=== PATIENT | female | born 1950 | race Caucasian/White ===

== ENCOUNTER → 2020-03-15 10:29 | Outpatient (CLI) | payer MEDICARE, SELFPAY ==
--- NOTE | ~2020-03-15 | XR_ITS ---
EXAMINATION: XR abdomen/kub 1V DATE: 03/15/2020 10:50 INDICATION: Kidney stone. TECHNIQUE: A supine view of the abdomen on 2 radiographs was obtained. COMPARISON: CT abdomen and pelvis 04/29/2019, abdomen radiographs 07/20/2019 FINDINGS: There is a large volume of stool in the colon, which obscures the kidneys. There is a 7 mm stone in right kidney. There is a 15 mm stone in left kidney. There is a 3 mm stone in left kidney. IMPRESSION: 1. Bilateral kidney stones. Reviewed, dictated and finalized at location B. IMPRESSION: 1. Bilateral kidney stones.
== END ==
PROVIDERS: PCP Physician Assistant; Visit Provider Urology
DX: N20.0 Calculus of kidney (principal)
CPT/HCPCS: 74018

== ENCOUNTER 2020-03-25 08:53 | Outpatient (CLI) | payer MEDICARE, SELFPAY ==
--- NOTE | 2020-03-25 08:56 | ECG_ITS ---
Measurements Intervals [place] Rate: 61 P: UT: 0 QRS: -16 QRSD: 72 T: 48 QT: 400 QTc: 405 Interpretive Statements SINUS RHYTHM LOW QRS VOLTAGE IN PRECORDIAL LEADS RSR' IN V1 OR V2, PROBABLY NORMAL VARIANT BASELINE ARTIFACT- I, II, III, AVR, AVL, AVF, V3-V5 BORDERLINE ECG Electronically Signed On 03-25-2020 9:14:17 CDT by Ramesh Monreal D.O.
[2020-03-25 09:33] LABS: Prothrombin Time 12.7 Seconds (11.1-14.7)
[2020-03-25 10:01] LABS: Valproic Acid 92.6 ug/mL (50-120)
== END 2020-03-25 08:54 | disposition home or self-care (01) ==
LOC: ANHSURGERY 08:56
PROVIDERS: Anesthesiology; PCP Physician Assistant; Visit Provider Urology
DX: F17.200 Nicotine dependence, unspecified, uncomplicated (principal); N20.0 Calculus of kidney; Z01.818 Encounter for other preprocedural examination; F32.9 Major depressive disorder, single episode, unspecified
CPT/HCPCS: 36415; 80164; 85610; 85730; 87086; 87088; 93005

== ENCOUNTER 2020-03-30 01:59 | Outpatient (CLI) | payer MEDICARE, SELFPAY ==
[2020-03-30 19:20] LABS: SARS-CoV-2 RNA PCR Negative
== END 2020-03-30 02:00 | disposition home or self-care (01) ==
LOC: ANHCOVIDDT 01:59
PROVIDERS: PCP Physician Assistant; Visit Provider Urology
DX: Z01.812 Encounter for preprocedural laboratory examination (principal); Z20.828 Contact with and (suspected) exposure to other viral communicable diseases
CPT/HCPCS: 87635; C9803; U0003

== ENCOUNTER 2020-04-01 02:14 | Day surgery (SDC) | payer MEDICARE, SELFPAY ==
[2020-03-23 11:50] VITALS: BMI 23.0
[2020-04-01] VITALS (8 sets, daily range): BP systolic 95–158; BP diastolic 63–87; PULSE 51–70; RESP 10–18; TEMP 36.2; O2SAT 97–99
--- NOTE | ~2020-04-01 | XR_ITS ---
EXAMINATION: XR abdomen/kub 1V DATE: 04/01/2020 06:19 INDICATION: Left renal stone TECHNIQUE: A supine view of the abdomen on 2 radiographs was obtained. COMPARISON: 03/15/2020 FINDINGS: No interval change in the 8 mm stone at the mid right kidney and 15 mm and 3 mm stones at the mid lef t kidney. Large amount of gas and stool scattered throughout the colon. Atherosclerotic calcification s along the thoracic and abdominal aorta. Lung bases are clear. Mild lumbar levoscoliosis with severe spondylosis. IMPRESSION: 1. Unchanged bilateral renal stones. Reviewed, dictated and finalized at location A.
--- NOTE | 2020-04-01 06:34 | WPDANESEPPF ---
Anes - Initial Pre Proc Eval Procedure: Operation Date: 04/01/20 07:30 Proposed Procedures p Left Renal Extracorporeal Shock Wave Lithotripsy - Fredo Hankins MD s Cystoscopy, Left Stent Placement - Fredo Hankins MD Date/Time: 04/01/20 06:34 Surgeon: Fredo Hankins MD Pre Op Diagnosis: Left Renal Stone Patient Data Age: 70 Gender: F Height: 5 ft 10 in Weight: 72.7 kg Allergies Allergy/AdvReac Type Severity Reaction Status Date / Time Penicillins Allergy Severe RASH Verified 03/31/20 08:19 clindamycin Allergy Intermediate Rash Verified 03/31/20 08:19 Sulfa (Sulfonamide Allergy Mild Rash Verified 03/31/20 08:19 Antibiotics) sulfacetamide Allergy Mild Rash Verified 03/31/20 08:19 tetracycline Allergy Unknown RASH Verified 03/31/20 08:19 Tetracyclines Allergy Unknown Unknown Verified 03/31/20 08:19 shellfish derived AdvReac Itching Verified 03/31/20 08:19 Home Medications Medication Instructions Recorded Confirmed Type [place] Women's 1 tablet PO DAILY 06/16/19 03/23/20 History buspirone 15 mg PO TID 06/16/19 03/23/20 History divalproex [Depakote] 500 mg PO Q12H 06/16/19 03/23/20 History cyanocobalamin (vitamin B-12) 1,000 mcg PO DAILY 03/23/20 03/23/20 History [Vitamin B-12] divalproex 250 mg PO BID 03/23/20 03/23/20 History Patient hx anesthesia problems: none Family hx anesthesia problems: none PMFSH Past Medical History Medical History Anxiety Depression Depression Smoker Surgical History Surgical History H/O colonoscopy H/O hysterectomy for benign disease H/O: hysterectomy Family History Family History Mother Kidney disease Dementia Hypertension Father Brain cancer Sibling Kidney stones Liver disease Sibling Obesity Schizophrenia Mother Family history of Alzheimer's disease Social History Social History Smoking packs per day: 1 Smoking cigarettes per day: 20.0 Years smoked: 50 Smoking pack-years: 50.00 Smoking status: Current every day smoker Tobacco type: cigarettes Additional smoking assessment comments: Cutting back on smoking and currently at a 1/2 pack a day. Alcohol intake: former Substance use: never Living arrangements: alone Gender identity (if verbalized by the patient): Female Spiritual care concerns: No Agree to blood products: Yes Anes - Eval Final PreProcedure Day of Procedure 04/01/20 06:34 Patient weight: normal Heart: regular rate and rhythm Lungs: clear to auscultation Airway: Mallampati scale class II Neurological: alert and oriented Last oral intake: >/= 8 hours ASA classification: III Emergent: no Anesthetic plan: proceed Anesthesia type and monitoring: general LMA and standard monitoring Informed Consent: The patient's anesthetic plan and its attendant risks and benefits were discussed with the patient/family/POA. Questions were solicited and answers provided to the satisfaction of the patient/family/POA.
--- NOTE | 2020-04-01 07:05 | WPDHPUPDATE1 ---
History and Physical Update Update Date/Time: 04/01/20 07:05 History and Physical has been reviewed, including an updated exam of the patient. There are NO changes in the patient's condition. Risks, benefits, and alternatives have been discussed and questions answered. Patient agrees to proceed with procedure.
[2020-04-01] MEDS: LACTATED RINGERS 1,000 ML 30 ML IV CONT (07:15)
[2020-04-01] MEDS: levoFLOXacin 500 MG/D5W 100 ML 500 MG/100 ML BAG 100 MG IVPB (07:18)
--- NOTE | 2020-04-01 08:10 | PM.PROC ---
Procedure Note - Detailed Date of procedure: 04/01/20 Pre-op diagnosis: Left Renal Stone Post-op diagnosis: same Procedure performed: 1. Cysto., left stent placement 2. Left ESWL Description of procedure: The patient was brought to the operative suite where she was prepped and draped in a routine sterile fashion while in the dorsal lithotomy position. A 19 F rigid cystoscope was placed in her bladder and the bladder was circumferentially inspected. The bladder neck and urethra were endoscopically normal. The bladder mucosa was without hyperemia. There was no intravesical foreign body or neoplasm. There was a single orthotopic ureteral orifice bilaterally. I advanced .035 glidewire into the left renal pelvis under fluoroscopy. A 4.8F variable length ureteral stent was positioned with the proximal coil in the renal pelvis and the distal coil in the bladder. Scopes and wires were removed after emptying the patient's bladder. While in a supine position lithotripsy was then undertaken with the [employer] Lithotripter. Total of 2500 shocks were delivered at a power setting of 4 to her 15 mm left lower pole stone. The stone looked to fragment very nicely. Anesthesia: GLMA Surgeon: Fredo Hankins MD Estimated blood loss (mL): 0 Drains: Yes (4.8F left ureteral stent) Packing: No Pathology: none sent Complications: No immediate complications Condition: stable Disposition: PACU
== END 2020-04-01 10:00 | disposition home or self-care (01) ==
PROVIDERS: PCP Physician Assistant; Visit Provider Urology
PROC: (CPT 50590; principal; 2020-04-01 07:30)
PROC: (CPT 52352; 2020-04-01 07:30)
DX: N20.0 Calculus of kidney (principal); F32.9 Major depressive disorder, single episode, unspecified; F17.200 Nicotine dependence, unspecified, uncomplicated; F41.9 Anxiety disorder, unspecified; Z79.899 Other long term (current) drug therapy
CPT/HCPCS: 52332; 50590; 74018; A9270; C1769; C2617; J1100; J1956; J2250; J2405; J2704; J3010; J7030; J7120

== ENCOUNTER → 2020-04-11 09:17 | Outpatient (CLI) | payer MEDICARE, SELFPAY ==
--- NOTE | ~2020-04-11 | XR_ITS ---
EXAMINATION: XR abdomen/kub 1V EXAM DATE: 04/11/2020 09:43 INDICATION: Renal stone. TECHNIQUE: Frontal projection of the upper abdomen, frontal projection lower abdomen/pelvis for inter pretation. Comparison is made to prior examination from 04/01/2020. FINDINGS: There is large amount of colonic stool and gas obscuring the renal contours. There is a le ft-sided double-J ureteral stent in expected position. Couple of densities which could be left nephro lithiasis identified, much lower in density than the single previously seen calcification, could be c alyceal stone fragments following lithotripsy. The smaller dense right nephrolithiasis identified. IMPRESSION: 1. Right nephrolithiasis. 2. Probable left calyceal stone fragments following lithotripsy. 3. Stent in position. 4. Constipation. Reviewed, dictated and finalized at location B.
== END ==
PROVIDERS: PCP Physician Assistant; Visit Provider Urology
DX: N20.0 Calculus of kidney (principal); Z98.890 Other specified postprocedural states; Z96.0 Presence of urogenital implants; K59.00 Constipation, unspecified
CPT/HCPCS: 74018

== ENCOUNTER → 2020-04-22 10:12 | Outpatient (CLI) | payer MEDICARE, SELFPAY ==
--- NOTE | ~2020-04-22 | XR_ITS ---
EXAMINATION: XR abdomen/kub 1V DATE: 04/22/2020 10:39 INDICATION: Renal stone. TECHNIQUE: A supine view of the abdomen on 2 radiographs was obtained. COMPARISON: CT abdomen and pelvis 04/29/2019, radiograph 04/11/2020 FINDINGS: There are no dilated loops of bowel. There is a large volume of stool in the colon. The kid neys are obscured by bowel. There are stones in the kidneys measuring up to 6 mm on the right and 12 mm on the left. IMPRESSION: 1. Bilateral kidney stones. Reviewed, dictated and finalized at location A. IMPRESSION: 1. Bilateral kidney stones.
== END ==
PROVIDERS: PCP Physician Assistant; Visit Provider Urology
DX: N20.0 Calculus of kidney (principal)
CPT/HCPCS: 74018

== ENCOUNTER → 2020-07-11 11:43 | Outpatient (CLI) | payer MEDICARE, SELFPAY ==
--- NOTE | ~2020-07-11 | XR_ITS ---
EXAMINATION: XR abdomen/kub 1V INDICATION: Renal stone TECHNIQUE: Supine views of the abdomen were obtained on 2 radiographs. COMPARISON: 04/22/2020, 04/11/2020, 04/01/2020 FINDINGS: Stable stones of the kidneys are seen which measure up to 5 mm on the right hand 15 mm on t he left. No stones are identified along the expected courses of the ureters or within the urinary louise dder. There are no dilated loops of bowel. A moderate volume of colonic stool is present. The visual ized lung bases are clear. There is severe lumbar spondylosis. Moderate hip osteoarthritis is noted. IMPRESSION: 1. Stable bilateral nephrolithiasis. Reviewed, dictated and finalized at location A. 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
== END ==
PROVIDERS: Visit Provider Urology
DX: N20.0 Calculus of kidney (principal)
CPT/HCPCS: 74018

== ENCOUNTER 2020-07-23 08:19 | Emergency (ER) | payer MEDICARE, SELFPAY ==
[2020-07-23] VITALS (26 sets, daily range): BP systolic 104–149; BP diastolic 58–87; PULSE 59–72; RESP 12–28; TEMP 36.8; O2SAT 92–96
--- NOTE | ~2020-07-23 | CT_ITS ---
EXAMINATION: CT abd pelvis lumbar wo con DATE: 07/23/2020 09:16 INDICATION: Fall with left hip pain. TECHNIQUE: Computed tomography (CT) of the abdomen or pelvis and lumbar spine was performed without i ntravenous contrast. Automated exposure control and iterative reconstruction technique were employed. The dose-length product was 566.18 mGy-cm. COMPARISON: 04/29/2019 FINDINGS: Abdomen and pelvis: Minimal bibasilar atelectasis. Visualized portion of the inferior heart is normal. No pericardial or pleural effusion. Small sliding-type hiatal hernia. Again seen are a few scattered small hepatic cyst s. Gallbladder, spleen, pancreas and bilateral adrenal glands are normal. Bilateral nephrolithiasis w ith 7 mm stone in the right kidney and several stones in the left kidney including a larger staghorn calculus in the lower pole calyces measuring up to 1.5 cm. No ureteral stones or hydronephrosis. Ther e are several stones in the dependent aspect of the nearly decompressed bladder. Redundant gas-filled colon with small amount of fluid at the rectum consistent with diarrhea. The appendix is not visuali zed. No pericecal inflammatory change to suggest acute appendicitis. Small bowel is unremarkable. The uterus is not identified and has likely been surgically resected. No free intraperitoneal gas or flu id. Small fat-containing left inguinal hernia. No pathologically enlarged abdominal or pelvic lymphad enopathy. There is calcified atherosclerosis of the ectatic abdominal aorta and many of the other art eries. Mild bilateral hip osteoarthritis. No pelvic fractures. Lumbar spine: Mild lumbar levoscoliosis with severe spondylosis including severe disc height loss with Modic type I II sclerotic endplate change at L4-L5. 2-3 mm retrolisthesis L3 on L4 and L4 on L5. Acute L1 compress ion fracture with 20% central vertebral body height loss and subtle linear lucent fracture line seen across the superior endplate. The vertebral body height loss is new since radiographs dated 0. Remaining vertebral body heights are normal. There is moderate to severe central canal stenosis re sulting from disc bulges and facet osteoarthritis with ligamentum flavum hypertrophy at L2-L3 through L4-L5. IMPRESSION: 1. Acute L1 compression fracture with 20% vertebral body height loss, new since 07/11/2020. 2. No acute intra-abdominal/pelvic process. 3. Bilateral nonobstructing nephrolithiasis with additional bladder stones. 4. Fluid at the rectum consistent with diarrhea. 5. Small sliding-type hiatal hernia. 6. Small fat-containing left inguinal hernia. Reviewed, dictated and finalized at location A. 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
--- NOTE | ~2020-07-23 | CT_ITS ---
EXAMINATION: CT brain wo con DATE: 07/23/2020 09:16 INDICATION: Vertigo. Fall. TECHNIQUE: Computed tomography (CT) of the head was performed without intravenous contrast. Sagittal and coronal reconstructions were performed. The mA was adjusted according to patient size. Iterative reconstruction technique was employed. The dose-length product was 681.00 mGy-cm. COMPARISON: head CT dated 05/17/2019 FINDINGS: No fracture. There is mild scattered white matter hypoattenuation consistent with chronic small vesse l ischemic disease. No acute intracranial hemorrhage, acute infarction or abnormal extra axial fluid collection. Symmetric prominence of the sulci consistent with mild age-appropriate diffuse cerebral volume loss. Ventricles are normal and symmetric. No mass/mass effect. The orbits, paranasal sinuses and mastoid air cells are normal. Intracranial calcified cerebral atherosclerosis is noted. IMPRESSION: 1. No fracture or acute intracranial process. 2. Age-related changes including mild diffuse volume loss and mild scattered white matter hypoattenua tion consistent with chronic small vessel ischemic disease. Reviewed, dictated and finalized at location A. FRAME SYSTEMS ADMINISTRATOR IMPRESSION: 1. No fracture or acute intracranial process. 2. Age-related changes including mild diffuse volume loss and mild scattered wh ite matter hypoattenuation consistent with chronic small vessel ischemic diseas e.
--- NOTE | 2020-07-23 08:17 | ED.DIZZY ---
HPI - Dizziness General Chief Complaint: Dizziness Stated Complaint: vertigo History of Present Illness HPI Narrative: 70 yo female with h/o vertigo, depression, kidney stone presents t ot ED after a fall. She was walking in her home yesterday when she suddenly became very dizzy and fell. She beleieves that she may have lost consciousness, although she does not think that she struck her head. The dizziness felt similar to pat vertigo. She als c/o severe pain in the buttocks bilaterally. No leg weakness. Related Data Home Medications Medication Instructions Recorded Confirmed [place] Women's 1 tablet PO DAILY 06/16/19 04/01/20 buspirone 15 mg PO TID 06/16/19 04/01/20 divalproex [Depakote] 500 mg PO Q12H 06/16/19 04/01/20 cyanocobalamin (vitamin B-12) 1,000 mcg PO DAILY 03/23/20 04/01/20 [Vitamin B-12] divalproex 250 mg PO BID 03/23/20 04/01/20 Allergies Allergy/AdvReac Type Severity Reaction Status Date / Time Penicillins Allergy Severe RASH Verified 07/23/20 08:25 clindamycin Allergy Intermediate Rash Verified 07/23/20 08:25 Sulfa (Sulfonamide Allergy Mild Rash Verified 07/23/20 08:25 Antibiotics) sulfacetamide Allergy Mild Rash Verified 07/23/20 08:25 tetracycline Allergy Unknown RASH Verified 07/23/20 08:25 Tetracyclines Allergy Unknown Unknown Verified 07/23/20 08:25 shellfish derived AdvReac Itching Verified 07/23/20 08:25 Review of Systems Review of Systems: All systems reviewed & are unremarkable except as noted in HPI and below Constitutional: Constitutional: Denies chills, Denies fever(s) and Denies weakness Cardiovascular: Cardiovascular: Denies chest pain Respiratory: Respiratory: Denies dyspnea Gastrointestinal: Gastrointestinal: Denies abdominal pain and Reports nausea Genitourinary: Genitourinary: Denies hematuria, Reports nocturia and Denies dysuria Musculoskeletal: Musculoskeletal: Reports back pain Neurologic: Reports vertigo, Denies headache(s), Denies numbness and Denies weakness PMF Past Medical History Medical History Anxiety Depression Depression Smoker Surgical History Surgical History H/O colonoscopy H/O hysterectomy for benign disease H/O: hysterectomy Family History Family History Mother Kidney disease Dementia Hypertension Father Brain cancer Sibling Kidney stones Liver disease Sibling Obesity Schizophrenia Mother Family history of Alzheimer's disease Social History Social History Smoking packs per day: 1 Smoking cigarettes per day: 20.0 Years smoked: 50 Smoking pack-years: 50.00 Smoking status: Current every day smoker Tobacco type: cigarettes Additional smoking assessment comments: Cutting back on smoking and currently at a 1/2 pack a day. Alcohol intake: former Substance use: never Gender identity (if verbalized by the patient): Female Sexual Orientation (if Verbalized by the Patient): Straight or Heterosexual Spiritual care concerns: No Agree to blood products: Yes Exam Const: General: no acute distress, alert and uncomfortable Orientation/consciousness: patient oriented x3 HENMT: Head: no contusions and no lacerations Mouth: Yes dry mucous membranes Eyes: Pupils: Equal, round and reactive pupils present EOM: EOMs intact bilaterally Resp: Effort & Inspection: normal respiratory effort Auscultation: clear to auscultation bilaterally Cardio: Rate: regular rate Rhythm: regular rhythm Back/Spine/Pelvis: Other: Low back tenderness Skin: General skin exam: normal color Neuro: General: patient oriented x3, moves all extremities and CN's II-XI intact bilaterally Speech: normal speech Extrem: General: normal to inspection Course Vital Signs Vital signs: Vital Signs Temperature 36.8 C 07/23/20 08:14 Pulse Rate
--- NOTE | 2020-07-23 08:27 | ECG_ITS ---
Measurements Intervals [place] Rate: 67 P: 70 NV: 141 QRS: 22 QRSD: 78 T: 75 QT: 400 QTc: 423 Interpretive Statements SINUS RHYTHM RSR' IN V1 OR V2, CONSIDER RIGHT VENTRICULAR HYPERTROPHY OR RIGHT VCD DELAYED PRECORDIAL R/S TRANSITION BASELINE ARTIFACT- I, II, III, AVR, AVL, AVF, V1-V6 BORDERLINE ECG Electronically Signed On 07-23-2020 9:11:54 PUBLIC ADDRESS TECHNICIAN by Ramesh Monreal D.O.
[2020-07-23 08:55] LABS: Basophils Percent Auto 0.2 % (0.2-1.2); Eosinophils Absolute Auto 0.1 K/mm3 (0-0.3); Eosinophils Percent Auto 0.7 % (0-4.4); Hemoglobin 15.6 g/dL (12.0-15.0); Immature Granulocyte Absolute 0.04 K/mm3 (0.00-0.031); Immature Granulocyte Percent A 0.5 % (0-0.5); Lymphocytes Absolute Auto 1.88 K/mm3 (0.9-3.2); Lymphocytes Percent Auto 23.4 % (18.3-44.2); Mean Corpuscular HGB Conc 34.7 g/dl (32-36); Mean Corpuscular Hemoglobin 32.2 pg (26-34); Mean Platelet Volume 10.1 fl (7.4-10.4); Monocytes Absolute Auto 0.7 K/mm3 (0.1-0.6); Monocytes Percent Auto 8.7 % (2.6-8.5); Neutrophils Absolute Auto 5.3 K/mm3 (1.3-6.7); Neutrophils Percent Auto 66.5 % (45.5-73.1); Platelet Count Result 198 k/mm3 (150-375); Red Blood Count 4.84 M/mm3 (4.2-5.4); Red Cell Distribution Width 12.6 % (11.5-14.5)
--- NOTE | 2020-07-23 09:01 | PC.NURSE ---
Pt taken to CT at this time
[2020-07-23 09:03] LABS: Add Urine Microscopic? YES; Appearance Urine Clear (Clear); Bilirubin Urine Negative (Negative); Blood Urine Negative (Negative); Calcium Oxalate Crystals Urine Present /hpf; Color Urine Yellow (Yellow); Glucose Urine UA Negative (Negative); Ketones Urine Trace mg/dL (Negative); Leukocyte Esterase Ur Negative LEU/UL (Negative); Mucus Urine Heavy /lpf; Nitrate Urine Negative (Negative); Protein Urine 1+ mg/dL (Negative); Specific Grav Ur 1.015 (1.001-1.035); Squamous Epithelial Cell Urine Rare /hpf (Few); Urobilinogen Urine Negative mg/dL (<2.0)
[2020-07-23 09:07] LABS: Prothrombin Time 13.4 Seconds (11.1-14.7)
[2020-07-23 09:08] LABS: Partial Thromboplastin Time 31.4 SECONDS (22.3-36.8)
[2020-07-23 09:12] LABS: Alanine Aminotransferase 14 U/L (4-35); Alkaline Phosphatase 106 U/L (38-126); Anion Gap 8 mmol/L (8-16); Aspartate Amino Transferase 25 U/L (14-36); Bilirubin,Total 0.9 mg/dL (0.2-1.3); Blood Urea Nitrogen 15 mg/dL (7-17); Calcium 9.2 mg/dL (8.4-10.2); Carbon Dioxide 24 mmol/L (22-30); Chloride 108 mmol/L (98-107); Estimated CRCL calculation 70 ml/min; Estimated Glomerular Filt Rate > 60; Glucose 104 mg/dL (65-105); Potassium 3.5 mmol/L (3.4-5.0); Sodium 140 mmol/L (137-145)
[2020-07-23] MEDS: SODIUM CHLORIDE 0.9% IV 1,000 ML 999 ML IV CONT (09:22)
[2020-07-23] MEDS: MORPHINE SULFATE (*CRX) 2 MG/ML INJ IV PUSH (09:22)
[2020-07-23] MEDS: MECLIZINE HCL 25 MG TABLET PO (09:22)
[2020-07-23] MEDS: MORPHINE SULFATE (*CRX) 4 MG/ML INJ IV PUSH ×2 (12:20→15:22)
--- NOTE | 2020-07-23 15:02 | PC.NURSE ---
[facility] accepted transfer to [facility] ER ETA: [id number]
[2020-07-23] MEDS: FAMOTIDINE 20 MG/2 ML VIAL IV PUSH (16:12)
== END 2020-07-23 16:18 | disposition short-term general hospital (02) ==
PROVIDERS: Emergency Provider Emergency Medicine; PCP Physician Assistant
DX: S32.010A Wedge compression fracture of first lumbar vertebra, initial encounter for closed fracture (principal); F32.9 Major depressive disorder, single episode, unspecified; F41.9 Anxiety disorder, unspecified; F17.210 Nicotine dependence, cigarettes, uncomplicated; Z87.442 Personal history of urinary calculi; N20.0 Calculus of kidney; K44.9 Diaphragmatic hernia without obstruction or gangrene; K40.90 Unilateral inguinal hernia, without obstruction or gangrene, not specified as recurrent; W18.39XA Other fall on same level, initial encounter
CPT/HCPCS: 36415; 51701; 70450; 72131; 74176; 80053; 81001; 84443; 85025; 85610; 85730; 93005; 96361; 96374; 96375; 96376; 99285; A9270; J2270; J7030

== ENCOUNTER 2021-12-23 17:57 | Inpatient (IN) | payer MEDICARE, MEDICAID, SELFPAY ==
[2021-12-23] VITALS (13 sets, daily range): BP systolic 135–154; BP diastolic 73–104; PULSE 54–74; RESP 17–23; TEMP 36.2–36.3; O2SAT 96–99; BMI 26.9
--- NOTE | ~2021-12-23 | CT_ITS ---
EXAMINATION: CT brain wo con DATE: 12/23/2021 18:11 INDICATION: STROKE LIKE SYMPTOMS. SUSPECTED CVA. . TECHNIQUE: Computed tomography (CT) of the head was performed without intravenous contrast. The mA wa s adjusted according to patient size. Iterative reconstruction technique was employed. The dose-lengt h product was 681.00 mGy-cm. COMPARISON: 07/23/2020. FINDINGS: No acute intracranial hemorrhage or extra-axial fluid collection. No hydrocephalus, mass, or herniation. No acute ischemic infarct. Unremarkable dural venous sinus attenuation. No acute osseous abnormality. The aerated spaces are clear. Mild atrophy and chronic white matter change. Atherosclerotic intracranial calcifications. IMPRESSION: No acute intracranial process. Reviewed, dictated and finalized at location K.
--- NOTE | ~2021-12-23 | XR_ITS ---
EXAMINATION: XR chest 1V portable Exam Date/Time: 12/23/2021 18:20 CDT HISTORY: cva Comparison: 03/04/2019. RESULT: Lines, tubes, and devices: None. Lungs and pleura: Senescent and likely emphysematous changes. Cardiomediastinal silhouette: Stable cardiomediastinal silhouette. Other: No acute osseous or upper abdominal finding. IMPRESSION: No acute cardiopulmonary process. Reviewed, dictated and finalized at location K.
--- NOTE | 2021-12-23 18:00 | ECG_ITS ---
Measurements Intervals [place] Rate: 65 P: 67 OR: 155 QRS: 2 QRSD: 77 T: 51 QT: 401 QTc: 417 Interpretive Statements REGULAR SUPRAVENTRICULAR RHYTHM, PROBABLY SINUS RHYTHM BASELINE ARTIFACT NO SIGNIFICANT CHANGE COMPARED TO PRIOR TRACING Electronically Signed On 12-24-2021 8:54:08 CDT by Kalpana Valles M.D.
--- NOTE | 2021-12-23 18:02 | PC.NURSE ---
Daughter states LKW was [id number]
[2021-12-23 18:09] LABS: Glucose Point of Care 120 mg/dl (65-105)
[2021-12-23 18:29] LABS: Basophils Percent Auto 0.4 % (0.2-1.2); Eosinophils Absolute Auto 0.2 K/mm3 (0-0.3); Eosinophils Percent Auto 1.5 % (0-4.4); Hematocrit 43.8 % (37.0-47.0); Hemoglobin 14.3 g/dL (12.0-15.0); Immature Granulocyte Absolute 0.04 K/mm3 (0.00-0.031); Immature Granulocyte Percent A 0.4 % (0-0.5); Lymphocytes Absolute Auto 3.55 K/mm3 (0.9-3.2); Lymphocytes Percent Auto 36.2 % (18.3-44.2); Mean Corpuscular HGB Conc 32.6 g/dl (32-36); Mean Corpuscular Hemoglobin 30.8 pg (26-34); Mean Corpuscular Volume 94.4 fl (80-100); Mean Platelet Volume 9.8 fl (7.4-10.4); Monocytes Absolute Auto 0.9 K/mm3 (0.1-0.6); Monocytes Percent Auto 9.6 % (2.6-8.5); Neutrophils Absolute Auto 5.1 K/mm3 (1.3-6.7); Neutrophils Percent Auto 51.9 % (45.5-73.1); Platelet Count Result 174 k/mm3 (150-375); Red Blood Count 4.64 M/mm3 (4.2-5.4); Red Cell Distribution Width 14.8 % (11.5-14.5); White Blood Count 9.8 K/mm3 (4.5-10.0)
[2021-12-23 18:30] LABS: Appearance Urine Cloudy (Clear); Bilirubin Urine Negative (Negative); Blood Urine Trace-lysed (Negative); Color Urine Yellow (Yellow); Glucose Urine UA Negative (Negative); Ketones Urine Negative (Negative); Leukocyte Esterase Ur 1+ LEU/UL (Negative); Nitrate Urine Negative (Negative); Protein Urine Trace mg/dL (Negative); Specific Grav Ur 1.025 (1.001-1.035); Urobilinogen Urine 0.2 mg/dL (<2.0); pH Urine 6.5 (5.0-9.0)
[2021-12-23 18:35] LABS: Bacteria Urine Trace /hpf; Mucus Urine Rare /lpf; RBC Urine >75 /hpf (0-2); Squamous Epithelial Cell Urine Rare /hpf (Few); WBC Urine 51-75 /hpf
[2021-12-23 18:39] LABS: Alanine Aminotransferase 13 U/L (6-35); Alkaline Phosphatase 92 U/L (38-126); Anion Gap 7 mmol/L (8-16); Aspartate Amino Transferase 26 U/L (14-36); Bilirubin,Total 0.6 mg/dL (0.2-1.3); Blood Urea Nitrogen 44 mg/dL (7-17); Carbon Dioxide 21 mmol/L (22-30); Chloride 113 mmol/L (98-107); Estimated CRCL calculation 62 ml/min; Estimated Glomerular Filt Rate > 60; Glucose 113 mg/dL (65-110); Potassium 4.9 mmol/L (3.4-5.0); Sodium 141 mmol/L (137-145)
[2021-12-23 18:40] LABS: Add Urine Microscopic? YES; Budding Yeast Urine Present /hpf
[2021-12-23 18:41] LABS: Prothrombin Time 13.1 Seconds (11.1-14.7)
[2021-12-23 18:42] LABS: Partial Thromboplastin Time 27.6 SECONDS (22.3-36.8)
[2021-12-23 18:50] LABS: Troponin I < 0.012 ng/mL (0.000-0.034)
--- NOTE | 2021-12-23 19:04 | ED.NEUROSD ---
HPI - Neuro Symptoms/Deficit General Chief Complaint: Suspected CVA Stated Complaint: altered mental status Time Seen by Provider: 12/23/21 18:17 History of Present Illness HPI Narrative: Patient is a 71-year-old female who presents ER after having a episode in the car with her family. She been [facility] for the day when they are driving back patient became very disoriented and confused. They are concerned she was having a stroke. Patient did have some slurred speech. At this time patient is confused but follows commands. She is not oriented. She has no focal weakness or numbness. Related Data Home Medications Medication Instructions Recorded Confirmed divalproex 500 mg tablet,delayed 500 mg PO Q12H 06/16/19 04/01/20 release (Depakote) cyanocobalamin (vitamin B-12) 1,000 mcg PO DAILY 03/23/20 04/01/20 1,000 mcg tablet (Vitamin B-12) Lactobacillus acidoph-L.bulgaricus 1 tablet PO DAILY 10/11/21 1 million cell tablet (Floranex) Allergies Allergy/AdvReac Type Severity Reaction Status Date / Time Penicillins Allergy Severe RASH Verified 12/23/21 18:02 clindamycin Allergy Intermediate Rash Verified 12/23/21 18:02 Sulfa (Sulfonamide Allergy Mild Rash Verified 12/23/21 18:02 Antibiotics) sulfacetamide Allergy Mild Rash Verified 12/23/21 18:02 tetracycline Allergy Unknown RASH Verified 12/23/21 18:02 Tetracyclines Allergy Unknown Unknown Verified 12/23/21 18:02 shellfish derived AdvReac Itching Verified 12/23/21 18:02 Review of Systems Review of Systems: ROS unobtainable: Yes unobtainable due to mental status PMFSH Past Medical History Medical History Anxiety Depression Depression History of kidney stones Smoker Surgical History Surgical History H/O colonoscopy H/O hysterectomy for benign disease H/O: hysterectomy Family History Family History Mother Kidney disease Dementia Hypertension Father Brain cancer Sibling Kidney stones Liver disease Sibling Obesity Schizophrenia Mother Family history of Alzheimer's disease Social History Social History Smoking packs per day: 1 Smoking cigarettes per day: 20.0 Years smoked: 50 Smoking pack-years: 50.00 Smoking status: Current every day smoker Tobacco type: cigarettes Additional smoking assessment comments: Cutting back on smoking and currently at a 1/2 pack a day. Alcohol intake: former Substance use: never Gender identity (if verbalized by the patient): Female Spiritual care concerns: No Agree to blood products: Yes Exam Narrative: GENERAL: Chronically ill-appearing, well-nourished, and in no acute distress. HEAD: Normocephalic, atraumatic. EYES: PERRL and EOMI. ENT: Dry mucous membranes CHEST: Clear to auscultation. No respiratory distress. HEART: Regular rate and rhythm. Normal peripheral pulses. ABDOMEN: Soft, nontender, nondistended. EXTREMITIES: Normal range of motion. No edema. SKIN: Warm, dry, no rash. NEURO: No upper or lower extremity drift. Normal finger-nose testing. Patient mumbles words occasionally. Cranial nerves II through XII intact. Alert and oriented x1. Course Course Emergency Course: Patient resting comfortably. Informed her and her family results. Treatment plan will be to admit to hospital service. Patient less confused earlier. Reevaluation(s) Reevaluation #1: Patient awake alert and oriented x3 although she still seems fatigued. Informed results. Family at bedside. We will plan admission for observation for hydration and IV antibiotics. Date: 12/23/21 Time: 19:15 Vital Signs Vital signs: Vital Signs Temperature 97.3 F L 12/23/21 18:08 Pulse Rate 65 12/23/21 18:08 Respiratory Rate 19 12/23/21 18:08 Blood Pressure 147/104 H 12/23/21 18:08 Pulse Oximetry 97
[2021-12-23 19:07] LABS: SARS-CoV-2 RNA PCR Negative
[2021-12-23] MEDS: SODIUM CHLORIDE 0.9% IV 1,000 ML 999 ML IV CONT (19:27)
--- NOTE | 2021-12-23 21:00 | ADMGEN ---
This patient, Jolly Saldana, was admitted to 2 Medical Room 257-01. Patient/family oriented to hospital policies and general routines including ID bracelet, bed and alarms, visiting hours, pain management, procedures, bathroom and other care routines, personal items, smoking policy, room service/diet, and visiting hours. Information on how to activate the Rapid Response Team has been discussed. Patient/Family are encouraged to report perceived risks to care and to ask questions if they do not understand what they are told or what they should do.
[2021-12-23] MEDS: SODIUM CHLORIDE 0.9% IV 1,000 ML 100 ML IV CONT (21:32)
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
[2021-12-24 05:25] VITALS: BP 120/65; PULSE 57; RESP 18; TEMP 36.4; O2SAT 94
[2021-12-24 07:52] LABS: Glucose Point of Care 107 mg/dl (65-105)
[2021-12-24] MEDS: SODIUM CHLORIDE 0.9% IV 1,000 ML 100 ML IV CONT ×2 (08:29→19:28)
[2021-12-24] MEDS: DIVALPROEX SODIUM DR 250 MG TABEC 500 MG PO ×2 (08:30→17:32)
[2021-12-24] MEDS: MIDODRINE HCL 10 MG TABLET PO ×3 (08:30→17:32)
[2021-12-24] MEDS: ENOXAPARIN 40 MG/0.4 ML SYRINGE SUB-Q (08:30)
[2021-12-24] MEDS: busPIRone HCL 5 MG TABLET 15 MG PO ×3 (08:31→17:31)
[2021-12-24] MEDS: ACIDOPHILUS/BULGARICUS CHEWABLE TABLET 1 TABLET PO (08:31)
[2021-12-24] MEDS: CYANOCOBALAMIN 1,000 MCG TABLET 1000 MCG PO (08:31)
[2021-12-24 08:32] VITALS: RESP 18; O2SAT 94
[2021-12-24] MEDS: PANTOPRAZOLE 40 MG TABLET PO (08:32)
[2021-12-24] MEDS: FLUTICASONE PROPIONATE 0.05% NA SPR 16 GM BTL (*BKC) 1 SPRAY NASAL ×2 (08:32→17:32)
--- NOTE | 2021-12-24 12:33 | PM.EVENT ---
Event Note Event Note Event Note: Follow-up rounding note patient admitted this morning by my colleague for UTI. At the time my visit she is doing well no new complaints and she is stable. We reviewed plan of care together in she is in agreement.
[2021-12-24 14:00] VITALS: BP 127/63; PULSE 61; RESP 14; TEMP 36.6; O2SAT 99
[2021-12-24] MEDS: HYDROcodone/acetaminophen (*CRX) 5-325 MG TABLET 1 TAB PO (14:46)
--- NOTE | 2021-12-24 14:49 | PCCCNOTE ---
On 12/24/21, the student, [Ranjit Motta], provided care and completed [facility] documentation on this patient. I have reviewed the student's documentation and agree with the findings.
[2021-12-24 21:42] VITALS: BP 149/83; PULSE 49; RESP 16; TEMP 36.6; O2SAT 97
[2021-12-25] VITALS (7 sets, daily range): BP systolic 120–151; BP diastolic 60–86; PULSE 55–61; RESP 18–20; TEMP 36.5–37; O2SAT 94–98
[2021-12-25] MEDS: SODIUM CHLORIDE 0.9% IV 1,000 ML 100 ML IV CONT ×2 (06:03→14:21)
[2021-12-25] MEDS: CYANOCOBALAMIN 1,000 MCG TABLET 1000 MCG PO (07:45)
[2021-12-25] MEDS: ACIDOPHILUS/BULGARICUS CHEWABLE TABLET 1 TABLET PO (07:45)
[2021-12-25] MEDS: busPIRone HCL 5 MG TABLET 15 MG PO ×3 (07:45→17:04)
[2021-12-25] MEDS: DIVALPROEX SODIUM DR 250 MG TABEC 500 MG PO ×2 (07:45→17:04)
[2021-12-25] MEDS: ENOXAPARIN 40 MG/0.4 ML SYRINGE SUB-Q (07:45)
[2021-12-25] MEDS: FLUTICASONE PROPIONATE 0.05% NA SPR 16 GM BTL (*BKC) 1 SPRAY NASAL ×2 (07:46→17:04)
[2021-12-25] MEDS: PANTOPRAZOLE 40 MG TABLET PO (07:46)
[2021-12-25] MEDS: MIDODRINE HCL 10 MG TABLET PO ×3 (07:46→17:04)
[2021-12-25] MEDS: FLUCONAZOLE 150 MG TABLET PO (11:43)
--- NOTE | 2021-12-25 13:06 | PM.IMPN ---
Progress Note: A&P Assessment and Plan (1) Altered mental status: Code(s): R41.82 - Altered mental status, unspecified Status: Acute (2) Acute UTI: Code(s): N39.0 - Urinary tract infection, site not specified Status: Acute (3) Dehydration: Code(s): E86.0 - Dehydration Status: Acute (4) Colostomy in place: Code(s): Z93.3 - Colostomy status Status: Acute Plan 12/24/21 Admit to regular medical floor. Patient is started on Rocephin Cultures in progress Deescalate antibiotic as needed Supportive care IV fluids Encourage oral intake Colostomy care AMS, Resolved CT head reviewed 12/25/21 pt doing ok remains AAOx3 denies UTI symptoms no fever, no leukocytosis up working w PT at time of my visit anticipate dc to [facility] soon Subjective Date/time seen: 12/25/21 13:06 pt doing ok no complaints at time of my visit working w PT AAOx3 lives in [facility] Exam Narrative: Const:?? General: comfortab le, no acute distr ess, well develope d, alert and awake ? Nutritional Appe arance: average bambi dy habitus? [place] ation/consciousnes s: patient oriente d x3 HENMT:? Head: normal to in spection, normocep halic and atraumat ic? Eyes:?? General: appearanc e normal, both eye s and all related structures? EOM: EOMs intact bilate rally Neck:?? Neck: full ROM, no lymphadenopathy a nd no JVD? Resp:?? Effort & Inspectio n: normal respirat ory effort and abl e to speak in comp lete sentences? Au scultation: clear to auscultation bi laterally Cardio:?? Jugular venous dis tension: no JVD? R ate: regular rate? Rhythm: regular r hythm? Heart sound s: S1 normal heart sound present and S2 normal heart s ound present GI:?? Inspection: other (Colostomy bag in place)? Skin:?? Rashes: no rashes? Wounds: no wounds Neuro:?? General: patient o riented x3 and CN' s II-XI intact delfin aterally? Cranial nerves: Yes CN's I I-XII intact bilat erally? Cognition (Neuro): normal co gnition? Speech: n ormal speech? Gait exam (Neuro): Kim ble to assess gait ? Motor exam (neur o): 5/5 motor stre ngth present throu ghout Extrem:?? General: normal to inspection, full ROM, no joint enla rgement and no ped al edema Objective Data Vital Signs Vital Signs: Vital Signs - 24 hr 12/24/21 13:08 12/24/21 13:28 12/24/21 14:00 Temperature 97.8 F Pulse Rate 61 Respiratory Rate 14 Blood Pressure 127/63 Pulse Oximetry 99 Oxygen Delivery Room Air Room Air 12/24/21 21:42 12/25/21 04:38 12/25/21 08:00 Temperature 97.8 F 98.6 F 98.3 F Pulse Rate 49 L 55 L 60 Respiratory Rate 16 20 18 Blood Pressure 149/83 H 137/70 120/62 Pulse Oximetry 97 95 96 Oxygen Delivery
[2021-12-26] MEDS: SODIUM CHLORIDE 0.9% IV 1,000 ML 100 ML IV CONT (01:35)
[2021-12-26 05:31] LABS: Basophils Percent Auto 0.5 % (0.2-1.2); Eosinophils Absolute Auto 0.3 K/mm3 (0-0.3); Eosinophils Percent Auto 4.3 % (0-4.4); Hematocrit 41.1 % (37.0-47.0); Hemoglobin 13.5 g/dL (12.0-15.0); Immature Granulocyte Absolute 0.04 K/mm3 (0.00-0.031); Immature Granulocyte Percent A 0.6 % (0-0.5); Lymphocytes Absolute Auto 3.07 K/mm3 (0.9-3.2); Lymphocytes Percent Auto 46.7 % (18.3-44.2); Mean Corpuscular HGB Conc 32.8 g/dl (32-36); Mean Corpuscular Hemoglobin 30.8 pg (26-34); Mean Corpuscular Volume 93.6 fl (80-100); Mean Platelet Volume 9.1 fl (7.4-10.4); Monocytes Absolute Auto 0.7 K/mm3 (0.1-0.6); Monocytes Percent Auto 10.5 % (2.6-8.5); Neutrophils Absolute Auto 2.5 K/mm3 (1.3-6.7); Neutrophils Percent Auto 37.4 % (45.5-73.1); Platelet Count Result 157 k/mm3 (150-375); Red Blood Count 4.39 M/mm3 (4.2-5.4); Red Cell Distribution Width 14.6 % (11.5-14.5); White Blood Count 6.6 K/mm3 (4.5-10.0)
[2021-12-26 05:45] LABS: Anion Gap 3 mmol/L (8-16); Blood Urea Nitrogen 18 mg/dL (7-17); Calcium 8.5 mg/dL (8.4-10.2); Carbon Dioxide 26 mmol/L (22-30); Chloride 110 mmol/L (98-107); Estimated CRCL calculation 69 ml/min; Estimated Glomerular Filt Rate > 60; Glucose 90 mg/dL (65-110); Potassium 3.5 mmol/L (3.4-5.0); Sodium 139 mmol/L (137-145)
[2021-12-26 06:24] VITALS: BP 130/72; PULSE 56; RESP 14; TEMP 36.4; O2SAT 92
[2021-12-26] MEDS: DIVALPROEX SODIUM DR 250 MG TABEC 500 MG PO (08:42)
[2021-12-26] MEDS: ACIDOPHILUS/BULGARICUS CHEWABLE TABLET 1 TABLET PO (08:43)
[2021-12-26] MEDS: busPIRone HCL 5 MG TABLET 15 MG PO (08:43)
[2021-12-26] MEDS: CYANOCOBALAMIN 1,000 MCG TABLET 1000 MCG PO (08:44)
[2021-12-26] MEDS: ENOXAPARIN 40 MG/0.4 ML SYRINGE SUB-Q (08:44)
[2021-12-26] MEDS: PANTOPRAZOLE 40 MG TABLET PO (08:45)
[2021-12-26] MEDS: FLUTICASONE PROPIONATE 0.05% NA SPR 16 GM BTL (*BKC) 1 SPRAY NASAL (08:45)
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
[2021-12-26 12:07] LABS: EDCOVIDSCREEN Negative (Negative)
== END 2021-12-26 13:01 | DRG 690 ==
LOC: ANHED 18:17 → ANH2MED 20:05
PROVIDERS: Emergency Medicine; Hospitalist; Internal Medicine; Admitting Provider Internal Medicine; Emergency Provider Emergency Medicine; PCP Physician Assistant; Visit Provider Family Medicine
DX: N39.0 Urinary tract infection, site not specified (principal); E86.0 Dehydration; Z93.3 Colostomy status; R41.82 Altered mental status, unspecified; Z20.822 Contact with and (suspected) exposure to COVID-19; Z87.891 Personal history of nicotine dependence; F41.9 Anxiety disorder, unspecified; F32.9 Major depressive disorder, single episode, unspecified; Z79.899 Other long term (current) drug therapy; Z84.1 Family history of disorders of kidney and ureter
CPT/HCPCS: 36415; 70450; 71045; 80048; 80053; 81001; 82948; 83735; 84484; 85025; 85610; 85730; 87077; 87086; 87088; 87106; 87426; 93005; 96361; 96365; 96366; 96372; 97110; 97161; 97165; 97530; 97535; 99285; A9270; C9803; G0378; J0696; J1650; J7030; U0003; U0005

== ENCOUNTER 2022-01-11 20:03 | Inpatient (IN) | payer MEDICARE, MEDICAID, SELFPAY ==
--- NOTE | ~2022-01-11 | XR_ITS ---
EXAMINATION: XR chest 2V DATE: 01/11/2022 20:46 INDICATION: Weakness and chills TECHNIQUE: AP and lateral views of the chest are obtained. COMPARISON: 12/23/2021 FINDINGS: The lungs are free of acute opacities. There is no pleural effusion or pneumothorax. The ca rdiomediastinal silhouette is normal. There is moderate thoracic spondylosis. IMPRESSION: 1. No acute cardiopulmonary abnormality. Reviewed, dictated and finalized at location F.
[2022-01-11 20:05] VITALS: BP 91/60; PULSE 82; RESP 16; TEMP 36.3; O2SAT 96
[2022-01-11 20:20] VITALS: BP 116/81; PULSE 65; RESP 25; O2SAT 95
--- NOTE | 2022-01-11 20:29 | ED.WEAKNESS ---
HPI - Weakness General Chief complaint: Weakness Stated complaint: UTI not feeling well Time Seen by Provider: 01/11/22 20:14 History of Present Illness HPI Narrative: Pt presents with generalized weakness, dysuria, frequncy and chills for the last couple of days. Pt had similar symptoms a few weeks ago and was admitted for a UTI (pt confused then as well not now). Pt denies cough or known fever or covid exposure. Pt completed full course of antibiotics from last UTI. Related Data Home Medications Medication Instructions Recorded Confirmed cyanocobalamin (vitamin B-12) 1,000 mcg PO DAILY 03/23/20 12/23/21 1,000 mcg tablet (Vitamin B-12) Lactobacillus acidoph-L.bulgaricus 1 tablet PO DAILY 10/11/21 12/23/21 1 million cell tablet (Floranex) Flonase 1 spray intranasal BID 12/23/21 12/23/21 Protonix 40 mg PO DAILY 12/23/21 12/23/21 midodrine 10 mg PO TID 12/23/21 12/23/21 Allergies Allergy/AdvReac Type Severity Reaction Status Date / Time Penicillins Allergy Severe RASH Verified 01/11/22 20:10 clindamycin Allergy Intermediate Rash Verified 01/11/22 20:10 Sulfa (Sulfonamide Allergy Mild Rash Verified 01/11/22 20:10 Antibiotics) sulfacetamide Allergy Mild Rash Verified 01/11/22 20:10 tetracycline Allergy Unknown RASH Verified 01/11/22 20:10 shellfish derived AdvReac Itching Verified 01/11/22 20:10 Review of Systems Review of Systems: All systems reviewed & are unremarkable except as noted in HPI and below PMFSH Past Medical History Medical History Anxiety Depression Depression History of kidney stones Smoker Surgical History Surgical History H/O colonoscopy H/O hysterectomy for benign disease H/O: hysterectomy Family History Family History (Updated 12/23/21 @ 21:21 by Stan Ramesh RN) Mother Dementia Kidney disease Hypertension Family history of Alzheimer's disease Father Brain cancer Sibling Liver disease Kidney stones Sibling Schizophrenia Obesity Mother No problems noted. Social History Social History Smoking packs per day: 1.5 Smoking cigarettes per day: 30.0 Years smoked: 40 Smoking pack-years: 60.00 Smoking status: Former smoker Tobacco type: cigarettes Additional smoking assessment comments: Cutting back on smoking and currently at a 1/2 pack a day. Alcohol intake: never Substance use: never Gender identity (if verbalized by the patient): Female Spiritual care concerns: No Agree to blood products: Yes Exam Const: General: healthy appearing and no acute distress Nutritional Appearance: well nourished Orientation/consciousness: patient oriented x3 Limitations: no limitations HENMT: Head: normal to inspection Mouth: Yes Normal oral and palatal mucosa present Eyes: Pupils: Equal, round and reactive pupils present EOM: EOMs intact bilaterally Neck: Neck: normal visual inspection, no lymphadenopathy and no meningeal signs Resp: Effort & Inspection: normal respiratory effort Auscultation: clear to auscultation bilaterally Cardio: Rate: regular rate Rhythm: regular rhythm GI: GI Palp: Yes Soft to palpation Auscultation: normal bowel sounds : General: Yes no CVA tenderness Back/Spine/Pelvis: Back: no CVA tenderness Skin: General skin exam: normal color Rashes: no rashes Wounds: no wounds Neuro: General: patient oriented x3, moves all extremities, no meningeal signs, no focal motor deficits and CN's II-XI intact bilaterally Cranial nerves: Yes Nystagmus not present Speech: normal speech Extrem: General: normal to inspection and no clubbing, cyanosis or edema Psych: Mental Status: mental status grossly normal Affect: normal affect Attitude: cooperative Course Vital Signs Vital signs: Vital Signs Temperature 97.3 F L 01/11/22 20:05 Pulse Rate 82 01/11/22 20:05 Respiratory Rate 16
[2022-01-11] MEDS: SODIUM CHLORIDE 0.9% IV 1,000 ML 999 ML IV CONT (20:55)
[2022-01-11] MEDS: KETOROLAC 30 MG/ML VIAL (*BKC) IV PUSH (20:55)
[2022-01-11 21:19] LABS: Basophils Percent Auto 0.4 % (0.2-1.2); Eosinophils Absolute Auto 0.1 K/mm3 (0-0.3); Eosinophils Percent Auto 1.5 % (0-4.4); Hematocrit 41.6 % (37.0-47.0); Hemoglobin 13.9 g/dL (12.0-15.0); Immature Granulocyte Absolute 0.05 K/mm3 (0.00-0.031); Immature Granulocyte Percent A 0.6 % (0-0.5); Lymphocytes Absolute Auto 2.02 K/mm3 (0.9-3.2); Lymphocytes Percent Auto 25.2 % (18.3-44.2); Mean Corpuscular HGB Conc 33.4 g/dl (32-36); Mean Corpuscular Hemoglobin 31.4 pg (26-34); Mean Corpuscular Volume 94.1 fl (80-100); Mean Platelet Volume 10.2 fl (7.4-10.4); Monocytes Absolute Auto 0.7 K/mm3 (0.1-0.6); Monocytes Percent Auto 8.3 % (2.6-8.5); Neutrophils Absolute Auto 5.1 K/mm3 (1.3-6.7); Platelet Count Result 149 k/mm3 (150-375); Red Blood Count 4.42 M/mm3 (4.2-5.4); Red Cell Distribution Width 14.6 % (11.5-14.5)
[2022-01-11 21:30] LABS: INR 1.1; Prothrombin Time 13.4 Seconds (11.1-14.7)
[2022-01-11 21:31] LABS: Partial Thromboplastin Time 30.8 SECONDS (22.3-36.8)
[2022-01-11 21:32] LABS: Alanine Aminotransferase 16 U/L (6-35); Albumin Level 3.7 g/dL (3.5-5.1); Alkaline Phosphatase 82 U/L (38-126); Anion Gap 8 mmol/L (8-16); Aspartate Amino Transferase 27 U/L (14-36); Bilirubin,Total 0.4 mg/dL (0.2-1.3); Blood Urea Nitrogen 50 mg/dL (7-17); CRP < 0.5 mg/dL (<1.0); Calcium 8.5 mg/dL (8.4-10.2); Carbon Dioxide 21 mmol/L (22-30); Chloride 111 mmol/L (98-107); Estimated CRCL calculation 49 ml/min; Estimated Glomerular Filt Rate 54; Glucose 115 mg/dL (65-110); Potassium 4.6 mmol/L (3.4-5.0); Sodium 140 mmol/L (137-145)
[2022-01-11 21:43] LABS: Add Urine Microscopic? YES; Appearance Urine Slightly Cloudy (Clear); Bilirubin Urine 1+ (Negative); Blood Urine 3+ (Negative); Color Urine Yellow (Yellow); Glucose Urine UA Negative (Negative); Ketones Urine Trace mg/dL (Negative); Leukocyte Esterase Ur 2+ LEU/UL (Negative); Nitrate Urine Negative (Negative); Protein Urine 1+ mg/dL (Negative); Specific Grav Ur 1.025 (1.001-1.035); pH Urine 5.5 (5.0-9.0)
[2022-01-11 21:49] LABS: Bacteria Urine Trace /hpf; Mucus Urine Rare /lpf; RBC Urine >75 /hpf (0-2); Squamous Epithelial Cell Urine Moderate /hpf (Few); WBC Urine >75 /hpf
[2022-01-12] MEDS: SODIUM CHLORIDE 0.9% IV 1,000 ML 999 ML IV CONT (00:46)
[2022-01-12 01:45] VITALS: BP 117/68; PULSE 58; RESP 16; TEMP 35.8; O2SAT 96; BMI 25.9
--- NOTE | 2022-01-12 01:50 | ADMGEN ---
This patient, Jolly Saldana, was admitted to [facility] Surg Room 307-01. Patient/family oriented to hospital policies and general routines including ID bracelet, bed and alarms, visiting hours, pain management, procedures, bathroom and other care routines, personal items, smoking policy, room service/diet, and visiting hours. Information on how to activate the Rapid Response Team has been discussed. Patient/Family are encouraged to report perceived risks to care and to ask questions if they do not understand what they are told or what they should do.
--- NOTE | 2022-01-12 03:54 | PM.IMHP ---
H&P: HPI History of Present Illness Date/Time: 01/12/22 03:54 Chief Complaint: Generalized weakness Narrative: Greater than 30 minutes spent reviewing chart, evaluating, counseling, treating patient. Anticipate less than 48 hours of admission, will admit as observation. 71-year-old female past medical history of depression/anxiety, prior history of tracheostomy now reversed, history of right renal stones requiring stent and stone extraction, history of a gangrenous sigmoid volvulus status post colostomy. Recent admission 12/23 for UTI, urine culture at that time positive for aerococcus urinae and Karis albicans. Was treated with Rocephin. Presents from snf with generalized weakness to the point that she was not comfortable walking. She reports she felt better for a day after leaving the hospital, however after that she began to have increased urinary frequency with pressure and progressive generalized weakness. She denies fevers, however she states she has been having chills that caused her to shake. Denies chest pain. Admits to dyspnea on exertion, longstanding. Admits to nausea, however no vomiting. Denies diarrhea/constipation. Denies hematuria, dysuria. Denies flank pain. In ED, patient is afebrile. Other vital signs normal. White count normal. UA showing 3+ blood and 2+ leukocyte esterase, moderate squamous cells. BUN 50/creatinine 1. Patient given 1 L of IV fluid, a dose of Rocephin. Blood cultures drawn, urine culture pending. Review of Systems Review of Systems: 10 point ROS performed, negative unless otherwise stated in HPI PMFSH Past Medical History Medical History Anxiety Depression Depression History of kidney stones Smoker Surgical History Surgical History H/O colonoscopy H/O hysterectomy for benign disease H/O: hysterectomy Family History Family History (Updated 12/23/21 @ 21:21 by Stan Ramesh RN) Mother Dementia Kidney disease Hypertension Family history of Alzheimer's disease Father Brain cancer Sibling Liver disease Kidney stones Sibling Schizophrenia Obesity Mother No problems noted. Social History Social History Smoking packs per day: 1.5 Smoking cigarettes per day: 30.0 Years smoked: 40 Smoking pack-years: 60.00 Smoking status: Former smoker Tobacco type: cigarettes Additional smoking assessment comments: Cutting back on smoking and currently at a 1/2 pack a day. Alcohol intake: never Substance use: never Gender identity (if verbalized by the patient): Female Spiritual care concerns: No Agree to blood products: Yes Meds Home Medications and Allergies Home Medications Medication Instructions Recorded Confirmed Type cyanocobalamin (vitamin B-12) 1,000 mcg PO DAILY 03/23/20 01/12/22 History 1,000 mcg tablet (Vitamin B-12) buspirone 15 mg tablet 15 mg PO TID #90 tabs 03/06/21 01/12/22 Rx Lactobacillus acidoph-L.bulgaricus 1 tablet PO DAILY 10/11/21 01/12/22 History 1 million cell tablet (Floranex) Flonase 1 spray intranasal BID 12/23/21 01/12/22 History Protonix 40 mg PO DAILY 12/23/21 01/12/22 History midodrine 10 mg PO TID 12/23/21 01/12/22 History divalproex 250 mg tablet,delayed 500 mg PO TID 30 days #90 tabs 12/26/21 01/12/22 Rx release (Depakote) albuterol sulfate 90 mcg/actuation 2 puff inhalation QID PRN 01/12/22 01/12/22 History aerosol inhaler (Ventolin HFA) Shortness Of Breath Or Wheezing aspirin 81 mg chewable tablet 81 mg PO DAILY 01/12/22 01/12/22 History meloxicam 7.5 mg tablet 1 tablet PO DAILY 01/12/22 01/12/22 History potassium chloride 20 mEq 40 tablet PO DAILY 01/12/22 01/12/22 History tablet,extended release(part/cryst) Allergies Allergy/AdvReac Type Severity Reaction Status Date / Time Penicillins Allergy Severe RASH Verified 01/11/22 20:10 clindamycin Parviz
[2022-01-12 05:17] VITALS: BP 128/73; PULSE 109; RESP 20; TEMP 36.1; O2SAT 98
[2022-01-12 06:10] LABS: Basophils Percent Auto 0.3 % (0.2-1.2); Eosinophils Absolute Auto 0.1 K/mm3 (0-0.3); Hematocrit 36.7 % (37.0-47.0); Hemoglobin 12.2 g/dL (12.0-15.0); Immature Granulocyte Absolute 0.03 K/mm3 (0.00-0.031); Immature Granulocyte Percent A 0.5 % (0-0.5); Immature Platelet Fraction Pct 3.3 % (0.9-11.2); Lymphocytes Absolute Auto 2.73 K/mm3 (0.9-3.2); Lymphocytes Percent Auto 44.5 % (18.3-44.2); Mean Corpuscular HGB Conc 33.2 g/dl (32-36); Mean Corpuscular Hemoglobin 31.3 pg (26-34); Mean Corpuscular Volume 94.1 fl (80-100); Mean Platelet Volume 10.1 fl (7.4-10.4); Monocytes Absolute Auto 0.7 K/mm3 (0.1-0.6); Monocytes Percent Auto 10.9 % (2.6-8.5); Neutrophils Absolute Auto 2.6 K/mm3 (1.3-6.7); Neutrophils Percent Auto 41.8 % (45.5-73.1); Platelet Count Result 128 k/mm3 (150-375); Red Cell Distribution Width 14.5 % (11.5-14.5); White Blood Count 6.1 K/mm3 (4.5-10.0)
[2022-01-12 06:24] LABS: Anion Gap 1 mmol/L (8-16); Blood Urea Nitrogen 45 mg/dL (7-17); Calcium 7.6 mg/dL (8.4-10.2); Carbon Dioxide 25 mmol/L (22-30); Chloride 113 mmol/L (98-107); Estimated CRCL calculation 61 ml/min; Estimated Glomerular Filt Rate > 60; Glucose 96 mg/dL (65-110); Sodium 139 mmol/L (137-145)
[2022-01-12 08:00] VITALS: BP 118/68; PULSE 106; RESP 20; TEMP 36.1; O2SAT 98
[2022-01-12] MEDS: ASPIRIN 81 MG CHEWABLE TABLET PO (10:12)
[2022-01-12] MEDS: MIDODRINE HCL 10 MG TABLET PO ×3 (10:12→17:24)
[2022-01-12] MEDS: FLUCONAZOLE 150 MG TABLET PO (10:13)
[2022-01-12] MEDS: MELOXICAM 7.5 MG TABLET PO (10:13)
[2022-01-12] MEDS: PANTOPRAZOLE 40 MG TABLET PO (10:13)
[2022-01-12] MEDS: CYANOCOBALAMIN 1,000 MCG TABLET 1000 MCG PO (10:13)
[2022-01-12] MEDS: DIVALPROEX SODIUM DR 250 MG TABEC 500 MG PO ×3 (10:13→17:24)
[2022-01-12] MEDS: ENOXAPARIN 40 MG/0.4 ML SYRINGE SUB-Q (10:13)
[2022-01-12] MEDS: busPIRone HCL 5 MG TABLET 15 MG PO ×3 (10:13→17:24)
--- NOTE | 2022-01-12 14:51 | PCCCNOTE ---
On 01/12/22, the student, [Radha Motta], provided care and completed [facility] documentation on this patient. I have reviewed the student's documentation and agree with the findings.
[2022-01-12 15:35] VITALS: BP 136/70; PULSE 60; RESP 20; TEMP 36.2; O2SAT 95
[2022-01-13] VITALS: BP 140/83; PULSE 55; RESP 16; TEMP 37.1; O2SAT 96
[2022-01-13 06:34] LABS: Basophils Percent Auto 0.5 % (0.2-1.2); Eosinophils Absolute Auto 0.3 K/mm3 (0-0.3); Eosinophils Percent Auto 3.1 % (0-4.4); Hematocrit 39.3 % (37.0-47.0); Hemoglobin 13.1 g/dL (12.0-15.0); Immature Granulocyte Absolute 0.05 K/mm3 (0.00-0.031); Immature Granulocyte Percent A 0.6 % (0-0.5); Immature Platelet Fraction Pct 3.5 % (0.9-11.2); Lymphocytes Absolute Auto 2.57 K/mm3 (0.9-3.2); Lymphocytes Percent Auto 31.4 % (18.3-44.2); Mean Corpuscular HGB Conc 33.3 g/dl (32-36); Mean Corpuscular Hemoglobin 31.3 pg (26-34); Mean Platelet Volume 10.3 fl (7.4-10.4); Monocytes Absolute Auto 0.9 K/mm3 (0.1-0.6); Monocytes Percent Auto 10.5 % (2.6-8.5); Neutrophils Absolute Auto 4.4 K/mm3 (1.3-6.7); Neutrophils Percent Auto 53.9 % (45.5-73.1); Platelet Count Result 127 k/mm3 (150-375); Red Blood Count 4.18 M/mm3 (4.2-5.4); Red Cell Distribution Width 14.4 % (11.5-14.5); White Blood Count 8.2 K/mm3 (4.5-10.0)
[2022-01-13 06:47] LABS: Anion Gap 5 mmol/L (8-16); Blood Urea Nitrogen 30 mg/dL (7-17); Carbon Dioxide 24 mmol/L (22-30); Chloride 108 mmol/L (98-107); Estimated CRCL calculation 69 ml/min; Estimated Glomerular Filt Rate > 60; Glucose 94 mg/dL (65-110); Potassium 3.7 mmol/L (3.4-5.0); Sodium 137 mmol/L (137-145)
[2022-01-13 08:00] VITALS: PULSE 55; RESP 16; O2SAT 96
[2022-01-13] MEDS: DIVALPROEX SODIUM DR 250 MG TABEC 500 MG PO ×3 (08:02→16:21)
[2022-01-13] MEDS: ENOXAPARIN 40 MG/0.4 ML SYRINGE SUB-Q (08:02)
[2022-01-13] MEDS: ASPIRIN 81 MG CHEWABLE TABLET PO (08:02)
[2022-01-13] MEDS: MIDODRINE HCL 10 MG TABLET PO ×3 (08:02→16:21)
[2022-01-13] MEDS: CYANOCOBALAMIN 1,000 MCG TABLET 1000 MCG PO (08:03)
[2022-01-13] MEDS: MELOXICAM 7.5 MG TABLET PO (08:03)
[2022-01-13] MEDS: busPIRone HCL 5 MG TABLET 15 MG PO ×3 (08:03→16:21)
[2022-01-13] MEDS: PANTOPRAZOLE 40 MG TABLET PO (08:03)
--- NOTE | 2022-01-13 13:28 | PM.IMPN ---
Progress Note: A&P Assessment and Plan (1) Weakness: Code(s): R53.1 - Weakness Status: Acute Assessment and Plan: May be secondary infection versus deconditioning. -Continue PT/OT. -Home health PT/OT recommended and will be arranged at discharge. (2) Acute UTI: Code(s): N39.0 - Urinary tract infection, site not specified Status: Acute Assessment and Plan: Urine culture with mixed sondra. Symptoms improved. -Stop cefepime. -She was given 1 time dose diflucan 150 mg on 01/12 and consider repeat in 48 hours if symptoms persist. -Blood cultures without growth currently. (3) Dehydration: Code(s): E86.0 - Dehydration Status: Acute Assessment and Plan: Give 1 L of fluid on admission. Renal function improved following fluids. -Encourage oral fluids. (4) Depression: Code(s): F32.9 - Major depressive disorder, single episode, unspecified Status: Chronic Assessment and Plan: -Continue Depakote and BuSpar Plan Continue therapy. Plan to discharge 1-2 days when patient is able to return to assisted living. Time Spent With Patient Time with patient: 15 - 25 minutes Subjective Date/time seen: 01/13/22 13:28 Patient is a 71 yo female with medical history of anxiety, depression, and kidney stones. She presented to the ED, from assisted living facility, with c/o generalized weakness and dysuria. She was referred for observation for management of possible recurrent UTI. Patient found sitting up in bed eating lunch. She reports still feeling weak today. She was only able to walk to the hospital door and to sit up in the chair for 15 minutes. She endorses incontinence, but reports her urgency is slightly improved. She has mild right back pain. No abd pain, N/V/D or constipation. Review of Systems Review of Systems: All systems reviewed & are unremarkable except as noted in HPI and below Exam Narrative: GENERAL: no distress, older adult female lying in bed. No oxygen. HEENT: normocephalic, atraumatic. PERRLA/EOMI, conjunctivae clear. Hearing grossly intact. Mucous membranes pink. NECK: Supple. LUNGS: Respirations unlabored. Clear to auscultation bilaterally, no rales, rhonchi, wheezing. HEART: Normal S1 and S2 regular rate and rhythm without murmurs, rubs or gallops. ABDOMEN: Soft, round, nontender to palpation. LLQ colostomy patent with brown soft stool. No CVA or suprapubic tenderness. normoactive bowel sounds.? No guarding. EXTREMITIES: Moves all extremities equally and with full strength. No edema. No calf tenderness. NEURO: Alert. AOx4. Cranial nerves II through XII intact.? Grossly intact SKIN: Warm, dry. Normal Color. No rashes, lesions or open wounds. PSYCHIATRIC: Neutral mood and flat affect Objective Data Vital Signs Vital Signs: Vital Signs - 24 hr 01/12/22 15:35 01/12/22 20:00 01/13/22 00:00 Temperature 97.1 F L 98.7 F Pulse Rate 60 55 L Respiratory Rate 20 16 Blood Pressure 136/70 140/83 Pulse Oximetry 95 96 Oxygen Delivery Room Air 01/13/22 08:00 Temperature Pulse Rate 55 L Respiratory Rate 16 Blood Pressure Pulse Oximetry 96 Oxygen Delivery Room Air Intake/Output Intake/Output: Intake & Output 01/10/22 01/11/22 01/12/22 01/13/22 23:59 23:59 23:59 23:59 Intake Total 1050 2140 1820 Output Total 2350 1300 Balance 1050 -210 520 Meds/Results Medications: Active Medications Generic Name Dose Route Start Last Admin Trade Name Freq PRN Reason Stop Dose Admin Albuterol 2 puff 01/12/22 02:56 Albuterol Sulfate (*Sp) Aerosol 1 Puff INHALATION QID PRN Shortness Of Breath Or Wheezing Aspirin 81 mg 01/12/22 08:00 01/13/22 08:02 Aspirin 81 Mg Chewable Tablet PO 81 mg DAILY@0800 [facility] Administration Buspirone HCl 15 mg 01/12/22 09:00 01/13/22 12:31 Buspirone Hcl 5 Mg Tablet PO 15 mg TID [facility] Administration Cyanocobalamin 1,000 mcg
[2022-01-13 14:37] VITALS: BP 136/67; PULSE 54; RESP 16; TEMP 36.2; O2SAT 95
[2022-01-13] MEDS: SENNA/DOCUSATE SODIUM TABLET 1 TAB PO (20:07)
[2022-01-13 23:32] VITALS: BP 114/71; PULSE 57; RESP 16; TEMP 36.5; O2SAT 93
[2022-01-14 06:24] LABS: Anion Gap 5 mmol/L (8-16); Blood Urea Nitrogen 33 mg/dL (7-17); Calcium 8.3 mg/dL (8.4-10.2); Carbon Dioxide 26 mmol/L (22-30); Chloride 106 mmol/L (98-107); Estimated CRCL calculation 61 ml/min; Estimated Glomerular Filt Rate > 60; Glucose 89 mg/dL (65-110); Potassium 3.8 mmol/L (3.4-5.0); Sodium 137 mmol/L (137-145)
[2022-01-14 06:26] LABS: Basophils Percent Auto 0.4 % (0.2-1.2); Eosinophils Absolute Auto 0.2 K/mm3 (0-0.3); Eosinophils Percent Auto 3.4 % (0-4.4); Hematocrit 38.2 % (37.0-47.0); Hemoglobin 12.4 g/dL (12.0-15.0); Immature Granulocyte Absolute 0.08 K/mm3 (0.00-0.031); Immature Granulocyte Percent A 1.2 % (0-0.5); Immature Platelet Fraction Pct 3.5 % (0.9-11.2); Lymphocytes Absolute Auto 2.77 K/mm3 (0.9-3.2); Lymphocytes Percent Auto 41.5 % (18.3-44.2); Mean Corpuscular HGB Conc 32.5 g/dl (32-36); Mean Corpuscular Hemoglobin 30.8 pg (26-34); Mean Corpuscular Volume 94.8 fl (80-100); Mean Platelet Volume 9.9 fl (7.4-10.4); Monocytes Absolute Auto 0.8 K/mm3 (0.1-0.6); Monocytes Percent Auto 11.7 % (2.6-8.5); Neutrophils Absolute Auto 2.8 K/mm3 (1.3-6.7); Neutrophils Percent Auto 41.8 % (45.5-73.1); Platelet Count Result 136 k/mm3 (150-375); Red Blood Count 4.03 M/mm3 (4.2-5.4); Red Cell Distribution Width 14.5 % (11.5-14.5); White Blood Count 6.7 K/mm3 (4.5-10.0)
[2022-01-14 08:00] VITALS: PULSE 57; RESP 16; O2SAT 93
[2022-01-14] MEDS: busPIRone HCL 5 MG TABLET 15 MG PO ×3 (08:28→16:20)
[2022-01-14] MEDS: PANTOPRAZOLE 40 MG TABLET PO (08:29)
[2022-01-14] MEDS: CYANOCOBALAMIN 1,000 MCG TABLET 1000 MCG PO (08:29)
[2022-01-14] MEDS: ENOXAPARIN 40 MG/0.4 ML SYRINGE SUB-Q (08:29)
[2022-01-14] MEDS: ASPIRIN 81 MG CHEWABLE TABLET PO (08:29)
[2022-01-14] MEDS: MIDODRINE HCL 10 MG TABLET PO ×3 (08:29→16:20)
[2022-01-14] MEDS: DIVALPROEX SODIUM DR 250 MG TABEC 500 MG PO ×3 (08:29→16:20)
[2022-01-14] MEDS: MELOXICAM 7.5 MG TABLET PO (08:29)
--- NOTE | 2022-01-14 12:18 | PC.NURSE ---
Daughter noted to this nurse that patient appears to be more confused at times and is concerned patient could have had a stroke. Neurological assessment negative. Provider made aware. New orders to perform Neurological assessments every four hours x 24 hours. Obtain UA per straight catheterization. Mini mental exam and geriatric depression scale per care coordination. New orders noted. Floor nurse and patient made aware. Left message for Isabel valencia to discuss update and new orders. Pending response. Care coordination made aware of orders.
[2022-01-14 14:22] LABS: Vitamin B12 > 1000.0 pg/mL (239-931)
[2022-01-14 14:32] VITALS: BP 126/52; PULSE 55; RESP 12; TEMP 36.6; O2SAT 97
--- NOTE | 2022-01-14 14:47 | PC.NURSE ---
ua collected and sent to lab for analysis.
[2022-01-14 14:55] LABS: Appearance Urine Clear (Clear); Bilirubin Urine Negative (Negative); Blood Urine Trace-lysed (Negative); Color Urine Yellow (Yellow); Glucose Urine UA Negative (Negative); Ketones Urine Negative (Negative); Leukocyte Esterase Ur 1+ LEU/UL (Negative); Nitrate Urine Negative (Negative); Protein Urine 1+ mg/dL (Negative); Urobilinogen Urine 0.2 mg/dL (<2.0)
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
[2022-01-14 15:07] LABS: Bacteria Urine Trace /hpf; Mucus Urine Rare /lpf; Squamous Epithelial Cell Urine Rare /hpf (Few); WBC Urine 31-50 /hpf
[2022-01-14 15:13] LABS: Add Urine Microscopic? YES
[2022-01-14] MEDS: SACCHAROMYCES BOULARDII 250 MG CAPSULE PO (16:20)
[2022-01-14] MEDS: MELATONIN 3 MG TABLET PO (20:52)
[2022-01-14] MEDS: SENNA/DOCUSATE SODIUM TABLET 1 TAB PO (20:52)
[2022-01-14 21:55] VITALS: BP 127/68; PULSE 50; RESP 18; TEMP 36.8; O2SAT 96
[2022-01-14] MEDS: FLUTICASONE PROPIONATE 0.05% NA SPR 16 GM BTL (*BKC) 1 SPRAY NASAL (23:53)
[2022-01-15 05:50] VITALS: BP 110/62; PULSE 52; RESP 18; TEMP 36.8; O2SAT 95
[2022-01-15 06:49] LABS: Anion Gap 5 mmol/L (8-16); Blood Urea Nitrogen 48 mg/dL (7-17); CRP < 0.5 mg/dL (<1.0); Calcium 8.2 mg/dL (8.4-10.2); Carbon Dioxide 25 mmol/L (22-30); Chloride 106 mmol/L (98-107); Estimated CRCL calculation 55 ml/min; Estimated Glomerular Filt Rate > 60; Glucose 87 mg/dL (65-110); Sodium 136 mmol/L (137-145)
[2022-01-15 08:00] VITALS: PULSE 52; RESP 18; O2SAT 95
[2022-01-15] MEDS: ENOXAPARIN 40 MG/0.4 ML SYRINGE SUB-Q (08:28)
[2022-01-15] MEDS: FLUTICASONE PROPIONATE 0.05% NA SPR 16 GM BTL (*BKC) 1 SPRAY NASAL ×2 (08:28→21:35)
[2022-01-15] MEDS: DIVALPROEX SODIUM DR 250 MG TABEC 500 MG PO ×3 (08:28→16:18)
[2022-01-15] MEDS: PANTOPRAZOLE 40 MG TABLET PO (08:28)
[2022-01-15] MEDS: MELOXICAM 7.5 MG TABLET PO (08:29)
[2022-01-15] MEDS: CYANOCOBALAMIN 1,000 MCG TABLET 1000 MCG PO (08:29)
[2022-01-15] MEDS: busPIRone HCL 5 MG TABLET 15 MG PO ×3 (08:29→16:18)
[2022-01-15] MEDS: MIDODRINE HCL 10 MG TABLET PO ×3 (08:29→16:18)
[2022-01-15] MEDS: ASPIRIN 81 MG CHEWABLE TABLET PO (08:29)
[2022-01-15] MEDS: SACCHAROMYCES BOULARDII 250 MG CAPSULE PO ×2 (10:48→16:18)
[2022-01-15] MEDS: POTASSIUM CHLORIDE 20 MEQ TABLET.ER PO (10:48)
--- NOTE | 2022-01-15 14:22 | PC.NURSE ---
pt awaiting placement at rehab facility.
--- NOTE | 2022-01-15 15:38 | PM.IMPN ---
Progress Note: A&P Assessment and Plan (1) Weakness: Code(s): R53.1 - Weakness Status: Acute Assessment and Plan: May be secondary infection versus deconditioning. -Continue PT/OT. -SNF rehab placement pending. -No focal neuro deficits noted. (2) Acute UTI: Code(s): N39.0 - Urinary tract infection, site not specified Status: Acute Assessment and Plan: Urine culture with mixed sondra. Symptoms appear improved. Family is still concerned for acute infection. -Repeat UA with reflux culture with straight cath unremarkable 1+ leukocytes, 31-50 WBC, rare epi cells. -Cefepime stopped 01/13 due to culture results. -She was given 1 time dose diflucan 150 mg on 01/12 and consider repeat 72 hours later if symptoms persist. -Blood cultures without growth currently. (3) Altered mental state: Qualifiers: Altered mental status type: unspecified Qualified Code(s): R41.82 - Altered mental status, unspecified Code(s): R41.82 - Altered mental status, unspecified Status: Acute Assessment and Plan: Per family. 12/23/21 CT head for similar symptoms negative. -TSH and B12 within normal limits. -Continue melatonin 3 mg at HS to help with insomnia. -Keep awake during the day, ambulate throughout the day, keep blinds open/natural light and orient as needed. -Mini-mental exam score 27/30 -Geriatric depression scale pending. -Repeat UA unremarkable -Neuro checks Q4 unchanged and without focal deficits. -Minimize sedative medications. -Patient appears to be at baseline cognitive status, however, given family concern we will continue to investigate. Hold off on repeat CT head or MRI brain if confusion worsens. (4) Dehydration: Code(s): E86.0 - Dehydration Status: Acute Assessment and Plan: Give 1 L of fluid on admission. Renal function improved following fluids. -Encourage oral fluids. -Appears resolved. (5) Depression: Code(s): F32.9 - Major depressive disorder, single episode, unspecified Status: Chronic Assessment and Plan: -Continue Depakote and BuSpar -Geriatric depression scale pending. Plan CODE STATUS: DNR DISPOSITIONS: Likely needs SNF rehab. Care coordination consulted. Estimated LOS: plan to DC when disposition coordinated. Time Spent With Patient Time with patient: 15 - 25 minutes Subjective Date/time seen: 01/15/22 15:38 She c/o neck pain which she attributes to the hospital bed. No dysuria, flank pain, abd pain, N/V/D, DAMON, shortness of breath or chest pain. Review of Systems Review of Systems: All systems reviewed & are unremarkable except as noted in HPI and below Exam Narrative: GENERAL: no distress. Chronically ill older adult female lying in bed. No oxygen. HEENT: PERRL. No nystagmus. Conjunctivae clear. Hearing grossly intact. Mucous membranes pink and moist. NECK: No JVD. LUNGS: Respirations unlabored. Clear to auscultation bilaterally, no rales, rhonchi, wheezing. HEART: Normal S1 and S2 regular rate and rhythm without murmurs, rubs or gallops. ABDOMEN: Soft, round, nontender to palpation. LLQ colostomy patent with brown soft stool. Normoactive bowel sounds.? No guarding. EXTREMITIES: Moves all extremities equally and with generalized weakness. No edema. No calf tenderness. Radial and dorsalis pedis pulses palpable and equal. NEURO: Alert and oriented x4. Cranial nerves II through XII intact.?BUE & BLE 4/5 and equal. SKIN: Warm, dry. Fair skin, normal for ethnicity. No rashes, lesions or open wounds. PSYCHIATRIC: Neutral mood and flat affect. Cooperative with examination. Objective Data Vital Signs Vital Signs: Vital Signs - 24 hr 01/14/22 21:55 01/14/22 20:00 01/15/22 05:50 Temperature 98.2 F 98.2 F Pulse Rate 50 L 52 L Respiratory Rate 18 18 Blood Pressure 127/68 110/62 Pulse Oximetry 96 95 Oxygen Delivery Room Air 01/15/22 08:00 Tem
[2022-01-15 16:00] VITALS: BP 132/82; PULSE 61; RESP 14; TEMP 36.7; O2SAT 98
--- NOTE | 2022-01-15 17:54 | PC.NURSE ---
reported UC from 01/14/22 to MD Jones, final result no growth.
[2022-01-15] MEDS: SENNA/DOCUSATE SODIUM TABLET 1 TAB PO (21:35)
[2022-01-15 21:49] VITALS: BP 137/84; PULSE 60; RESP 17; TEMP 36.7; O2SAT 96
[2022-01-16 02:20] VITALS: O2SAT 94
[2022-01-16 05:54] VITALS: BP 113/70; PULSE 55; RESP 18; TEMP 36.7; O2SAT 98
[2022-01-16 08:00] VITALS: BP 116/70; BP 137/75; PULSE 54; RESP 18; TEMP 36.2; O2SAT 99
[2022-01-16] MEDS: ASPIRIN 81 MG CHEWABLE TABLET PO (08:41)
[2022-01-16] MEDS: LIDOCAINE 5% PATCH 1 PATCH TRANSDERM (08:41)
[2022-01-16] MEDS: SACCHAROMYCES BOULARDII 250 MG CAPSULE PO (08:41)
[2022-01-16] MEDS: PANTOPRAZOLE 40 MG TABLET PO (08:42)
[2022-01-16] MEDS: MELOXICAM 7.5 MG TABLET PO (08:42)
[2022-01-16] MEDS: MIDODRINE HCL 10 MG TABLET PO ×2 (08:42→12:12)
[2022-01-16] MEDS: ENOXAPARIN 40 MG/0.4 ML SYRINGE SUB-Q (08:42)
[2022-01-16] MEDS: POTASSIUM CHLORIDE 20 MEQ TABLET.ER PO (08:42)
[2022-01-16] MEDS: FLUTICASONE PROPIONATE 0.05% NA SPR 16 GM BTL (*BKC) 1 SPRAY NASAL (08:42)
[2022-01-16] MEDS: busPIRone HCL 5 MG TABLET 15 MG PO ×2 (08:42→12:12)
[2022-01-16] MEDS: DIVALPROEX SODIUM DR 250 MG TABEC 500 MG PO ×2 (08:42→12:12)
[2022-01-16] MEDS: CYANOCOBALAMIN 1,000 MCG TABLET 1000 MCG PO (08:42)
--- NOTE | 2022-01-16 11:58 | PM.DS ---
DS: Admitting Diagnosis Discharge Date 01/16/2022 1158 Admitting Diagnosis Generalized weakness Acute UTI Dehydration DS: Discharge Diagnosis Discharge Diagnosis (1) Weakness: Code(s): R53.1 - Weakness Status: Acute (2) Asymptomatic bacteriuria: Code(s): R82.71 - Bacteriuria Status: Acute (3) Dehydration: Code(s): E86.0 - Dehydration Status: Acute (4) Altered mental status: Qualifiers: Altered mental status type: disorientation Qualified Code(s): R41.0 - Disorientation, unspecified Code(s): R41.82 - Altered mental status, unspecified Status: Acute (5) Depression: Code(s): F32.9 - Major depressive disorder, single episode, unspecified Status: Chronic DS: Summary Hospital Course Hospital Course: Jolly Saldana is a 71-year-old female with past medical history of depression/anxiety, prior history of tracheostomy now reversed, history of right renal stones requiring stent and stone extraction, and history of a gangrenous sigmoid volvulus status post colostomy.? The patient presented to the ED, from assisted living facility, for evaluation of worsening weakness. The patient was recently admitted to this facility on 12/23 for UTI, urine culture at that time was positive for aerococcus urinae and Karis albicans.? She was initially treated with Rocephin, however, this was stopped inpatient as her preliminary urine culture appeared to have no growth; she was not dicharged on antibiotics.? The patient had similar complaints of weakness and slurred speech with her last admission. Head CT at that time was negative for acute stroke. Upon admission, she c/o generalized weakness to the point that she was not comfortable walking.? She reported she felt better for a day after leaving the hospital, however after that she began to have increased urinary frequency with pressure and progressive generalized weakness.? She denied fevers, however she states she has been having chills that caused her to shake.? No c/o chest pain.? She reports chronic dyspnea on exertion, which is longstanding.? She had some nausea, but no vomiting.? No diarrhea/constipation.? No hematuria, dysuria, or flank pain. In ED, patient was afebrile and hemodynamically stable. Lab work showed normal WBC, UA with 3+ blood and 2+ leukocyte esterase, moderate squamous cells.? BUN 50/creatinine 1.? She was given 1 L of IV fluid and 1gram IV Rocephin.? Blood cultures drawn and urine culture were obtained. The patient was admitted to the medical floor and treated with Cefepime IV Q8 hours for concern of MDR organism given her previous antibiotic use. Diflucan 150 mg PO x1 was given for c/o vaginal itching and pain with urination, as well as previous urine culture. The patient reported improvement in symptoms with this. Urine culture showed mixed sondra and blood cultures remained without growth x2 of 2 bottles. PT/OT was consulted and patient required a 2 person max assistance with activities. Rehab was recommended and patient was pending SNF aurthorization. During her hospital stay, the patient reportedly had mild disorientation one evening, which was concerning to her daughter. No focal deficits, facial droop, speech changes, pronator drift, or unilateral weakness were noted. Upon assessment, by myself the following morning, the patient was AOx4 with clear and appropriate speech. CT head was deferred given her previous testing and no focal signs to suggest acute stroke. B12, TSH. CBC and CMP were unremarkable. Repeat UA showed no acute infection. Mini-mental exam score was 27/30. Further evaluation for depression as a contributing factor for possible disorientation may be warranted. Disorientation was thought to be secondary to inadequate sleep in the hospital setting. The patient was discharged to SNF rehab in stable, AOx4, pleasant and cooperative. Status at Discharge Cognitive/behavioral status at discharge: Alert,
[2022-01-16 12:46] LABS: EDCOVIDSCREEN Negative (Negative)
== END 2022-01-16 14:20 | DRG 690 ==
LOC: ANHED 22:33 → ANH3MEDSUR 01-12 00:02
PROVIDERS: Admitting Provider Internal Medicine; Emergency Provider Emergency Medicine; PCP Physician Assistant; Visit Provider Nurse Practitioner Family
DX: N39.0 Urinary tract infection, site not specified (principal); Z20.822 Contact with and (suspected) exposure to COVID-19; R53.1 Weakness; E86.0 Dehydration; F32.9 Major depressive disorder, single episode, unspecified; Z87.891 Personal history of nicotine dependence; F41.9 Anxiety disorder, unspecified; Z82.49 Family history of ischemic heart disease and other diseases of the circulatory system; Z80.8 Family history of malignant neoplasm of other organs or systems; Z79.899 Other long term (current) drug therapy; Z79.82 Long term (current) use of aspirin; Z66 Do not resuscitate
CPT/HCPCS: 36415; 71046; 80048; 80053; 81001; 82607; 83605; 84145; 84443; 85025; 85055; 85610; 85730; 86140; 87040; 87086; 87088; 87426; 96361; 96365; 96367; 96372; 96375; 97110; 97161; 97166; 97530; 97535; 99285; A9270; C9803; G0378; J0692; J0696; J1650; J1885; J7030

== ENCOUNTER 2023-08-20 14:45 | Outpatient (NON) | payer MEDICARE, MEDICAID, SELFPAY ==
[2023-08-20 15:22] LABS: Influenza A QL RT-PCR Negative (Negative); Influenza B QL RT-PCR Negative (Negative); RSV RNA, RT-PCR Negative (Negative); SARS-CoV-2 RNA PCR Negative (Negative)
== END 2023-08-20 14:46 | disposition home or self-care (01) ==
PROVIDERS: PCP Physician Assistant; Visit Provider Hospitalist
DX: R50.9 Fever, unspecified (principal); Z20.822 Contact with and (suspected) exposure to COVID-19
CPT/HCPCS: 87637

== ENCOUNTER 2024-03-26 18:26 | Emergency (ER) | payer MEDICARE, MEDICAID, SELFPAY ==
[2024-03-26 18:55] VITALS: BP 106/70; PULSE 75; RESP 17; TEMP 36.6; O2SAT 97
--- NOTE | 2024-03-26 21:50 | ED.GENADULT ---
HPI - General Adult General Chief complaint: Skin/Abscess/Foreign Body Stated complaint: rash-shingles Time Seen by Provider: 03/26/24 21:40 History of Present Illness HPI narrative: 74-year-old female presented emergency department for evaluation for shingles pain. Patient was diagnosed with shingles approximately 1 week ago and has been on valacyclovir. Patient did start a 2nd course of valacyclovir. Patient had worsening excoriation the shingles rash and was having poorly controlled pain so she was referred to the emergency department for further evaluation. Related Data Home Medications Medication Instructions Recorded Confirmed cyanocobalamin (vitamin B-12) 1,000 mcg PO DAILY 03/23/20 01/12/22 1,000 mcg tablet (Vitamin B-12) Lactobacillus acidoph-L.bulgaricus 1 tablet PO DAILY 10/11/21 01/12/22 1 million cell tablet (Floranex) Flonase 1 spray intranasal BID 12/23/21 01/12/22 Protonix 40 mg PO DAILY 12/23/21 01/12/22 midodrine 10 mg PO TID 12/23/21 01/12/22 albuterol sulfate 90 mcg/actuation 2 puff inhalation QID PRN 01/12/22 01/12/22 aerosol inhaler (Ventolin HFA) Shortness Of Breath Or Wheezing aspirin 81 mg chewable tablet 81 mg PO DAILY 01/12/22 01/12/22 meloxicam 7.5 mg tablet 1 tablet PO DAILY 01/12/22 01/12/22 potassium chloride 20 mEq 40 tablet PO DAILY 01/12/22 01/12/22 tablet,extended release(part/cryst) Allergies Allergy/AdvReac Type Severity Reaction Status Date / Time Penicillins Allergy Severe RASH Verified 03/26/24 22:01 clindamycin Allergy Intermediate Rash Verified 03/26/24 22:01 Sulfa (Sulfonamide Allergy Mild Rash Verified 03/26/24 22:01 Antibiotics) sulfacetamide Allergy Mild Rash Verified 03/26/24 22:01 tetracycline Allergy Unknown RASH Verified 03/26/24 22:01 shellfish derived AdvReac Itching Verified 03/26/24 22:01 Review of Systems Review of Systems: All systems reviewed & are unremarkable except as noted in HPI and below PMFSH Past Medical History Medical History Anxiety Depression Depression History of kidney stones Smoker Surgical History Surgical History H/O colonoscopy H/O hysterectomy for benign disease H/O: hysterectomy Family History Family History (Updated 12/23/21 @ 21:21 by Stan Ramesh RN) Mother Dementia Kidney disease Hypertension Family history of Alzheimer's disease Father Brain cancer Sibling Liver disease Kidney stones Sibling Schizophrenia Obesity Mother No problems noted. Social History Social History Smoking packs per day: 1.5 Smoking cigarettes per day: 30.0 Years smoked: 40 Smoking pack-years: 60.00 Smoking status: Former smoker Tobacco type: cigarettes Additional smoking assessment comments: Cutting back on smoking and currently at a 1/2 pack a day. Alcohol intake: never Substance use: never Living arrangements: alone Gender identity (if verbalized by the patient): Female Sexual Orientation (if Verbalized by the Patient): Straight or Heterosexual Spiritual care concerns: No Agree to blood products: Yes Exam Narrative: APPEARANCE: Uncomfortable pain HEAD: normocephalic, atraumatic. EYES: PERRLA/EOMI, conjunctivae clear. NOSE: Normal no drainage EARS:TMS clear with good light reflex. THROAT: Pharynx clear, no exudate. NECK: Supple. No adenopathy, no masses. RESPIRATORY: Airway patent, respirations nonlabored. Clear to auscultation bilaterally, no rales, rhonchi, wheezing. CARDIOVASCULAR: Regular rate and rhythm without murmurs rubs or gallops. ABDOMINAL: Soft, nontender, nondistended, normal bowel sounds MUSCULOSKELETAL: Moves all extremities. Strength/ROM intact, No edema, No calf tenderness. NEURO: Alert. Cranial nerves II through XII intact. Good gait. Good coordination SKIN: Shingles rest from left flank radiating around to her back to the midline. Area
[2024-03-26] MEDS: MORPHINE SULFATE (*CRX) 4 MG/ML INJ IV PUSH (23:05)
--- NOTE | 2024-03-26 23:05 | PC.NURSE ---
Pt colostomy bag emptied, cleaned, and bag replaced.
[2024-03-26 23:06] VITALS: BP 116/71; PULSE 62; RESP 17; O2SAT 98
[2024-03-26 23:06] LABS: Basophils Percent Auto 0.3 % (0.2-1.2); Eosinophils Absolute Auto 0.1 K/mm3 (0-0.3); Eosinophils Percent Auto 1.3 % (0-4.4); Hematocrit 42.4 % (37.0-47.0); Hemoglobin 14.6 g/dL (12.0-15.0); Immature Granulocyte Absolute 0.04 K/mm3 (0.00-0.031); Immature Granulocyte Percent A 0.4 % (0-0.5); Lymphocytes Absolute Auto 2.86 K/mm3 (0.9-3.2); Lymphocytes Percent Auto 30.6 % (18.3-44.2); Mean Corpuscular HGB Conc 34.4 g/dl (32-36); Mean Platelet Volume 9.4 fl (7.4-10.4); Monocytes Absolute Auto 0.9 K/mm3 (0.1-0.6); Monocytes Percent Auto 9.6 % (2.6-8.5); Neutrophils Absolute Auto 5.4 K/mm3 (1.3-6.7); Neutrophils Percent Auto 57.8 % (45.5-73.1); Platelet Count Result 289 k/mm3 (150-375); Red Blood Count 4.56 M/mm3 (4.2-5.4); Red Cell Distribution Width 13.4 % (11.5-14.5); White Blood Count 9.4 K/mm3 (4.5-10.0)
[2024-03-26 23:17] LABS: Alanine Aminotransferase 15 U/L (6-35); Albumin Level 4.2 g/dL (3.5-5.1); Alkaline Phosphatase 114 U/L (38-126); Anion Gap 12 mmol/L (4-12); Aspartate Amino Transferase 24 U/L (14-36); Bilirubin,Total 0.5 mg/dL (0.2-1.3); Blood Urea Nitrogen 42 mg/dL (7-17); Calcium 9.4 mg/dL (8.4-10.2); Carbon Dioxide 23 mmol/L (22-30); Chloride 105 mmol/L (98-107); Estimated CRCL calculation 61 ml/min; Estimated Glomerular Filt Rate > 60; Glucose 103 mg/dL (65-110); Potassium 3.5 mmol/L (3.4-5.0); Sodium 140 mmol/L (137-145)
[2024-03-27 01:30] VITALS: BP 127/71; PULSE 51; RESP 17; O2SAT 98
[2024-03-27 02:54] VITALS: BP 113/93; PULSE 60; RESP 17; O2SAT 98
== END 2024-03-27 06:45 ==
PROVIDERS: Emergency Provider Emergency Medicine
DX: B02.9 Zoster without complications (principal); L03.90 Cellulitis, unspecified; Z79.51 Long term (current) use of inhaled steroids; Z79.82 Long term (current) use of aspirin; F41.9 Anxiety disorder, unspecified; F32.A Depression, unspecified; F17.210 Nicotine dependence, cigarettes, uncomplicated
CPT/HCPCS: 36415; 80053; 85025; 96365; 96375; 99284; J0696; J2270

== ENCOUNTER 2024-04-24 18:55 | Inpatient (IN) | payer MEDICARE, MEDICAID, SELFPAY ==
--- NOTE | ~2024-04-24 | XR_ITS ---
EXAMINATION: XR chest 1V portable DATE: 04/24/2024 19:40 INDICATION: Weakness. TECHNIQUE: A single frontal view of the chest was obtained. COMPARISON: Chest 2 views 01/11/2022 FINDINGS: There is mild atelectasis in the lower lung zones. No pleural effusion or pneumothorax. The heart size is normal. IMPRESSION: 1. Mild atelectasis in the lower lung zones. Reviewed, dictated and finalized at location A.
--- NOTE | 2024-04-24 19:05 | ECG_ITS ---
Test Date: 2024-04-24 19:28:57 Measurements Intervals [place] Rate: 79 P: 29 CA: 134 QRS: 0 QRSD: 79 T: 267 QT: 378 QTc: 436 Interpretive Statements SINUS RHYTHM WITH OCCASIONAL ECTOPIC PREMATURE COMPLEXES ST DEVIATION AND MODERATE T-WAVE ABNORMALITY, CONSIDER ANTEROLATERAL ISCHEMIA [-0.1+ mV T WAVE IN V3-V6] No previous ECG available for comparison Electronically Signed On 04-25-2024 16:17:08 CDT by Mayo Solano M.D.
[2024-04-24 19:16] VITALS: BP 114/73; PULSE 126; RESP 22; O2SAT 97
[2024-04-24 19:40] LABS: Basophils Percent Auto 0.3 % (0.2-1.2); Hematocrit 42.1 % (37.0-47.0); Hemoglobin 14.6 g/dL (12.0-15.0); Immature Granulocyte Absolute 0.08 K/mm3 (0.00-0.031); Immature Granulocyte Percent A 0.9 % (0-0.5); Lymphocytes Absolute Auto 1.61 K/mm3 (0.9-3.2); Lymphocytes Percent Auto 17.4 % (18.3-44.2); Mean Corpuscular HGB Conc 34.7 g/dl (32-36); Mean Corpuscular Volume 95.2 fl (80-100); Mean Platelet Volume 9.2 fl (7.4-10.4); Monocytes Absolute Auto 0.9 K/mm3 (0.1-0.6); Monocytes Percent Auto 9.4 % (2.6-8.5); Neutrophils Absolute Auto 6.7 K/mm3 (1.3-6.7); Platelet Count Result 192 k/mm3 (150-375); Red Blood Count 4.42 M/mm3 (4.2-5.4); Red Cell Distribution Width 15.8 % (11.5-14.5); White Blood Count 9.3 K/mm3 (4.5-10.0)
[2024-04-24 19:55] LABS: Lactic Acid Reflex 1.3 mmol/L (0.7-2.0)
[2024-04-24 19:57] LABS: Alanine Aminotransferase 16 U/L (6-35); Albumin Level 4.2 g/dL (3.5-5.1); Alkaline Phosphatase 125 U/L (38-126); Anion Gap 10 mmol/L (4-12); Aspartate Amino Transferase 24 U/L (14-36); Bilirubin,Total 0.7 mg/dL (0.2-1.3); Blood Urea Nitrogen 32 mg/dL (7-17); Carbon Dioxide 27 mmol/L (22-30); Chloride 100 mmol/L (98-107); Estimated CRCL calculation 54 ml/min; Estimated Glomerular Filt Rate 54; Glucose 121 mg/dL (65-110); Lipase 15 U/L (23-300); Potassium 3.5 mmol/L (3.4-5.0); Sodium 137 mmol/L (137-145)
[2024-04-24] MEDS: SODIUM CHLORIDE 0.9% IV 1,000 ML 999 ML IV CONT (20:05)
[2024-04-24 20:09] LABS: Add Urine Microscopic? YES; Appearance Urine Cloudy (Clear); Bacteria Urine 4+ /hpf; Bilirubin Urine Negative (Negative); Blood Urine 3+ (Negative); Color Urine Yellow (Yellow); Glucose Urine UA Negative (Negative); Ketones Urine 1+ mg/dL (Negative); Leukocyte Esterase Ur 3+ LEU/UL (Negative); Need Manual Microscopic Reviewed; Nitrate Urine Positive (Negative); Non Pathogenic Casts >20; Protein Urine 3+ mg/dL (Negative); Specific Grav Ur 1.019 (1.001-1.035); Squamous Epithelial Cell Urine Few /hpf (Few); WBC Urine >100 /hpf (0-3); pH Urine 5.5 (5.0-9.0)
[2024-04-24 20:11] LABS: Troponin I 0.014 ng/mL (0.000-0.034)
[2024-04-24 20:16] VITALS: BP 131/73; RESP 28; O2SAT 96
[2024-04-24 20:16] LABS: Influenza A QL RT-PCR Negative (Negative); Influenza B QL RT-PCR Negative (Negative); Procalcitonin 0.8 ng/mL; RSV RNA, RT-PCR Negative (Negative); SARS-CoV-2 RNA PCR Negative (Negative)
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
--- NOTE | 2024-04-24 20:58 | ED.GENADULT ---
HPI - General Adult General Chief complaint: Weakness Stated complaint: lethergy/weakness Time Seen by Provider: 04/24/24 19:13 History of Present Illness HPI narrative: Patient is female presents emergency department chief complaint of weakness. The patient states she was recently diagnosed treated for shingles the patient reports since then she is getting more lethargic having problems before in her normal tasks. Patient reports she is not having any fever reports this does feel well. Related Data Home Medications Medication Instructions Recorded Confirmed cyanocobalamin (vitamin B-12) 1,000 mcg PO DAILY 03/23/20 01/12/22 1,000 mcg tablet (Vitamin B-12) Lactobacillus acidoph-L.bulgaricus 1 tablet PO DAILY 10/11/21 01/12/22 1 million cell tablet (Floranex) Flonase 1 spray intranasal BID 12/23/21 01/12/22 Protonix 40 mg PO DAILY 12/23/21 01/12/22 midodrine 10 mg PO TID 12/23/21 01/12/22 albuterol sulfate 90 mcg/actuation 2 puff inhalation QID PRN 01/12/22 01/12/22 aerosol inhaler (Ventolin HFA) Shortness Of Breath Or Wheezing aspirin 81 mg chewable tablet 81 mg PO DAILY 01/12/22 01/12/22 meloxicam 7.5 mg tablet 1 tablet PO DAILY 01/12/22 01/12/22 potassium chloride 20 mEq 40 tablet PO DAILY 01/12/22 01/12/22 tablet,extended release(part/cryst) Allergies Allergy/AdvReac Type Severity Reaction Status Date / Time Penicillins Allergy Severe RASH Verified 03/26/24 22:01 clindamycin Allergy Intermediate Rash Verified 03/26/24 22:01 Sulfa (Sulfonamide Allergy Mild Rash Verified 03/26/24 22:01 Antibiotics) sulfacetamide Allergy Mild Rash Verified 03/26/24 22:01 tetracycline Allergy Unknown RASH Verified 03/26/24 22:01 shellfish derived AdvReac Itching Verified 03/26/24 22:01 Review of Systems Review of Systems: A 10 system review of systems was completed on the patient and is negative except for what is stated in the HPI. Nursing and ancillary documentation was reviewed. [facility] Past Medical History Medical History Anxiety Depression Depression History of kidney stones Smoker Surgical History Surgical History H/O colonoscopy H/O hysterectomy for benign disease H/O: hysterectomy Family History Family History Mother Dementia Kidney disease Hypertension Family history of Alzheimer's disease Father Brain cancer Sibling Liver disease Kidney stones Sibling Schizophrenia Obesity Mother No problems noted. Social History Social History Smoking packs per day: 1.5 Smoking cigarettes per day: 30.0 Years smoked: 40 Smoking pack-years: 60.00 Smoking status: Former smoker Tobacco type: cigarettes Additional smoking assessment comments: Cutting back on smoking and currently at a 1/2 pack a day. Alcohol intake: never Substance use: never Living arrangements: alone Gender identity (if verbalized by the patient): Female Sexual Orientation (if Verbalized by the Patient): Straight or Heterosexual Spiritual care concerns: No Agree to blood products: Yes Exam Narrative: GENERAL: Well-appearing, well-nourished, and in no acute distress. HEAD: Normocephalic, atraumatic. EYES: PERRLA and EOMI. ENT: Nares clear, no rhinorrhea or epistaxis. Mucous membranes moist. NECK: Supple. CHEST: Clear to auscultation. No respiratory distress. HEART: Regular rate and rhythm. No murmur heard. Normal peripheral pulses. ABDOMEN: Soft, nontender, nondistended, normal active bowel sounds. There is a colostomy present on the left side of the abdomen EXTREMITIES: Normal range of motion. No edema. SKIN: Warm, dry, no rash. NEURO: No focal deficits. Alert and oriented x3. Resting tremor present PSYCH: Normal mood and affect. Course Vital Signs Vital signs: Vital Signs Pulse
[2024-04-24 21:06] VITALS: BP 140/80; PULSE 84; RESP 15; TEMP 36.8; O2SAT 100
[2024-04-24 22:00] VITALS: BP 138/72; PULSE 81; RESP 20; TEMP 36.6; O2SAT 96
[2024-04-24 23:03] VITALS: BMI 29.2
[2024-04-24 23:04] VITALS: BMI 29.7
--- NOTE | 2024-04-24 23:15 | ADMGEN ---
This patient, Jolly Saldana, was admitted to Medical Room 253-01. Patient/family oriented to hospital policies and general routines including ID bracelet, bed and alarms, visiting hours, pain management, procedures, bathroom and other care routines, personal items, smoking policy, room service/diet, and visiting hours. Information on how to activate the Rapid Response Team has been discussed. Patient/Family are encouraged to report perceived risks to care and to ask questions if they do not understand what they are told or what they should do.
[2024-04-25 01:09] VITALS: PULSE 81; RESP 20; O2SAT 96
[2024-04-25 01:19] LABS: Troponin I < 0.012 ng/mL (0.000-0.034)
[2024-04-25 03:41] VITALS: BP 124/67; PULSE 86; RESP 20; TEMP 36.7; O2SAT 94
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
[2024-04-25 08:27] VITALS: O2SAT 91
[2024-04-25] MEDS: DIVALPROEX SODIUM DR 250 MG TABEC PO ×2 (08:36→17:06)
[2024-04-25] MEDS: busPIRone HCL 5 MG TABLET 15 MG PO ×3 (08:37→17:06)
[2024-04-25] MEDS: ACETAMINOPHEN 325 MG TABLET PO ×3 (08:37→17:06)
[2024-04-25] MEDS: FLUTICASONE PROPIONATE 0.05% NA SPR 16 GM BTL (*BKC) 1 SPRAY NASAL ×2 (08:37→21:03)
[2024-04-25] MEDS: MIDODRINE HCL 10 MG TABLET PO ×3 (08:37→17:06)
[2024-04-25] MEDS: PANTOPRAZOLE SOD SESQUIHYDRATE 20 MG TAB PO (08:37)
[2024-04-25] MEDS: ASPIRIN 81 MG CHEWABLE TABLET PO (08:37)
[2024-04-25] MEDS: SENNA/DOCUSATE SODIUM TABLET 1 TAB PO ×2 (08:37→17:06)
[2024-04-25 08:45] LABS: Basophils Percent Auto 0.5 % (0.2-1.2); Eosinophils Percent Auto 0.3 % (0-4.4); Hematocrit 37.6 % (37.0-47.0); Hemoglobin 12.9 g/dL (12.0-15.0); Immature Granulocyte Absolute 0.06 K/mm3 (0.00-0.031); Immature Granulocyte Percent A 0.8 % (0-0.5); Lymphocytes Absolute Auto 1.69 K/mm3 (0.9-3.2); Lymphocytes Percent Auto 21.5 % (18.3-44.2); Mean Corpuscular HGB Conc 34.3 g/dl (32-36); Mean Corpuscular Hemoglobin 32.3 pg (26-34); Mean Corpuscular Volume 94.2 fl (80-100); Mean Platelet Volume 9.5 fl (7.4-10.4); Monocytes Absolute Auto 0.9 K/mm3 (0.1-0.6); Monocytes Percent Auto 11.3 % (2.6-8.5); Neutrophils Absolute Auto 5.2 K/mm3 (1.3-6.7); Neutrophils Percent Auto 65.6 % (45.5-73.1); Platelet Count Result 170 k/mm3 (150-375); Red Blood Count 3.99 M/mm3 (4.2-5.4); Red Cell Distribution Width 15.6 % (11.5-14.5); White Blood Count 7.9 K/mm3 (4.5-10.0)
[2024-04-25] MEDS: SODIUM CHLORIDE 0.9% IV 1,000 ML 100 ML IV CONT (08:46)
[2024-04-25 08:55] LABS: Anion Gap 10 mmol/L (4-12); Blood Urea Nitrogen 27 mg/dL (7-17); Calcium 8.3 mg/dL (8.4-10.2); Carbon Dioxide 22 mmol/L (22-30); Chloride 100 mmol/L (98-107); Estimated CRCL calculation 67 ml/min; Estimated Glomerular Filt Rate > 60; Glucose 107 mg/dL (65-110); Sodium 132 mmol/L (137-145)
[2024-04-25 14:00] VITALS: BP 95/55; PULSE 63; RESP 24; TEMP 36.1; O2SAT 92
[2024-04-25] MEDS: ACETAMINOPHEN 325 MG TABLET 650 MG PO (20:19)
[2024-04-25] MEDS: PRIMIDONE 50 MG TABLET PO (20:19)
[2024-04-25] MEDS: MELATONIN 5 MG TABLET PO (20:19)
[2024-04-25 21:08] VITALS: O2SAT 93
[2024-04-25 22:00] VITALS: BP 143/69; PULSE 77; RESP 18; TEMP 36.4; O2SAT 93
[2024-04-26] MEDS: ACETAMINOPHEN 325 MG TABLET PO ×4 (00:44→17:23)
[2024-04-26] MEDS: ACETAMINOPHEN 325 MG TABLET 650 MG PO (02:22)
[2024-04-26 05:06] LABS: Basophils Percent Auto 0.3 % (0.2-1.2); Eosinophils Percent Auto 0.1 % (0-4.4); Hemoglobin 12.2 g/dL (12.0-15.0); Immature Granulocyte Absolute 0.07 K/mm3 (0.00-0.031); Immature Granulocyte Percent A 0.9 % (0-0.5); Lymphocytes Absolute Auto 1.68 K/mm3 (0.9-3.2); Lymphocytes Percent Auto 22.1 % (18.3-44.2); Mean Corpuscular HGB Conc 33.9 g/dl (32-36); Mean Corpuscular Hemoglobin 32.5 pg (26-34); Monocytes Absolute Auto 1.1 K/mm3 (0.1-0.6); Monocytes Percent Auto 14.2 % (2.6-8.5); Neutrophils Absolute Auto 4.8 K/mm3 (1.3-6.7); Neutrophils Percent Auto 62.4 % (45.5-73.1); Platelet Count Result 167 k/mm3 (150-375); Red Blood Count 3.75 M/mm3 (4.2-5.4); Red Cell Distribution Width 15.4 % (11.5-14.5); White Blood Count 7.6 K/mm3 (4.5-10.0)
[2024-04-26 05:27] LABS: Anion Gap 8 mmol/L (4-12); Blood Urea Nitrogen 21 mg/dL (7-17); Calcium 7.9 mg/dL (8.4-10.2); Carbon Dioxide 25 mmol/L (22-30); Chloride 102 mmol/L (98-107); Estimated CRCL calculation 75 ml/min; Estimated Glomerular Filt Rate > 60; Glucose 106 mg/dL (65-110); Potassium 2.8 mmol/L (3.4-5.0); Sodium 135 mmol/L (137-145)
[2024-04-26] MEDS: SODIUM CHLORIDE 0.9% IV 1,000 ML 100 ML IV CONT ×2 (05:46→05:47)
[2024-04-26] MEDS: POTASSIUM CHLORIDE INJ 40 MEQ in SODIUM CHLORIDE 0.9% IV 500 ML 130 MEQ IVPB ×2 (05:46→09:24)
[2024-04-26 06:00] VITALS: BP 111/58; PULSE 68; RESP 18; TEMP 38.1; O2SAT 92
[2024-04-26 07:20] VITALS: O2SAT 93
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
[2024-04-26 08:58] LABS: Magnesium 1.9 mg/dL (1.6-2.3)
[2024-04-26] MEDS: busPIRone HCL 5 MG TABLET 15 MG PO ×3 (09:22→17:21)
[2024-04-26] MEDS: DIVALPROEX SODIUM DR 250 MG TABEC PO ×2 (09:22→17:21)
[2024-04-26] MEDS: ASPIRIN 81 MG CHEWABLE TABLET PO (09:22)
[2024-04-26] MEDS: PANTOPRAZOLE SOD SESQUIHYDRATE 20 MG TAB PO (09:23)
[2024-04-26] MEDS: MIDODRINE HCL 10 MG TABLET PO ×3 (09:23→17:22)
[2024-04-26] MEDS: SENNA/DOCUSATE SODIUM TABLET 1 TAB PO (09:23)
[2024-04-26] MEDS: POTASSIUM CHLORIDE 20 MEQ PACKET (FOR LIQUID) 40 MEQ PO (09:24)
[2024-04-26] MEDS: oxyCODONE/ACETAMINOPHEN (*CRX) 5-325 MG TABLET 1 TABLET PO ×3 (09:46→19:00)
[2024-04-26] MEDS: FLUTICASONE PROPIONATE 0.05% NA SPR 16 GM BTL (*BKC) 1 SPRAY NASAL ×2 (09:47→20:40)
[2024-04-26] MEDS: MENTHOL 10% / METHYL SALICYLATE 15% 57 GM TUBE 1 APPLIC TOPICAL (09:47)
[2024-04-26] MEDS: MEROPENEM 1 GM/NS 100 ML 1 GM/100 ML BAG IVPB ×2 (12:14→17:23)
[2024-04-26 14:00] VITALS: BP 115/76; PULSE 65; RESP 20; TEMP 36.3; O2SAT 93
[2024-04-26 20:00] VITALS: PULSE 69; RESP 18; O2SAT 94
[2024-04-26] MEDS: MELATONIN 5 MG TABLET PO (20:39)
[2024-04-26] MEDS: PRIMIDONE 50 MG TABLET PO (20:39)
[2024-04-26 22:00] VITALS: BP 134/79; PULSE 67; RESP 18; TEMP 36.6; O2SAT 94
[2024-04-27] MEDS: SODIUM CHLORIDE 0.9% IV 1,000 ML 100 ML IV CONT ×2 (00:35→11:44)
[2024-04-27] MEDS: oxyCODONE/ACETAMINOPHEN (*CRX) 5-325 MG TABLET 1 TABLET PO ×2 (01:12→20:56)
[2024-04-27] MEDS: MEROPENEM 1 GM/NS 100 ML 1 GM/100 ML BAG IVPB ×3 (01:19→17:08)
[2024-04-27 06:00] VITALS: BP 125/65; PULSE 73; RESP 18; TEMP 36.7; O2SAT 90
[2024-04-27 06:24] LABS: Basophils Absolute Auto 0.1 K/mm3 (0.0-0.1); Basophils Percent Auto 0.7 % (0.2-1.2); Eosinophils Absolute Auto 0.1 K/mm3 (0-0.3); Eosinophils Percent Auto 1.2 % (0-4.4); Hematocrit 33.9 % (37.0-47.0); Hemoglobin 11.6 g/dL (12.0-15.0); Immature Granulocyte Percent A 2.6 % (0-0.5); Lymphocytes Absolute Auto 1.63 K/mm3 (0.9-3.2); Lymphocytes Percent Auto 21.6 % (18.3-44.2); Mean Corpuscular HGB Conc 34.2 g/dl (32-36); Mean Corpuscular Hemoglobin 32.6 pg (26-34); Mean Corpuscular Volume 95.2 fl (80-100); Mean Platelet Volume 9.9 fl (7.4-10.4); Monocytes Percent Auto 12.7 % (2.6-8.5); Neutrophils Absolute Auto 4.6 K/mm3 (1.3-6.7); Neutrophils Percent Auto 61.2 % (45.5-73.1); Platelet Count Result 179 k/mm3 (150-375); Red Blood Count 3.56 M/mm3 (4.2-5.4); Red Cell Distribution Width 15.8 % (11.5-14.5); White Blood Count 7.6 K/mm3 (4.5-10.0)
[2024-04-27 06:56] LABS: Anion Gap 8 mmol/L (4-12); Blood Urea Nitrogen 13 mg/dL (7-17); Carbon Dioxide 21 mmol/L (22-30); Chloride 106 mmol/L (98-107); Estimated CRCL calculation 87 ml/min; Estimated Glomerular Filt Rate > 60; Glucose 97 mg/dL (65-110); Magnesium 1.9 mg/dL (1.6-2.3); Potassium 3.5 mmol/L (3.4-5.0); Sodium 135 mmol/L (137-145)
[2024-04-27] MEDS: MIDODRINE HCL 10 MG TABLET PO ×3 (08:57→16:18)
[2024-04-27] MEDS: ASPIRIN 81 MG CHEWABLE TABLET PO (08:57)
[2024-04-27] MEDS: DIVALPROEX SODIUM DR 250 MG TABEC PO ×2 (08:57→16:15)
[2024-04-27] MEDS: SENNA/DOCUSATE SODIUM TABLET 1 TAB PO ×2 (08:57→16:15)
[2024-04-27] MEDS: PANTOPRAZOLE SOD SESQUIHYDRATE 20 MG TAB PO (08:57)
[2024-04-27] MEDS: busPIRone HCL 5 MG TABLET 15 MG PO ×3 (08:57→16:15)
[2024-04-27 08:59] VITALS: RESP 18; O2SAT 90
[2024-04-27] MEDS: FLUTICASONE PROPIONATE 0.05% NA SPR 16 GM BTL (*BKC) 1 SPRAY NASAL ×2 (08:59→20:57)
[2024-04-27] MEDS: POTASSIUM CHLORIDE 20 MEQ PACKET (FOR LIQUID) 40 MEQ PO (09:44)
[2024-04-27] MEDS: ACETAMINOPHEN 325 MG TABLET PO ×2 (11:45→17:08)
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
[2024-04-27] MEDS: HEPARIN SODIUM 5,000 UNITS/ML VIAL 5000 UNITS SUB-Q ×2 (13:17→20:56)
[2024-04-27 14:00] VITALS: BP 148/81; PULSE 71; RESP 20; TEMP 36.4; O2SAT 94
[2024-04-27 19:49] VITALS: BP 152/85; PULSE 77; RESP 20; TEMP 36.5; O2SAT 94
[2024-04-27 20:00] VITALS: PULSE 77; RESP 20; O2SAT 94
[2024-04-27] MEDS: MELATONIN 5 MG TABLET PO (20:56)
[2024-04-27] MEDS: PRIMIDONE 50 MG TABLET PO (20:56)
[2024-04-28] MEDS: MEROPENEM 1 GM/NS 100 ML 1 GM/100 ML BAG IVPB ×3 (02:27→17:11)
[2024-04-28 04:27] VITALS: BP 139/71; PULSE 67; RESP 18; TEMP 36.6; O2SAT 93
[2024-04-28] MEDS: HEPARIN SODIUM 5,000 UNITS/ML VIAL 5000 UNITS SUB-Q ×3 (05:35→20:08)
[2024-04-28 05:57] LABS: Basophils Absolute Auto 0.1 K/mm3 (0.0-0.1); Basophils Percent Auto 0.8 % (0.2-1.2); Eosinophils Absolute Auto 0.2 K/mm3 (0-0.3); Eosinophils Percent Auto 2.8 % (0-4.4); Hematocrit 36.2 % (37.0-47.0); Hemoglobin 12.5 g/dL (12.0-15.0); Immature Granulocyte Absolute 0.38 K/mm3 (0.00-0.031); Immature Granulocyte Percent A 4.8 % (0-0.5); Lymphocytes Absolute Auto 2.31 K/mm3 (0.9-3.2); Lymphocytes Percent Auto 29.2 % (18.3-44.2); Mean Corpuscular HGB Conc 34.5 g/dl (32-36); Mean Corpuscular Hemoglobin 32.5 pg (26-34); Mean Platelet Volume 9.2 fl (7.4-10.4); Monocytes Absolute Auto 0.8 K/mm3 (0.1-0.6); Monocytes Percent Auto 10.5 % (2.6-8.5); Neutrophils Absolute Auto 4.1 K/mm3 (1.3-6.7); Neutrophils Percent Auto 51.9 % (45.5-73.1); Platelet Count Result 240 k/mm3 (150-375); Red Blood Count 3.85 M/mm3 (4.2-5.4); Red Cell Distribution Width 15.7 % (11.5-14.5); White Blood Count 7.9 K/mm3 (4.5-10.0)
[2024-04-28 06:05] LABS: Anion Gap 8 mmol/L (4-12); Blood Urea Nitrogen 12 mg/dL (7-17); Calcium 8.6 mg/dL (8.4-10.2); Carbon Dioxide 23 mmol/L (22-30); Chloride 105 mmol/L (98-107); Estimated CRCL calculation 102 ml/min; Estimated Glomerular Filt Rate > 60; Glucose 104 mg/dL (65-110); Magnesium 1.9 mg/dL (1.6-2.3); Potassium 3.6 mmol/L (3.4-5.0); Sodium 136 mmol/L (137-145)
--- NOTE | 2024-04-28 06:54 | PM.IMPN ---
Progress Note: A&P Assessment and Plan (1) Acute encephalopathy: Code(s): G93.40 - Encephalopathy, unspecified Status: Acute Assessment and Plan: Likely due to UTI versus dehydration versus polypharmacy - start fluid resuscitation, patient is on antibiotics for UTI - hold meclizine, melatonin mirtazapine mental status improving, patient is alert and oriented today (2) Acute UTI: Code(s): N39.0 - Urinary tract infection, site not specified Status: Acute Assessment and Plan: - UA: cloudy appearance with 3+ protein, 1+ ketones, 3+ blood, positive nitrates, 3+ leukocytes, 3-5 RBC, >100 WBC, 4+ bacteria - UC obtained on 04/24: ESBL Ecoli - previous micro reviewed 12/23/21 aerococcus urinae and susan albicans - started on Rocephin on 04/24, transitioned to Meropenem on 04/26 based on culture (3) Generalized weakness: Code(s): R53.1 - Weakness Status: Acute Assessment and Plan: Likely secondary to acute infection - PT/OT (4) Dehydration: Code(s): E86.0 - Dehydration Status: Acute Assessment and Plan: BUN and creatinine 42/0.9 upon arrival, dry mucous membrane Patient received normal saline bolus 1 L, BUN is trending down Continue normal saline 100 mL/hour (5) Electrolyte abnormality: Code(s): E87.8 - Other disorders of electrolyte and fluid balance, not elsewhere classified Status: Acute Assessment and Plan: Na 132 on admission, improved with IV fluid resuscitation - Na 136 on am labs K 3.0 on admission, then downtrended to 2.8 on 04/26 requiring supplementation - K WNL on am labs Subjective Date/time seen: 04/28/24 06:54 Review of Systems Review of Systems: All systems reviewed & are unremarkable except as noted in HPI and below Exam Narrative: AF General: well nourished, well-developed female in no acute respiratory distress who is nontoxic appearing, lying semi recumbent in bed. HEENT: Normocephalic. Atraumatic. Pupils equal round reactive to light. Extraocular movement intact. Sclera clear and anicteric. Nares patent. No oral lesions. Moist mucous membranes. Tongue is midline. Palate zenon symmetrically. No facial asymmetry. Neck: Neck was supple. No dominant adenopathy, thyromegaly or masses. 2+ carotid upstrokes without bruits. Chest: Lungs are clear to auscultation bilaterlly. No wheezes or crackles. CV: Heart was regular rate and rhythm. S1-S2. No murmurs, gallops, or rubs. Abd: Abdomen was soft. Nontender. Nondistended. Postive bowel sounds. No organomegaly or masses. Ext: No clubbing, cyanosis, or edema. 2+ DP pulses bilaterally. Neuro: Patient is alert and oriented x4. Strenth is 5/5 in both upper and lower extremities. Cranial nerves 2-12 are intact. Speech is clear. Psych: Normal nood and affect. Patient is pleasant and cooperative. Skin: Warm and dry. No rashes noted. Objective Data Vital Signs Vital Signs: Vital Signs - 24 hr 04/27/24 10:23 04/27/24 08:59 04/27/24 14:00 Temperature 97.5 F L Pulse Rate 71 Respiratory Rate 18 20 Blood Pressure 148/81 H Pulse Oximetry 90 94 Oxygen Delivery Room Air Room Air Fraction of Inspired Oxygen 04/27/24 19:49 04/27/24 20:00 04/28/24 04:27 Temperature 97.7 F 97.8 F Pulse Rate 77 77 67 Respiratory Rate 20 20 18 Blood Pressure 152/85 H 139/71 Pulse Oximetry 94 94 93 Oxygen Delivery Room Air Fraction of Inspired Oxygen 21 Intake/Output Intake/Output: Intake & Output 04/25/24 04/26/24 04/27/24 04/28/24 23:59 23:59 23:59 23:59 Intake Total 1630 1561.7 3000 240 Output Total 900 2000 2300 200 Balance 730 -438.3 700 40 Meds/Results Medications: Active Medications Generic Name Dose Route Start Last Admin Trade Name Freq PRN Reason Stop Dose Admin Acetaminophen 650 mg 04/24/24 21:03 04/26/24 02:22 Acetaminophen 325 Mg Tablet PO 650 mg Q4H PRN Administration Mild Pain (1-3) or Fever Acetam
[2024-04-28 09:13] VITALS: RESP 18; O2SAT 93
[2024-04-28] MEDS: ASPIRIN 81 MG CHEWABLE TABLET PO (09:13)
[2024-04-28] MEDS: busPIRone HCL 5 MG TABLET 15 MG PO ×3 (09:13→17:13)
[2024-04-28] MEDS: MIDODRINE HCL 10 MG TABLET PO ×3 (09:13→17:13)
[2024-04-28] MEDS: PANTOPRAZOLE SOD SESQUIHYDRATE 20 MG TAB PO (09:13)
[2024-04-28] MEDS: DIVALPROEX SODIUM DR 250 MG TABEC PO ×2 (09:14→17:14)
[2024-04-28] MEDS: FLUTICASONE PROPIONATE 0.05% NA SPR 16 GM BTL (*BKC) 1 SPRAY NASAL ×2 (09:14→20:08)
[2024-04-28] MEDS: ACETAMINOPHEN 325 MG TABLET PO ×2 (11:44→17:14)
[2024-04-28 14:00] VITALS: BP 156/85; PULSE 64; RESP 18; TEMP 36.6; O2SAT 92
[2024-04-28] MEDS: LIDOCAINE HCL 1% LOCAL INJ 2 ML AMPUL 5 ML INFILTRATE (15:00)
[2024-04-28 16:45] LABS: SARS-CoV-2 RNA PCR Negative (Negative)
--- NOTE | 2024-04-28 17:08 | PM.DS ---
DS: Admitting Diagnosis Discharge Date 04/28/2024 Admitting Diagnosis Acute encephalopathy acute UTI generalized weakness dehydration electrolyte abnormality DS: Discharge Diagnosis Discharge Diagnosis (1) Acute encephalopathy: Code(s): G93.40 - Encephalopathy, unspecified Status: Acute (2) Acute UTI: Code(s): N39.0 - Urinary tract infection, site not specified Status: Acute (3) Generalized weakness: Code(s): R53.1 - Weakness Status: Acute (4) Dehydration: Code(s): E86.0 - Dehydration Status: Acute (5) Electrolyte abnormality: Code(s): E87.8 - Other disorders of electrolyte and fluid balance, not elsewhere classified Status: Acute DS: Summary Hospital Course Reason for hospitalization: Acute encephalopathy acute UTI generalized weakness dehydration electrolyte abnormality Hospital Course: 74-year-old female presented to the hospital for increased weakness and altered mental status. on admission patient was noted to have electrolyte abnormalities hyponatremia and hypokalemia. She received IV fluids and the hyponatremia improved. She received potassium supplementation and the potassium improved. a urinalysis was obtained and was concerning for a urinary tract infection. She was started on IV antibiotics at that time. The urine culture grew ESBL E coli and patient was transitioned to meropenem. A midline was placed as patient will require IV antibiotics at time of discharge. Patient will be discharged on ertapenem to complete her antibiotic course. During patient's admission her mental status improved and she is back to her baseline alert and oriented x3. Patient worked with physical therapy and occupational therapy who recommended continued therapy at time of discharge. Prior to discharge patient denied chest pain, shortness a breath, nausea/ vomiting, dysuria /burning sensation and abdominal pain. Patient discharged back to her [facility]. she is to follow up with her primary care provider in 1 week. Status at Discharge Functional status at discharge: uses cane/walker Time Spent with Patient Time attestation: Total time spent providing and/or coordinating discharge services: Time spent: Greater than 30 minutes Exam Narrative: AF HR 64 RR 18 SpO2 92 BP 156/85 General: female in no acute respiratory distress who is nontoxic appearing, lying semi recumbent in bed. HEENT: Normocephalic. Atraumatic. Extraocular movement intact. Sclera clear and anicteric. No facial asymmetry. Chest: Lungs are clear to auscultation bilaterally. No wheezes or crackles. CV: Heart was regular rate and rhythm. S1-S2. No murmurs, gallops, or rubs. Abd: Abdomen was soft. Nontender. Nondistended. Positive bowel sounds. No organomegaly or masses. Ext: No clubbing, cyanosis, or edema. 2+ DP pulses bilaterally. Neuro: Patient is alert and oriented x3. Cranial nerves 2-12 are intact. Speech is clear. DS: Data Data Completed and Pending Completed studies during hospitalization: chest x-ray Labs on day of discharge: Labs from last 24 hours 04/28/24 04/28/24 16:01 05:47 WBC 7.9 RBC 3.85 L Hgb 12.5 Hct 36.2 L MCV 94.0 MCH 32.5 MCHC 34.5 RDW 15.7 H Plt Count 240 MPV 9.2 Immature Gran % (Auto) 4.8 H Neut % (Auto) 51.9 Lymph % (Auto) 29.2 [place] % (Auto) 10.5 H Eos % (Auto) 2.8 Baso % (Auto) 0.8 Lymph # (Auto) 2.31 [place] # (Auto) 0.8 H Eos # (Auto) 0.2 Baso # (Auto) 0.1 Abs Immat Gran (auto) 0.38 H Absolute Neuts (auto) 4.1 Absolute Nucleated RBC 0.000 Nucleated RBC % 0.0 Sodium 136 L Potassium 3.6 Chloride 105 Carbon Dioxide 23 Anion Gap 8 BUN 12 Creatinine 0.50 L Estim Creat Clear Calc 102 Estimated GFR > 60 Glucose 104 Calcium 8.6 Magnesium 1.9 SARS-CoV-2 RNA (RT-PCR) Negative Discharge Plan Discharge Attendin
[2024-04-28] MEDS: SENNA/DOCUSATE SODIUM TABLET 1 TAB PO (17:13)
[2024-04-28 19:38] VITALS: BP 154/72; PULSE 71; RESP 20; TEMP 36.6; O2SAT 98
[2024-04-28 20:00] VITALS: PULSE 71; RESP 20; O2SAT 98
[2024-04-28] MEDS: PRIMIDONE 50 MG TABLET PO (20:08)
[2024-04-28] MEDS: MELATONIN 5 MG TABLET PO (20:08)
[2024-04-28] MEDS: oxyCODONE/ACETAMINOPHEN (*CRX) 5-325 MG TABLET 1 TABLET PO (20:08)
[2024-04-28] MEDS: SALINE LOCK FLUSH 10 ML IV PUSH (20:09)
--- NOTE | 2024-04-29 10:30 | PC.NURSE ---
Call from [facility]. Pt dc orders say for IM ertapenam, instead of IV. Orders clarified and residential is changing it.
== END 2024-04-28 20:25 | DRG 690 ==
LOC: ANHED 21:01 → ANH2MED 21:32
PROVIDERS: Emergency Medicine; Hospitalist; Internal Medicine; Admitting Provider Internal Medicine; Emergency Provider Emergency Medicine; PCP Internal Medicine; Visit Provider Student in an Organized Health Care Education/Training Program
DX: N39.0 Urinary tract infection, site not specified (principal); G93.40 Encephalopathy, unspecified; E87.1 Hypo-osmolality and hyponatremia; Z16.12 Extended spectrum beta lactamase (ESBL) resistance; B96.20 Unspecified Escherichia coli [E. coli] as the cause of diseases classified elsewhere; E86.0 Dehydration; E87.6 Hypokalemia; E87.8 Other disorders of electrolyte and fluid balance, not elsewhere classified; F41.9 Anxiety disorder, unspecified; F32.A Depression, unspecified; R41.0 Disorientation, unspecified; Z28.21 Immunization not carried out because of patient refusal; Z20.822 Contact with and (suspected) exposure to COVID-19; Z11.52 Encounter for screening for COVID-19; Z93.3 Colostomy status; Z87.891 Personal history of nicotine dependence; Z79.82 Long term (current) use of aspirin
CPT/HCPCS: 36415; 36569; 71045; 80048; 80053; 81001; 83605; 83690; 83735; 84145; 84484; 85025; 87086; 87186; 87635; 87637; 93005; 96365; 96375; 97110; 97161; 97166; 97530; 99285; A9270; C1751; G0378; J0696; J1644; J2003; J2185; J3480; J7030; J7040

== ENCOUNTER 2025-02-19 22:53 | Inpatient (IN) | payer MEDICARE, MEDICAID, SELFPAY ==
--- NOTE | ~2025-02-19 | XR_ITS ---
EXAMINATION: XR chest 1V portable Exam Date/Time: 02/19/2025 23:23 CDT HISTORY: sepsis w/u Comparison: 04/24/2024. RESULT: Lines, tubes, and devices: None. Lungs and pleura: Clear. Cardiomediastinal silhouette: Stable. Other: No acute osseous or upper abdominal finding. IMPRESSION: No acute cardiopulmonary process. Reviewed, dictated and finalized at location K.
--- NOTE | ~2025-02-19 | XR_ITS ---
EXAMINATION: XR chest 1V portable DATE: 02/25/2025 08:11 INDICATION: Congestive heart failure and hypoxia TECHNIQUE: frontal view of the chest was obtained. COMPARISON: Chest radiograph dated 02/19/[address] dated 02/22/2025 FINDINGS: Interstitial and groundglass opacities in the right upper and middle lung zones. Small region of more dense consolidation in the left lower lung zone. Tiny bilateral pleural effusions. No pneumothorax. Heart size is normal. IMPRESSION: 1. Airspace opacities in the right mid and upper lung zones most likely representing pneumonia. 2. Small region of consolidation at the left lower lung zone which could represent atelectasis or pne umonia. 3. Tiny bilateral pleural effusions. Reviewed, dictated and finalized at location A. IMPRESSION: 1. Airspace opacities in the right mid and upper lung zones most likely represe nting pneumonia. 2. Small region of consolidation at the left lower lung zone which could repres ent atelectasis or pneumonia. 3. Tiny bilateral pleural effusions.
--- NOTE | ~2025-02-19 | US_ITS ---
US abdomen limited INDICATION: Elevated liver enzymes PROCEDURE: Realtime right upper abdominal ultrasound. COMPARISON: No prior studies for comparison. FINDINGS: The pancreas is normal without focal mass or pancreatic ductal dilation. Liver echotexture is normal without focal mass or intrahepatic biliary dilatation. There is normal directional flow i n the portal vein. The gallbladder is normal without stones, gallbladder wall thickening or pericholecystic fluid. Comm on bile duct measures 6 mm. No sonographic Whyte's sign. IMPRESSION: 1: Normal limited abdominal ultrasound. Reviewed, dictated and finalized at location A.
--- NOTE | ~2025-02-19 | CT_ITS ---
EXAMINATION: CT abdomen pelvis wo con DATE: 02/20/2025 01:49 INDICATION: Hematuria, urinary tract infection, fever, nausea and vomiting TECHNIQUE: Computed tomography (CT) of the abdomen and pelvis was performed without intravenous contr ast. Automated exposure control and iterative reconstruction technique were employed. The dose-length product was 1393.17 mGy-cm. COMPARISON: 07/23/2020 and 04/29/2019 FINDINGS: Mild dependent atelectasis in the bilateral mid to lower lungs. Additional mild discoid atelectasis a t the lingula and right middle lobe. Heart size is normal. Atherosclerotic coronary artery calcific l ocation. No pericardial or pleural effusion. Small sliding-type hiatal hernia. Multiple tiny gallston es layering in the dependent aspect of the normal-appearing gallbladder. There are few small low-atte nuation cysts in the right hepatic lobe, the largest measuring 1.2 cm. Spleen, pancreas and bilateral adrenal glands are normal. Bilateral nonobstructing nephrolithiasis evaluation which is somewhat delcid ited by motion artifact which limits position of measurement. There are 6 right renal stones, the lar gest at the renal pelvis measuring approximately 2.9 cm. There are at least 7 stones at the left kidn ey including an approximately 2.9 cm stone in the left renal pelvis and 2.1 cm stone at the ureterope lvic junction resulting in mild left hydronephrosis. No ureteral stones. Partially decompressed bladd er is unremarkable. The uterus is not identified and has likely been surgically resected. Left lower quadrant and colostomy with some residual stool in the Aburto's pouch. No bowel obstruction. Tortuou s an atherosclerotic aorta with aneurysmal dilation of the infrarenal aorta which measures up to 3.5 x 4.0 cm measured orthogonal to the axis of flow on the coronal and sagittal images respectively. No free intraperitoneal gas or fluid. No pathologically enlarged abdominal or pelvic lymphadenopathy. Mi ld lumbar levoscoliosis with severe spondylosis. Chronic L1 compression fracture. IMPRESSION: 1. Bilateral nephrolithiasis with obstructing 2.1 cm stone at the left ureteropelvic junction resulti ng in mild left hydronephrosis. 2. Infrarenal abdominal aortic aneurysm measuring up to 4.0 x 3.5 cm. 2. Small sliding-type hiatal hernia. 4. Cholelithiasis. Reviewed, dictated and finalized at location A. IMPRESSION: 1. Bilateral nephrolithiasis with obstructing 2.1 cm stone at the left ureterop elvic junction resulting in mild left hydronephrosis. 2. Infrarenal abdominal aortic aneurysm measuring up to 4.0 x 3.5 cm. 2. Small sliding-type hiatal hernia. 4. Cholelithiasis.
--- NOTE | ~2025-02-19 | CT_ITS ---
EXAMINATION: CTA chest PE protocol DATE: 02/22/2025 15:24 CDT INDICATION: Hypoxia TECHNIQUE: Computed tomographic angiography (CTA) of the chest was performed with 100 mL Omnipaque-35 0 intravenous contrast. The dose-length product was 641.59 mGy-cm. Maximum intensity projection 3D-re constructions of the aorta and other arteries were constructed by the technologist on a separate work station. COMPARISON: None. Reference is made to multiple plain film evaluations of the chest performed most re cently on 02/19/2025 and dating back to 01/11/2022 FINDINGS/OBSERVATIONS: PULMONARY ARTERIES: No filling defect is identified within the main or proximal pulmonary artery. The main pulmonary artery is not enlarged. THORACIC AORTA: No aneurysmal dilatation or dissection is present. The great vessels are intact. Uncurling of the thoracic aorta. LUNGS: Bilateral pleural effusions with adjacent compressive atelectasis on the right and adjacent co mpressive consolidation on the left. Opacification of the right upper and middle lobes, an interval change from recent radiograph of the c hest. MEDIASTINUM: No morphologically suspicious or pathologically enlarged lymph nodes are identified with in the mediastinum or bilateral axilla. Scattered subcentimeter lymph nodes within the right paratrac heal region, likely reactive. BONES OF THE CHEST: No acute fracture. No significant degenerative disease. No lytic or blastic lesions. HEART: The heart is enlarged, without pericardial effusion. UPPER ABDOMEN: Stones are identified within the gallbladder, which is otherwise unremarkable. Retained gastric contents within the stomach. The esophagus is decompressed. IMPRESSION: No pulmonary embolus. No thoracic aortic dissection. Bilateral pleural effusions with adjacent compressive atelectasis on the right and consolidation with in the left lung base. Interval development of opacification of the right upper and middle lobes. Reviewed, dictated and finalized at location A. IMPRESSION: No pulmonary embolus. No thoracic aortic dissection. Bilateral pleural effusions with adjacent compressive atelectasis on the right and consolidation within the left lung base. Interval development of opacification of the right upper and middle lobes.
--- NOTE | ~2025-02-19 | XR_ITS ---
EXAMINATION: XR retrograde pyelo w/stent LT DATE: 02/20/2025 16:25 CDT INDICATION: CYSTO W/ LEFT STENT . TECHNIQUE: 2 fluoroscopic images of the left abdomen and pelvis were obtained during left retrograde pyelography with stent placement. Fluoroscopy exposure time was 22.2 seconds. Air Kerma 8.21 mGy. DAP 0.36 mGym2. COMPARISON: CT abdomen and pelvis, same date FINDINGS/IMPRESSION: Fluoroscopic documentation of left retrograde pyelography with stent placement. Please refer to the o perative note for complete procedural details. Reviewed, dictated and finalized at location K.
--- NOTE | ~2025-02-19 | CT_ITS ---
EXAMINATION: CT brain wo con DATE: 02/20/2025 01:48 INDICATION: Altered mental status TECHNIQUE: Computed tomography (CT) of the head was performed without intravenous contrast. Sagittal and coronal reconstructions were performed. The mA was adjusted according to patient size. Iterative reconstruction technique was employed. The dose-length product was 681.00 mGy-cm. COMPARISON: head CT dated 12/23/2021 FINDINGS: No acute intracranial hemorrhage, acute infarction or abnormal extra axial fluid collection. There is mild scattered white matter hypoattenuation consistent with chronic small vessel ischemic disease. S ymmetric prominence of the sulci consistent with mild age-appropriate diffuse cerebral volume loss. V entricles are normal and symmetric. No mass/mass effect. The orbits, paranasal sinuses and mastoid ai r cells are normal. IMPRESSION: 1. Normal aging brain with mild diffuse volume loss and mild scattered white matter hypoattenuation c onsistent with chronic small vessel ischemic disease. No acute intracranial process. Reviewed, dictated and finalized at location A. IMPRESSION: 1. Normal aging brain with mild diffuse volume loss and mild scattered white ma tter hypoattenuation consistent with chronic small vessel ischemic disease. No acute intracranial process.
[2025-02-19 22:52] VITALS: BP 158/85; PULSE 84; RESP 22; TEMP 36.7; O2SAT 94
[2025-02-19 23:00] VITALS: BP 157/86; PULSE 85; RESP 23; O2SAT 93
[2025-02-19 23:38] LABS: Hematocrit 46.6 % (37.0-47.0); Hemoglobin 15.2 g/dL (12.0-15.0); Immature Granulocyte Percent A 0.3 % (0-0.5); Lymphocytes Absolute Auto 1.08 K/mm3 (0.9-3.2); Mean Corpuscular HGB Conc 32.6 g/dl (32-36); Mean Corpuscular Hemoglobin 30.0 pg (26-34); Mean Corpuscular Volume 92.1 fl (80-100); Nucleated Red Blood Cells Absolute Auto 0.000 K/mm3 (0.0-0.012); Nucleated Red Blood Cells Perc 0.0 % (0.0-0.2); Platelet Count Result 258 k/mm3 (150-375); Red Blood Count 5.06 M/mm3 (4.2-5.4); White Blood Count 14.2 K/mm3 (4.5-10.0)
[2025-02-19 23:44] LABS: INR 1.0; Prothrombin Time 13.6 Seconds (11.1-14.7)
[2025-02-19 23:45] LABS: Partial Thromboplastin Time 33.6 Seconds (22.3-36.8)
[2025-02-19 23:50] LABS: Alanine Aminotransferase 16 U/L (6-35); Albumin Level 4.3 g/dL (3.5-5.1); Alkaline Phosphatase 163 U/L (38-126); Anion Gap 12 mmol/L (4-12); Aspartate Amino Transferase 31 U/L (14-36); Bilirubin,Total 0.8 mg/dL (0.2-1.3); Blood Urea Nitrogen 24 mg/dL (7-17); CRP 7.7 mg/dL (<1.0); Calcium 9.6 mg/dL (8.4-10.2); Carbon Dioxide 24 mmol/L (22-30); Chloride 101 mmol/L (98-107); Estimated CRCL calculation 48 ml/min; Estimated Glomerular Filt Rate 46; Glucose 133 mg/dL (65-110); Potassium 4.8 mmol/L (3.4-5.0); Sodium 137 mmol/L (137-145); Total Protein 8.4 g/dL (6.3-8.2)
[2025-02-19 23:54] LABS: Add Urine Microscopic? YES; Appearance Urine Turbid (Clear); Glucose Urine UA Negative (Negative); Leukocyte Esterase Ur 3+ LEU/UL (Negative); Need Manual Microscopic Reviewed; Nitrate Urine Positive (Negative); Non Pathogenic Casts >20; Specific Grav Ur 1.021 (1.001-1.035)
[2025-02-19] MEDS: ACETAMINOPHEN 500 MG TABLET 1000 MG PO (23:58)
[2025-02-19] MEDS: ONDANSETRON INJ 4 MG/2 ML VIAL IV PUSH (23:58)
[2025-02-20] VITALS (69 sets, daily range): BP systolic 65–140; BP diastolic 31–76; PULSE 83–112; RESP 15–30; TEMP 36.5–38.9; O2SAT 89–100; BMI 32.5
[2025-02-20 00:10] LABS: Influenza A QL RT-PCR Negative (Negative); Influenza B QL RT-PCR Negative (Negative); RSV RNA, RT-PCR Negative (Negative); SARS-CoV-2 RNA PCR Negative (Negative)
--- NOTE | 2025-02-20 00:44 | ED_ITS ---
HPI - Fever General Chief Complaint: Fever <JONES Cage Last Filed: 02/20/25 14:11> Stated Complaint: FEVER, ON LONG-TERM ABX <JONES Cage Last Filed: 02/20/25 14:11> Time Seen by Provider: 02/19/25 23:05 <JONES Cage Last Filed: 02/20/25 14:11> Source: patient <JONES Cage Last Filed: 02/20/25 14:11> Mode of arrival: EMS <JONES Cage Last Filed: 02/20/25 14:11> Limitations: altered mental status <JONES Cage Last Filed: 02/20/25 14:11> History of Present Illness HPI Narrative: Patient is a 75-year-old female who presents the ED via EMS with report of fever. Patient is a resident of [facility]. Per report, she has had intermittent fevers since last night. She reports fever up to 101 degree F. she has history of frequent UTIs, ESBL. Per intermediate report, she was started on Macrobid a few days ago for a UTI. Patient also noted to be altered today. She complains of back pain. Also reports having a cough for the past 1 week. Denies shortness of breath Denies nausea vomiting <JONES Cage Last Filed: 02/20/25 14:11> Related Data Home Medications: Home Medications ?Medication ?Instructions ?Recorded ?Confirmed ?Last Taken ?Type Flonase 1 spray intranasal .q12hr 12/23/21 02/20/25 02/19/25 21:00 History Protonix 20 mg PO DAILY 12/23/21 02/20/25 04/24/24 History midodrine 10 mg PO TID 12/23/21 02/20/25 02/19/25 17:00 History 10 mg albuterol sulfate 90 mcg/actuation 2 puff inhalation TID PRN 01/12/22 02/20/25 02/19/25 21:00 History aerosol inhaler (Ventolin HFA) Shortness Of Breath Or Wheezing 2 puff aspirin 81 mg chewable tablet 81 mg PO DAILY 01/12/22 02/20/25 02/19/25 08:00 History 81 mg acetaminophen 325 mg tablet 325 mg PO Q6H 04/24/24 02/20/25 02/19/25 23:00 History 1,000 mg meclizine 25 mg tablet 25 mg TID PRN Dizziness 04/24/24 04/25/24 04/20/24 History mirtazapine 15 mg tablet 15 mg PO HS 04/24/24 02/20/25 02/19/25 21:00 History 15 mg polyethylene glycol 3350 17 gram 17 g DAILY 04/24/24 04/25/24 04/24/24 History oral powder packet (Miralax) primidone 50 mg tablet 50 mg PO Q12H 04/24/24 02/20/25 02/19/25 21:00 History 50 mg divalproex 250 mg tablet,delayed 250 mg PO BID 04/25/24 02/20/25 02/19/25 21:00 History release (Depakote) 250 mg melatonin 3 mg tablet 5 mg PO HS 04/25/24 02/20/25 02/19/25 21:00 History 5.0001 mg sennosides 8.6 mg-docusate sodium 1 tab-cap PO BID 04/25/24 02/20/25 04/24/24 History 50 mg tablet (Senokot-S) alprazolam 0.5 mg tablet 0.5 mg PO QHS 02/20/25 02/20/25 02/19/25 21:00 History 0.5 mg cetirizine 10 mg tablet (24Hour 10 mg PO DAILY 02/20/25 02/20/25 02/19/25 09:00 History Allergy) 10 mg diclofenac sodium 1 % topical gel 2 g topical QID 02/20/25 02/20/25 02/19/25 21:00 History (Arthritis Pain (diclofenac)) docusate sodium 100 mg capsule 100 mg PO HS 02/20/25 02/20/25 02/19/25 17:00 History (Colace) 100 mg famotidine 20 mg tablet 20 mg PO Q12H 02/20/25 02/20/25 02/19/25 21:00 History 20 mg fluoxetine 10 mg capsule 10 mg PO DAILY 02/20/25 02/20/25 02/19/25 09:00 History fluticasone propionate 50 1 spray intranasal Q12H 02/20/25 02/20/25 02/19/25 21:00 History mcg/actuation nasal 1 spray spray,suspension hydrocodone 5 mg-acetaminophen 325 1 tablet PO BID PRN pain 02/20/25 02/20/25 02/19/25 21:00 History mg tablet 1 tablet hydroxyzine HCl 25 mg tablet 12.5 mg PO .q12hr 02/20/25 02/20/25 02/19/25 21:00 History 12.5 mg lidocaine 4 % topical patch 1 patch topical DAILY PRN pain 02/20/25 02/20/25 02/20/25 09:00 History (Lidocaine Pain Relief) 1 patch multivitamin (Daily Multi-Vitamin 1 tablet PO DAILY 02/20/25 02/20/25 02/19/25 09:00 History tablet) 1 tablet nitrofurantoin 100 mg PO Q12H 02/20/25 02/20/25 02/19/25 21:00 History monohydrate/macrocrystals 100 mg 100 mg capsule omeprazole 20 mg capsule,delayed 20 mg PO DAILY 02/20/25 02/20/25 02/19/25 09:00 History release 20 mg peg 400-propylene glycol (PF) 0.4 1 drp EACH EYE Q12H 02/20/25 02/20/25 02/19/25 21:00 History %-0.3 % eye drops in a dropperette 1 drp (Lubricant Eye (PG-PEG 400) (PF)) simethicone 80 mg chewable tablet 80 mg PO BID 02/20/25 02/20/25 02/19/25 17:00 History (Gas Relief (simethicone)) 80 mg <Carolyne Urias PA-C - Last Filed: 02/20/25 14:11> Allergies/Adverse Reactions: Allergies Allergy/AdvReac Type Severity Reaction Status Date / Time Penicillins Allergy Severe RASH Verified 02/20/25 07:26 clindamycin Allergy Intermediate Rash Verified 02/20/25 07:26 Sulfa (Sulfonamide Allergy Mild Rash Verified 02/20/25 07:26 Antibiotics) sulfacetamide Allergy Mild Rash Verified 02/20/25 07:26 tetracycline Allergy Unknown RASH Verified 02/20/25 07:26 shellfish derived AdvReac Itching Verified 02/20/25 07:26 <JONES Cage Last Filed: 02/20/25 14:11> Review of Systems 2 Review of Systems: All systems reviewed & are unremarkable except as noted in HPI. <JONES Cage Last Filed: 02/20/25 14:11> All systems reviewed & are unremarkable except as noted in HPI and below < JONES Cage Last Filed: 02/20/25 14:11> PMFSH Past Medical History Medical History: Medical History (Updated 02/20/25 @ 12:51 by Aura Silva APRN) History of ESBL E. coli infection Urinary tract infection Colostomy in place History of kidney stones Anxiety Depression Smoker Depression <JONES Cage Last Filed: 02/20/25 14:11> Surgical History Surgical History: Surgical History H/O hysterectomy for benign disease H/O colonoscopy H/O: hysterectomy <JONES Cage Last Filed: 02/20/25 14:11> Family History Family History: Family History Mother Dementia Kidney disease Hypertension Family history of Alzheimer's disease Father Brain cancer Sibling Liver disease Kidney stones Sibling Schizophrenia Obesity Mother No problems noted. <JONES Cage Last Filed: 02/20/25 14:11> Social History Social History: Social History Smoking packs per day: 1.5 Smoking cigarettes per day: 30.0 Years smoked: 40 Smoking pack-years: 60.00 Smoking status: Former smoker Additional smoking assessment comments: Cutting back on smoking and currently at a 1/2 pack a day. Alcohol intake: never Substance use: never Substance use type: unknown Do You Feel Safe in your Home?: Yes Lack of Transportation: No Lack of Food: Never True Current Housing: I Have Housing Concerned About Future Housing: No Difficulty Paying Gas/Electric Bills: No Difficulty Paying for Meds: No Currently Unemployed: No Education: Bachelor's Degree Difficulty w/ Childcare or Family Care: No Living arrangements: alone Gender identity (if verbalized by the patient): Female Sexual Orientation (if Verbalized by the Patient): Straight or Heterosexual Spiritual care concerns: No Agree to blood products: Yes <Caorlyne Urias PA-C - Last Filed: 02/20/25 14:11> Exam 2 Narrative: GENERAL: Chronically ill appearing, obese with BMI of 31.8, non-toxic, in no acute distress. HEAD: Normocephalic, atraumatic. RESPIRATORY: Airway patent, respirations nonlabored. Clear to auscultation bilaterally, no rales, rhonchi, wheezing. CARDIOVASCULAR: Borderline tachycardic with regular rhythm without murmurs, rubs, or gallops. ABDOMINAL: Soft, no appreciable tenderness, nondistended. Normoactive BS. MUSCULOSKELETAL: Moves all extremities. No gross deformities. SKIN: Warm, dry, normal color. NEURO: A&O X2, speech is somewhat aphasic/garbled at times. Able to answer most questions. Follows commands. Cranial nerves II-XII grossly intact. Steady gait. No ataxic movements. No appreciable focal deficits. PSYCHIATRIC: Mildly anxious appearing. Normal interaction. <Carolyne Urias PA-C - Last Filed: 02/20/25 14:11> Course PROGRAM SERVICES ASSISTANT/PA Physician Supervision I agree with midlevel documentation; I performed the medical decision making component of this evaluation. <Valerie Hollnad MD - Last Filed: 02/20/25 06:25> Reevaluation(s) Reevaluation #1: CT has returned and shows multiple intrarenal calculi with some obstructive calculi and hydronephrosis. Patient's blood pressure has dropped quite precipitously. Upon review of her paperwork, she is comfort care, called her daughter over the phone who immediately came in, the pressors temporarily started to give patient and daughter time together in case she passes due to the rapid fall of her blood pressure. Daughter made it to bedside, reiterates she does not want any invasive procedures, including no surgery or stents if that was what was necessary, and no central lines. DNR/DNI. Long discussion with patient's daughter at bedside. Initially daughter asked about the pressors, after discussion/explanation of the effects and asking about the patient's wishes, with shared decision making, would not like to continue pressors at this time. She is hoping that patient can still get oxygen and antibiotics, this is not what was listed on the patient's POLST paperwork however I do feel this is not unreasonable and may be keeping with the spirit of keeping patient comfortable to prevent discomfort of infection, and this may be a reversible cause of her sickness here today without causing her suffering. D/w hospitalist for admission. <Valerie Holland MD - Last Filed: 02/20/25 06:25> Vital Signs Vital signs: Vital Signs Temperature 98.1 F 02/19/25 22:52 Pulse Rate 84 02/19/25 22:52 Respiratory Rate 22 H 02/19/25 22:52 Blood Pressure 158/85 H 02/19/25 22:52 Pulse Oximetry 94 02/19/25 22:52 Oxygen Delivery Room Air 02/19/25 22:52 Temperature 98.3 F 02/20/25 12:00 Pulse Rate 103 H 02/20/25 12:00 Respiratory Rate 28 H 02/20/25 12:00 Blood Pressure 137/65 02/20/25 12:00 Pulse Oximetry 97 02/20/25 12:00 Oxygen Delivery Nasal Cannula 02/20/25 06:25 Oxygen Flow Rate 2 02/20/25 06:25 <Carolyne Urias PA-C - Last Filed: 02/20/25 14:11> Vital Signs Temperature 98.1 F 02/19/25 22:52 Pulse Rate 84 02/19/25 22:52 Respiratory Rate 22 H 02/19/25 22:52 Blood Pressure 158/85 H 02/19/25 22:52 Pulse Oximetry 94 02/19/25 22:52 Oxygen Delivery Room Air 02/19/25 22:52 Temperature 98.3 F 02/20/25 12:00 Pulse Rate 103 H 02/20/25 12:00 Respiratory Rate 28 H 02/20/25 12:00 Blood Pressure 137/65 02/20/25 12:00 Pulse Oximetry 97 02/20/25 12:00 Oxygen Delivery Nasal Cannula 02/20/25 06:25 Oxygen Flow Rate 2 02/20/25 06:25 <Valerie Holland MD - Last Filed: 02/20/25 06:25> MDM - Fever MDM Narrative Medical decision making narrative: Patient presented to ED with fever, ams, hx of frequent UTIs, started on macrobid a few days ago by [facility]. Vital signs are stable upon arrival. Patient is somewhat altered, does have some garbled speech, but is able to answer most questions. I do not appreciate any focal deficits on exam. Complaining of back pain and nausea. Given pain control and Zofran. Straight cath was obtained, only approx 25mL of urine. Fluids initiated. CBC with white blood cell count of 14.2. Neutrophil predominance. No bandemia. CMP with stable electrolytes. Slight RICARDO. Baseline creatinine around 0.6, today 1.15. Fluids are ongoing. Lactic acid within normal range at 1.6. Inflammatory markers are elevated. Blood cultures obtained. UA does appear markedly infected. Positive nitrates. 3+ leuk esterase, greater than 100 RBC/WBC, white blood cell clumps, 4+ urine bacteria. Sent for culture. Previous urine culture reviewed from last year. Does show E coli with multiple resistances. Sensitive to meropenem. This was started in the ED. Viral swabs are negative. Chest x-ray was clear. CT brain negative. CT abdomen/pelvis was obtained. Patient will require admission for continued IV antibiotics. Care signed out to Dr. Holland at shift change pending STAT RAD imaging and discussion with hospitalist. Patient's BP was noted to be low into the 90s stystolic while sleeping while waiting for STAT RAD imaging. This was rechecked multiple times and patient was persistently hypotensive, down into the 70s systolic. She is still alert and oriented. She has received 2 L of fluid. Discussed this with Dr. Holland, will likely need vasopressors/central line. Will start peripheral norepi. Daughter/POA being notified. Patient has a DNR on file with comfort care only. < Carolyne Urias PA-C - Last Filed: 02/20/25 14:11> Medical Records Attestation: I reviewed the patient's medical records. <Carolyne Urias PA-C - Last Filed: 02/20/25 14:11> Lab Data Attestation: I reviewed the patient's lab results. <Carolyne Urias PA-C - Last Filed: 02/20/25 14:11> Result diagrams: 02/20/25 12:36 02/20/25 12:36 <Carolyne Urias PA-C - Last Filed: 02/20/25 14:11> Labs: Lab Results 02/19/25 02/19/25 02/19/25 Range/Units 23:26 23:27 23:35 WBC 14.2 H (4.5-10.0) K/mm3 RBC 5.06 (4.2-5.4) M/mm3 Hgb 15.2 H (12.0-15.0) g/dL Hct 46.6 (37.0-47.0) % MCV 92.1 (80-100) fl MCH 30.0 (26-34) pg MCHC 32.6 (32-36) g/dl RDW 13.2 (11.5-14.5) % Plt Count 258 (150-375) k/mm3 MPV 8.9 (7.4-10.4) fl Immature Gran % (Auto) 0.3 (0-0.5) % Neut % (Auto) 89.4 H (45.5-73.1) % Lymph % (Auto) 7.6 L (18.3-44.2) % [place] % (Auto) 2.5 L (2.6-8.5) % Eos % (Auto) 0.0 (0-4.4) % Baso % (Auto) 0.2 (0.2-1.2) % Lymph # (Auto) 1.08 (0.9-3.2) K/mm3 [place] # (Auto) 0.4 (0.1-0.6) K/mm3 Eos # (Auto) 0.0 (0-0.3) K/mm3 Baso # (Auto) 0.0 (0.0-0.1) K/mm3 Abs Immat Gran (auto) 0.04 H (0.00-0.031) K/mm3 Absolute Neuts (auto) 12.7 H (1.3-6.7) K/mm3 Absolute Nucleated RBC 0.000 (0.0-0.012) K/mm3 Nucleated RBC % 0.0 (0.0-0.2) % PT 13.6 (11.1-14.7) Seconds INR 1.0 APTT 33.6 (22.3-36.8) Seconds Sodium 137 (137-145) mmol/L Potassium 4.8 (3.4-5.0) mmol/L Chloride 101 (98-107) mmol/L Carbon Dioxide 24 (22-30) mmol/L Anion Gap 12 (4-12) mmol/L BUN 24 H D (7-17) mg/dL Creatinine 1.15 H (0.7-1.0) mg/dL Estim Creat Clear Calc 48 ml/min Estimated GFR 46 L (59 - ) Glucose 133 H (65-110) mg/dL Lactic Acid 1.6 (0.7-2.0) mmol/L Calcium 9.6 (8.4-10.2) mg/dL Total Bilirubin 0.8 (0.2-1.3) mg/dL AST 31 (14-36) U/L ALT 16 (6-35) U/L Alkaline Phosphatase 163 H (38-126) U/L C-Reactive Protein 7.7 H (<1.0) mg/dL Total Protein 8.4 H (6.3-8.2) g/dL Albumin 4.3 (3.5-5.1) g/dL Urine Color Dark yellow (Yellow) Urine Appearance Turbid H (Clear) Urine pH 8.0 (5.0-9.0) Ur Specific [place] 1.021 (1.001-1.035) Urine Protein 2+ H (Negative) mg/dL Urine Glucose (UA) Negative (Negative) mg/dL Urine Ketones 1+ H (Negative) mg/dL Ur Blood (Man) 3+ H (Negative) Urine Nitrate Positive H (Negative) Urine Bilirubin Negative (Negative) Urine Urobilinogen 1.0 (<2.0) mg/dL Add Ur Microanalysis Reviewed Leukocyte Esterase Rfl 3+ H (Negative) MILLY/UL Urine RBC >100 H (0-2) /hpf Urine WBC >100 H (0-3) /hpf Urine WBC Clumps Present H (None) /HPF Ur Squamous Epith Cells Moderate (Few) /hpf Urine Bacteria 4+ /hpf Urine Casts >20 Urine Mucus Present /lpf Influenza A (RT-PCR) Negative (Negative) Influenza B (RT-PCR) Negative (Negative) RSV (RT-PCR) Negative (Negative) SARS-CoV-2 RNA (RT-PCR) Negative (Negative) <Carolyne Urias PA-C - Last Filed: 02/20/25 14:11> Lab Results 02/19/25 02/19/25 02/19/25 Range/Units 23:26 23:27 23:35 WBC 14.2 H (4.5-10.0) K/mm3 RBC 5.06 (4.2-5.4) M/mm3 Hgb 15.2 H (12.0-15.0) g/dL Hct 46.6 (37.0-47.0) % MCV 92.1 (80-100) fl MCH 30.0 (26-34) pg MCHC 32.6 (32-36) g/dl RDW 13.2 (11.5-14.5) % Plt Count 258 (150-375) k/mm3 MPV 8.9 (7.4-10.4) fl Immature Gran % (Auto) 0.3 (0-0.5) % Neut % (Auto) 89.4 H (45.5-73.1) % Lymph % (Auto) 7.6 L (18.3-44.2) % [place] % (Auto) 2.5 L (2.6-8.5) % Eos % (Auto) 0.0 (0-4.4) % Baso % (Auto) 0.2 (0.2-1.2) % Lymph # (Auto) 1.08 (0.9-3.2) K/mm3 [place] # (Auto) 0.4 (0.1-0.6) K/mm3 Eos # (Auto) 0.0 (0-0.3) K/mm3 Baso # (Auto) 0.0 (0.0-0.1) K/mm3 Abs Immat Gran (auto) 0.04 H (0.00-0.031) K/mm3 Absolute Neuts (auto) 12.7 H (1.3-6.7) K/mm3 Absolute Nucleated RBC 0.000 (0.0-0.012) K/mm3 Nucleated RBC % 0.0 (0.0-0.2) % PT 13.6 (11.1-14.7) Seconds INR 1.0 APTT 33.6 (22.3-36.8) Seconds Sodium 137 (137-145) mmol/L Potassium 4.8 (3.4-5.0) mmol/L Chloride 101 (98-107) mmol/L Carbon Dioxide 24 (22-30) mmol/L Anion Gap 12 (4-12) mmol/L BUN 24 H D (7-17) mg/dL Creatinine 1.15 H (0.7-1.0) mg/dL Estim Creat Clear Calc 48 ml/min Estimated GFR 46 L (59 - ) Glucose 133 H (65-110) mg/dL Lactic Acid 1.6 (0.7-2.0) mmol/L Calcium 9.6 (8.4-10.2) mg/dL Total Bilirubin 0.8 (0.2-1.3) mg/dL AST 31 (14-36) U/L ALT 16 (6-35) U/L Alkaline Phosphatase 163 H (38-126) U/L C-Reactive Protein 7.7 H (<1.0) mg/dL Total Protein 8.4 H (6.3-8.2) g/dL Albumin 4.3 (3.5-5.1) g/dL Urine Color Dark yellow (Yellow) Urine Appearance Turbid H (Clear) Urine pH 8.0 (5.0-9.0) Ur Specific [place] 1.021 (1.001-1.035) Urine Protein 2+ H (Negative) mg/dL Urine Glucose (UA) Negative (Negative) mg/dL Urine Ketones 1+ H (Negative) mg/dL Ur Blood (Man) 3+ H (Negative) Urine Nitrate Positive H (Negative) Urine Bilirubin Negative (Negative) Urine Urobilinogen 1.0 (<2.0) mg/dL Add Ur Microanalysis Reviewed Leukocyte Esterase Rfl 3+ H (Negative) MILLY/UL Urine RBC >100 H (0-2) /hpf Urine WBC >100 H (0-3) /hpf Urine WBC Clumps Present H (None) /HPF Ur Squamous Epith Cells Moderate (Few) /hpf Urine Bacteria 4+ /hpf Urine Casts >20 Urine Mucus Present /lpf Influenza A (RT-PCR) Negative (Negative) Influenza B (RT-PCR) Negative (Negative) RSV (RT-PCR) Negative (Negative) SARS-CoV-2 RNA (RT-PCR) Negative (Negative) <Valerie Holland MD - Last Filed: 02/20/25 06:25> Imaging Data Attestation: I personally reviewed and interpreted this imaging study as follows: < Carolyne Urias PA-C - Last Filed: 02/20/25 14:11> Radiologist's impression: STAT RAD CT brain: No acute intracranial hemorrhage. No midline shift or mass effect. The territory of [place]-white matter differentiation is maintained throughout. Age-related cerebral volume loss. Periventricular and subcortical white matter hypoattenuation, consistent with chronic microangiopathy. <Carolyne Urias PA-C - Last Filed: 02/20/25 14:11> Critical Care Time Critical Care Time Critical Care Time: Yes <Valerie Holland MD - Last Filed: 02/20/25 06:25> Total Critical Care Time: 31 <Valerie Holland MD - Last Filed: 02/20/25 06:25> Discharge Plan Discharge Clinical Impression: Septic shock, History of ESBL E. coli infection, RICARDO (acute kidney injury) Urinary tract infection Qualifiers: Urinary tract infection type: acute cystitis Hematuria presence: with hematuria Qualified Code(s): N30.01 - Acute cystitis with hematuria Altered mental status Qualifiers: Altered mental status type: unspecified Qualified Code(s): R41.82 - Altered mental status, unspecified <Carolyne Urias PA-C - Last Filed: 02/20/25 14:11> Patient Disposition: Still a Patient <Carolyne Urias PA-C - Last Filed: 02/20/25 14:11> Condition: Critical <Carolyne Urias PA-C - Last Filed: 02/20/25 14:11>
[2025-02-20] MEDS: SODIUM CHLORIDE 0.9% IV 1,000 ML 999 ML IV CONT ×2 (01:03→01:04)
[2025-02-20] MEDS: MORPHINE SULFATE (*CRX) 4 MG/ML INJ IV PUSH (01:04)
[2025-02-20] MEDS: MEROPENEM 1 GM in SODIUM CHLORIDE 0.9% IV 100 ML 200 ML IVPB ×2 (01:28→11:48)
[2025-02-20] MEDS: NOREPINEPHRINE 8 MG/D5W 250 ML 8 MG/250 ML BAG 9.38 MG IV CONT (03:50)
--- NOTE | 2025-02-20 04:00 | PC.NURSE ---
This RN spoke w/ pt's daughter/POA. She will be arriving at the ED soon. This RN verified that pt's wishes are comfort care, daughter states that this is correct. This RN and Dr. Holland decided to start norepinephrine on pt until pt's daughter arrives d/t sever hypotension and acute decompensation.
--- NOTE | 2025-02-20 04:45 | PC.NURSE ---
0445: This RN, Dr. Holland and pt's daughter decided to cease use of norepinephrine as it goes against pt's wishes. Pt reports that I'm tired. Pt's blood pressure trending down. Pt's daughter aware that pt is very unstable and septic.
[2025-02-20] MEDS: SODIUM CHLORIDE 0.9% IV 1,000 ML 125 ML IV CONT ×2 (07:22→17:43)
--- NOTE | 2025-02-20 07:51 | PC.NURSE ---
Purewick placed by previous shift RN
--- NOTE | 2025-02-20 09:53 | PC.NURSE ---
Pt states, I begged for two days to be helped because I didn't feel good and they said oh you just don't want to get out of bed. Daughter had to call to even get her temperature taken. Pt states she does not feel safe at facility, they almost let me twice, pt lives at [facility] [place] [facility].
--- NOTE | 2025-02-20 12:12 | ADMGEN ---
This patient, Jolly Saldana, was admitted to IMU Room 206-02 @ 1212. Patient/family oriented to hospital policies and general routines including ID bracelet, bed and alarms, visiting hours, pain management, procedures, bathroom and other care routines, personal items, smoking policy, room service/diet, and visiting hours. Information on how to activate the Rapid Response Team has been discussed. Patient/Family are encouraged to report perceived risks to care and to ask questions if they do not understand what they are told or what they should do.
--- NOTE | 2025-02-20 12:17 | P.HP_ITS ---
H&P: HPI History of Present Illness Date/Time: 02/20/25 12:17 Chief Complaint: Fevers/AMS Narrative: Patient is a 75-year-old female who was sent to the emergency department from her nursing home facility [facility] due to intermittent fevers as great as 101?. Speaking with patient's daughter who is POA reports she had spoke to her mother over the phone who reported she was not feeling well and feverish requested staff to evaluate patient at which time she was found to have fevers. patient has frequent recurrent UTIs with ESBL. Patient alert and oriented was able to tell me she was at [facility] her name and date of . Patient reported her only complaint was some back pain otherwise she was feeling better. During patient evaluation in the emergency department she was found to have sepsis secondary to urinary tract infection initially vitals were stable other than tachycardia but patient did become hypotensive and was given 2 L bolus of IV fluids without improvement. Patient was then initiated on a vasopressor to provide pressure support however patient was found to have a POLST paperwork marked as comfort care only, at that time the ER physician did contact the patient's power of workers compensation defense attorney Daughter Isabel who requested DNR/DNI with IV fluids and antibiotics for UTI. After patient was admitted to the medical unit patient and family requested if she needs vasopressors they would like those for pressure support and continue medical treatment, however to remain DNR/DNI. I transferred patient to IMU for closer monitoring currently patient's hypotension has improved with continued IV fluids map remains greater than 60. reported past medical history from patient's POA included broken back, bowel perforation with colostomy, kidney stones, anxiety, depression In the ED: patient with leukocytosis 14.4, tachycardia 112, report fever of 101 had received Tylenol prior to arrival, UA suspicious of urinary tract infection, and hypotension of 79/51. CT ABD did show bilateral nephrolithiasis with obstructing 2.1 cm stone at the left ureteropelvic junction with left hydronephrosis Review of Systems 2 Review of Systems: All systems reviewed & are unremarkable except as noted in HPI and below PMFSH Past Medical History Medical History (Updated 02/20/25 @ 12:51 by Aura Silva, MISSION ANALYST) History of ESBL E. coli infection Urinary tract infection Colostomy in place History of kidney stones Anxiety Depression Smoker Depression Surgical History Surgical History H/O hysterectomy for benign disease H/O colonoscopy H/O: hysterectomy Family History Family History Mother Dementia Kidney disease Hypertension Family history of Alzheimer's disease Father Brain cancer Sibling Liver disease Kidney stones Sibling Schizophrenia Obesity Mother No problems noted. Social History Social History Smoking packs per day: 1.5 Smoking cigarettes per day: 30.0 Years smoked: 40 Smoking pack-years: 60.00 Smoking status: Former smoker Additional smoking assessment comments: Cutting back on smoking and currently at a 1/2 pack a day. Alcohol intake: never Substance use: never Substance use type: unknown Do You Feel Safe in your Home?: Yes Lack of Transportation: No Lack of Food: Never True Current Housing: I Have Housing Concerned About Future Housing: No Difficulty Paying Gas/Electric Bills: No Difficulty Paying for Meds: No Currently Unemployed: No Education: Bachelor's Degree Difficulty w/ Childcare or Family Care: No Living arrangements: alone Gender identity (if verbalized by the patient): Female Sexual Orientation (if Verbalized by the Patient): Straight or Heterosexual Spiritual care concerns: No Agree to blood products: Yes Meds Home Medications and Allergies Home Medications ?Medication ?Instructions ?Recorded ?Confirmed ?Type buspirone 15 mg tablet 15 mg PO TID #90 tabs 03/06/21 04/24/24 Rx Flonase 1 spray intranasal BID 12/23/21 04/24/24 History Protonix 20 mg PO DAILY 12/23/21 04/24/24 History midodrine 10 mg PO TID 12/23/21 04/24/24 History albuterol sulfate 90 mcg/actuation 2 puff inhalation TID PRN 01/12/22 04/24/24 History aerosol inhaler (Ventolin HFA) Shortness Of Breath Or Wheezing aspirin 81 mg chewable tablet 81 mg PO DAILY 01/12/22 04/24/24 History camphor 4 %-methyl salicylate 30 1 applic topical BID PRN 01/16/22 04/24/24 Rx %-menthol 10 % topical cream Muscle/Joint Pain #57 grams (Bengay Ultra Strength) acetaminophen 325 mg tablet 325 mg PO Q6H 04/24/24 04/24/24 History meclizine 25 mg tablet 25 mg TID PRN Dizziness 04/24/24 04/25/24 History mirtazapine 15 mg tablet 15 mg PO HS 04/24/24 04/24/24 History polyethylene glycol 3350 17 gram 17 g DAILY 04/24/24 04/25/24 History oral powder packet (Miralax) primidone 50 mg tablet 50 mg PO HS 04/24/24 04/24/24 History divalproex 250 mg tablet,delayed 250 mg PO BID 04/25/24 04/25/24 History release (Depakote) melatonin 3 mg tablet 5 mg PO HS 04/25/24 04/24/24 History sennosides 8.6 mg-docusate sodium 1 tab-cap PO BID 04/25/24 04/24/24 History 50 mg tablet (Senokot-S) ertapenem 1 gram solution for 1 g IM Q24H #4 ea 04/28/24 Rx injection Allergies Allergy/AdvReac Type Severity Reaction Status Date / Time Penicillins Allergy Severe RASH Verified 02/20/25 07:26 clindamycin Allergy Intermediate Rash Verified 02/20/25 07:26 Sulfa (Sulfonamide Allergy Mild Rash Verified 02/20/25 07:26 Antibiotics) sulfacetamide Allergy Mild Rash Verified 02/20/25 07:26 tetracycline Allergy Unknown RASH Verified 02/20/25 07:26 shellfish derived AdvReac Itching Verified 02/20/25 07:26 Vital Signs Vital Signs - 24 hr 02/19/25 22:52 02/19/25 23:00 02/20/25 00:00 Temperature 98.1 F Pulse Rate 84 85 99 Respiratory Rate 22 H 23 H 25 H Blood Pressure 158/85 H 157/86 H 129/74 Pulse Oximetry 94 93 92 Oxygen Delivery Room Air Oxygen Flow Rate 02/20/25 00:15 02/20/25 00:15 02/20/25 00:30 Temperature Pulse Rate 97 94 100 Respiratory Rate 26 H 20 20 Blood Pressure 120/60 120/60 133/72 Pulse Oximetry 93 93 92 Oxygen Delivery Oxygen Flow Rate 02/20/25 01:02 02/20/25 01:15 02/20/25 01:30 Temperature Pulse Rate 99 88 90 Respiratory Rate 27 H 27 H 26 H Blood Pressure 121/73 117/71 120/66 Pulse Oximetry 90 90 92 Oxygen Delivery Oxygen Flow Rate 02/20/25 02:01 02/20/25 02:15 02/20/25 02:30 Temperature Pulse Rate 90 98 99 Respiratory Rate 27 H 27 H 26 H Blood Pressure 124/67 135/75 130/73 Pulse Oximetry 89 L 90 92 Oxygen Delivery Oxygen Flow Rate 02/20/25 02:45 02/20/25 03:00 02/20/25 03:15 Temperature Pulse Rate 92 90 90 Respiratory Rate 23 H 23 H 23 H Blood Pressure 107/65 101/63 96/60 L Pulse Oximetry 92 90 92 Oxygen Delivery Oxygen Flow Rate 02/20/25 03:36 02/20/25 03:36 02/20/25 03:50 Temperature 97.7 F Pulse Rate 89 91 Respiratory Rate 22 H Blood Pressure 79/51 L Pulse Oximetry Oxygen Delivery Oxygen Flow Rate 02/20/25 03:55 02/20/25 04:00 02/20/25 04:01 Temperature Pulse Rate 98 99 Respiratory Rate 21 H 22 H Blood Pressure 118/64 Pulse Oximetry 96 93 94 Oxygen Delivery Nasal Cannula Oxygen Flow Rate 6 02/20/25 04:05 02/20/25 04:10 02/20/25 04:36 Temperature Pulse Rate 102 H 101 H 112 H Respiratory Rate 22 H 20 22 H Blood Pressure 115/68 122/68 Pulse Oximetry 94 94 99 Oxygen Delivery Oxygen Flow Rate 02/20/25 04:40 02/20/25 04:41 02/20/25 04:45 Temperature Pulse Rate 108 H 104 H 88 Respiratory Rate 24 H 23 H Blood Pressure 103/52 L Pulse Oximetry 97 97 Oxygen Delivery Oxygen Flow Rate 02/20/25 04:45 02/20/25 04:46 02/20/25 04:50 Temperature Pulse Rate 109 H 106 H 104 H Respiratory Rate 20 21 H 23 H Blood Pressure 110/57 L 92/54 L Pulse Oximetry 98 97 98 Oxygen Delivery Oxygen Flow Rate 02/20/25 04:55 02/20/25 05:05 02/20/25 05:10 Temperature Pulse Rate 101 H 99 93 Respiratory Rate 15 19 24 H Blood Pressure 86/44 L 74/58 L 76/41 L Pulse Oximetry 98 96 97 Oxygen Delivery Oxygen Flow Rate 02/20/25 05:15 02/20/25 05:20 02/20/25 05:30 Temperature Pulse Rate 92 94 87 Respiratory Rate 22 H 24 H 22 H Blood Pressure 70/44 L 65/31 L 80/53 L Pulse Oximetry 100 99 99 Oxygen Delivery Oxygen Flow Rate 02/20/25 05:42 02/20/25 05:43 02/20/25 05:45 Temperature Pulse Rate 87 101 H 85 Respiratory Rate 20 22 H 22 H Blood Pressure 78/47 L 84/54 L Pulse Oximetry 97 Oxygen Delivery Oxygen Flow Rate 02/20/25 05:46 02/20/25 05:54 02/20/25 05:55 Temperature Pulse Rate 85 84 85 Respiratory Rate 20 21 H 20 Blood Pressure Pulse Oximetry Oxygen Delivery Oxygen Flow Rate 02/20/25 06:00 02/20/25 06:02 02/20/25 06:06 Temperature Pulse Rate 86 85 85 Respiratory Rate 22 H 21 H 21 H Blood Pressure 78/58 L Pulse Oximetry Oxygen Delivery Oxygen Flow Rate 02/20/25 06:14 02/20/25 06:15 02/20/25 06:16 Temperature Pulse Rate 84 84 83 Respiratory Rate 20 21 H 19 Blood Pressure 87/56 L Pulse Oximetry Oxygen Delivery Oxygen Flow Rate 02/20/25 06:20 02/20/25 06:25 02/20/25 06:28 Temperature Pulse Rate 86 86 Respiratory Rate 21 H 18 Blood Pressure Pulse Oximetry 95 94 Oxygen Delivery Nasal Cannula Oxygen Flow Rate 2 02/20/25 06:30 02/20/25 06:31 02/20/25 06:36 Temperature Pulse Rate 84 84 86 Respiratory Rate 20 21 H 20 Blood Pressure 88/58 L Pulse Oximetry 94 94 94 Oxygen Delivery Oxygen Flow Rate 02/20/25 06:40 02/20/25 06:45 02/20/25 07:26 Temperature 98.1 F Pulse Rate 85 84 93 Respiratory Rate 19 20 20 Blood Pressure 92/57 L 88/60 L Pulse Oximetry 94 96 94 Oxygen Delivery Oxygen Flow Rate 02/20/25 08:14 02/20/25 09:39 Temperature 98.3 F 98.8 F Pulse Rate 88 84 Respiratory Rate 18 18 Blood Pressure 98/55 L 90/56 L Pulse Oximetry 94 97 Oxygen Delivery Oxygen Flow Rate Exam Const: General: comfortable and no acute distress Other: Patient alert and oriented was able to answer questions appropriately but somnolent HENMT: Ears: TM's normal bilaterally Face/Nose/Sinus: Normal nares present Mouth: Yes moist mucous membranes Eyes: General: appearance normal, both eyes and all related structures Pupils: Equal, round and reactive pupils present Neck: Neck: supple and no JVD Resp: Effort & Inspection: normal respiratory effort Auscultation: clear to auscultation bilaterally Cardio: Rate: tachycardic Rhythm: regular rhythm GI: GI Palp: Yes Soft to palpation Other: colostomy LQ, Stoma beefy red : Other: LT CVA tenderness, urine kaila color Skin: General skin exam: normal color and no rashes or lesions noted Wounds: no wounds Neuro: Speech: normal speech Motor exam (neuro): 5/5 motor strength present throughout Other: Unable to assess gait, no neurological deficits noted, somnolent Extrem: General: normal to inspection Psych: Mental Status: mental status grossly normal Affect: normal affect H&P: Results Labs Labs: Short CBC 02/19/25 Range/Units 23:27 WBC 14.2 H (4.5-10.0) K/mm3 Hgb 15.2 H (12.0-15.0) g/dL Hct 46.6 (37.0-47.0) % Plt Count 258 (150-375) k/mm3 BMP 02/19/25 23:27 Sodium 137 Potassium 4.8 Chloride 101 Carbon Dioxide 24 BUN 24 H D Creatinine 1.15 H Glucose 133 H Calcium 9.6 Liver Function 02/19/25 Range/Units 23:27 Total Bilirubin 0.8 (0.2-1.3) mg/dL AST 31 (14-36) U/L ALT 16 (6-35) U/L Alkaline Phosphatase 163 H (38-126) U/L Albumin 4.3 (3.5-5.1) g/dL Urine 02/19/25 Range/Units 23:35 Urine Color Dark yellow (Yellow) Urine Appearance Turbid H (Clear) Urine pH 8.0 (5.0-9.0) Ur Specific [place] 1.021 (1.001-1.035) Urine Protein 2+ H (Negative) mg/dL Urine Glucose (UA) Negative (Negative) mg/dL Imaging CT scan - abdomen: Radiologist's impression: EXAMINATION: CT abdomen pelvis wo con DATE: 02/20/2025 01:49 INDICATION: Hematuria, urinary tract infection, fever, nausea and vomiting TECHNIQUE: Computed tomography (CT) of the abdomen and pelvis was performed without intravenous contrast. Automated exposure control and iterative reconstruction technique were employed. The dose-length product was 1393.17 mGy- cm. COMPARISON: 07/23/2020 and 04/29/2019 FINDINGS: Mild dependent atelectasis in the bilateral mid to lower lungs. Additional mild discoid atelectasis at the lingula and right middle lobe. Heart size is normal. Atherosclerotic coronary artery calcific location. No pericardial or pleural effusion. Small sliding-type hiatal hernia. Multiple tiny gallstones layering in the dependent aspect of the normal-appearing gallbladder. There are few small low-attenuation cysts in the right hepatic lobe, the largest measuring 1.2 cm. Spleen, pancreas and bilateral adrenal glands are normal. Bilateral nonobstructing nephrolithiasis evaluation which is somewhat limited by motion artifact which limits position of measurement. There are 6 right renal stones, the largest at the renal pelvis measuring approximately 2.9 cm. There are at least 7 stones at the left kidney including an approximately 2.9 cm stone in the left renal pelvis and 2.1 cm stone at the ureteropelvic junction resulting in mild left hydronephrosis. No ureteral stones. Partially decompressed bladder is unremarkable. The uterus is not identified and has likely been surgically resected. Left lower quadrant and colostomy with some residual stool in the Aburto's pouch. No bowel obstruction. Tortuous an atherosclerotic aorta with aneurysmal dilation of the infrarenal aorta which measures up to 3.5 x 4.0 cm measured orthogonal to the axis of flow on the coronal and sagittal images respectively. No free intraperitoneal gas or fluid. No pathologically enlarged abdominal or pelvic lymphadenopathy. Mild lumbar levoscoliosis with severe spondylosis. Chronic L1 compression fracture. IMPRESSION: 1. Bilateral nephrolithiasis with obstructing 2.1 cm stone at the left ureteropelvic junction resulting in mild left hydronephrosis. 2. Infrarenal abdominal aortic aneurysm measuring up to 4.0 x 3.5 cm. 2. Small sliding-type hiatal hernia. 4. Cholelithiasis. Assessment and Plan Assessment and plan (1) Septic shock: Code(s): A41.9 - Sepsis, unspecified organism; R65.21 - Severe sepsis with septic shock Status: Acute Assessment and Plan: patient found to have sepsis with septic shock secondary to urinary tract infection and obstructing stone bilateral nephrolithiasis. patient with tachycardia, leukocytosis, hypotension * IV fluid resuscitation. 30mg/kg for septic shock * was initially started on vasopressor in the emergency department has been discontinue this time responding to IV fluids * reassessment of volume status/tissue perfusion * meropenem IV * Monitor lactic acid levels q6hr. (WNL) * Repeat CBC, CMP. * blood cultures pending * urine cultures. suspicion for urinary tract infection * C-reactive proteins elevated * neuro status checks * Steroid suggested if septic shock, continue positive fluid resuscitation and vasopressors if indicated. * patient is somnolent will continue to keep NPO with ice chips (2) Acute UTI: Code(s): N39.0 - Urinary tract infection, site not specified Status: Acute Assessment and Plan: patient with multiple history urinary tract infections with ESBL * IV meropenem per previous cultures continue pending new cultures and sensitivities * blood cultures pending (3) Nephrolithiasis: Code(s): N20.0 - Calculus of kidney Status: Acute Assessment and Plan: CT abdomen showing bilateral nephrolithiasis with obstructing 2.1 cm stone at the left ureter pelvic junction with mild left hydronephrosis, also showing multiple bilateral renal stones * urology has been consulted for further evaluation of possible need of stent placement * likely need placement of Jalloh catheter * continue with IV meropenem pending cultures * pain management * IV fluids (4) RICARDO (acute kidney injury): Code(s): N17.9 - Acute kidney failure, unspecified Status: Acute Assessment and Plan: mild RICARDO creatinine 1.13 * IV fluids * trend renal function (5) Colostomy in place: Code(s): Z93.3 - Colostomy status Status: Acute Assessment and Plan: patient with previous history of perforated bowel around 4-5 years ago with colostomy stoma beefy red no signs of infection with stool * colostomy care Plan Code status: Full code per patient DVT prophylaxis: SCD's Stress ulcer prophylaxis: NA PT/OT notes: Pending Disposition: Patient has been admitted and transferred to IMU for closer evaluation and treatment of sepsis with septic shock secondary to urinary tract infection with hypotension has been responding to IV fluid resuscitation and antibiotic therapy family at this time has requested DNR DNI status however do want further treatment and vasopressors if needed. patient with history of ESBL continue with IV meropenem. Will attempt PT OT once able patient is from a nursing home facility plan will be to return there when medically stable. Quality VTE Prophylaxis VTE prophylaxis: mechanical ordered -Patient's previous records reviewed on admission -ER notes reviewed in detail on admission -discussed all findings and current treatment plan with patient/Family/POA -Consultations reviewed for recommendations -Patient's disposition for safe discharge discussed with case investigator Dictation performed by [employer] direct speech recognition software, therefore unmanned aircraft systems roboticist variants and typographical errors may occur. Hospitalist MIPS Advance Care Plan I have confirmed that the patient's Advanced Care Plan is present, code status is documented, or surrogate decision maker is listed in patient medical record.: Yes Medication Reconciliation I have utilized all available resources to obtain, update and review the pa tients current medications (includes all prescriptions, OTC, herbals, cannabis, and nutritional supplements).: Yes The patient is not eligible for med reconciliation; the patient is in a emergent medical situation where delaying treatment would jeopardize the patients health.: No
--- NOTE | 2025-02-20 12:27 | PC.NURSE ---
Pt transferred to room 206. REport given to receiving RN.
[2025-02-20 12:50] LABS: Hematocrit 42.4 % (37.0-47.0); Hemoglobin 13.4 g/dL (12.0-15.0); Mean Corpuscular HGB Conc 31.6 g/dl (32-36); Mean Corpuscular Hemoglobin 29.8 pg (26-34); Mean Corpuscular Volume 94.4 fl (80-100); Platelet Count Result 188 k/mm3 (150-375); Red Blood Count 4.49 M/mm3 (4.2-5.4); White Blood Count 15.4 K/mm3 (4.5-10.0)
[2025-02-20 13:13] LABS: Alanine Aminotransferase 22 U/L (6-35); Albumin Level 4.0 g/dL (3.5-5.1); Alkaline Phosphatase 145 U/L (38-126); Anion Gap 12 mmol/L (4-12); Aspartate Amino Transferase 33 U/L (14-36); Bilirubin,Total 0.9 mg/dL (0.2-1.3); Blood Urea Nitrogen 27 mg/dL (7-17); Calcium 9.1 mg/dL (8.4-10.2); Carbon Dioxide 20 mmol/L (22-30); Chloride 102 mmol/L (98-107); Estimated CRCL calculation 43 ml/min; Estimated Glomerular Filt Rate 40; Glucose 112 mg/dL (65-110); Potassium 4.4 mmol/L (3.4-5.0); Sodium 134 mmol/L (137-145); Total Protein 7.6 g/dL (6.3-8.2)
--- NOTE | 2025-02-20 14:38 | P.CONUR_ITS ---
Assessment and Plan Assessment and plan (1) Obstruction of left ureteropelvic junction (UPJ) due to stone: Code(s): N20.1 - Calculus of ureter Status: Acute Assessment and Plan: Lengthy discussion with the daughter. They have opted to proceed with cysto left retrograde left stent placed and a minimum. They are aware that if unable to place a stent the next step would be a nephrostomy tube. In addition there where that this may need progression to further management with repeated lithotripsies versus ureteroscopy versus PCNL. At the minimum will proceed with stent placement (2) Urinary tract infection: Qualifiers: Hematuria presence: with hematuria Urinary tract infection type: acute cystitis Qualified Code(s): N30.01 - Acute cystitis with hematuria Code(s): N39.0 - Urinary tract infection, site not specified Status: Acute (3) Septic shock: Code(s): A41.9 - Sepsis, unspecified organism; R65.21 - Severe sepsis with septic shock Status: Acute Urology Consult Note HPI Date Seen: 02/20/25 Time Seen: 14:38 Requesting Physician: eWn Rodriguez MD Primary Care Provider: Bryan Traore, Consult Narrative Reason for consult: Left obstructing UPJ stone with UTI/sepsis Narrative: Jolly Saldana is a 75 year old female resides at [facility] senior [facility]. Her daughter was the power of deputy prosecuting attorney states that she is usually a normal mental state. She had fevers intermittently the past day or so and then became confused. She does have a history of UTIs. She was evaluated in the emergency room early this morning. At that time CT scan revealed bilateral renal stones with a 2.1 cm left UPJ stone with mild hydro. Her urine is also infected. Initially she was admitted with no intervention planned per family. This now has changed and they wish to proceed with treatment. Patient was admitted to regular floor and then transferred to the IMU with some hypotension. The time my evaluation patient appears to be shaking slightly. She states that she wants a stent placed although this is difficult to elicit home when she is understanding. Her daughter who is [id number] wishes to proceed with cystoscopy with left retrograde and stent placement. Review of Systems 2 Review of Systems: All systems reviewed & are unremarkable except as noted in HPI and below PMFSH Past Medical History Medical History History of ESBL E. coli infection Urinary tract infection Colostomy in place History of kidney stones Anxiety Depression Smoker Depression Surgical History Surgical History H/O hysterectomy for benign disease H/O colonoscopy H/O: hysterectomy Family History Family History Mother Dementia Kidney disease Hypertension Family history of Alzheimer's disease Father Brain cancer Sibling Liver disease Kidney stones Sibling Schizophrenia Obesity Mother No problems noted. Social History Social History Smoking packs per day: 1.5 Smoking cigarettes per day: 30.0 Years smoked: 40 Smoking pack-years: 60.00 Smoking status: Former smoker Additional smoking assessment comments: Cutting back on smoking and currently at a 1/2 pack a day. Alcohol intake: never Substance use: never Substance use type: unknown Do You Feel Safe in your Home?: Yes Lack of Transportation: No Lack of Food: Never True Current Housing: I Have Housing Concerned About Future Housing: No Difficulty Paying Gas/Electric Bills: No Difficulty Paying for Meds: No Currently Unemployed: No Education: Bachelor's Degree Difficulty w/ Childcare or Family Care: No Living arrangements: alone Gender identity (if verbalized by the patient): Female Sexual Orientation (if Verbalized by the Patient): Straight or Heterosexual Spiritual care concerns: No Agree to blood products: Yes Meds Home Medications and Allergies Home Medications ?Medication ?Instructions ?Recorded ?Confirmed ?Type buspirone 15 mg tablet 15 mg PO TID #90 tabs 03/06/21 02/20/25 Rx Protonix 20 mg PO DAILY 12/23/21 02/20/25 History midodrine 10 mg PO TID 12/23/21 02/20/25 History albuterol sulfate 90 mcg/actuation 2 puff inhalation TID PRN 01/12/22 02/20/25 History aerosol inhaler (Ventolin HFA) Shortness Of Breath Or Wheezing aspirin 81 mg chewable tablet 81 mg PO DAILY 01/12/22 02/20/25 History camphor 4 %-methyl salicylate 30 1 applic topical BID PRN 01/16/22 02/20/25 Rx %-menthol 10 % topical cream Muscle/Joint Pain #57 grams (Bengay Ultra Strength) acetaminophen 325 mg tablet 325 mg PO Q6H 04/24/24 02/20/25 History meclizine 25 mg tablet 25 mg PO TID PRN Dizziness 04/24/24 02/20/25 History mirtazapine 15 mg tablet 15 mg PO HS 04/24/24 02/20/25 History polyethylene glycol 3350 17 gram 17 g PO DAILY 04/24/24 02/20/25 History oral powder packet (Miralax) primidone 50 mg tablet 50 mg PO Q12H 04/24/24 02/20/25 History divalproex 250 mg tablet,delayed 250 mg PO BID 04/25/24 02/20/25 History release (Depakote) melatonin 3 mg tablet 5 mg PO HS 04/25/24 02/20/25 History sennosides 8.6 mg-docusate sodium 1 tab-cap PO BID 04/25/24 02/20/25 History 50 mg tablet (Senokot-S) ertapenem 1 gram solution for 1 g IM Q24H #4 ea 04/28/24 02/20/25 Rx injection alprazolam 0.5 mg tablet 0.5 mg PO QHS 02/20/25 02/20/25 History cetirizine 10 mg tablet (24Hour 10 mg PO DAILY 02/20/25 02/20/25 History Allergy) diclofenac sodium 1 % topical gel 2 g topical QID 02/20/25 02/20/25 History (Arthritis Pain (diclofenac)) docusate sodium 100 mg capsule 100 mg PO HS 02/20/25 02/20/25 History (Colace) famotidine 20 mg tablet 20 mg PO Q12H 02/20/25 02/20/25 History fluoxetine 10 mg capsule 10 mg PO DAILY 02/20/25 02/20/25 History fluticasone propionate 50 1 spray intranasal Q12H 02/20/25 02/20/25 History mcg/actuation nasal spray,suspension hydrocodone 5 mg-acetaminophen 325 1 tablet PO BID PRN pain 02/20/25 02/20/25 History mg tablet hydroxyzine HCl 25 mg tablet 12.5 mg PO .q12hr 02/20/25 02/20/25 History lidocaine 4 % topical patch 1 patch topical DAILY PRN pain 02/20/25 02/20/25 History (Lidocaine Pain Relief) multivitamin (Daily Multi-Vitamin 1 tablet PO DAILY 02/20/25 02/20/25 History tablet) nitrofurantoin 100 mg PO Q12H 02/20/25 02/20/25 History monohydrate/macrocrystals 100 mg capsule omeprazole 20 mg capsule,delayed 20 mg PO DAILY 02/20/25 02/20/25 History release peg 400-propylene glycol (PF) 0.4 1 drp EACH EYE Q12H 02/20/25 02/20/25 History %-0.3 % eye drops in a dropperette (Lubricant Eye (PG-PEG 400) (PF)) simethicone 80 mg chewable tablet 80 mg PO BID 02/20/25 02/20/25 History (Gas Relief (simethicone)) Allergies Allergy/AdvReac Type Severity Reaction Status Date / Time Penicillins Allergy Severe RASH Verified 02/20/25 07:26 clindamycin Allergy Intermediate Rash Verified 02/20/25 07:26 Sulfa (Sulfonamide Allergy Mild Rash Verified 02/20/25 07:26 Antibiotics) sulfacetamide Allergy Mild Rash Verified 02/20/25 07:26 tetracycline Allergy Unknown RASH Verified 02/20/25 07:26 shellfish derived AdvReac Itching Verified 02/20/25 07:26 Vital Signs Vital Signs - 24 hr 02/19/25 22:52 02/19/25 23:00 02/20/25 00:00 Temperature 36.7 C Pulse Rate 84 85 99 Respiratory Rate 22 H 23 H 25 H Blood Pressure 158/85 H 157/86 H 129/74 Pulse Oximetry 94 93 92 Oxygen Delivery Room Air Oxygen Flow Rate 02/20/25 00:15 02/20/25 00:15 02/20/25 00:30 Temperature Pulse Rate 97 94 100 Respiratory Rate 26 H 20 20 Blood Pressure 120/60 120/60 133/72 Pulse Oximetry 93 93 92 Oxygen Delivery Oxygen Flow Rate 02/20/25 01:02 02/20/25 01:15 02/20/25 01:30 Temperature Pulse Rate 99 88 90 Respiratory Rate 27 H 27 H 26 H Blood Pressure 121/73 117/71 120/66 Pulse Oximetry 90 90 92 Oxygen Delivery Oxygen Flow Rate 02/20/25 02:01 02/20/25 02:15 02/20/25 02:30 Temperature Pulse Rate 90 98 99 Respiratory Rate 27 H 27 H 26 H Blood Pressure 124/67 135/75 130/73 Pulse Oximetry 89 L 90 92 Oxygen Delivery Oxygen Flow Rate 02/20/25 02:45 02/20/25 03:00 02/20/25 03:15 Temperature Pulse Rate 92 90 90 Respiratory Rate 23 H 23 H 23 H Blood Pressure 107/65 101/63 96/60 L Pulse Oximetry 92 90 92 Oxygen Delivery Oxygen Flow Rate 02/20/25 03:36 02/20/25 03:36 02/20/25 03:50 Temperature 36.5 C Pulse Rate 89 91 Respiratory Rate 22 H Blood Pressure 79/51 L Pulse Oximetry Oxygen Delivery Oxygen Flow Rate 02/20/25 03:55 02/20/25 04:00 02/20/25 04:01 Temperature Pulse Rate 98 99 Respiratory Rate 21 H 22 H Blood Pressure 118/64 Pulse Oximetry 96 93 94 Oxygen Delivery Nasal Cannula Oxygen Flow Rate 6 02/20/25 04:05 02/20/25 04:10 02/20/25 04:36 Temperature Pulse Rate 102 H 101 H 112 H Respiratory Rate 22 H 20 22 H Blood Pressure 115/68 122/68 Pulse Oximetry 94 94 99 Oxygen Delivery Oxygen Flow Rate 02/20/25 04:40 02/20/25 04:41 02/20/25 04:45 Temperature Pulse Rate 108 H 104 H 88 Respiratory Rate 24 H 23 H Blood Pressure 103/52 L Pulse Oximetry 97 97 Oxygen Delivery Oxygen Flow Rate 02/20/25 04:45 02/20/25 04:46 02/20/25 04:50 Temperature Pulse Rate 109 H 106 H 104 H Respiratory Rate 20 21 H 23 H Blood Pressure 110/57 L 92/54 L Pulse Oximetry 98 97 98 Oxygen Delivery Oxygen Flow Rate 02/20/25 04:55 02/20/25 05:05 02/20/25 05:10 Temperature Pulse Rate 101 H 99 93 Respiratory Rate 15 19 24 H Blood Pressure 86/44 L 74/58 L 76/41 L Pulse Oximetry 98 96 97 Oxygen Delivery Oxygen Flow Rate 02/20/25 05:15 02/20/25 05:20 02/20/25 05:30 Temperature Pulse Rate 92 94 87 Respiratory Rate 22 H 24 H 22 H Blood Pressure 70/44 L 65/31 L 80/53 L Pulse Oximetry 100 99 99 Oxygen Delivery Oxygen Flow Rate 02/20/25 05:42 02/20/25 05:43 02/20/25 05:45 Temperature Pulse Rate 87 101 H 85 Respiratory Rate 20 22 H 22 H Blood Pressure 78/47 L 84/54 L Pulse Oximetry 97 Oxygen Delivery Oxygen Flow Rate 02/20/25 05:46 02/20/25 05:54 02/20/25 05:55 Temperature Pulse Rate 85 84 85 Respiratory Rate 20 21 H 20 Blood Pressure Pulse Oximetry Oxygen Delivery Oxygen Flow Rate 02/20/25 06:00 02/20/25 06:02 02/20/25 06:06 Temperature Pulse Rate 86 85 85 Respiratory Rate 22 H 21 H 21 H Blood Pressure 78/58 L Pulse Oximetry Oxygen Delivery Oxygen Flow Rate 02/20/25 06:14 02/20/25 06:15 02/20/25 06:16 Temperature Pulse Rate 84 84 83 Respiratory Rate 20 21 H 19 Blood Pressure 87/56 L Pulse Oximetry Oxygen Delivery Oxygen Flow Rate 02/20/25 06:20 02/20/25 06:25 02/20/25 06:28 Temperature Pulse Rate 86 86 Respiratory Rate 21 H 18 Blood Pressure Pulse Oximetry 95 94 Oxygen Delivery Nasal Cannula Oxygen Flow Rate 2 02/20/25 06:30 02/20/25 06:31 02/20/25 06:36 Temperature Pulse Rate 84 84 86 Respiratory Rate 20 21 H 20 Blood Pressure 88/58 L Pulse Oximetry 94 94 94 Oxygen Delivery Oxygen Flow Rate 02/20/25 06:40 02/20/25 06:45 02/20/25 07:26 Temperature 36.7 C Pulse Rate 85 84 93 Respiratory Rate 19 20 20 Blood Pressure 92/57 L 88/60 L Pulse Oximetry 94 96 94 Oxygen Delivery Oxygen Flow Rate 02/20/25 08:14 02/20/25 09:39 02/20/25 12:00 Temperature 36.8 C 37.1 C 36.8 C Pulse Rate 88 84 103 H Respiratory Rate 18 18 28 H Blood Pressure 98/55 L 90/56 L 137/65 Pulse Oximetry 94 97 97 Oxygen Delivery Oxygen Flow Rate Exam 2 Const: General: confusion Resp: Effort & Inspection: normal respiratory effort Cardio: Rate: regular rate Results Labs 02/20/25 12:36 02/20/25 12:36 Labs: Short CBC 02/19/25 02/20/25 Range/Units 23:27 12:36 WBC 14.2 H 15.4 H (4.5-10.0) K/mm3 Hgb 15.2 H 13.4 (12.0-15.0) g/dL Hct 46.6 42.4 (37.0-47.0) % Plt Count 258 188 (150-375) k/mm3 BMP 02/19/25 02/20/25 23:27 12:36 Sodium 137 134 L Potassium 4.8 4.4 Chloride 101 102 Carbon Dioxide 24 20 L BUN 24 H D 27 H Creatinine 1.15 H 1.30 H Glucose 133 H 112 H Calcium 9.6 9.1 Liver Function 02/19/25 02/20/25 Range/Units 23:27 12:36 Total Bilirubin 0.8 0.9 (0.2-1.3) mg/dL AST 31 33 (14-36) U/L ALT 16 22 (6-35) U/L Alkaline Phosphatase 163 H 145 H (38-126) U/L Albumin 4.3 4.0 (3.5-5.1) g/dL Urine 02/19/25 Range/Units 23:35 Urine Color Dark yellow (Yellow) Urine Appearance Turbid H (Clear) Urine pH 8.0 (5.0-9.0) Ur Specific [place] 1.021 (1.001-1.035) Urine Protein 2+ H (Negative) mg/dL Urine Glucose (UA) Negative (Negative) mg/dL
--- NOTE | 2025-02-20 14:44 | WPDHPUPDATE1 ---
History and Physical Update Update Date/Time: 02/20/25 14:44 History and Physical has been reviewed, including an updated exam of the patient. There are NO changes in the patient's condition. Risks, benefits, and alternatives have been discussed and questions answered. Patient agrees to proceed with procedure. Proceed with cystoscopy, left retrograde, left ureteral stent placement emergently
--- NOTE | 2025-02-20 14:56 | P.PNAN_ITS ---
Anes - Eval Pre Procedure Procedure: cysto, left RPG, left stent placement Date/Time: 02/20/25 14:56 Surgeon: Thor Preop Diagnosis: left obstructing UPJ stone, hydronephrosis Pre Op Diagnosis: Septic shock Patient Data Age: 75 Gender: F Height: 1.8 m Weight: 105.9 kg Last Vital Signs Temp 98.3 F 02/20/25 12:00 Pulse 103 H 02/20/25 12:00 Resp 28 H 02/20/25 12:00 BP 137/65 02/20/25 12:00 Pulse Ox 97 02/20/25 12:00 O2 Del Method Nasal Cannula 02/20/25 06:25 O2 Flow Rate 2 02/20/25 06:25 Allergies Allergy/AdvReac Type Severity Reaction Status Date / Time Penicillins Allergy Severe RASH Verified 02/20/25 07:26 clindamycin Allergy Intermediate Rash Verified 02/20/25 07:26 Sulfa (Sulfonamide Allergy Mild Rash Verified 02/20/25 07:26 Antibiotics) sulfacetamide Allergy Mild Rash Verified 02/20/25 07:26 tetracycline Allergy Unknown RASH Verified 02/20/25 07:26 shellfish derived AdvReac Itching Verified 02/20/25 07:26 Home Medications ?Medication ?Instructions ?Recorded ?Confirmed ?Type buspirone 15 mg tablet 15 mg PO TID #90 tabs 03/06/21 02/20/25 Rx Protonix 20 mg PO DAILY 12/23/21 02/20/25 History midodrine 10 mg PO TID 12/23/21 02/20/25 History albuterol sulfate 90 mcg/actuation 2 puff inhalation TID PRN 01/12/22 02/20/25 History aerosol inhaler (Ventolin HFA) Shortness Of Breath Or Wheezing aspirin 81 mg chewable tablet 81 mg PO DAILY 01/12/22 02/20/25 History camphor 4 %-methyl salicylate 30 1 applic topical BID PRN 01/16/22 02/20/25 Rx %-menthol 10 % topical cream Muscle/Joint Pain #57 grams (Bengay Ultra Strength) acetaminophen 325 mg tablet 325 mg PO Q6H 04/24/24 02/20/25 History meclizine 25 mg tablet 25 mg PO TID PRN Dizziness 04/24/24 02/20/25 History mirtazapine 15 mg tablet 15 mg PO HS 04/24/24 02/20/25 History polyethylene glycol 3350 17 gram 17 g PO DAILY 04/24/24 02/20/25 History oral powder packet (Miralax) primidone 50 mg tablet 50 mg PO Q12H 04/24/24 02/20/25 History divalproex 250 mg tablet,delayed 250 mg PO BID 04/25/24 02/20/25 History release (Depakote) melatonin 3 mg tablet 5 mg PO HS 04/25/24 02/20/25 History sennosides 8.6 mg-docusate sodium 1 tab-cap PO BID 04/25/24 02/20/25 History 50 mg tablet (Senokot-S) ertapenem 1 gram solution for 1 g IM Q24H #4 ea 04/28/24 02/20/25 Rx injection alprazolam 0.5 mg tablet 0.5 mg PO QHS 02/20/25 02/20/25 History cetirizine 10 mg tablet (24Hour 10 mg PO DAILY 02/20/25 02/20/25 History Allergy) diclofenac sodium 1 % topical gel 2 g topical QID 02/20/25 02/20/25 History (Arthritis Pain (diclofenac)) docusate sodium 100 mg capsule 100 mg PO HS 02/20/25 02/20/25 History (Colace) famotidine 20 mg tablet 20 mg PO Q12H 02/20/25 02/20/25 History fluoxetine 10 mg capsule 10 mg PO DAILY 02/20/25 02/20/25 History fluticasone propionate 50 1 spray intranasal Q12H 02/20/25 02/20/25 History mcg/actuation nasal spray,suspension hydrocodone 5 mg-acetaminophen 325 1 tablet PO BID PRN pain 02/20/25 02/20/25 History mg tablet hydroxyzine HCl 25 mg tablet 12.5 mg PO .q12hr 02/20/25 02/20/25 History lidocaine 4 % topical patch 1 patch topical DAILY PRN pain 02/20/25 02/20/25 History (Lidocaine Pain Relief) multivitamin (Daily Multi-Vitamin 1 tablet PO DAILY 02/20/25 02/20/25 History tablet) nitrofurantoin 100 mg PO Q12H 02/20/25 02/20/25 History monohydrate/macrocrystals 100 mg capsule omeprazole 20 mg capsule,delayed 20 mg PO DAILY 02/20/25 02/20/25 History release peg 400-propylene glycol (PF) 0.4 1 drp EACH EYE Q12H 02/20/25 02/20/25 History %-0.3 % eye drops in a dropperette (Lubricant Eye (PG-PEG 400) (PF)) simethicone 80 mg chewable tablet 80 mg PO BID 02/20/25 02/20/25 History (Gas Relief (simethicone)) Laboratory Tests 02/19/25 02/19/25 02/19/25 23:26 23:27 23:35 WBC 14.2 H K/mm3 (4.5-10.0) RBC 5.06 M/mm3 (4.2-5.4) Hgb 15.2 H g/dL (12.0-15.0) Hct 46.6 % (37.0-47.0) MCV 92.1 fl (80-100) MCH 30.0 pg (26-34) MCHC 32.6 g/dl (32-36) RDW 13.2 % (11.5-14.5) Plt Count 258 k/mm3 (150-375) MPV 8.9 fl (7.4-10.4) Immature Gran % (Auto) 0.3 % (0-0.5) Neut % (Auto) 89.4 H % (45.5-73.1) Lymph % (Auto) 7.6 L % (18.3-44.2) Crisp % (Auto) 2.5 L % (2.6-8.5) Eos % (Auto) 0.0 % (0-4.4) Baso % (Auto) 0.2 % (0.2-1.2) Lymph # (Auto) 1.08 K/mm3 (0.9-3.2) Crisp # (Auto) 0.4 K/mm3 (0.1-0.6) Eos # (Auto) 0.0 K/mm3 (0-0.3) Baso # (Auto) 0.0 K/mm3 (0.0-0.1) Abs Immat Gran (auto) 0.04 H K/mm3 (0.00-0.031) Absolute Neuts (auto) 12.7 H K/mm3 (1.3-6.7) Absolute Nucleated RBC 0.000 K/mm3 (0.0-0.012) Nucleated RBC % 0.0 % (0.0-0.2) PT 13.6 Seconds (11.1-14.7) INR 1.0 APTT 33.6 Seconds (22.3-36.8) Sodium 137 mmol/L (137-145) Potassium 4.8 mmol/L (3.4-5.0) Chloride 101 mmol/L (98-107) Carbon Dioxide 24 mmol/L (22-30) Anion Gap 12 mmol/L (4-12) BUN 24 H D mg/dL (7-17) Creatinine 1.15 H mg/dL (0.7-1.0) Estim Creat Clear Calc 48 ml/min Estimated GFR 46 L (59 - ) Glucose 133 H mg/dL (65-110) Lactic Acid 1.6 mmol/L (0.7-2.0) Calcium 9.6 mg/dL (8.4-10.2) Total Bilirubin 0.8 mg/dL (0.2-1.3) AST 31 U/L (14-36) ALT 16 U/L (6-35) Alkaline Phosphatase 163 H U/L (38-126) C-Reactive Protein 7.7 H mg/dL (<1.0) Total Protein 8.4 H g/dL (6.3-8.2) Albumin 4.3 g/dL (3.5-5.1) Urine Color Dark yellow (Yellow) Urine Appearance Turbid H (Clear) Urine pH 8.0 (5.0-9.0) Ur Specific [place] 1.021 (1.001-1.035) Urine Protein 2+ H mg/dL (Negative) Urine Glucose (UA) Negative mg/dL (Negative) Urine Ketones 1+ H mg/dL (Negative) Ur Blood (Man) 3+ H (Negative) Urine Nitrate Positive H (Negative) Urine Bilirubin Negative (Negative) Urine Urobilinogen 1.0 mg/dL (<2.0) Add Ur Microanalysis Reviewed Leukocyte Esterase Rfl 3+ H MILLY/UL (Negative) Urine RBC >100 H /hpf (0-2) Urine WBC >100 H /hpf (0-3) Urine WBC Clumps Present H /HPF (None) Ur Squamous Epith Cells Moderate /hpf (Few) Urine Bacteria 4+ /hpf Urine Casts >20 Urine Mucus Present /lpf Influenza A (RT-PCR) Negative (Negative) Influenza B (RT-PCR) Negative (Negative) RSV (RT-PCR) Negative (Negative) SARS-CoV-2 RNA (RT-PCR) Negative (Negative) 02/20/25 12:36 WBC 15.4 H K/mm3 (4.5-10.0) RBC 4.49 M/mm3 (4.2-5.4) Hgb 13.4 g/dL (12.0-15.0) Hct 42.4 % (37.0-47.0) MCV 94.4 fl (80-100) MCH 29.8 pg (26-34) MCHC 31.6 L g/dl (32-36) RDW 13.6 % (11.5-14.5) Plt Count 188 k/mm3 (150-375) MPV 8.9 fl (7.4-10.4) Immature Gran % (Auto) Neut % (Auto) Lymph % (Auto) Crisp % (Auto) Eos % (Auto) Baso % (Auto) Lymph # (Auto) Crisp # (Auto) Eos # (Auto) Baso # (Auto) Abs Immat Gran (auto) Absolute Neuts (auto) Absolute Nucleated RBC Nucleated RBC % PT INR APTT Sodium 134 L mmol/L (137-145) Potassium 4.4 mmol/L (3.4-5.0) Chloride 102 mmol/L (98-107) Carbon Dioxide 20 L mmol/L (22-30) Anion Gap 12 mmol/L (4-12) BUN 27 H mg/dL (7-17) Creatinine 1.30 H mg/dL (0.7-1.0) Estim Creat Clear Calc 43 ml/min Estimated GFR 40 L (59 - ) Glucose 112 H mg/dL (65-110) Lactic Acid Calcium 9.1 mg/dL (8.4-10.2) Total Bilirubin 0.9 mg/dL (0.2-1.3) AST 33 U/L (14-36) ALT 22 U/L (6-35) Alkaline Phosphatase 145 H U/L (38-126) C-Reactive Protein Total Protein 7.6 g/dL (6.3-8.2) Albumin 4.0 g/dL (3.5-5.1) Urine Color Urine Appearance Urine pH Ur Specific [place] Urine Protein Urine Glucose (UA) Urine Ketones Ur Blood (Man) Urine Nitrate Urine Bilirubin Urine Urobilinogen Add Ur Microanalysis Leukocyte Esterase Rfl Urine RBC Urine WBC Urine WBC Clumps Ur Squamous Epith Cells Urine Bacteria Urine Casts Urine Mucus Influenza A (RT-PCR) Influenza B (RT-PCR) RSV (RT-PCR) SARS-CoV-2 RNA (RT-PCR) Patient hx anesthesia problems: none Family hx anesthesia problems: none Results Review: All pre-operative results and documents have been reviewed as part of the pre- operative evaluation. FOR[facility]LY [facility], [facility] Past Medical History Medical History History of ESBL E. coli infection Urinary tract infection Colostomy in place History of kidney stones Anxiety Depression Smoker Depression Surgical History Surgical History H/O hysterectomy for benign disease H/O colonoscopy H/O: hysterectomy Family History Family History Mother Dementia Kidney disease Hypertension Family history of Alzheimer's disease Father Brain cancer Sibling Liver disease Kidney stones Sibling Schizophrenia Obesity Mother No problems noted. Social History Social History Smoking packs per day: 1.5 Smoking cigarettes per day: 30.0 Years smoked: 40 Smoking pack-years: 60.00 Smoking status: Former smoker Additional smoking assessment comments: Cutting back on smoking and currently at a 1/2 pack a day. Alcohol intake: never Substance use: never Substance use type: unknown Do You Feel Safe in your Home?: Yes Lack of Transportation: No Lack of Food: Never True Current Housing: I Have Housing Concerned About Future Housing: No Difficulty Paying Gas/Electric Bills: No Difficulty Paying for Meds: No Currently Unemployed: No Education: Bachelor's Degree Difficulty w/ Childcare or Family Care: No Living arrangements: alone Gender identity (if verbalized by the patient): Female Sexual Orientation (if Verbalized by the Patient): Straight or Heterosexual Spiritual care concerns: No Agree to blood products: Yes Comments pt initially presented from extended care facility as DNR with an obstructing stone. per ER documentation, pt hypotensive, treated with pressors & 2L IVF. family/POA requested pressors stopped & comfort care only. no invasive treatments. pt transferred to the inpatient care. family now requesting surgical intervention for treatment of obstructing stone. last pressure documented 137/65, HR 103, 97% O2sat. Exam Day of Procedure 02/20/25 14:56
[2025-02-20] MEDS: LIDOCAINE 2% JELLY 5 ML TUBE 1 APPLIC MUCOUS MEM (15:44)
--- NOTE | 2025-02-20 16:36 | P.PNAN_ITS ---
Anes - Eval Final PreProcedure Day of Procedure 02/20/25 16:36 Patient weight: obese Heart: tachycardia Lungs: decreased breath sounds Airway: Mallampati scale class III Neurological: alert and oriented Last oral intake: 2 hours ASA classification: IV Emergent: yes Anesthetic plan: proceed Anesthesia type and monitoring: general GIVS and standard monitoring Results Review: All pre-operative results and documents have been reviewed as part of the pre- operative evaluation. Informed Consent: The patient's anesthetic plan and its attendant risks and benefits were discussed with the patient/family/POA. Questions were solicited and answers provided to the satisfaction of the patient/family/POA.
--- NOTE | 2025-02-20 16:41 | P.OP_ITS ---
Procedure Note - Detailed Date of Procedure 02/20/25 Pre-op Diagnosis Septic shock, obstructing left UPJ calculus Post-op Diagnosis Same Procedure Performed Cystoscopy, left retrograde, left ureteral stent placement 6 [place] contour, Jalloh catheter placement Surgeon Yaron Mcrae MD Anesthesia General Description of Procedure Patient was taken the operative suite correctly identified. Once anesthesia was obtained she was placed in dorsal lithotomy position and prepped and draped usual sterile fashion. Twenty-two [place] scope inserted the bladder. There were no tumors noted. She does have some purulence and the bladder. The ureteral orifices are somewhat lateral in nature. The left orifice was cannulated with a wire. Once I got up to the kidney there was some purulence that came from the orifice. Ureteral catheter was then placed in a pyelogram was performed confirm placement of the stent. Six [place] contour stent was then placed with the proximal end in the upper pole the distal in the bladder. 2% viscous lidocaine was inserted into the urethra a 16 [place] Jalloh was placed with 10 cc in the balloon. Patient is taken recovery stable condition. If he remains stable she will be returned back time you. If there is any reservation she will go to ICU. This completes dictation. Please send a copy of op note to my office. Estimated Blood Loss 0 Urine Output 25 Drains Yes Packing No Pathology None sent Complications No immediate complications Condition Stable Disposition PACU
[2025-02-20] MEDS: LACTATED RINGERS 1,000 ML 30 ML IV CONT (16:49)
[2025-02-20] MEDS: MIDODRINE HCL 10 MG TABLET PO (17:42)
[2025-02-20] MEDS: FAMOTIDINE 20 MG TABLET PO ×2 (17:42→20:25)
[2025-02-20] MEDS: MULTIVITAMINS THERAPEUTIC TAB (*BKC) 1 TABLET PO (17:42)
[2025-02-20] MEDS: DIVALPROEX SODIUM DR 250 MG TABEC PO (17:42)
[2025-02-20] MEDS: FLUTICASONE PROPIONATE 0.05% NA SPR 16 GM BTL (*BKC) 1 SPRAY NASAL ×2 (17:43→20:25)
[2025-02-20] MEDS: DICLOFENAC SODIUM 1% 100 GM GEL (*BKC) TOPICAL ×2 (17:44→20:26)
[2025-02-20] MEDS: HYDROcodone/acetaminophen (*CRX) 5-325 MG TABLET 1 TAB PO (17:45)
[2025-02-20] MEDS: ACETAMINOPHEN 325 MG TABLET 650 MG PO (20:10)
[2025-02-20] MEDS: ALPRAZolam (*CRX) 0.5 MG TABLET PO (20:24)
[2025-02-20] MEDS: DOCUSATE SODIUM 100 MG CAPSULE PO (20:25)
[2025-02-20] MEDS: MELATONIN 5 MG TABLET PO (20:25)
[2025-02-20] MEDS: MIRTAZAPINE 15 MG TABLET PO (20:25)
[2025-02-21] VITALS (15 sets, daily range): BP systolic 102–139; BP diastolic 54–71; PULSE 61–104; RESP 16–24; TEMP 36.3–37.6; O2SAT 91–94
[2025-02-21] MEDS: MEROPENEM 1 GM in SODIUM CHLORIDE 0.9% IV 100 ML 200 ML IVPB ×3 (00:09→23:01)
[2025-02-21] MEDS: ACETAMINOPHEN 325 MG TABLET 650 MG PO ×4 (00:10→21:04)
[2025-02-21] MEDS: SODIUM CHLORIDE 0.9% IV 1,000 ML 125 ML IV CONT ×3 (00:15→16:44)
[2025-02-21 04:46] LABS: Hematocrit 32.0 % (37.0-47.0); Hemoglobin 10.5 g/dL (12.0-15.0); Mean Corpuscular HGB Conc 32.8 g/dl (32-36); Mean Corpuscular Hemoglobin 30.3 pg (26-34); Mean Corpuscular Volume 92.2 fl (80-100); Platelet Count Result 128 k/mm3 (150-375); Red Blood Count 3.47 M/mm3 (4.2-5.4); White Blood Count 9.5 K/mm3 (4.5-10.0)
[2025-02-21 05:21] LABS: Alanine Aminotransferase 14 U/L (6-35); Albumin Level 2.8 g/dL (3.5-5.1); Alkaline Phosphatase 112 U/L (38-126); Anion Gap 6 mmol/L (4-12); Aspartate Amino Transferase 29 U/L (14-36); Bilirubin,Total 0.5 mg/dL (0.2-1.3); Blood Urea Nitrogen 26 mg/dL (7-17); Calcium 8.2 mg/dL (8.4-10.2); Carbon Dioxide 19 mmol/L (22-30); Chloride 106 mmol/L (98-107); Estimated CRCL calculation 55 ml/min; Estimated Glomerular Filt Rate 53; Glucose 98 mg/dL (65-110); Magnesium 1.7 mg/dL (1.6-2.3); Potassium 3.3 mmol/L (3.4-5.0); Sodium 131 mmol/L (137-145); Total Protein 5.7 g/dL (6.3-8.2)
[2025-02-21] MEDS: MULTIVITAMINS THERAPEUTIC TAB (*BKC) 1 TABLET PO (07:56)
[2025-02-21] MEDS: DIVALPROEX SODIUM DR 250 MG TABEC PO ×2 (07:56→16:45)
[2025-02-21] MEDS: MIDODRINE HCL 10 MG TABLET PO ×3 (07:56→16:45)
[2025-02-21] MEDS: ASPIRIN 81 MG CHEWABLE TABLET PO (07:56)
[2025-02-21] MEDS: HYDROcodone/acetaminophen (*CRX) 5-325 MG TABLET 1 TAB PO ×3 (07:57→20:03)
[2025-02-21] MEDS: FLUTICASONE PROPIONATE 0.05% NA SPR 16 GM BTL (*BKC) 1 SPRAY NASAL ×2 (07:57→21:05)
[2025-02-21] MEDS: DICLOFENAC SODIUM 1% 100 GM GEL (*BKC) TOPICAL ×4 (07:57→21:05)
[2025-02-21] MEDS: FAMOTIDINE 20 MG TABLET PO ×2 (07:57→21:04)
--- NOTE | 2025-02-21 11:02 | P.PNIM_ITS ---
Progress Note: A&P Assessment and Plan (1) Septic shock: Code(s): A41.9 - Sepsis, unspecified organism; R65.21 - Severe sepsis with septic shock Status: Acute Assessment and Plan: patient found to have sepsis with septic shock secondary to urinary tract infection and obstructing stone bilateral nephrolithiasis. patient with tachycardia, leukocytosis, hypotension * IV fluid resuscitation. 30mg/kg for septic shock * was initially started on vasopressor in the emergency department has been discontinue this time responding to IV fluids * reassessment of volume status/tissue perfusion * meropenem IV * Monitor lactic acid levels q6hr. (WNL) * Repeat CBC, CMP. * blood cultures pending * urine cultures. suspicion for urinary tract infection * C-reactive proteins elevated * neuro status checks * Steroid suggested if septic shock, continue positive fluid resuscitation and vasopressors if indicated. * patient is somnolent will continue to keep NPO with ice chips RESOLVING (2) Acute UTI: Code(s): N39.0 - Urinary tract infection, site not specified Status: Acute Assessment and Plan: patient with multiple history urinary tract infections with ESBL * IV meropenem per previous cultures continue pending new cultures and sensitivities * blood cultures NGTD (3) Nephrolithiasis: Code(s): N20.0 - Calculus of kidney Status: Acute Assessment and Plan: CT abdomen showing bilateral nephrolithiasis with obstructing 2.1 cm stone at the left ureter pelvic junction with mild left hydronephrosis, also showing multiple bilateral renal stones * urology has been consulted * likely need placement of Jalloh catheter * continue with IV meropenem pending cultures * pain management * IV fluids * Cystoscopy, left retrograde, left ureteral stent placement 6 [place] contour, Jalloh catheter placement 01/21/2025 tolerated procedure well (4) RICARDO (acute kidney injury): Code(s): N17.9 - Acute kidney failure, unspecified Status: Acute Assessment and Plan: mild RICARDO creatinine 1.13 * IV fluids * trend renal function * Improving (5) Colostomy in place: Code(s): Z93.3 - Colostomy status Status: Acute Assessment and Plan: patient with previous history of perforated bowel around 4-5 years ago with colostomy stoma beefy red no signs of infection with stool * colostomy care Plan Code status: Full code per patient DVT prophylaxis: SCD's Stress ulcer prophylaxis: NA PT/OT notes: Pending Disposition: Patient has been admitted and transferred to IMU for closer evaluation and treatment of sepsis with septic shock secondary to urinary tract infection with hypotension has been responding to IV fluid resuscitation and antibiotic therapy family at this time has requested DNR DNI status however do want further treatment and vasopressors if needed. patient with history of ESBL continue with IV meropenem. Underwent a cystoscopy of the left ureter with stent placement. Will attempt PT OT once able patient is from a [place] [facility] facility plan will be to return there when medically stable. Time Spent With Patient Time with patient: 15 - 25 minutes Subjective Date/time seen: 02/21/25 11:02 Interval history: Patient is a 75-year-old female who was sent to the emergency department from her [place] [facility] due to intermittent fevers as great as 101?. Patient was admitted for sepsis with septic shock secondary to UTI and obstructing ureteropelvic junction stone. Patient underwent cystoscopy with stent placement with resolution sepsis. 02/21/2025: Patient alert and oriented reports feeling feverish and some moderate discomfort after stent placement otherwise denies any chest pain, shortness a breath, abdominal pain. Patient overall doing well today vitals have stabilized and wbc's back to 9.4. Review of Systems Review of Systems: All systems reviewed & are unremarkable except as noted in HPI and below Exam Const: General: comfortable and no acute distress Other: Patient alert and oriented was able to answer questions appropriately but somnolent HENMT: Ears: TM's normal bilaterally Face/Nose/Sinus: Normal nares present Mouth: Yes moist mucous membranes Eyes: General: appearance normal, both eyes and all related structures Pupils: Equal, round and reactive pupils present Neck: Neck: supple and no JVD Resp: Effort & Inspection: normal respiratory effort Auscultation: clear to auscultation bilaterally Cardio: Rate: tachycardic Rhythm: regular rhythm GI: Other: colostomy LQ, Stoma beefy red : Other: LT CVA tenderness, urine kaila color Skin: General skin exam: normal color and no rashes or lesions noted Wounds: no wounds Neuro: Cranial nerves: Yes Equal, round and reactive pupils present Speech: normal speech Motor exam (neuro): 5/5 motor strength present throughout Other: Unable to assess gait, no neurological deficits noted, somnolent Extrem: General: normal to inspection Psych: Mental Status: mental status grossly normal Affect: normal affect Objective Data Vital Signs Vital Signs: Vital Signs - 24 hr 02/20/25 12:00 02/20/25 12:12 02/20/25 16:00 Temperature 98.3 F Pulse Rate 103 H 105 H Respiratory Rate 28 H Blood Pressure 137/65 Pulse Oximetry 97 95 Oxygen Delivery Nasal Cannula Oxygen Flow Rate 2 02/20/25 16:15 02/20/25 16:49 02/20/25 17:00 Temperature 100.2 F H 99.2 F Pulse Rate 105 H 104 H 106 H Respiratory Rate 19 30 H 28 H Blood Pressure 130/72 128/73 104/68 Pulse Oximetry 94 95 94 Oxygen Delivery Nasal Cannula Nasal Cannula Oxygen Flow Rate 2 2 02/20/25 17:15 02/20/25 17:25 02/20/25 17:44 Temperature 99.2 F 98.7 F Pulse Rate 109 H 106 H 105 H Respiratory Rate 26 H 25 H 23 H Blood Pressure 133/65 134/76 140/71 Pulse Oximetry 94 93 95 Oxygen Delivery Nasal Cannula Nasal Cannula Oxygen Flow Rate 2 2 02/20/25 17:45 02/20/25 20:00 02/20/25 20:00 Temperature 102.1 F H Pulse Rate 105 H Respiratory Rate 20 Blood Pressure 114/68 Pulse Oximetry 95 92 92 Oxygen Delivery Nasal Cannula Nasal Cannula Oxygen Flow Rate 2 2 02/20/25 20:00 02/20/25 21:21 02/20/25 21:46 Temperature 101.7 F H Pulse Rate 105 H Respiratory Rate Blood Pressure Pulse Oximetry 94 Oxygen Delivery Nasal Cannula Oxygen Flow Rate 2 02/20/25 22:00 02/20/25 23:47 02/21/25 00:00 Temperature 101.0 F H Pulse Rate 89 103 H 104 H Respiratory Rate 22 H Blood Pressure 110/57 L Pulse Oximetry 93 Oxygen Delivery Oxygen Flow Rate 02/21/25 00:00 02/21/25 02:30 02/21/25 03:36 Temperature 99.7 F H Pulse Rate 83 88 Respiratory Rate 18 Blood Pressure 102/54 L Pulse Oximetry 93 91 Oxygen Delivery Nasal Cannula Oxygen Flow Rate 2 02/21/25 03:52 02/21/25 04:00 02/21/25 06:00 Temperature Pulse Rate 77 86 Respiratory Rate Blood Pressure Pulse Oximetry 91 Oxygen Delivery Nasal Cannula Oxygen Flow Rate 2 02/21/25 07:59 02/21/25 08:00 02/21/25 08:21 Temperature 99.1 F Pulse Rate 98 85 Respiratory Rate 24 H 16 Blood Pressure 124/64 Pulse Oximetry 93 92 92 Oxygen Delivery Nasal Cannula Nasal Cannula Oxygen Flow Rate 2 2 Intake/Output Intake/Output: Intake & Output 07/31/25 08/01/25 08/02/25 08/03/25 23:59 23:59 23:59 23:59 Intake Total 3358.6 1736.3 Output Total 25 225 450 -25 3133.6 1286.3 Meds/Results Medications: Active Medications Generic Name Dose Route Start Last Admin Trade Name Freq PRN Reason Stop Dose Admin Acetaminophen 650 mg 02/20/25 19:00 02/21/25 06:47 Acetaminophen 325 Mg Tablet PO 650 mg Q6H CELESTE Administration Hydrocodone Bitart/Acetaminophen 1 tab 02/20/25 14:12 02/21/25 07:57 Hydrocodone/Acetaminophen (*Crx) 5-325 Mg Tablet PO 1 tab Q6H PRN Administration PAIN RATED 4-6 Albuterol 2 puff 02/20/25 14:12 Albuterol Sulfate (*Sp) Aerosol 1 Puff INHALATION TID PRN Shortness Of Breath Or Wheezing Alprazolam 0.5 mg 02/20/25 21:00 02/20/25 20:24 Alprazolam (*Crx) 0.5 Mg Tablet PO 0.5 mg QHS CELESTE Administration Aspirin 81 mg 02/21/25 09:00 02/21/25 07:56 Aspirin 81 Mg Chewable Tablet PO 81 mg DAILY CELESTE Administration Diclofenac Sodium 0 applic 02/20/25 17:00 02/21/25 07:57 Diclofenac Sodium 1% 100 Gm Gel (*Bkc) TOPICAL 1 applic QID CELESTE Administration Divalproex Sodium 250 mg 02/20/25 17:00 02/21/25 07:[address] 250 Mg Tabec PO 250 mg BID CELESTE Administration Docusate Sodium 100 mg 02/20/25 21:00 02/20/25 20:25 Docusate Sodium 100 Mg Capsule PO 100 mg HS CELESTE Administration Famotidine 20 mg 02/20/25 14:15 02/21/25 07:57 Famotidine 20 Mg Tablet PO 20 mg Q12HR CELESTE Administration Fluoxetine HCl 10 mg 02/20/25 14:25 02/21/25 07:56 Fluoxetine Hcl 10 Mg Capsule PO 10 mg DAILY CELESTE Administration Fluticasone Propionate 1 spray 02/20/25 14:15 02/21/25 07:57 Fluticasone Propionate 0.05% Na Spr 16 Gm Btl (*Bkc) NASAL 1 spray Q12HR CELESTE Administration Meropenem 1 gm/ Sodium 100 mls @ 200 mls/hr 02/20/25 12:00 02/21/25 00:39 Chloride IVPB Infused Q12H CELESTE Infusion Sodium Chloride 1,000 mls @ 125 mls/hr 02/20/25 07:00 02/21/25 06:46 Normal Saline Iv IV CONT 125 mls/hr .Q8H CELESTE Administration Melatonin 5 mg 02/20/25 21:00 02/20/25 20:25 Melatonin 5 Mg Tablet PO 5 mg HS CELESTE Administration Midodrine 10 mg 02/20/25 17:00 02/21/25 07:56 Midodrine Hcl 10 Mg Tablet PO 10 mg TID CELESTE Administration Mirtazapine 15 mg 02/20/25 21:00 02/20/25 20:25 Mirtazapine 15 Mg Tablet PO 15 mg HS CELESTE Administration Multivitamins Therapeutic 1 tablet 02/20/25 14:25 02/21/25 07:56 Multivitamins Therapeutic Tab (*Bkc) PO 1 tablet DAILY CELESTE Administration Ondansetron HCl 4 mg 02/20/25 06:57 Ondansetron Inj 4 Mg/2 Ml Vial IV PUSH Q6H PRN Nausea And Vomiting Radiology Results: ITS Impressions Chest X-Ray 02/19/25 23:29 IMPRESSION: No acute cardiopulmonary process. Head CT 02/20/25 08:05 IMPRESSION: 1. Normal aging brain with mild diffuse volume loss and mild scattered white matter hypoattenuation consistent with chronic small vessel ischemic disease. No acute intracranial process. Abdomen/Pelvis CT 02/20/25 09:03 IMPRESSION: 1. Bilateral nephrolithiasis with obstructing 2.1 cm stone at the left ureteropelvic junction resulting in mild left hydronephrosis. 2. Infrarenal abdominal aortic aneurysm measuring up to 4.0 x 3.5 cm. 2. Small sliding-type hiatal hernia. 4. Cholelithiasis. Labs Labs: Laboratory Results - last 24 hr 02/20/25 02/21/25 12:36 04:27 WBC 15.4 H 9.5 RBC 4.49 3.47 L Hgb 13.4 10.5 L Hct 42.4 32.0 L MCV 94.4 92.2 MCH 29.8 30.3 MCHC 31.6 L 32.8 RDW 13.6 13.4 Plt Count 188 128 L MPV 8.9 9.3 Sodium 134 L 131 L Potassium 4.4 3.3 L Chloride 102 106 Carbon Dioxide 20 L 19 L Anion Gap 12 6 BUN 27 H 26 H Creatinine 1.30 H 1.01 H Estim Creat Clear Calc 43 55 Estimated GFR 40 L 53 L Glucose 112 H 98 Calcium 9.1 8.2 L Magnesium 1.7 Total Bilirubin 0.9 0.5 AST 33 29 ALT 22 14 Alkaline Phosphatase 145 H 112 Total Protein 7.6 5.7 L Albumin 4.0 2.8 L Quality VTE Prophylaxis VTE prophylaxis: mechanical ordered -Patient's previous records reviewed on admission -ER notes reviewed in detail on admission -discussed all findings and current treatment plan with patient/Family/POA -Consultations reviewed for recommendations -Patient's disposition for safe discharge discussed with case assistant Dictation performed by [employer] direct speech recognition software, therefore president [place] variants and typographical errors may occur. Hospitalist [facility] Advance Care Plan I have confirmed that the patient's Advanced Care Plan is present, code status is documented, or surrogate decision maker is listed in patient medical record.: Yes Medication Reconciliation I have utilized all available resources to obtain, update and review the patients current medications (includes all prescriptions, OTC, herbals, cannabis, and nutritional supplements).: Yes The patient is not eligible for med reconciliation; the patient is in a emergent medical situation where delaying treatment would jeopardize the patients health.: No
[2025-02-21] MEDS: ONDANSETRON INJ 4 MG/2 ML VIAL IV PUSH (11:32)
[2025-02-21] MEDS: POTASSIUM CHLORIDE 20 MEQ PACKET (FOR LIQUID) 40 MEQ PO (11:32)
[2025-02-21] MEDS: MELATONIN 5 MG TABLET PO (21:04)
[2025-02-21] MEDS: ALPRAZolam (*CRX) 0.5 MG TABLET PO (21:04)
[2025-02-21] MEDS: MIRTAZAPINE 15 MG TABLET PO (21:04)
[2025-02-21] MEDS: DOCUSATE SODIUM 100 MG CAPSULE PO (21:04)
[2025-02-22] VITALS (10 sets, daily range): BP systolic 137–153; BP diastolic 66–83; PULSE 70–85; RESP 20–24; TEMP 35.8–36.7; O2SAT 88–97
[2025-02-22] MEDS: ACETAMINOPHEN 325 MG TABLET 650 MG PO ×3 (00:56→13:02)
[2025-02-22] MEDS: SODIUM CHLORIDE 0.9% IV 1,000 ML 125 ML IV CONT ×2 (03:02→10:20)
[2025-02-22] MEDS: HYDROcodone/acetaminophen (*CRX) 5-325 MG TABLET 1 TAB PO ×2 (06:36→19:48)
[2025-02-22 06:40] LABS: Alanine Aminotransferase 28 U/L (6-35); Albumin Level 2.9 g/dL (3.5-5.1); Alkaline Phosphatase 177 U/L (38-126); Anion Gap 7 mmol/L (4-12); Aspartate Amino Transferase 49 U/L (14-36); Bilirubin,Total 0.5 mg/dL (0.2-1.3); Blood Urea Nitrogen 22 mg/dL (7-17); Calcium 8.2 mg/dL (8.4-10.2); Carbon Dioxide 20 mmol/L (22-30); Chloride 111 mmol/L (98-107); Estimated CRCL calculation 82 ml/min; Estimated Glomerular Filt Rate > 60; Glucose 116 mg/dL (65-110); Magnesium 1.8 mg/dL (1.6-2.3); Potassium 3.7 mmol/L (3.4-5.0); Sodium 138 mmol/L (137-145); Total Protein 6.0 g/dL (6.3-8.2)
[2025-02-22] MEDS: ASPIRIN 81 MG CHEWABLE TABLET PO (07:38)
[2025-02-22] MEDS: FLUTICASONE PROPIONATE 0.05% NA SPR 16 GM BTL (*BKC) 1 SPRAY NASAL ×2 (07:38→20:00)
[2025-02-22] MEDS: DIVALPROEX SODIUM DR 250 MG TABEC PO ×2 (07:38→16:22)
[2025-02-22] MEDS: FAMOTIDINE 20 MG TABLET PO ×2 (07:38→19:48)
[2025-02-22] MEDS: MULTIVITAMINS THERAPEUTIC TAB (*BKC) 1 TABLET PO (07:38)
[2025-02-22] MEDS: DICLOFENAC SODIUM 1% 100 GM GEL (*BKC) TOPICAL ×2 (07:38→20:00)
[2025-02-22] MEDS: MIDODRINE HCL 10 MG TABLET PO ×3 (07:38→16:22)
--- NOTE | 2025-02-22 08:34 | PCPTNOTE ---
Spoke with Hospitalist CHEPE Broderick to remove bedrest orders to allow pt to safely participate in skilled therapy. Will notify nursing.
--- NOTE | 2025-02-22 08:43 | P.PNIM_ITS ---
Progress Note: A&P Assessment and Plan (1) Nephrolithiasis: Code(s): N20.0 - Calculus of kidney Status: Acute Assessment and Plan: CT abdomen showing bilateral nephrolithiasis with obstructing 2.1 cm stone at the left ureter pelvic junction with mild left hydronephrosis, also showing multiple bilateral renal stones * urology has been consulted * likely need placement of Jalloh catheter * continue with IV meropenem pending cultures * pain management * IV fluids * Cystoscopy, left retrograde, left ureteral stent placement 6 [place] contour, Jalloh catheter placement 02/20/2025 tolerated procedure well (2) Acute UTI: Code(s): N39.0 - Urinary tract infection, site not specified Status: Acute Assessment and Plan: patient with multiple history urinary tract infections with ESBL * IV meropenem per previous cultures continue pending new cultures and sensitivities * blood cultures NGTD (3) RICARDO (acute kidney injury): Code(s): N17.9 - Acute kidney failure, unspecified Status: Resolved Assessment and Plan: mild RICARDO creatinine 1.13 * IV fluids * trend renal function * Improving RESOLVED (4) Colostomy in place: Code(s): Z93.3 - Colostomy status Status: Acute Assessment and Plan: patient with previous history of perforated bowel around 4-5 years ago with colostomy stoma beefy red no signs of infection with stool * colostomy care (5) Septic shock: Code(s): A41.9 - Sepsis, unspecified organism; R65.21 - Severe sepsis with septic shock Status: Resolved Assessment and Plan: patient found to have sepsis with septic shock secondary to urinary tract infection and obstructing stone bilateral nephrolithiasis. patient with tachycardia, leukocytosis, hypotension * IV fluid resuscitation. 30mg/kg for septic shock * was initially started on vasopressor in the emergency department has been discontinue this time responding to IV fluids * reassessment of volume status/tissue perfusion * meropenem IV * Monitor lactic acid levels q6hr. (WNL) * Repeat CBC, CMP. * blood cultures pending * urine cultures. suspicion for urinary tract infection * C-reactive proteins elevated * neuro status checks * Steroid suggested if septic shock, continue positive fluid resuscitation and vasopressors if indicated. * patient is somnolent will continue to keep NPO with ice chips RESOLVING Plan Code status: DNR/DNI DVT prophylaxis: SCD's Stress ulcer prophylaxis: NA PT/OT notes: Pending Disposition: Patient has been admitted and transferred to IMU for closer evaluation and treatment of sepsis with septic shock secondary to urinary tract infection with hypotension has been responding to IV fluid resuscitation and antibiotic therapy family at this time has requested DNR DNI status however do want further treatment and vasopressors if needed. patient with history of ESBL continue with IV meropenem. Underwent a cystoscopy of the left ureter with stent placement. PT/OT plan to return to SNF awaiting on urine cultures. Time Spent With Patient Time with patient: 15 - 25 minutes Subjective Date/time seen: 02/22/25 08:43 Interval history: Patient is a 75-year-old female who was sent to the emergency department from her senior care facility [facility] due to intermittent fevers as great as 101?. Patient was admitted for sepsis with septic shock secondary to UTI and obstructing ureteropelvic junction stone. Patient underwent cystoscopy with stent placement with resolution sepsis. 02/22/2025: Patient doing well today alert and oriented feeling better but still with lower back discomfort. UA culture pending, WBC improved and vitals stable. Review of Systems Review of Systems: All systems reviewed & are unremarkable except as noted in HPI and below Exam Const: General: comfortable and no acute distress Other: Patient alert and oriented was able to answer questions appropriately but somnolent HENMT: Ears: TM's normal bilaterally Face/Nose/Sinus: Normal nares present Mouth: Yes moist mucous membranes Eyes: General: appearance normal, both eyes and all related structures Pupils: Equal, round and reactive pupils present Neck: Neck: supple and no JVD Resp: Effort & Inspection: normal respiratory effort Auscultation: clear to auscultation bilaterally Cardio: Rate: tachycardic Rhythm: regular rhythm GI: Other: colostomy LQ, Stoma beefy red : Other: LT CVA tenderness, urine kaila color Skin: General skin exam: normal color and no rashes or lesions noted Wounds: no wounds Neuro: Cranial nerves: Yes Equal, round and reactive pupils present Speech: normal speech Motor exam (neuro): 5/5 motor strength present throughout Other: Unable to assess gait, no neurological deficits noted, somnolent Extrem: General: normal to inspection Psych: Mental Status: mental status grossly normal Affect: normal affect Objective Data Vital Signs Vital Signs: Vital Signs - 24 hr 02/21/25 12:00 02/21/25 16:00 02/21/25 16:51 Temperature 97.4 F L Pulse Rate 74 61 68 Respiratory Rate 20 Blood Pressure 139/71 Pulse Oximetry 94 Oxygen Delivery Oxygen Flow Rate 02/21/25 20:00 02/21/25 21:59 02/21/25 22:08 Temperature 97.5 F L Pulse Rate 74 Respiratory Rate 20 Blood Pressure 130/68 Pulse Oximetry 92 92 92 Oxygen Delivery Nasal Cannula Nasal Cannula Oxygen Flow Rate 2 2 02/22/25 06:00 Temperature 97.8 F Pulse Rate 70 Respiratory Rate 22 H Blood Pressure 137/74 Pulse Oximetry 92 Oxygen Delivery Oxygen Flow Rate Intake/Output Intake/Output: Intake & Output 02/19/25 02/20/25 02/21/25 02/22/25 23:59 23:59 23:59 23:59 Intake Total 3358.6 3176.3 2340 Output Total 25 097 912 6950 Balance -25 3133.6 2726.3 1190 Meds/Results Medications: Active Medications Generic Name Dose Route Start Last Admin Trade Name Freq PRN Reason Stop Dose Admin Acetaminophen 650 mg 02/21/25 20:00 02/22/25 07:38 Acetaminophen 325 Mg Tablet PO 650 mg Q6H CELESTE Administration Hydrocodone Bitart/Acetaminophen 1 tab 02/20/25 14:12 02/22/25 06:36 Hydrocodone/Acetaminophen (*Crx) 5-325 Mg Tablet PO 1 tab Q6H PRN Administration PAIN RATED 4-6 Albuterol 2 puff 02/20/25 14:12 Albuterol Sulfate (*Sp) Aerosol 1 Puff INHALATION TID PRN Shortness Of Breath Or Wheezing Alprazolam 0.5 mg 02/20/25 21:00 02/21/25 21:04 Alprazolam (*Crx) 0.5 Mg Tablet PO 0.5 mg QHS CELESTE Administration Aspirin 81 mg 02/21/25 09:00 02/22/25 07:38 Aspirin 81 Mg Chewable Tablet PO 81 mg DAILY CELESTE Administration Diclofenac Sodium 0 applic 02/20/25 17:00 02/22/25 07:38 Diclofenac Sodium 1% 100 Gm Gel (*Bkc) TOPICAL 1 applic QID CELESTE Administration Divalproex Sodium 250 mg 02/20/25 17:00 02/22/25 07:[address] 250 Mg Tabec PO 250 mg BID CELESTE Administration Docusate Sodium 100 mg 02/20/25 21:00 02/21/25 21:04 Docusate Sodium 100 Mg Capsule PO 100 mg HS CELESTE Administration Famotidine 20 mg 02/20/25 14:15 02/22/25 07:38 Famotidine 20 Mg Tablet PO 20 mg Q12HR CELESTE Administration Fluoxetine HCl 10 mg 02/20/25 14:25 02/22/25 07:38 Fluoxetine Hcl 10 Mg Capsule PO 10 mg DAILY CELESTE Administration Fluticasone Propionate 1 spray 02/20/25 14:15 02/22/25 07:38 Fluticasone Propionate 0.05% Na Spr 16 Gm Btl (*Bkc) NASAL 1 spray Q12HR CELESTE Administration Meropenem 1 gm/ Sodium 100 mls @ 200 mls/hr 02/20/25 12:00 02/21/25 23:01 Chloride IVPB 200 mls/hr Q12H CELESTE Administration Sodium Chloride 1,000 mls @ 125 mls/hr 02/20/25 07:00 02/22/25 03:02 Normal Saline Iv IV CONT 125 mls/hr .Q8H CELESTE Administration Melatonin 5 mg 02/20/25 21:00 02/21/25 21:04 Melatonin 5 Mg Tablet PO 5 mg HS CELESTE Administration Midodrine 10 mg 02/20/25 17:00 02/22/25 07:38 Midodrine Hcl 10 Mg Tablet PO 10 mg TID CELESTE Administration Mirtazapine 15 mg 02/20/25 21:00 02/21/25 21:04 Mirtazapine 15 Mg Tablet PO 15 mg HS CELESTE Administration Multivitamins Therapeutic 1 tablet 02/20/25 14:25 02/22/25 07:38 Multivitamins Therapeutic Tab (*Bkc) PO 1 tablet DAILY CELESTE Administration Ondansetron HCl 4 mg 02/20/25 06:57 02/21/25 11:32 Ondansetron Inj 4 Mg/2 Ml Vial IV PUSH 4 mg Q6H PRN Administration Nausea And Vomiting Radiology Results: ITS Impressions Chest X-Ray 02/19/25 23:29 IMPRESSION: No acute cardiopulmonary process. Head CT 02/20/25 08:05 IMPRESSION: 1. Normal aging brain with mild diffuse volume loss and mild scattered white matter hypoattenuation consistent with chronic small vessel ischemic disease. No acute intracranial process. Abdomen/Pelvis CT 02/20/25 09:03 IMPRESSION: 1. Bilateral nephrolithiasis with obstructing 2.1 cm stone at the left ureteropelvic junction resulting in mild left hydronephrosis. 2. Infrarenal abdominal aortic aneurysm measuring up to 4.0 x 3.5 cm. 2. Small sliding-type hiatal hernia. 4. Cholelithiasis. Labs Labs: Laboratory Results - last 24 hr 02/22/25 05:43 Sodium 138 Potassium 3.7 Chloride 111 H Carbon Dioxide 20 L Anion Gap 7 BUN 22 H Creatinine 0.66 L Estim Creat Clear Calc 82 Estimated GFR > 60 Glucose 116 H Calcium 8.2 L Magnesium 1.8 Total Bilirubin 0.5 AST 49 H ALT 28 Alkaline Phosphatase 177 H Total Protein 6.0 L Albumin 2.9 L Quality VTE Prophylaxis VTE prophylaxis: mechanical ordered -Patient's previous records reviewed on admission -ER notes reviewed in detail on admission -discussed all findings and current treatment plan with patient/Family/POA -Consultations reviewed for recommendations -Patient's disposition for safe discharge discussed with case fitter Dictation performed by [employer] direct speech recognition software, theref ore forensic scientist variants and typographical errors may occur. Hospitalist [facility] Advance Care Plan I have confirmed that the patient's Advanced Care Plan is present, code status is documented, or surrogate decision maker is listed in patient medical record.: Yes Medication Reconciliation I have utilized all available resources to obtain, update and review the patients current medications (includes all prescriptions, OTC, herbals, cannabis, and nutritional supplements).: Yes The patient is not eligible for med reconciliation; the patient is in a emergent medical situation where delaying treatment would jeopardize the patients health.: No
[2025-02-22] MEDS: MEROPENEM 1 GM in SODIUM CHLORIDE 0.9% IV 100 ML 200 ML IVPB (11:19)
[2025-02-22] MEDS: IPRATROPIUM 0.5 MG/ALBUTEROL SULFATE 2.5 MG AMPUL.NEB 3 ML INHALATION (14:32)
[2025-02-22] MEDS: KETOROLAC 30 MG/ML VIAL (*BKC) IV PUSH ×2 (15:27→23:32)
--- NOTE | 2025-02-22 16:29 | PC.NURSE ---
This nurse was informed by the [facility] that the hospitalist Aura Silva had taken the patient off oxygen. This nurse had attempted to wean the patient off oxygen earlier this AM but was unable to do so. This was charted in the respiratory assessment. Upon arrival into the room during 14:00 vitals, patient was saturating 82% on room air. This nurse placed oxygen back onto patient at 5lpm with improvement to oxygen saturation to 94%. Patient states she feels better after oxygen re-applied. Aura Silva notified of patient's decompensation, STAT orders for nebulizer treatment and chest CTA received.
[2025-02-22] MEDS: FUROSEMIDE INJ 40 MG/4 ML VIAL IV PUSH (16:42)
[2025-02-22] MEDS: DOCUSATE SODIUM 100 MG CAPSULE PO (19:48)
[2025-02-22] MEDS: ALPRAZolam (*CRX) 0.5 MG TABLET PO (19:48)
[2025-02-22] MEDS: MIRTAZAPINE 15 MG TABLET PO (19:48)
[2025-02-22] MEDS: MELATONIN 5 MG TABLET PO (19:48)
[2025-02-22] MEDS: ONDANSETRON INJ 4 MG/2 ML VIAL IV PUSH (19:59)
[2025-02-22] MEDS: MEROPENEM 1 GM in SODIUM CHLORIDE 0.9% IV 100 ML IVPB (23:32)
[2025-02-23] VITALS (9 sets, daily range): BP systolic 133–144; BP diastolic 69–76; PULSE 67–90; RESP 20–24; TEMP 35.8–36.9; O2SAT 90–96
[2025-02-23] MEDS: IPRATROPIUM 0.5 MG/ALBUTEROL SULFATE 2.5 MG AMPUL.NEB 3 ML INHALATION (00:58)
[2025-02-23] MEDS: ACETAMINOPHEN 325 MG TABLET 650 MG PO ×4 (01:25→21:55)
[2025-02-23 07:09] LABS: Alanine Aminotransferase 46 U/L (6-35); Albumin Level 3.1 g/dL (3.5-5.1); Alkaline Phosphatase 232 U/L (38-126); Anion Gap 11 mmol/L (4-12); Aspartate Amino Transferase 51 U/L (14-36); Bilirubin,Total 0.7 mg/dL (0.2-1.3); Blood Urea Nitrogen 17 mg/dL (7-17); Calcium 8.6 mg/dL (8.4-10.2); Carbon Dioxide 20 mmol/L (22-30); Chloride 109 mmol/L (98-107); Estimated CRCL calculation 76 ml/min; Estimated Glomerular Filt Rate > 60; Glucose 108 mg/dL (65-110); Magnesium 1.6 mg/dL (1.6-2.3); Potassium 3.0 mmol/L (3.4-5.0); Sodium 140 mmol/L (137-145); Total Protein 6.3 g/dL (6.3-8.2)
[2025-02-23] MEDS: FAMOTIDINE 20 MG TABLET PO ×2 (09:23→19:54)
[2025-02-23] MEDS: ASPIRIN 81 MG CHEWABLE TABLET PO (09:25)
[2025-02-23] MEDS: MULTIVITAMINS THERAPEUTIC TAB (*BKC) 1 TABLET PO (09:25)
[2025-02-23] MEDS: DIVALPROEX SODIUM DR 250 MG TABEC PO ×2 (09:25→16:59)
[2025-02-23] MEDS: FLUTICASONE PROPIONATE 0.05% NA SPR 16 GM BTL (*BKC) 1 SPRAY NASAL ×2 (09:26→19:55)
[2025-02-23 09:28] LABS: Hematocrit 35.6 % (37.0-47.0); Hemoglobin 11.8 g/dL (12.0-15.0); Mean Corpuscular HGB Conc 33.1 g/dl (32-36); Mean Corpuscular Hemoglobin 30.4 pg (26-34); Mean Corpuscular Volume 91.8 fl (80-100); Platelet Count Result 164 k/mm3 (150-375); Red Blood Count 3.88 M/mm3 (4.2-5.4); White Blood Count 11.3 K/mm3 (4.5-10.0)
--- NOTE | 2025-02-23 10:23 | P.PNIM_ITS ---
Progress Note: A&P Assessment and Plan (1) Acute respiratory failure with hypoxia: Code(s): J96.01 - Acute respiratory failure with hypoxia Status: Acute Assessment and Plan: patient with acute respiratory failure with hypoxia was requiring 5-6 L supplemental oxygen to maintain 92% * CTA chest no PE but did showing bilateral pleural effusions likely secondary to aggressive IV fluid resuscitation for sepsis * will continue to wean oxygen as tolerated * incentive spirometer while awake * I gave single dose of IV Lasix 40 with improvement (2) Nephrolithiasis: Code(s): N20.0 - Calculus of kidney Status: Acute Assessment and Plan: CT abdomen showing bilateral nephrolithiasis with obstructing 2.1 cm stone at the left ureter pelvic junction with mild left hydronephrosis, also showing multiple bilateral renal stones * urology has been consulted * likely need placement of Jalloh catheter * continue with IV meropenem pending cultures * pain management * IV fluids * Cystoscopy, left retrograde, left ureteral stent placement 6 [place] contour, Jalloh catheter placement 02/20/2025 tolerated procedure well (3) Bacteremia: Code(s): R78.81 - Bacteremia Status: Acute Assessment and Plan: blood cultures x2 Proteus mirabilis * continue with IV meropenem pending final cultures and sensitivities * 2nd set of blood cultures 02/23/2025 (4) Acute UTI: Code(s): N39.0 - Urinary tract infection, site not specified Status: Acute Assessment and Plan: patient with multiple history urinary tract infections with ESBL * IV meropenem per previous cultures continue pending new cultures and sensitivities * blood cultures NGTD (5) Elevated liver enzymes: Code(s): R74.8 - Abnormal levels of other serum enzymes Status: Acute Assessment and Plan: patient with elevated AST and ALT with alk-phos at 232 * CT ABD had shown bladder stones * will get ultrasound * continue to trend (6) Colostomy in place: Code(s): Z93.3 - Colostomy status Status: Acute Assessment and Plan: patient with previous history of perforated bowel around 4-5 years ago with colostomy stoma beefy red no signs of infection with stool * colostomy care (7) Hypokalemia: Code(s): E87.6 - Hypokalemia Status: Acute Assessment and Plan: Potassium 3.0 02/23/2025 * replenished 40meq IVPB * trend and replenish as needed (8) RICARDO (acute kidney injury): Code(s): N17.9 - Acute kidney failure, unspecified Status: Resolved Assessment and Plan: mild RICARDO creatinine 1.13 * IV fluids * trend renal function * Improving RESOLVED (9) Septic shock: Code(s): A41.9 - Sepsis, unspecified organism; R65.21 - Severe sepsis with septic shock Status: Resolved Assessment and Plan: patient found to have sepsis with septic shock secondary to urinary tract infection and obstructing stone bilateral nephrolithiasis. patient with tachycardia, leukocytosis, hypotension * IV fluid resuscitation. 30mg/kg for septic shock * was initially started on vasopressor in the emergency department has been discontinue this time responding to IV fluids * reassessment of volume status/tissue perfusion * meropenem IV * Monitor lactic acid levels q6hr. (WNL) * Repeat CBC, CMP. * blood cultures pending * urine cultures. suspicion for urinary tract infection * C-reactive proteins elevated * neuro status checks * Steroid suggested if septic shock, continue positive fluid resuscitation and vasopressors if indicated. * patient is somnolent will continue to keep NPO with ice chips RESOLVING Plan Code status: DNR/DNI DVT prophylaxis: SCD's Stress ulcer prophylaxis: NA PT/OT notes: Pending Disposition: Patient has been admitted and transferred to IMU for closer evaluation and treatment of sepsis with septic shock secondary to urinary tract infection with hypotension has been responding to IV fluid resuscitation and antibiotic therapy family at this time has requested DNR DNI status however do want further treatment and vasopressors if needed. patient with history of ESBL continue with IV meropenem. Underwent a cystoscopy of the left ureter with stent placement. PT/OT plan to return to SNF awaiting on urine cultures and blood cultures sensitivity to determine patient will need IV antibiotic therapy discharge. Time Spent With Patient Time with patient: 25 - 35 minutes Subjective Date/time seen: 02/23/25 10:23 Interval history: Patient is a 75-year-old female who was sent to the emergency department from her senior care facility [facility] due to intermittent fevers as great as 101?. Patient was admitted for sepsis with septic shock secondary to UTI and obstructing ureteropelvic junction stone. Patient underwent cystoscopy with stent placement with resolution sepsis. 02/23/2025: Patient alert and oriented feeling ok still reports some nausea but no vomiting. LFT bumped today US ordered. Patient with similar complaints. Blood cultures did grow Proteus Mirabilis however still do not have urine cultures back so will continue with continued IV meropenem urine culture comes back. Review of Systems Review of Systems: All systems reviewed & are unremarkable except as noted in HPI and below Exam Const: General: comfortable and no acute distress Other: Patient alert and oriented was able to answer questions appropriately but somnolent HENMT: Ears: TM's normal bilaterally Face/Nose/Sinus: Normal nares present Mouth: Yes moist mucous membranes Eyes: General: appearance normal, both eyes and all related structures Pupils: Equal, round and reactive pupils present Neck: Neck: supple and no JVD Resp: Effort & Inspection: normal respiratory effort Auscultation: clear to auscultation bilaterally Cardio: Rate: tachycardic Rhythm: regular rhythm GI: Other: colostomy LQ, Stoma beefy red : Other: LT CVA tenderness, urine kaila color Skin: General skin exam: normal color and no rashes or lesions noted Wounds: no wounds Neuro: Cranial nerves: Yes Equal, round and reactive pupils present Speech: normal speech Motor exam (neuro): 5/5 motor strength present throughout Other: Unable to assess gait, no neurological deficits noted, somnolent Extrem: General: normal to inspection Psych: Mental Status: mental status grossly normal Affect: normal affect Objective Data Vital Signs Vital Signs: Vital Signs - 24 hr 02/22/25 10:48 02/22/25 14:00 02/22/25 14:35 Temperature 96.4 F L Pulse Rate 81 85 Respiratory Rate 20 20 Blood Pressure 147/83 H Pulse Oximetry 91 92 Oxygen Delivery Nasal Cannula Nasal Cannula Oxygen Flow Rate 2 5 Fraction of Inspired Oxygen 02/22/25 14:35 02/22/25 16:28 02/22/25 20:00 Temperature Pulse Rate 85 Respiratory Rate 20 Blood Pressure Pulse Oximetry 94 90 Oxygen Delivery Nasal Cannula Nasal Cannula Oxygen Flow Rate 5 5 Fraction of Inspired Oxygen 02/22/25 20:35 02/22/25 22:00 02/23/25 00:59 Temperature 98.1 F Pulse Rate 73 84 78 Respiratory Rate 20 24 H 20 Blood Pressure 153/66 H Pulse Oximetry 97 90 Oxygen Delivery High Flow Nasal Cannula Oxygen Flow Rate 5 Fraction of Inspired Oxygen 40 02/23/25 01:08 02/23/25 06:00 02/23/25 08:00 Temperature 97.4 F L Pulse Rate 67 78 Respiratory Rate 20 20 Blood Pressure 133/69 Pulse Oximetry 90 95 Oxygen Delivery Nasal Cannula Oxygen Flow Rate 4 Fraction of Inspired Oxygen Intake/Output Intake/Output: Intake & Output 02/20/25 02/21/25 02/22/25 02/23/25 23:59 23:59 23:59 23:59 Intake Total 3358.6 3276.3 3832.5 670 Output Total 102 153 6120 1800 Balance 3133.6 2826.3 1882.5 -1130 Meds/Results Medications: Active Medications Generic Name Dose Route Start Last Admin Trade Name Freq PRN Reason Stop Dose Admin Acetaminophen 650 mg 02/21/25 20:00 02/23/25 09:20 Acetaminophen 325 Mg Tablet PO 650 mg Q6H CELESTE Administration Hydrocodone Bitart/Acetaminophen 1 tab 02/20/25 14:12 02/22/25 19:48 Hydrocodone/Acetaminophen (*Crx) 5-325 Mg Tablet PO 1 tab Q6H PRN Administration PAIN RATED 4-6 Albuterol 2 puff 02/20/25 14:12 Albuterol Sulfate (*Sp) Aerosol 1 Puff INHALATION TID PRN Shortness Of Breath Or Wheezing Albuterol/Ipratropium 3 ml 02/22/25 20:00 02/23/25 00:58 Ipratropium 0.5 Mg/Albuterol Sulfate 2.5 Mg Ampul.Neb 3 Ml INHALATION 3 ml Q6HRT PRN Administration Shortness Of Breath Alprazolam 0.5 mg 02/20/25 21:00 02/22/25 19:48 Alprazolam (*Crx) 0.5 Mg Tablet PO 0.5 mg QHS CELESTE Administration Aspirin 81 mg 02/21/25 09:00 02/23/25 09:25 Aspirin 81 Mg Chewable Tablet PO 81 mg DAILY CELESTE Administration Diclofenac Sodium 0 applic 02/20/25 17:00 02/23/25 09:26 Diclofenac Sodium 1% 100 Gm Gel (*Bkc) TOPICAL Not Given QID CELESTE Divalproex Sodium 250 mg 02/20/25 17:00 02/23/25 09:[address] 250 Mg Tabec PO 250 mg BID CELESTE Administration Docusate Sodium 100 mg 02/20/25 21:00 02/22/25 19:48 Docusate Sodium 100 Mg Capsule PO 100 mg HS CELESTE Administration Famotidine 20 mg 02/20/25 14:15 02/23/25 09:23 Famotidine 20 Mg Tablet PO 20 mg Q12HR CELESTE Administration Fluoxetine HCl 10 mg 02/20/25 14:25 02/23/25 09:29 Fluoxetine Hcl 10 Mg Capsule PO 10 mg DAILY CELESTE Administration Fluticasone Propionate 1 spray 02/20/25 14:15 02/23/25 09:26 Fluticasone Propionate 0.05% Na Spr 16 Gm Btl (*Bkc) NASAL 1 spray Q12HR CELESTE Administration Meropenem 1 gm/ Sodium 100 mls @ 200 mls/hr 02/20/25 12:00 02/22/25 23:32 Chloride IVPB 100 mls/hr Q12H CELESTE Administration Ketorolac Tromethamine 30 mg 02/22/25 16:34 02/22/25 23:32 Ketorolac 30 Mg/Ml Vial (*Bkc) IV PUSH 30 mg Q8H PRN Administration Pain Rated 4-6 Melatonin 5 mg 02/20/25 21:00 02/22/25 19:48 Melatonin 5 Mg Tablet PO 5 mg HS CELESTE Administration Midodrine 10 mg 02/20/25 17:00 02/23/25 09:25 Midodrine Hcl 10 Mg Tablet PO Not Given TID CELESTE Mirtazapine 15 mg 02/20/25 21:00 02/22/25 19:48 Mirtazapine 15 Mg Tablet PO 15 mg HS CELESTE Administration Multivitamins Therapeutic 1 tablet 02/20/25 14:25 02/23/25 09:25 Multivitamins Therapeutic Tab (*Bkc) PO 1 tablet DAILY CELESTE Administration Ondansetron HCl 4 mg 02/20/25 06:57 02/22/25 19:59 Ondansetron Inj 4 Mg/2 Ml Vial IV PUSH 4 mg Q6H PRN Administration Nausea And Vomiting Radiology Results: ITS Impressions Chest X-Ray 02/19/25 23:29 IMPRESSION: No acute cardiopulmonary process. Head CT 02/20/25 08:05 IMPRESSION: 1. Normal aging brain with mild diffuse volume loss and mild scattered white matter hypoattenuation consistent with chronic small vessel ischemic disease. No acute intracranial process. Abdomen/Pelvis CT 02/20/25 09:03 IMPRESSION: 1. Bilateral nephrolithiasis with obstructing 2.1 cm stone at the left ureteropelvic junction resulting in mild left hydronephrosis. 2. Infrarenal abdominal aortic aneurysm measuring up to 4.0 x 3.5 cm. 2. Small sliding-type hiatal hernia. 4. Cholelithiasis. Chest CTA 02/22/25 15:24 IMPRESSION: No pulmonary embolus. No thoracic aortic dissection. Bilateral pleural effusions with adjacent compressive atelectasis on the right and consolidation within the left lung base. Interval development of opacification of the right upper and middle lobes. Labs Labs: Laboratory Results - last 24 hr 02/23/25 05:51 WBC 11.3 H RBC 3.88 L Hgb 11.8 L Hct 35.6 L MCV 91.8 MCH 30.4 MCHC 33.1 RDW 13.9 Plt Count 164 MPV 9.8 Sodium 140 Potassium 3.0 L Chloride 109 H Carbon Dioxide 20 L Anion Gap 11 BUN 17 Creatinine 0.72 Estim Creat Clear Calc 76 Estimated GFR > 60 Glucose 108 Calcium 8.6 Magnesium 1.6 Total Bilirubin 0.7 AST 51 H ALT 46 H Alkaline Phosphatase 232 H Total Protein 6.3 Albumin 3.1 L Quality VTE Prophylaxis VTE prophylaxis: mechanical ordered and pharmacologic ordered -Patient's previous records reviewed on admission -ER notes reviewed in detail on admission -discussed all findings and current treatment plan with patient/Family/POA -Consultations reviewed for recommendations -Patient's disposition for safe discharge discussed with supervisor case loading Dictation performed by BRENDEN Shippter direct speech recognition software, therefore premium note interest calculator clerk variants and typographical errors may occur. Hospitalist MIPS Advance Care Plan I have confirmed that the patient's Advanced Care Plan is present, code status is documented, or surrogate decision maker is listed in patient medical record.: Yes Medication Reconciliation I have utilized all available resources to obtain, update and review the patients current medications (includes all prescriptions, OTC, herbals, cannabis, and nutritional supplements).: Yes The patient is not eligible for med reconciliation; the patient is in a emergent medical situation where delaying treatment would jeopardize the patients health.: No
[2025-02-23] MEDS: ENOXAPARIN 40 MG/0.4 ML SYRINGE SUB-Q (11:13)
[2025-02-23] MEDS: FUROSEMIDE INJ 40 MG/4 ML VIAL IV PUSH (11:15)
[2025-02-23] MEDS: MEROPENEM 1 GM in SODIUM CHLORIDE 0.9% IV 100 ML IVPB (11:16)
[2025-02-23] MEDS: POTASSIUM CHLORIDE INJ 40 MEQ in SODIUM CHLORIDE 0.9% IV 500 ML 130 MEQ IVPB (12:09)
[2025-02-23] MEDS: HYDROcodone/acetaminophen (*CRX) 5-325 MG TABLET 1 TAB PO (19:47)
[2025-02-23] MEDS: MELATONIN 5 MG TABLET PO (19:54)
[2025-02-23] MEDS: DOCUSATE SODIUM 100 MG CAPSULE PO (19:54)
[2025-02-23] MEDS: MIRTAZAPINE 15 MG TABLET PO (19:54)
[2025-02-23] MEDS: MEROPENEM 1 GM in SODIUM CHLORIDE 0.9% IV 100 ML 200 ML IVPB (19:54)
[2025-02-23] MEDS: ALPRAZolam (*CRX) 0.5 MG TABLET PO (19:54)
[2025-02-23] MEDS: DICLOFENAC SODIUM 1% 100 GM GEL (*BKC) TOPICAL (19:55)
[2025-02-24 05:27] VITALS: BP 136/72; PULSE 82; RESP 18; TEMP 36.9; O2SAT 92
[2025-02-24] MEDS: MEROPENEM 1 GM in SODIUM CHLORIDE 0.9% IV 100 ML 200 ML IVPB ×2 (05:30→13:25)
[2025-02-24 05:51] LABS: Hematocrit 36.7 % (37.0-47.0); Hemoglobin 12.5 g/dL (12.0-15.0); Mean Corpuscular HGB Conc 34.1 g/dl (32-36); Mean Corpuscular Hemoglobin 30.5 pg (26-34); Mean Corpuscular Volume 89.5 fl (80-100); Platelet Count Result 215 k/mm3 (150-375); Red Blood Count 4.10 M/mm3 (4.2-5.4); White Blood Count 10.9 K/mm3 (4.5-10.0)
[2025-02-24 06:17] LABS: Alanine Aminotransferase 39 U/L (6-35); Albumin Level 3.3 g/dL (3.5-5.1); Alkaline Phosphatase 270 U/L (38-126); Anion Gap 9 mmol/L (4-12); Aspartate Amino Transferase 37 U/L (14-36); Bilirubin,Total 0.7 mg/dL (0.2-1.3); Blood Urea Nitrogen 17 mg/dL (7-17); Calcium 8.8 mg/dL (8.4-10.2); Carbon Dioxide 29 mmol/L (22-30); Chloride 103 mmol/L (98-107); Estimated CRCL calculation 76 ml/min; Estimated Glomerular Filt Rate > 60; Glucose 113 mg/dL (65-110); Magnesium 1.6 mg/dL (1.6-2.3); Potassium 3.0 mmol/L (3.4-5.0); Sodium 141 mmol/L (137-145); Total Protein 6.8 g/dL (6.3-8.2)
[2025-02-24] MEDS: ENOXAPARIN 40 MG/0.4 ML SYRINGE SUB-Q (07:57)
[2025-02-24] MEDS: ASPIRIN 81 MG CHEWABLE TABLET PO (07:59)
[2025-02-24] MEDS: DIVALPROEX SODIUM DR 250 MG TABEC PO ×2 (07:59→16:54)
[2025-02-24] MEDS: MULTIVITAMINS THERAPEUTIC TAB (*BKC) 1 TABLET PO (07:59)
[2025-02-24] MEDS: FAMOTIDINE 20 MG TABLET PO ×2 (07:59→20:22)
[2025-02-24] MEDS: ACETAMINOPHEN 325 MG TABLET 650 MG PO ×3 (07:59→20:22)
[2025-02-24 08:00] VITALS: PULSE 76; O2SAT 92
[2025-02-24] MEDS: FLUTICASONE PROPIONATE 0.05% NA SPR 16 GM BTL (*BKC) 1 SPRAY NASAL ×2 (08:00→20:23)
[2025-02-24 08:36] LABS: NT Pro B Type Natriuretic Pept 2050 pg/mL (19.9-100)
[2025-02-24] MEDS: POTASSIUM CHLORIDE INJ 40 MEQ in SODIUM CHLORIDE 0.9% IV 500 ML 130 MEQ IVPB (09:01)
[2025-02-24 13:30] VITALS: O2SAT 96
[2025-02-24 13:59] VITALS: BP 140/78; PULSE 78; TEMP 36; O2SAT 96
--- NOTE | 2025-02-24 14:59 | P.PNIM_ITS ---
Progress Note: A&P Assessment and Plan (1) Acute respiratory failure with hypoxia: Code(s): J96.01 - Acute respiratory failure with hypoxia Status: Acute Assessment and Plan: -was requiring 5-6 L supplemental oxygen to maintain 92%. No home O2 requirement. Currently on 4L NC. - CTA chest no PE but did show bilateral pleural effusions likely secondary to aggressive IV fluid resuscitation for sepsis - BNP 2049. No documented history of CHF, no echo on file - continue IV lasix 40mg BID - check echo -will continue to wean oxygen as tolerated (2) Nephrolithiasis: Code(s): N20.0 - Calculus of kidney Status: Acute Assessment and Plan: -CT abdomen showing bilateral nephrolithiasis with obstructing 2.1 cm stone at the left ureter pelvic junction with mild left hydronephrosis, also showing multiple bilateral renal stones - s/p Cystoscopy, left retrograde, left ureteral stent placement 6 [place] contour, Jalloh catheter placement 02/20/2025 tolerated procedure well - will need urology follow-up as outpatient (3) Bacteremia: Code(s): R78.81 - Bacteremia Status: Acute Assessment and Plan: -blood cultures x2 Proteus mirabilis, sensitive to cephalosporins -presumed urinary source -discussed with ID pharmacist - de-escalate Merrem to Rocephin to complete 7-day course - 2nd set of blood cultures 02/23/2025 pending (4) Acute UTI: Code(s): N39.0 - Urinary tract infection, site not specified Status: Acute Assessment and Plan: -patient with multiple history urinary tract infections with ESBL - urine culture with gram negative bacilli, presumably Proteus per blood cultures (5) Elevated liver enzymes: Code(s): R74.8 - Abnormal levels of other serum enzymes Status: Acute Assessment and Plan: -patient with elevated AST and ALT with alk-phos at 232 - RUQ US normal - may be due to septic shock - conitnue to trend (6) Colostomy in place: Code(s): Z93.3 - Colostomy status Status: Acute Assessment and Plan: -patient with previous history of perforated bowel around 4-5 years ago with colostomy stoma beefy red no signs of infection with stool -colostomy care (7) Hypokalemia: Code(s): E87.6 - Hypokalemia Status: Acute Assessment and Plan: -Potassium 3.0 02/23/2025 -replenished 40meq IVPB - scheduled 20 meq BID while on IV diuresis. (8) RICARDO (acute kidney injury): Code(s): N17.9 - Acute kidney failure, unspecified Status: Resolved Assessment and Plan: - mild RICARDO creatinine 1.13 - s/p IV fluids -trend renal function -Improving RESOLVED (9) Septic shock: Code(s): A41.9 - Sepsis, unspecified organism; R65.21 - Severe sepsis with septic shock Status: Resolved Assessment and Plan: -patient found to have sepsis with septic shock secondary to urinary tract infection and obstructing stone bilateral nephrolithiasis. patient with tachycardia, leukocytosis, hypotension - received IV fluid resuscitation. 30mg/kg for septic shock - was initially started on vasopressor in the emergency department has been discontinue this time responding to IV fluids RESOLVED Subjective Date/time seen: 02/24/25 14:59 Interval history: Patient seen and examined at bedside. Initially sleeping, awoke easily. Still with some SOB, but reports improved with lasix. Review of Systems Review of Systems: All systems reviewed & are unremarkable except as noted in HPI and below Exam Narrative: General: NAD Eyes: EOMI ENT: neck supple Cardiovascular: Regular rate and rhythm Respiratory: Clear to auscultation, respirations even and unlabored on 4 L nasal cannula Gastrointestinal: Soft, non tender Genitourinary: no suprapubic tenderness Musculoskeletal: Diffuse mild anasarca Skin: warm, dry Neuro: Alert. Psych: Mood appropriate Objective Data Vital Signs Vital Signs: Vital Signs - 24 hr 02/23/25 20:00 02/23/25 21:03 02/23/25 21:18 Temperature 98.4 F Pulse Rate 76 90 Respiratory Rate 24 H 20 Blood Pressure 134/76 Pulse Oximetry 93 92 96 Oxygen Delivery Nasal Cannula High Flow Nasal Cannula Oxygen Flow Rate 4 4 Fraction of Inspired Oxygen 36 02/24/25 05:27 02/24/25 08:00 02/24/25 13:30 Temperature 98.4 F Pulse Rate 82 76 Respiratory Rate 18 Blood Pressure 136/72 Pulse Oximetry 92 92 96 Oxygen Delivery Nasal Cannula Nasal Cannula Oxygen Flow Rate 4 3 Fraction of Inspired Oxygen 02/24/25 13:59 Temperature 96.8 F L Pulse Rate 78 Respiratory Rate Blood Pressure 140/78 Pulse Oximetry 96 Oxygen Delivery Oxygen Flow Rate Fraction of Inspired Oxygen Intake/Output Intake/Output: Intake & Output 02/21/25 02/22/25 02/23/25 02/24/25 23:59 23:59 23:59 23:59 Intake Total 3276.3 3832.5 1210 1500 Output Total 450 1950 3900 650 Balance 2826.3 1882.5 -2690 850 Meds/Results Medications: Active Medications Generic Name Dose Route Start Last Admin Trade Name Freq PRN Reason Stop Dose Admin Acetaminophen 650 mg 02/21/25 20:00 02/24/25 13:23 Acetaminophen 325 Mg Tablet PO 650 mg Q6H CELESTE Administration Hydrocodone Bitart/Acetaminophen 1 tab 02/20/25 14:12 02/23/25 19:47 Hydrocodone/Acetaminophen (*Crx) 5-325 Mg Tablet PO 1 tab Q6H PRN Administration PAIN RATED 4-6 Albuterol 2 puff 02/20/25 14:12 Albuterol Sulfate (*Sp) Aerosol 1 Puff INHALATION TID PRN Shortness Of Breath Or Wheezing Albuterol/Ipratropium 3 ml 02/22/25 20:00 02/23/25 00:58 Ipratropium 0.5 Mg/Albuterol Sulfate 2.5 Mg Ampul.Neb 3 Ml INHALATION 3 ml Q6HRT PRN Administration Shortness Of Breath Alprazolam 0.5 mg 02/20/25 21:00 02/23/25 19:54 Alprazolam (*Crx) 0.5 Mg Tablet PO 0.5 mg QHS CELESTE Administration Aspirin 81 mg 02/21/25 09:00 02/24/25 07:59 Aspirin 81 Mg Chewable Tablet PO 81 mg DAILY CELESTE Administration Diclofenac Sodium 0 applic 02/20/25 17:00 02/24/25 11:55 Diclofenac Sodium 1% 100 Gm Gel (*Bkc) TOPICAL Not Given QID CELESTE Divalproex Sodium 250 mg 02/20/25 17:00 02/24/25 07:[address] 250 Mg Tabec PO 250 mg BID CELESTE Administration Docusate Sodium 100 mg 02/20/25 21:00 02/23/25 19:54 Docusate Sodium 100 Mg Capsule PO 100 mg HS CELESTE Administration Enoxaparin Sodium 40 mg 02/23/25 10:45 02/24/25 07:57 Enoxaparin 40 Mg/0.4 Ml Syringe SUB-Q 40 mg DAILY CELESTE Administration Famotidine 20 mg 02/20/25 14:15 02/24/25 07:59 Famotidine 20 Mg Tablet PO 20 mg Q12HR CELESTE Administration Fluoxetine HCl 10 mg 02/20/25 14:25 02/24/25 08:09 Fluoxetine Hcl 10 Mg Capsule PO 10 mg DAILY CELESTE Administration Fluticasone Propionate 1 spray 02/20/25 14:15 02/24/25 08:00 Fluticasone Propionate 0.05% Na Spr 16 Gm Btl (*Bkc) NASAL 1 spray Q12HR CELESTE Administration Furosemide 40 mg 02/24/25 17:00 Furosemide Inj 40 Mg/4 Ml Vial IV PUSH BID CELESTE Ceftriaxone Sodium 2 gm/ 100 mls @ 200 mls/hr 02/24/25 21:00 Sodium Chloride IVPB 02/26/25 21:29 Q24H CELESTE Melatonin 5 mg 02/20/25 21:00 02/23/25 19:54 Melatonin 5 Mg Tablet PO 5 mg HS CELESTE Administration Midodrine 10 mg 02/20/25 17:00 02/24/25 14:40 Midodrine Hcl 10 Mg Tablet PO Not Given TID CELESTE Mirtazapine 15 mg 02/20/25 21:00 02/23/25 19:54 Mirtazapine 15 Mg Tablet PO 15 mg HS CELESTE Administration Multivitamins Therapeutic 1 tablet 02/20/25 14:25 02/24/25 07:59 Multivitamins Therapeutic Tab (*Bkc) PO 1 tablet DAILY CELESTE Administration Ondansetron HCl 4 mg 02/20/25 06:57 02/22/25 19:59 Ondansetron Inj 4 Mg/2 Ml Vial IV PUSH 4 mg Q6H PRN Administration Nausea And Vomiting Perflutren Lipid Microsphere 0 ml 02/24/25 12:27 Perflutren Lipid Microspheres 1.5 Ml Vial Diluted To 10 Ml Total Volume IV PUSH 02/27/25 12:28 ONCE PRN adequate visualization Protocol Radiology Results: ITS Impressions Chest X-Ray 02/19/25 23:29 IMPRESSION: No acute cardiopulmonary process. Head CT 02/20/25 08:05 IMPRESSION: 1. Normal aging brain with mild diffuse volume loss and mild scattered white matter hypoattenuation consistent with chronic small vessel ischemic disease. No acute intracranial process. Abdomen/Pelvis CT 02/20/25 09:03 IMPRESSION: 1. Bilateral nephrolithiasis with obstructing 2.1 cm stone at the left ureteropelvic junction resulting in mild left hydronephrosis. 2. Infrarenal abdominal aortic aneurysm measuring up to 4.0 x 3.5 cm. 2. Small sliding-type hiatal hernia. 4. Cholelithiasis. Chest CTA 02/22/25 15:24 IMPRESSION: No pulmonary embolus. No thoracic aortic dissection. Bilateral pleural effusions with adjacent compressive atelectasis on the right and consolidation within the left lung base. Interval development of opacification of the right upper and middle lobes. Abdomen Ultrasound 02/23/25 16:54 IMPRESSION: 1: Normal limited abdominal ultrasound. Labs Labs: Laboratory Results - last 24 hr 02/24/25 05:23 WBC 10.9 H RBC 4.10 L Hgb 12.5 Hct 36.7 L MCV 89.5 MCH 30.5 MCHC 34.1 RDW 13.8 Plt Count 215 MPV 9.4 Sodium 141 Potassium 3.0 L Chloride 103 Carbon Dioxide 29 Anion Gap 9 BUN 17 Creatinine 0.72 Estim Creat Clear Calc 76 Estimated GFR > 60 Glucose 113 H Calcium 8.8 Magnesium 1.6 Total Bilirubin 0.7 AST 37 H ALT 39 H Alkaline Phosphatase 270 H NT-Pro-B Natriuret Pep 2050 H Total Protein 6.8 Albumin 3.3 L Quality VTE Prophylaxis VTE prophylaxis: mechanical ordered and pharmacologic ordered
[2025-02-24] MEDS: DICLOFENAC SODIUM 1% 100 GM GEL (*BKC) TOPICAL ×2 (16:50→20:24)
[2025-02-24] MEDS: FUROSEMIDE INJ 40 MG/4 ML VIAL IV PUSH (16:54)
[2025-02-24] MEDS: POTASSIUM CHLORIDE 20 MEQ ER TABLET PO (16:54)
[2025-02-24] MEDS: ONDANSETRON INJ 4 MG/2 ML VIAL IV PUSH (17:47)
[2025-02-24] MEDS: MIRTAZAPINE 15 MG TABLET PO (20:22)
[2025-02-24] MEDS: ALPRAZolam (*CRX) 0.5 MG TABLET PO (20:22)
[2025-02-24] MEDS: MELATONIN 5 MG TABLET PO (20:22)
[2025-02-24] MEDS: DOCUSATE SODIUM 100 MG CAPSULE PO (20:23)
[2025-02-24] MEDS: cefTRIAXone 2 GM in SODIUM CHLORIDE 0.9% IV 100 ML 200 ML IVPB (20:24)
[2025-02-24 21:25] VITALS: BP 140/68; PULSE 81; RESP 20; TEMP 36.4; O2SAT 93
[2025-02-25] MEDS: ACETAMINOPHEN 325 MG TABLET 650 MG PO ×4 (02:13→20:54)
[2025-02-25] MEDS: WATER FOR IRRIGATION, STERILE 1,000 ML BOTTLE 1000 ML (04:56)
[2025-02-25 05:12] VITALS: BP 128/59; PULSE 62; RESP 18; TEMP 36.5; O2SAT 94
[2025-02-25 06:13] LABS: Hematocrit 33.1 % (37.0-47.0); Hemoglobin 11.1 g/dL (12.0-15.0); Mean Corpuscular HGB Conc 33.5 g/dl (32-36); Mean Corpuscular Hemoglobin 30.1 pg (26-34); Mean Corpuscular Volume 89.7 fl (80-100); Platelet Count Result 254 k/mm3 (150-375); Red Blood Count 3.69 M/mm3 (4.2-5.4); White Blood Count 10.8 K/mm3 (4.5-10.0)
[2025-02-25 06:38] LABS: Alanine Aminotransferase 27 U/L (6-35); Albumin Level 2.9 g/dL (3.5-5.1); Alkaline Phosphatase 205 U/L (38-126); Anion Gap 7 mmol/L (4-12); Aspartate Amino Transferase 31 U/L (14-36); Bilirubin,Total 0.5 mg/dL (0.2-1.3); Blood Urea Nitrogen 20 mg/dL (7-17); Calcium 8.3 mg/dL (8.4-10.2); Carbon Dioxide 28 mmol/L (22-30); Chloride 102 mmol/L (98-107); Estimated CRCL calculation 89 ml/min; Estimated Glomerular Filt Rate > 60; Glucose 93 mg/dL (65-110); Magnesium 1.6 mg/dL (1.6-2.3); Potassium 3.1 mmol/L (3.4-5.0); Sodium 137 mmol/L (137-145); Total Protein 6.1 g/dL (6.3-8.2)
--- NOTE | 2025-02-25 07:12 | P.PNIM_ITS ---
Progress Note: A&P Assessment and Plan (1) Acute respiratory failure with hypoxia: Code(s): J96.01 - Acute respiratory failure with hypoxia Status: Acute Assessment and Plan: -was requiring 5-6 L supplemental oxygen to maintain 92%. No home O2 requirement. Weaned to 2.5L. - CTA chest no PE but did show bilateral pleural effusions likely secondary to aggressive IV fluid resuscitation for sepsis - repeat CXR with airspace opacities in the right mid and upper lung zones, small consolidation in left lower lung zone, tiny pleural effusions. Suspect more related to edema than pneumonia as patient afebrile without leukocytosis and denies cough - BNP 2049. No documented history of CHF, no echo on file - continue IV lasix 40mg BID - check echo, procal -will continue to wean oxygen as tolerated (2) Nephrolithiasis: Code(s): N20.0 - Calculus of kidney Status: Acute Assessment and Plan: -CT abdomen showing bilateral nephrolithiasis with obstructing 2.1 cm stone at the left ureter pelvic junction with mild left hydronephrosis, also showing multiple bilateral renal stones - s/p Cystoscopy, left retrograde, left ureteral stent placement 6 Swedish contour, Jalloh catheter placement 02/20/2025 tolerated procedure well - will need urology follow-up as outpatient (3) Bacteremia: Code(s): R78.81 - Bacteremia Status: Acute Assessment and Plan: -blood cultures x2 Proteus mirabilis, sensitive to cephalosporins -presumed urinary source -discussed with ID pharmacist - de-escalate Merrem to Rocephin to complete 7-day course - 2nd set of blood cultures 02/23/2025 pending (4) Acute UTI: Code(s): N39.0 - Urinary tract infection, site not specified Status: Acute Assessment and Plan: -patient with multiple history urinary tract infections with ESBL - urine culture with gram negative bacilli, presumably Proteus per blood cultures (5) Elevated liver enzymes: Code(s): R74.8 - Abnormal levels of other serum enzymes Status: Acute Assessment and Plan: -patient with elevated AST and ALT with alk-phos at 232 - RUQ US normal - may be due to septic shock - conitnue to trend (6) Colostomy in place: Code(s): Z93.3 - Colostomy status Status: Acute Assessment and Plan: -patient with previous history of perforated bowel around 4-5 years ago with colostomy stoma beefy red no signs of infection with stool -colostomy care (7) Hypokalemia: Code(s): E87.6 - Hypokalemia Status: Acute Assessment and Plan: -Potassium 3.1 02/25/2025 -replenished 40meq IVPB - scheduled 20 meq BID while on IV diuresis. (8) RICARDO (acute kidney injury): Code(s): N17.9 - Acute kidney failure, unspecified Status: Resolved Assessment and Plan: - mild RICARDO creatinine 1.13 - s/p IV fluids -trend renal function -Improving RESOLVED (9) Septic shock: Code(s): A41.9 - Sepsis, unspecified organism; R65.21 - Severe sepsis with septic shock Status: Resolved Assessment and Plan: -patient found to have sepsis with septic shock secondary to urinary tract infection and obstructing stone bilateral nephrolithiasis. patient with tachycardia, leukocytosis, hypotension - received IV fluid resuscitation. 30mg/kg for septic shock - was initially started on vasopressor in the emergency department has been discontinue this time responding to IV fluids RESOLVED Subjective Date/time seen: 02/25/25 07:12 Interval history: Patient seen and examined at bedside. Was sleeping initially, awakens easily. States breathing improved. Review of Systems Review of Systems: All systems reviewed & are unremarkable except as noted in HPI and below Exam Narrative: General: NAD Eyes: EOMI ENT: neck supple Cardiovascular: Regular rate and rhythm Respiratory: Clear to auscultation, respirations even and unlabored on 2.5 L nasal cannula Gastrointestinal: Soft, non tender Genitourinary: no suprapubic tenderness Musculoskeletal: Diffuse mild anasarca Skin: warm, dry Neuro: Alert. Psych: Mood appropriate Objective Data Vital Signs Vital Signs: Vital Signs - 24 hr 02/24/25 08:00 02/24/25 13:30 02/24/25 13:59 Temperature 96.8 F L Pulse Rate 76 78 Respiratory Rate Blood Pressure 140/78 Pulse Oximetry 92 96 96 Oxygen Delivery Nasal Cannula Nasal Cannula Oxygen Flow Rate 4 3 02/24/25 21:25 02/25/25 05:12 Temperature 97.6 F 97.7 F Pulse Rate 81 62 Respiratory Rate 20 18 Blood Pressure 140/68 128/59 L Pulse Oximetry 93 94 Oxygen Delivery Oxygen Flow Rate Intake/Output Intake/Output: Intake & Output 02/22/25 02/23/25 02/24/25 02/25/25 23:59 23:59 23:59 23:59 Intake Total 3832.5 1210 1500 350 Output Total 1950 3900 1100 250 Balance 1882.5 -2690 400 100 Meds/Results Medications: Active Medications Generic Name Dose Route Start Last Admin Trade Name Freq PRN Reason Stop Dose Admin Acetaminophen 650 mg 02/21/25 20:00 02/25/25 02:13 Acetaminophen 325 Mg Tablet PO 650 mg Q6H CELESTE Administration Hydrocodone Bitart/Acetaminophen 1 tab 02/20/25 14:12 02/23/25 19:47 Hydrocodone/Acetaminophen (*Crx) 5-325 Mg Tablet PO 1 tab Q6H PRN Administration PAIN RATED 4-6 Albuterol 2 puff 02/20/25 14:12 Albuterol Sulfate (*Sp) Aerosol 1 Puff INHALATION TID PRN Shortness Of Breath Or Wheezing Albuterol/Ipratropium 3 ml 02/22/25 20:00 02/23/25 00:58 Ipratropium 0.5 Mg/Albuterol Sulfate 2.5 Mg Ampul.Neb 3 Ml INHALATION 3 ml Q6HRT PRN Administration Shortness Of Breath Alprazolam 0.5 mg 02/20/25 21:00 02/24/25 20:22 Alprazolam (*Crx) 0.5 Mg Tablet PO 0.5 mg QHS CELESTE Administration Aspirin 81 mg 02/21/25 09:00 02/24/25 07:59 Aspirin 81 Mg Chewable Tablet PO 81 mg DAILY CELESTE Administration Diclofenac Sodium 0 applic 02/20/25 17:00 02/24/25 20:24 Diclofenac Sodium 1% 100 Gm Gel (*Bkc) TOPICAL 1 applic QID CELESTE Administration Divalproex Sodium 250 mg 02/20/25 17:00 02/24/25 16:[address] 250 Mg Tabec PO 250 mg BID CELESTE Administration Docusate Sodium 100 mg 02/20/25 21:00 02/24/25 20:23 Docusate Sodium 100 Mg Capsule PO 100 mg HS CELESTE Administration Enoxaparin Sodium 40 mg 02/23/25 10:45 02/24/25 07:57 Enoxaparin 40 Mg/0.4 Ml Syringe SUB-Q 40 mg DAILY CELESTE Administration Famotidine 20 mg 02/20/25 14:15 02/24/25 20:22 Famotidine 20 Mg Tablet PO 20 mg Q12HR CELESTE Administration Fluoxetine HCl 10 mg 02/20/25 14:25 02/24/25 08:09 Fluoxetine Hcl 10 Mg Capsule PO 10 mg DAILY CELESTE Administration Fluticasone Propionate 1 spray 02/20/25 14:15 02/24/25 20:23 Fluticasone Propionate 0.05% Na Spr 16 Gm Btl (*Bkc) NASAL 1 spray Q12HR CELESTE Administration Furosemide 40 mg 02/24/25 17:00 02/24/25 16:54 Furosemide Inj 40 Mg/4 Ml Vial IV PUSH 40 mg BID CELESTE Administration Ceftriaxone Sodium 2 gm/ 100 mls @ 200 mls/hr 02/24/25 21:00 02/24/25 20:24 Sodium Chloride IVPB 02/26/25 21:29 200 mls/hr Q24H CELESTE Administration Melatonin 5 mg 02/20/25 21:00 02/24/25 20:22 Melatonin 5 Mg Tablet PO 5 mg HS CELESTE Administration Midodrine 10 mg 02/20/25 17:00 02/24/25 14:40 Midodrine Hcl 10 Mg Tablet PO Not Given TID CELESTE Mirtazapine 15 mg 02/20/25 21:00 02/24/25 20:22 Mirtazapine 15 Mg Tablet PO 15 mg HS CELESTE Administration Multivitamins Therapeutic 1 tablet 02/20/25 14:25 02/24/25 07:59 Multivitamins Therapeutic Tab (*Bkc) PO 1 tablet DAILY CELESTE Administration Ondansetron HCl 4 mg 02/20/25 06:57 02/24/25 17:47 Ondansetron Inj 4 Mg/2 Ml Vial IV PUSH 4 mg Q6H PRN Administration Nausea And Vomiting Perflutren Lipid Microsphere 0 ml 02/24/25 12:27 Perflutren Lipid Microspheres 1.5 Ml Vial Diluted To 10 Ml Total Volume IV PUSH 02/27/25 12:28 ONCE PRN adequate visualization Protocol Potassium Chloride 20 meq 02/24/25 17:00 02/24/25 16:54 Potassium Chloride 20 Meq Er Tablet PO 20 meq BID CELESTE Administration Radiology Results: ITS Impressions Chest X-Ray 02/19/25 23:29 IMPRESSION: No acute cardiopulmonary process. Head CT 02/20/25 08:05 IMPRESSION: 1. Normal aging brain with mild diffuse volume loss and mild scattered white matter hypoattenuation consistent with chronic small vessel ischemic disease. No acute intracranial process. Abdomen/Pelvis CT 02/20/25 09:03 IMPRESSION: 1. Bilateral nephrolithiasis with obstructing 2.1 cm stone at the left ureteropelvic junction resulting in mild left hydronephrosis. 2. Infrarenal abdominal aortic aneurysm measuring up to 4.0 x 3.5 cm. 2. Small sliding-type hiatal hernia. 4. Cholelithiasis. Chest CTA 02/22/25 15:24 IMPRESSION: No pulmonary embolus. No thoracic aortic dissection. Bilateral pleural effusions with adjacent compressive atelectasis on the right and consolidation within the left lung base. Interval development of opacification of the right upper and middle lobes. Abdomen Ultrasound 02/23/25 16:54 IMPRESSION: 1: Normal limited abdominal ultrasound. Labs Labs: Laboratory Results - last 24 hr 02/24/25 02/25/25 05:23 05:43 WBC 10.8 H RBC 3.69 L Hgb 11.1 L Hct 33.1 L MCV 89.7 MCH 30.1 MCHC 33.5 RDW 13.9 Plt Count 254 MPV 9.1 Sodium 137 Potassium 3.1 L Chloride 102 Carbon Dioxide 28 Anion Gap 7 BUN 20 H Creatinine 0.60 L Estim Creat Clear Calc 89 Estimated GFR > 60 Glucose 93 Calcium 8.3 L Magnesium 1.6 Total Bilirubin 0.5 AST 31 ALT 27 Alkaline Phosphatase 205 H NT-Pro-B Natriuret Pep 2050 H Total Protein 6.1 L Albumin 2.9 L Quality VTE Prophylaxis VTE prophylaxis: mechanical ordered and pharmacologic ordered
[2025-02-25 08:00] VITALS: O2SAT 94
[2025-02-25] MEDS: MIDODRINE HCL 10 MG TABLET PO ×3 (08:46→17:54)
[2025-02-25] MEDS: DIVALPROEX SODIUM DR 250 MG TABEC PO ×2 (08:46→17:54)
[2025-02-25] MEDS: ASPIRIN 81 MG CHEWABLE TABLET PO (08:47)
[2025-02-25] MEDS: MULTIVITAMINS THERAPEUTIC TAB (*BKC) 1 TABLET PO (08:47)
[2025-02-25] MEDS: POTASSIUM CHLORIDE 20 MEQ ER TABLET PO ×2 (08:47→17:54)
[2025-02-25] MEDS: SIMETHICONE 80 MG TAB.CHEW PO (08:47)
[2025-02-25] MEDS: FAMOTIDINE 20 MG TABLET PO ×2 (08:47→20:55)
[2025-02-25] MEDS: ENOXAPARIN 40 MG/0.4 ML SYRINGE SUB-Q (08:50)
[2025-02-25] MEDS: FLUTICASONE PROPIONATE 0.05% NA SPR 16 GM BTL (*BKC) 1 SPRAY NASAL ×2 (08:53→20:55)
[2025-02-25] MEDS: FUROSEMIDE INJ 40 MG/4 ML VIAL IV PUSH ×2 (08:53→17:55)
[2025-02-25] MEDS: MAGNESIUM SULF 1 GM/D5W 100 ML 1 GM/100 ML BAG IVPB (08:56)
[2025-02-25] MEDS: DICLOFENAC SODIUM 1% 100 GM GEL (*BKC) TOPICAL ×4 (09:02→20:56)
[2025-02-25] MEDS: POTASSIUM CHLORIDE INJ 40 MEQ in SODIUM CHLORIDE 0.9% IV 500 ML 130 MEQ IVPB (10:05)
[2025-02-25] MEDS: ONDANSETRON INJ 4 MG/2 ML VIAL IV PUSH ×2 (10:54→17:55)
[2025-02-25 14:00] VITALS: BP 128/88; PULSE 64; RESP 20; TEMP 36.6; O2SAT 94
[2025-02-25 16:57] LABS: Procalcitonin 1.8 ng/mL
[2025-02-25 20:52] VITALS: O2SAT 93
[2025-02-25] MEDS: MIRTAZAPINE 15 MG TABLET PO (20:54)
[2025-02-25] MEDS: MELATONIN 5 MG TABLET PO (20:54)
[2025-02-25] MEDS: DOCUSATE SODIUM 100 MG CAPSULE PO (20:54)
[2025-02-25] MEDS: ALPRAZolam (*CRX) 0.5 MG TABLET PO (20:55)
[2025-02-25] MEDS: cefTRIAXone 2 GM in SODIUM CHLORIDE 0.9% IV 100 ML 200 ML IVPB (20:55)
[2025-02-25 21:25] VITALS: BP 128/80; PULSE 67; RESP 20; TEMP 36.6; O2SAT 95
--- NOTE | 2025-02-26 | ECHO_ITS ---
Patient Info Name: Jolly Saldana Age: 75 years : 1950 Gender: Female Ht: 71 in Wt: 233 lbs BSA: 2.33 m2 HR: 73 bpm BP: 148 / 84 mmHg Technical Quality: Fair Exam Date: 02/26/2025 9:05 AM Patient Status: I Admit Date: 02/20/2025 Exam Type: CA echo dop color flow w con Complete two-dimensional, color flow and Doppler transthoracic echocardiogram is performed with contrast to opacify the left ventricle and to improve the deliniation of the left ventricle endocardial borders. Staff Referring Physician: Taina Truong Gristmiller: Janae Gómez Attending Provider: Wen Rodriguez Contrast/Agitated Saline Contrast/Ag. Saline: Definity Amount: 2.00 ml Administered By: Janae Gómez Existing IV Access: Yes IV Access Condition: patent with no signs of infiltration Summary 1. Left ventricular chamber dimension is normal. 2. Left ventricular systolic function is normal, estimated at 60-65. 3. The left ventricular diastolic function is grade I diastolic dysfunction. 4. Definity contrast administered improved wall motion interpretation. 5. E/e' 9 is minimally elevated. 6. There is mild aortic valve sclerosis. 7. There is trace tricuspid valve regurgitation. 8. Mild pulmonary hypertension, estimated pulmonary arterial systolic pressure is 48 mmHg. 9. There is trace pulmonic regurgitation. 10. There is trivial pericardial effusion. Left Ventricle E/e' 9 is minimally elevated. Left ventricular chamber dimension is normal. Left ventricular systolic function is normal, estimated at 60-65. The left ventricular diastolic function is grade I diastolic dysfunction. Definity contrast administered improved wall motion interpretation. Right Ventricle Right ventricular chamber dimension is normal. Right ventricular systolic function is normal and with normal TAPSE 1.9 cm. Left Atria Left atrial chamber dimension is normal. Right Atria Right atrial chamber dimension is normal. Aortic Valve The aortic valve is trileaflet. There is mild aortic valve sclerosis. There is no aortic valve stenosis. There is no aortic valve regurgitation. Pulmonic Valve There is trace pulmonic regurgitation. Mitral Valve There is no mitral valve stenosis. There is no mitral valve regurgitation. Tricuspid Valve There is trace tricuspid valve regurgitation. Mild pulmonary hypertension, estimated pulmonary arterial systolic pressure is 48 mmHg. Pericardium/Pleural There is trivial pericardial effusion. Inferior Vena Cava Normal inferior vena cava with >50% collapse upon inspiration consistent with normal right atrial pressure, 5 mmHg. Aorta The aortic root size at the sinus of Valsalva is normal. Left Ventricular Outflow Tract Name Value Normal LVOT 2D LVOT Diameter 2.0 cm LVOT Doppler LVOT Peak Velocity 124 cm/s LVOT Peak Gradient 6 mmHg LVOT Mean Gradient 3 mmHg LVOT VTI 23 cm LVOT Stroke Volume 72 ml LVOT CO 5.2 l/min LVOT CI 2.2 l/min/m2 Pulmonic Valve Name Value Normal RVOT Doppler RVOT Peak Velocity 97 cm/s RVOT Peak Gradient 4 mmHg PV Doppler PV Peak Velocity 115 cm/s PV Peak Gradient 5 mmHg Mitral Valve Name Value Normal MV Diastolic Function MV E Peak Velocity 67 cm/s MV A Peak Velocity 87 cm/s MV E/A 0.8 MV Decel Time (PW) 360 ms MV Annular TDI MV E/e' (Septal) 11.9 MV E/e' (Lateral) 7.8 MV E/e' (Average) 9.9 Tricuspid Valve Name Value Normal TV Regurgitation Doppler TR Peak Velocity 328 cm/s TR Peak Gradient 41 mmHg Estimated PAP/RSVP RA Pressure 5 mmHg <=5 PA Systolic Pressure 48 mmHg <36 RV Systolic Pressure 48 mmHg <36 Aortic Valve Name Value Normal AV Doppler AV Peak Velocity 140 cm/s AV Peak Gradient 8 mmHg AV Area (Cont Eq Kamari) 2.8 cm2 AV DI (Kamari) 0.88 AV Regurgitation 2D LVOT Area 3.1 cm2 Ventricles Name Value Normal LV Dimensions 2D/MM IVS Diastolic Thickness (2D) 0.8 cm 0.6-1.0 LVID Diastole (2D) 4.7 cm 3.8-5.2 LVIW Diastolic Thickness (2D) 1.0 cm 0.6-0.9 LVID Systole (2D) 2.7 cm 2.2-3.5 LVOT Diameter 2.0 cm LV Mass (2D Cubed) 147.49 g 67.00-162.00 LV Mass Index (2D Cubed) 63 g/m2 43-95 Relative Wall Thickness (2D) 0.43 <=0.42 LV Fractional Shortening/Ejection Fraction 2D/MM LV Fractional Shortening (2D) 43 % 27-45 LV EF (2D Teichholz) 74 % LV Diastolic Volume (4C MOD) 95 ml LV EF (4C MOD) 68 % LV Diastolic Volume (2C MOD) 67 ml LV EF (2C MOD) 64 % LV Diastolic Volume (BP MOD) 85 ml 46-106 LV Diastolic Volume Index (BP MOD) 37 ml/m2 29-61 LV Systolic Volume (BP MOD) 31 ml 14-42 LV Systolic Volume Index (BP MOD) 13 ml/m2 8-24 LV EF (BP MOD) 64 % 54-74 LV Diastolic Length (4C) 8.2 cm LV Systolic Length (4C) 6.8 cm LV Stroke Volume (4C MOD) 65 ml Atria Name Value Normal LA Dimensions LA Volume (4C A-L) 35 ml LA Volume (BP A-L) 32 ml RA Dimensions RA Systolic Major [place] Length (4C) 5.5 cm 2.2-2.8 RA Area (4C) 13.0 cm2 <=18.0 Report Signatures
[2025-02-26] MEDS: ACETAMINOPHEN 325 MG TABLET 650 MG PO ×3 (02:06→13:15)
[2025-02-26 05:22] VITALS: BP 148/84; PULSE 66; RESP 20; TEMP 36.5; O2SAT 97
[2025-02-26 06:39] LABS: Hematocrit 36.5 % (37.0-47.0); Hemoglobin 11.6 g/dL (12.0-15.0); Mean Corpuscular HGB Conc 31.8 g/dl (32-36); Mean Corpuscular Hemoglobin 29.3 pg (26-34); Mean Corpuscular Volume 92.2 fl (80-100); Platelet Count Result 371 k/mm3 (150-375); Red Blood Count 3.96 M/mm3 (4.2-5.4); White Blood Count 9.9 K/mm3 (4.5-10.0)
[2025-02-26 07:15] LABS: Alanine Aminotransferase 27 U/L (6-35); Albumin Level 3.1 g/dL (3.5-5.1); Alkaline Phosphatase 209 U/L (38-126); Anion Gap 7 mmol/L (4-12); Aspartate Amino Transferase 36 U/L (14-36); Bilirubin,Total 0.3 mg/dL (0.2-1.3); Blood Urea Nitrogen 27 mg/dL (7-17); Calcium 8.5 mg/dL (8.4-10.2); Carbon Dioxide 33 mmol/L (22-30); Chloride 101 mmol/L (98-107); Estimated CRCL calculation 69 ml/min; Estimated Glomerular Filt Rate > 60; Glucose 95 mg/dL (65-110); Magnesium 1.9 mg/dL (1.6-2.3); Potassium 3.6 mmol/L (3.4-5.0); Sodium 141 mmol/L (137-145); Total Protein 6.3 g/dL (6.3-8.2)
[2025-02-26 08:00] VITALS: O2SAT 93
[2025-02-26] MEDS: ASPIRIN 81 MG CHEWABLE TABLET PO (09:36)
[2025-02-26] MEDS: MULTIVITAMINS THERAPEUTIC TAB (*BKC) 1 TABLET PO (09:36)
[2025-02-26] MEDS: POTASSIUM CHLORIDE 20 MEQ ER TABLET PO ×2 (09:36→17:26)
[2025-02-26] MEDS: FAMOTIDINE 20 MG TABLET PO (09:36)
[2025-02-26] MEDS: SIMETHICONE 80 MG TAB.CHEW PO (09:36)
[2025-02-26] MEDS: ENOXAPARIN 40 MG/0.4 ML SYRINGE SUB-Q (09:36)
[2025-02-26] MEDS: DIVALPROEX SODIUM DR 250 MG TABEC PO ×2 (09:36→17:25)
[2025-02-26] MEDS: MIDODRINE HCL 10 MG TABLET PO ×3 (09:37→17:26)
[2025-02-26] MEDS: FUROSEMIDE INJ 40 MG/4 ML VIAL IV PUSH (09:37)
[2025-02-26] MEDS: FLUTICASONE PROPIONATE 0.05% NA SPR 16 GM BTL (*BKC) 1 SPRAY NASAL (09:38)
--- NOTE | 2025-02-26 09:40 | PCNWS ---
Weekly nutritional screen. Patient is tolerating current regular diet with adequate intake 50-100%. No weight loss reported. No nutritional recommendations at this time.
[2025-02-26] MEDS: PERFLUTREN LIPID MICROSPHERES 1.5 ML VIAL DILUTED TO 10 ML TOTAL VOLUME IV PUSH (09:54)
--- NOTE | 2025-02-26 09:55 | IVDEFINITY ---
Prior to administration of IV Definity the patient was educated on the risks and benefits of the imaging enhancing agent including potential adverse side effects. The patient verbalized understanding. Allergies were verified. No exclusion criteria were identified and at least one of the following inclusion criteria were met: 1) physician request, 2) patient technically difficult to image (per the [place] [employer] guidelines of two or more segments not discernable within the apical view), or 3) questionable left ventricular function. ?
--- NOTE | 2025-02-26 12:19 | P.PNIM_ITS ---
Progress Note: A&P Assessment and Plan (1) Acute respiratory failure with hypoxia: Code(s): J96.01 - Acute respiratory failure with hypoxia Status: Acute Assessment and Plan: -was requiring 5-6 L supplemental oxygen to maintain 92%. No home O2 requirement. Weaned to 1L today. CXR 02/25 with airspace opacities in the right mid and upper lung zones, small consolidation in left lower lung zone, tiny pleural effusions - likely secondary to CHF exacerbation. Patient is afebrile, no leukocytosis, procal trending down with minimal cough so doubt pneumonia. - improving with diuresis - goal to wean to RA prior to discharge, but will consider discharge to SNF tomorrow on O2 if still requiring O2 in AM (2) Acute heart failure with preserved ejection fraction (HFpEF): Code(s): I50.31 - Acute diastolic (congestive) heart failure Status: Acute Assessment and Plan: - CTA chest no PE but did show bilateral pleural effusions likely secondary to aggressive IV fluid resuscitation for sepsis - repeat CXR 02/25 with airspace opacities in the right mid and upper lung zones, small consolidation in left lower lung zone, tiny pleural effusions. Personally reviewed image which appears consistent with CHF. - BNP 2049. - echo 02/26 with EF 60-65%, grade 1 diastolic dysfunction, mild aortic valve sclerosis, mild pulmonary hypertension - s/p IV lasix, will transition to PO Lasix given improvement in hypoxia -will continue to wean oxygen as tolerated (3) Nephrolithiasis: Code(s): N20.0 - Calculus of kidney Status: Acute Assessment and Plan: -CT abdomen showing bilateral nephrolithiasis with obstructing 2.1 cm stone at the left ureter pelvic junction with mild left hydronephrosis, also showing multiple bilateral renal stones - s/p Cystoscopy, left retrograde, left ureteral stent placement 6 Kyr[place] contour, Muro catheter placement 02/20/2025 tolerated procedure well - discussed with urology - ok to remove muro. Follow-up with Dr. Hankins in 2-3 weeks for stent - will need urology follow-up as outpatient (4) Bacteremia: Code(s): R78.81 - Bacteremia Status: Acute Assessment and Plan: -blood cultures x2 Proteus mirabilis, sensitive to cephalosporins -presumed urinary source -discussed with ID pharmacist - de-escalate Merrem to Rocephin to complete 7-day course - 2nd set of blood cultures 02/23/2025 pending (5) Acute UTI: Code(s): N39.0 - Urinary tract infection, site not specified Status: Acute Assessment and Plan: -patient with multiple history urinary tract infections with ESBL - urine culture with gram negative bacilli, presumably Proteus per blood cultures (6) Elevated liver enzymes: Code(s): R74.8 - Abnormal levels of other serum enzymes Status: Acute Assessment and Plan: -patient with elevated AST and ALT with alk-phos at 232 - RUQ US normal - may be due to septic shock - continue to trend (7) Colostomy in place: Code(s): Z93.3 - Colostomy status Status: Acute Assessment and Plan: -patient with previous history of perforated bowel around 4-5 years ago with colostomy stoma beefy red no signs of infection with stool -colostomy care (8) Hypokalemia: Code(s): E87.6 - Hypokalemia Status: Acute Assessment and Plan: -Potassium 3.1 02/25/2025 -replenished 40meq IVPB - scheduled 20 meq BID while on IV diuresis. (9) RICARDO (acute kidney injury): Code(s): N17.9 - Acute kidney failure, unspecified Status: Resolved Assessment and Plan: - mild RICARDO creatinine 1.13 - s/p IV fluids -trend renal function -Improving RESOLVED (10) Septic shock: Code(s): A41.9 - Sepsis, unspecified organism; R65.21 - Severe sepsis with septic shock Status: Resolved Assessment and Plan: -patient found to have sepsis with septic shock secondary to urinary tract infection and obstructing stone bilateral nephrolithiasis. patient with tachycardia, leukocytosis, hypotension - received IV fluid resuscitation. 30mg/kg for septic shock - was initially started on vasopressor in the emergency department has been discontinue this time responding to IV fluids RESOLVED Subjective Date/time seen: 02/26/25 12:19 Interval history: Patient seen and examined at bedside. Was sleeping initially, awakens easily. States breathing improved. Review of Systems Review of Systems: All systems reviewed & are unremarkable except as noted in HPI and below Exam Narrative: General: NAD Eyes: EOMI ENT: neck supple Cardiovascular: Regular rate and rhythm Respiratory: Clear to auscultation, respirations even and unlabored on 2 L nasal cannula Gastrointestinal: Soft, non tender Genitourinary: no suprapubic tenderness Musculoskeletal: Diffuse mild anasarca Skin: warm, dry Neuro: Alert. Psych: Mood appropriate Objective Data Vital Signs Vital Signs: Vital Signs - 24 hr 02/25/25 14:00 02/25/25 20:52 02/25/25 21:25 Temperature 97.9 F 97.9 F Pulse Rate 64 67 Respiratory Rate 20 20 Blood Pressure 128/88 128/80 Pulse Oximetry 94 93 95 Oxygen Delivery Nasal Cannula Oxygen Flow Rate 2.5 02/26/25 05:22 Temperature 97.7 F Pulse Rate 66 Respiratory Rate 20 Blood Pressure 148/84 H Pulse Oximetry 97 Oxygen Delivery Oxygen Flow Rate Intake/Output Intake/Output: Intake & Output 02/23/25 02/24/25 02/25/25 02/26/25 23:59 23:59 23:59 23:59 Intake Total 1210 1600 1750 668 Output Total 3900 1100 2750 1550 Balance -0058 282 -5748 -688 Meds/Results Medications: Active Medications Generic Name Dose Route Start Last Admin Trade Name Freq PRN Reason Stop Dose Admin Acetaminophen 650 mg 02/21/25 20:00 02/26/25 09:36 Acetaminophen 325 Mg Tablet PO 650 mg Q6H CELESTE Administration Hydrocodone Bitart/Acetaminophen 1 tab 02/20/25 14:12 02/23/25 19:47 Hydrocodone/Acetaminophen (*Crx) 5-325 Mg Tablet PO 1 tab Q6H PRN Administration PAIN RATED 4-6 Albuterol 2 puff 02/20/25 14:12 Albuterol Sulfate (*Sp) Aerosol 1 Puff INHALATION TID PRN Shortness Of Breath Or Wheezing Albuterol/Ipratropium 3 ml 02/22/25 20:00 02/23/25 00:58 Ipratropium 0.5 Mg/Albuterol Sulfate 2.5 Mg Ampul.Neb 3 Ml INHALATION 3 ml Q6HRT PRN Administration Shortness Of Breath Alprazolam 0.5 mg 02/20/25 21:00 02/25/25 20:55 Alprazolam (*Crx) 0.5 Mg Tablet PO 0.5 mg QHS CELESTE Administration Aspirin 81 mg 02/21/25 09:00 02/26/25 09:36 Aspirin 81 Mg Chewable Tablet PO 81 mg DAILY CELESTE Administration Diclofenac Sodium 0 applic 02/20/25 17:00 02/26/25 09:37 Diclofenac Sodium 1% 100 Gm Gel (*Bkc) TOPICAL Not Given QID [facility] Divalproex Sodium 250 mg 02/20/25 17:00 02/26/25 09:[address] 250 Mg Tabec PO 250 mg BID CELESTE Administration Docusate Sodium 100 mg 02/20/25 21:00 02/25/25 20:54 Docusate Sodium 100 Mg Capsule PO 100 mg HS [facility] Administration Enoxaparin Sodium 40 mg 02/23/25 10:45 02/26/25 09:36 Enoxaparin 40 Mg/0.4 Ml Syringe SUB-Q 40 mg DAILY CELESTE Administration Famotidine 20 mg 02/20/25 14:15 02/26/25 09:36 Famotidine 20 Mg Tablet PO 20 mg Q12HR CELESTE Administration Fluoxetine HCl 10 mg 02/20/25 14:25 02/26/25 09:47 Fluoxetine Hcl 10 Mg Capsule PO 10 mg DAILY CELESTE Administration Fluticasone Propionate 1 spray 02/20/25 14:15 02/26/25 09:38 Fluticasone Propionate 0.05% Na Spr 16 Gm Btl (*Bkc) NASAL 1 spray Q12HR CELESTE Administration Furosemide 20 mg 02/26/25 17:00 Furosemide 20 Mg Tablet PO BID CELESTE Ceftriaxone Sodium 2 gm/ 100 mls @ 200 mls/hr 02/24/25 21:00 02/25/25 20:55 Sodium Chloride IVPB 02/26/25 21:29 200 mls/hr Q24H CELESTE Administration Melatonin 5 mg 02/20/25 21:00 02/25/25 20:54 Melatonin 5 Mg Tablet PO 5 mg HS CELESTE Administration Midodrine 10 mg 02/20/25 17:00 02/26/25 09:37 Midodrine Hcl 10 Mg Tablet PO 10 mg TID CELESTE Administration Mirtazapine 15 mg 02/20/25 21:00 02/25/25 20:54 Mirtazapine 15 Mg Tablet PO 15 mg HS CELESTE Administration Multivitamins Therapeutic 1 tablet 02/20/25 14:25 02/26/25 09:36 Multivitamins Therapeutic Tab (*Bkc) PO 1 tablet DAILY CELESTE Administration Ondansetron HCl 4 mg 02/20/25 06:57 02/25/25 17:55 Ondansetron Inj 4 Mg/2 Ml Vial IV PUSH 4 mg Q6H PRN Administration Nausea And Vomiting Potassium Chloride 20 meq 02/24/25 17:00 02/26/25 09:36 Potassium Chloride 20 Meq Er Tablet PO 20 meq BID CELESTE Administration Simethicone 80 mg 02/25/25 09:00 02/26/25 09:36 Simethicone 80 Mg Tab.Chew PO 80 mg DAILY CELESTE Administration Radiology Results: ITS Impressions Head CT 02/20/25 08:05 IMPRESSION: 1. Normal aging brain with mild diffuse volume loss and mild scattered white matter hypoattenuation consistent with chronic small vessel ischemic disease. No acute intracranial process. Abdomen/Pelvis CT 02/20/25 09:03 IMPRESSION: 1. Bilateral nephrolithiasis with obstructing 2.1 cm stone at the left ureteropelvic junction resulting in mild left hydronephrosis. 2. Infrarenal abdominal aortic aneurysm measuring up to 4.0 x 3.5 cm. 2. Small sliding-type hiatal hernia. 4. Cholelithiasis. Chest CTA 02/22/25 15:24 IMPRESSION: No pulmonary embolus. No thoracic aortic dissection. Bilateral pleural effusions with adjacent compressive atelectasis on the right and consolidation within the left lung base. Interval development of opacification of the right upper and middle lobes. Abdomen Ultrasound 02/23/25 16:54 IMPRESSION: 1: Normal limited abdominal ultrasound. Chest X-Ray 02/25/25 08:21 IMPRESSION: 1. Airspace opacities in the right mid and upper lung zones most likely representing pneumonia. 2. Small region of consolidation at the left lower lung zone which could represent atelectasis or pneumonia. 3. Tiny bilateral pleural effusions. Labs Labs: Laboratory Results - last 24 hr 02/25/25 02/26/25 15:06 05:44 WBC 9.9 RBC 3.96 L Hgb 11.6 L Hct 36.5 L MCV 92.2 MCH 29.3 MCHC 31.8 L RDW 14.0 Plt Count 371 MPV 8.9 Sodium 141 Potassium 3.6 Chloride 101 Carbon Dioxide 33 H Anion Gap 7 BUN 27 H Creatinine 0.80 Estim Creat Clear Calc 69 Estimated GFR > 60 Glucose 95 Calcium 8.5 Magnesium 1.9 Total Bilirubin 0.3 AST 36 ALT 27 Alkaline Phosphatase 209 H Total Protein 6.3 Albumin 3.1 L Procalcitonin 1.8 Quality VTE Prophylaxis VTE prophylaxis: mechanical ordered and pharmacologic ordered
[2025-02-26 12:27] LABS: Procalcitonin 1.4 ng/mL
[2025-02-26 14:00] VITALS: BP 147/81; PULSE 66; RESP 20; TEMP 36.7; O2SAT 92
--- NOTE | 2025-02-26 14:31 | PM.DS ---
DS: Admitting Diagnosis Discharge Date 02/26/25 Admitting Diagnosis - septic chock -nephrolithiasis - bacteremia - UTI - RICARDO DS: Discharge Diagnosis Discharge Diagnosis (1) Acute respiratory failure with hypoxia: Code(s): J96.01 - Acute respiratory failure with hypoxia Status: Acute (2) Acute heart failure with preserved ejection fraction (HFpEF): Code(s): I50.31 - Acute diastolic (congestive) heart failure Status: Acute (3) Nephrolithiasis: Code(s): N20.0 - Calculus of kidney Status: Acute (4) Bacteremia: Code(s): R78.81 - Bacteremia Status: Acute (5) Acute UTI: Code(s): N39.0 - Urinary tract infection, site not specified Status: Acute (6) Elevated liver enzymes: Code(s): R74.8 - Abnormal levels of other serum enzymes Status: Acute (7) Colostomy in place: Code(s): Z93.3 - Colostomy status Status: Acute (8) Hypokalemia: Code(s): E87.6 - Hypokalemia Status: Acute (9) RICARDO (acute kidney injury): Code(s): N17.9 - Acute kidney failure, unspecified Status: Resolved (10) Septic shock: Code(s): A41.9 - Sepsis, unspecified organism; R65.21 - Severe sepsis with septic shock Status: Resolved DS: Summary Hospital Course Reason for hospitalization: - septic shock -nephrolithiasis - bacteremia - UTI - RICARDO Hospital Course: Patient is a 75 yo female with history of recurrent UTIs, colostomy, kidney stones, anxiety, depression who presented to the emergency department from her nursing home facility with complaints of fevers, malaise. In the ED patient with leukocytosis 14.4, tachycardia 112, report fever of 101 had received Tylenol prior to arrival, UA suspicious of urinary tract infection, and hypotension of 79/51. CT ABD did show bilateral nephrolithiasis with obstructing 2.1 cm stone at the left ureteropelvic junction with left hydronephrosis. Patient was admitted to the IMU for further management of UTI and septic shock. Given history of ESBL, patient was started on IV Merrem. Patient received aggressive IV fluid resuscitation with improvement in her BP and did not require pressor support. She was subsequently taken to the OR by Urology for cystoscopy and left ureteral stent placement. Postoperatively, patient remained stable. Blood cultures resulted positive for Proteus mirabilis sensitive to cephalosporins. Case was discussed with ID pharmacist and patient was transitioned to IV Rocephin to complete 7-day course. Patient's repeat blood cultures were negative. Urine culture resulted with multiple organisms, no organism predominant. Leukocytosis resolved and patient remained afebrile. Patient finished antibiotics prior to discharge. Jalloh was removed prior to discharge and patient passed voiding trial. Patient to follow-up with urology in 2-3 weeks to discuss ureteral stent removal. While admitted, patient develop acute respiratory failure with hypoxia. Patient required up to 6L of oxygen. CTA chest showed no PE, CTA chest no PE but did show bilateral pleural effusions likely secondary to aggressive IV fluid resuscitation for sepsis. Patient was started on IV lasix. Echo 02/26 with EF 60-65%, grade 1 diastolic dysfunction, mild aortic valve sclerosis, mild pulmonary hypertension. BNP was 2050. CXR 02/25 with airspace opacities in the right mid and upper lung zones, small consolidation in left lower lung zone, tiny pleural effusions. Suspicion for pneumonia was low due to no leukocytosis, fevers or cough. Patient was weaned to 1L NC prior to discharge. She was transitioned to PO lasix 20 mg BID and intermediate was instructed to monitor volume status and continue to wean oxygen. Plan to repeat CBC, BMP and mag on Saturday. Patient also noted to have mildly elevated liver enzymes. RUQ US was normal. LFTs improving on discharge. LFT elevation likely secondary to septic shock. Patient also noted to have RICARDO in setting of renal stone and sepsis which resolved on discharge. Continue colostomy care on discharge. Patient was discharged to SNF in stable condition. Time Spent with Patient Time attestation: Total time spent providing and/or coordinating discharge services: Time spent: Greater than 30 minutes Exam Narrative: General: NAD Eyes: EOMI ENT: neck supple Cardiovascular: Regular rate and rhythm Respiratory: Clear to auscultation, respirations even and unlabored on 1L Gastrointestinal: Soft, non tender, colostomy with brown stool Genitourinary: no suprapubic tenderness Musculoskeletal: trace BLE edema Skin: warm, dry Neuro: Alert. Psych: Mood appropriate DS: Data Data Completed and Pending Completed studies during hospitalization: - CT head - CT A/P - chest CTA - abdomen US - CXR Labs on day of discharge: Labs from last 24 hours 02/26/25 02/25/25 05:44 15:06 WBC 9.9 RBC 3.96 L Hgb 11.6 L Hct 36.5 L MCV 92.2 MCH 29.3 MCHC 31.8 L RDW 14.0 Plt Count 371 MPV 8.9 Sodium 141 Potassium 3.6 Chloride 101 Carbon Dioxide 33 H Anion Gap 7 BUN 27 H Creatinine 0.80 Estim Creat Clear Calc 69 Estimated GFR > 60 Glucose 95 Calcium 8.5 Magnesium 1.9 Total Bilirubin 0.3 AST 36 ALT 27 Alkaline Phosphatase 209 H Total Protein 6.3 Albumin 3.1 L Procalcitonin 1.4 1.8 Preliminary micro results at discharge 02/23/25 09:50 Blood Culture - Preliminary Blood 02/23/25 09:36 Blood Culture - Preliminary Blood Discharge Plan Discharge Attending physician on discharge: Corie Melgar Consulting providers: Aura Silva; Yaron Mcrae; Taina Truong Discharging Clinician: Taina Truong Anticipated Discharge Date/Time: 02/26/25 16:00 Patient Disposition: SNF Activity: as tolerated Diet: regular and heart healthy Discharge Instructions: Patient was admitted for UTI and sepsis. She has finished all antibiotics. Monitor for recurrent symptoms of UTI. Patient had ureteral stent placement and needs to follow-up with Dr. Hankins in 2-3 weeks to discuss stent removal. While in the hospital, patient required oxygen for CHF exacerbation. She has been started on Lasix and potassium supplements. Check BMP, mag and CBC in 3 days and then weekly x4 weeks. Monitor oxygen levels and utilize oxygen 1L PRN. Monitor for signs of fluid retention. Patient Instructions: Ureteral Stent Placement (DC) Patient Language: Yoruba Stand Alone Forms: General Discharge Information Follow-up/Referrals: Fredo Hankins MD [Physician] - Call for Appointment (in 2-3 weeks for stent removal) León,MD Bryan [Primary Care Provider] - Call for Appointment Discharge Medications: New furosemide 20 mg Tablet 20 mg PO BID Qty: 60 0RF potassium chloride [K-Tab] 20 mEq tablet extended release 20 meq PO BID Qty: 60 0RF ipratropium-albuterol 0.5 mg-3 mg(2.5 mg base)/3 mL solution for nebulization 3 ml inhalation Q6HRT PRN (Reason: Shortness Of Breath) Qty: 30 0RF Continued acetaminophen 325 mg Tablet 325 mg PO Q6H primidone 50 mg Tablet 50 mg PO Q12H polyethylene glycol 3350 [Miralax] 17 gram Powder In Packet 17 g PO DAILY meclizine 25 mg tablet 25 mg PO TID PRN (Reason: Dizziness) mirtazapine 15 mg Tablet 15 mg PO HS divalproex [Depakote] 250 mg tablet,delayed release (DR/EC) 250 mg PO BID sennosides-docusate sodium [Senokot-S] 8.6-50 mg tablet 1 tab-cap PO BID melatonin 3 mg tablet 5 mg PO HS midodrine 10 mg PO TID albuterol sulfate [Ventolin HFA] 90 mcg/actuation HFA aerosol inhaler 2 puff INHALATION TID PRN (Reason: Shortness Of Breath Or Wheezing) aspirin 81 mg Tablet,Chewable 81 mg PO DAILY Bengay Ultra Strength 4-30-10 % Cream 1 applic topical BID PRN (Reason: Muscle/Joint Pain) Qty: 57 0RF alprazolam 0.5 mg tablet 0.5 mg PO QHS famotidine 20 mg tablet 20 mg PO Q12H fluoxetine 10 mg capsule 10 mg PO DAILY fluticasone propionate 50 mcg/actuation spray,suspension 1 spray INTRANASAL Q12H hydroxyzine HCl 25 mg tablet 12.5 mg PO .q12hr omeprazole 20 mg capsule,delayed release(DR/EC) 20 mg PO DAILY docusate sodium [Colace] 100 mg capsule 100 mg PO HS multivitamin [Daily Multi-Vitamin] Tablet 1 tablet PO DAILY simethicone [Gas Relief (simethicone)] 80 mg tablet,chewable 80 mg PO BID Rx Instructions: after meals lidocaine [Lidocaine Pain Relief] 4 % adhesive patch,medicated 1 patch topical DAILY PRN (Reason: pain) diclofenac sodium [Arthritis Pain (diclofenac)] 1 % gel 2 g topical QID Rx Instructions: apply to single elbow, wrist or hand; for hand includes palm/fingers/back of hand cetirizine [24Hour Allergy] 10 mg tablet 10 mg PO DAILY Lubricant Eye (PG-PEG 400)(PF) 0.4-0.3 % dropperette 1 drp EACH EYE Q12H hydrocodone-acetaminophen 5-325 mg tablet 1 tablet PO BID PRN (Reason: pain) Qty: 6 0RF buspirone 15 mg tablet 15 mg PO TID Qty: 90 2RF Discontinued ertapenem 1 gram recon soln 1 g IM Q24H Qty: 4 0RF Protonix 20 mg PO DAILY nitrofurantoin monohyd/m-cryst 100 mg capsule 100 mg PO Q12H Date of admission: 02/20/25 06:20 Primary Care Provider: NancieBryan Admitting Provider: Wen Rodriguez Attending physician on admission: Wen Rodriguez Condition: Stable Hospitalist MIPS Heart Failure (Exclusion) Patient has history of Heart Transplant or Left Ventricular Assistive Device?: No IF YES, STOP HERE Heart Failure (Qualifier) Patient has current or prior documentation of LVEF less than or equal to 40%, or mod/servere depressed LVSF?: No IF NO, STOP HERE
[2025-02-26] MEDS: cefTRIAXone 2 GM in SODIUM CHLORIDE 0.9% IV 100 ML 200 ML IVPB (14:37)
[2025-02-26] MEDS: FUROSEMIDE 20 MG TABLET PO (17:26)
== END 2025-02-26 17:50 | DRG 853 ==
LOC: ANHED 02-20 06:14 → ANH3MEDSUR 02-20 06:53 → ANHIMU 02-20 12:05 → ANH3MEDSUR 02-21 16:31
PROVIDERS: Nurse Practitioner Family; Physician Assistant; Urology; Admitting Provider General Practice; Emergency Provider Emergency Medicine; PCP Internal Medicine; Visit Provider Physician Assistant
PROC: 0T778DZ Dilation of Left Ureter with Intraluminal Device, Via Natural or Artificial Opening Endoscopic (ICD-10-PCS; CPT 52352; principal; 2025-02-20 16:00)
DX: A41.59 Other Gram-negative sepsis (principal); I50.31 Acute diastolic (congestive) heart failure; J96.01 Acute respiratory failure with hypoxia; R65.21 Severe sepsis with septic shock; N17.9 Acute kidney failure, unspecified; N13.6 Pyonephrosis; R74.8 Abnormal levels of other serum enzymes; E87.6 Hypokalemia; I35.8 Other nonrheumatic aortic valve disorders; I27.20 Pulmonary hypertension, unspecified; F17.210 Nicotine dependence, cigarettes, uncomplicated; F41.9 Anxiety disorder, unspecified; F32.A Depression, unspecified; E66.9 Obesity, unspecified; Z68.32 Body mass index [BMI] 32.0-32.9, adult; Z20.822 Contact with and (suspected) exposure to COVID-19; Z66 Do not resuscitate; Z79.51 Long term (current) use of inhaled steroids; Z79.82 Long term (current) use of aspirin; Z79.899 Other long term (current) drug therapy; Z86.19 Personal history of other infectious and parasitic diseases; Z87.442 Personal history of urinary calculi; Z88.0 Allergy status to penicillin; Z88.1 Allergy status to other antibiotic agents; Z88.2 Allergy status to sulfonamides; Z93.3 Colostomy status
CPT/HCPCS: 36415; 70450; 71045; 71275; 74176; 74420; 76705; 80053; 81001; 83605; 83735; 83880; 84145; 85025; 85027; 85610; 85730; 86140; 87040; 87086; 87637; 94640; 96365; 96366; 96367; 96375; 97110; 97162; 97166; 97530; 97535; 99285; A9270; C1758; C1769; C2617; C8929; J0696; J1650; J1885; J1938; J2185; J2270; J2405; J2704; J3475; J3480; J7030; J7040; J7120; Q9957; Q9966; Q9967

== ENCOUNTER 2025-03-18 10:46 | Outpatient (CLI) | payer OTHER, MEDICARE, MEDICAID, SELFPAY ==
--- NOTE | ~2025-03-18 | XR_ITS ---
EXAMINATION: XR abdomen/kub 1V DATE: 03/18/2025 11:15 INDICATION: Calcium kidney stone TECHNIQUE: A supine view of the abdomen on 2 radiographs was obtained. COMPARISON: CT abdomen and pelvis 02/20/2025 FINDINGS: Double-J left-sided ureteral stent with the proximal loop projecting over the region of the left kidney and the distal loop projecting over the region of the bladder. Bones appear osteopenic. Moderate levoconvex curvature of the lumbar spine. Moderate amount of air and stool in nondilated large bowel. Small amount of air in nondilated small bowel. There are calcifications about the left renal pelvis and in the left kidney similar to the CT study from 02/20/2025. The largest calcification is about the left renal pelvis and measures 2.1 cm in greatest dimension. IMPRESSION: 1. Double-J left-sided ureteral stent with the proximal loop projecting over the region of the left kidney and the distal loop projecting over the region of the bladder. 2. There are calcifications about the left renal pelvis and in the left kidney similar to the CT study from 02/20/2025. The largest calcification is about the left renal pelvis and measures 2.1 cm in greatest dimension. 3. Nonspecific, nonobstructive bowel gas pattern with a moderate amount of stool. Reviewed, dictated and finalized at location Q. IMPRESSION: 1. Double-J left-sided ureteral stent with the proximal loop projecting over th e region of the left kidney and the distal loop projecting over the region of t he bladder. 2. There are calcifications about the left renal pelvis and in the left kidney similar to the CT study from 02/20/2025. The largest calcification is about the l eft renal pelvis and measures 2.1 cm in greatest dimension. 3. Nonspecific, nonobstructive bowel gas pattern with a moderate amount of sto ol.
--- OUTSIDE RECORDS SUMMARY | 2025-03-18 10:55 | XMS_ITS | Patient Health Record ---
Author Organization [facility] [email or web address] [facility] Address [address] [place] [address] Care Team Providers Care Clutch Operator Name Role Phone Henri Us Unavailable [phone] Reason For Referral No Information Medications Medication SIG (Take, Route, Frequency, Duration) Notes Start Date End Date Status Depakote 500 MG Tablet Delayed Release Oral 07/07/2020 Active [facility] *Reorder from [facility] for eRx and Interaction Alerts* 07/07/2020 Active Divalproex Sodium 500 MG Tablet Delayed Release Oral 07/07/2020 Active Divalproex Sodium 250 MG Tablet Delayed Release Oral 07/07/2020 Active Depakote 250 MG Tablet Delayed Release Oral 07/07/2020 Active busPIRone HCl 15 MG Tablet Oral 07/07/2020 Active Immunizations Vaccine Route Administration Date Status Comme nts Influenza virus vaccine, quadrivalent (IIV4), split virus, 0.25 mL dosage Unknown 05/01/2019 Administered Influenza virus vaccine, quadrivalent (IIV4), split virus, 0.25 mL dosage Unknown 04/11/2020 Administered Social History Social History Additional Details Category Social Info Options Details Migrated Social History Migrated Social History Alcohol Intake: None 05/24/2020,Tobacco Years: Former smoker 05/24/2020,Smoking Status: 38 05/24/2020 Plan Of Treatment No Information Insurance Providers Payer Name Payer Address Payer Phone Subscriber Number Group Number Insured Name Patient Relationship to Insured Coverage Start Date Coverage End Date Medicare-I l Medicare [address] [place] [phone] [id number] PERLA LEMON Self - patient is the insured Medical (General) History Surgical History Surgery Date(Month/Year) Hysterectomy/revise vagina (74447) Unlisted procedure breast (77820) Appendectomy (99020) Repair of kidney ([id number]) blasted kidjerson ey stones
--- OUTSIDE RECORDS SUMMARY | 2025-03-18 10:55 | XMS_ITS | Clinical Summary ---
Author Organization [facility] Address [address] [place] [address] Care Team Providers Care Couture Dressmaker Name Role Phone NelsonIsabeldavid WHITMORE Primary Care Provider [phone] Rico Sanders MD Unavailable [phone] Allergies Active Allergy Reactions Criticality Noted Date Comments Iodine Itching Low 02/11/[address] dye. This is food iodine Penicillins Unknown 05/17/2019 Sulfa (Sulfonamide Antibiotics) Unknown 05/17/2019 Tetracyclines Unknown 05/17/2019 Medications multivit xzntabpc-fakr-W A-calcium (THERA-M) 9 mg iron-400 mcg tabletIndicatio ns:Vitamin Deficiency Prevention Take 1 tablet by mouth daily Active acetaminophen (TYLENOL) 325 mg tablet Take 650 mg by mouth every 6 (six) hours Active albuterol HFA (PROVENTIL HFA,VENTOLIN HFA,PROAIR HFA) 90 mcg/actuation inhaler Inhale 2 puffs 3 (three) times a day Active ondansetron (ZOFRAN) 4 mg tablet Take 4 mg by mouth every 6 (six) hours as needed for nausea or vomiting Active aspirin 81 mg chewable tablet Take 81 mg by mouth daily Active meclizine (ANTIVERT) 25 mg tablet Take 25 mg by mouth 3 (three) times a day as needed for dizziness Active midodrine (PROAMATINE) 10 mg tablet Take 10 mg by mouth 3 (three) times a day Active pantoprazole DR (PROTONIX) 20 mg EC tablet Take 20 mg by mouth daily Active cyanocobalamin (Vitamin B-12) 1,000 mcg tabletIndicatio ns:Prevention of Vitamin B12 Deficiency Take 1,000 mcg by mouth daily Active senna (SENOKOT) 8.6 mg tablet Take 1 tablet by mouth 2 (two) times a day Active melatonin tablet Take 5 mg by mouth nightly Active lidocaine (ASPERCREME) 4 % adhesive patch,medicated Place 1 patch on the skin daily as needed Apply to shoulder/back. Remove & discard patch within 12 hours Active fluticasone propionate (FLONASE) 50 mcg/actuation nasal spray Administer 1 spray into each nostril 2 (two) times a day Active Lactobacillus acidoph-L.bulga r (LACTINEX) 1 million cell tablet,chewable Take 1 tablet by mouth daily Active divalproex DR (DEPAKOTE) 500 mg EC tablet Take 1 tablet (500 mg total) by mouth 2 (two) times a day 60 tablet 11 2 Active busPIRone (BUSPAR) 15 mg tabletIndicatio ns:Generalized Anxiety Disorder Take 1 tablet (15 mg total) by mouth 3 (three) times a day 2 Active polyethylene glycol (MIRALAX) 17 gram/dose powderIndicatio ns:constipation Take 17 g by mouth 2 (two) times a day 2 Active Active Problems Problem Noted Date Diagnosed Date Slow transit constipation 03/08/2022 Assessment & Plan (03/27/2022 10:59 AM CDT): Stable, good output in colostomy. Continue MiraLax and senna b.i.d. Assessment & Plan (03/08/2022 12:46 PM CDT): Continue MiraLax b.i.d., will increase senna once daily to b.i.d.. Continue to monitor Tremors of nervous system 02/22/2022 Assessment & Plan (03/05/2022 2:42 PM CDT): Remains greatly improved. Assessment & Plan (02/27/2022 8:46 AM CDT): Improved today. Continue to monitor. Assessment & Plan (02/22/2022 1:39 PM CDT): Likely s/t depakote adjustment. Monitor closely. If worsens, can consider starting her on small dose of carbidopa levodopa.But cautiously as high risk of exacerbating her manic symptoms with levodopa treatment. Neuropathic pain of left lower extremity 022 Assessment & Plan (02/19/2022 9:48 PM CDT): Pt underwent Left L3-4, left L4-5 and left L5-S1 transforaminal epidural steroid injection with fluoroscopic guidance for chronic severe lower back pain with left leg radicular pain due to multilevel lumbar spinal canal stenosis, neural foraminal stenosis and lumbar disk bulging per Dr. Hannah on 02/13/2022. Continue Tylenol 650 Q 6, lidocaine patch. Patient follow-up Dr. Hannah in 2 weeks outpatient for additional epidural injection. Muscle spasticity 02/19/2022 Assessment & Plan (02/22/2022 1:40 PM CDT): Stable. Continue PT/OT. Assessment & Plan (02/19/2022 9:57 PM CDT): Neurology consulted, spasticity suggested can be due to Parkinson disease, multilevel spinal stenosis and tremors likely EPS symptoms secondary to high-dose Depakote. Depakote dose adjusted. Recommended small dose Sinemet if concerning for Parkinson disease and Zanaflex 2 mg b.i.d. for spasticity. Patient needs to follow-up Dr. De La Cruz in 3 days Neurogenic orthostatic hypotension 02/19/2022 Assessment & Plan (03/27/2022 11:01 AM CDT): Blood pressure overall stable, continue midodrine 10 mg t.i.d. meclizine 25 mg t.i.d. p.r.n. Assessment & Plan (03/12/2022 8:57 PM CDT): BP stable, continue midodrine Assessment & Plan (03/05/2022 2:41 PM CDT): BP stable. Assessment & Plan (02/27/2022 8:46 AM CDT): Stable. Continue Midodrine. Assessment & Plan (02/22/2022 1:41 PM CDT): BP fluctuating but overall stable. Continue to monitor & continue midodrine. Assessment & Plan (02/19/2022 9:59 PM CDT): Continue midodrine 10 mg t.i.d. Anxiety 02/19/2022 Assessment & Plan (02/19/2022 9:59 PM CDT): Symptoms currently controlled with buspirone 15 mg b.i.d.. continue to monitor. Patient follow-up psychiatry outpatient Abdominal aortic aneurysm (AAA) without rupture 2022 Overview (2022): Slight interval increased size of an infrarenal abdominal aortic aneurysm measuring 3.4 x 3.3 cm, previously 3.2 x 3.1 cm Assessment & Plan (03/27/2022 10:59 AM CDT): AAA measuring 3.4 x 3.3 cm, previously 3.2 x 3.1 cm. Follow-up with vascular surgery as an outpatient. Continue aspirin Assessment & Plan (02/19/2022 9:42 PM CDT): Imaging also revealed interval increase size of infrarenal AAA measuring 3.4 x 3.3 cm, previously 3.2 x 3.1 cm. Need to see vascular surgery outpatient. Continue aspirin 81 mg daily Bipolar disorder 2022 Assessment & Plan (03/27/2022 10:59 AM CDT): Patient with intermittent anxiety, increase the proximal 15 mg t.i.d., continue Depakote 500 mg b.i.d. Assessment & Plan (03/12/2022 8:56 PM CDT): Mood stable, generally cooperative with care. Continue bupsar and depakote Assessment & Plan (03/08/2022 12:46 PM CDT): Mood has been stable, denies any depression. Assessment & Plan (03/05/2022 2:41 PM CDT): Mood stable, Flat affect. Assessment & Plan (02/27/2022 8:46 AM CDT): Mood stable. Assessment & Plan (02/19/2022 9:52 PM CDT): Depakote level was 84.8---usual dose indicated for controlling seizures. Per neuro reduced Depakote to 500 mg twice a day Suggested for any tremors and rigidity after Depakote adjustment--but 3-7 days after, can consider starting her on small dose of carbidopa levodopa.But cautiously as high risk of exacerbating her manic symptoms with levodopa treatment. Patient needs to follow-up with Psychiatry outpatient after discharge Closed compression fracture of body of L1 verteb ra 07/22/2020 Assessment & Plan (03/27/2022 11:00 AM CDT): Pain controlled with scheduled Tylenol, lidocaine patch. Anticipate discharge to [facility] with accepting facility available Assessment & Plan (03/20/2022 1:50 PM CDT): Pain generally controlled with scheduled Tylenol q.6 hours, Lidoderm patch. Participating in therapy. Continue to monitor progress Assessment & Plan (03/16/2022 5:12 PM CDT): Overall stable, pain controlled. Continue therapy Assessment & Plan (03/12/2022 8:55 PM CDT): Pain controlled, pt encouraged to participate in therapy - will not likely be able to return to [place] if not making more progress. Continue therapies Assessment & Plan (03/08/2022 12:47 PM CDT): Back pain improving progressively. Patient satisfied with her progress. Continue PT/OT Assessment & Plan (03/05/2022 2:41 PM CDT): Pain improving with therapy. Continue PT/OT & pain regimen. Assessment & Plan (02/27/2022 8:46 AM CDT): Continue to have pain but reports stable. Continue tx. Assessment & Plan (02/22/2022 1:38 PM CDT): Pain improving. Continue to monitor. Continue tx. Assessment & Plan (02/19/2022 9:46 PM CDT): MRI showed: Chronic compression fracture about the superior L1 endplate with approximately 35% central maximal vertebral body height loss; no retropulsion of the posterior cortical margin. Follow-up Dr. Hannah outpatient Major depressive disorder 05/21/2019 Resolved Problems Problem Noted Date Diagnosed Date Resolved Date UTI (urinary tract infection) 2022 02/22/2022 Sigmoid volvulus 07/27/2020 02/22/2022 Nephrolithiasis 02/22/2022 Surgical History Surgery Date Site/Laterality Comments ABDOMINAL SURGERY 07/27/2020 Laparotomy with bowel resection ABDOMINAL SURGERY 07/30/2020 Laparotomy, end colostomy, abdominal closure BACK SURGERY 07/27/2020 L1 kyphoplasty Medical History Medical History Date Comments Depression Sleep difficulties Abdominal aortic aneurysm (A AA) without rupture Slight interval increased si ze of an infrarenal abdominal aortic aneurysm measuring 3.4 x 3.3 cm, previously 3.2 x 3.1 cm Bipolar disorder Closed compression fracture of body of L1 vertebra (HCC) 07/2020 Sigmoid volvulus (HCC) 07/27/2020 Family History Medical History Relation Name Comments in his 80s; he had hypercholesterolemia and a brain tumor Father in her 80s, she had dementia Mother Relation Name Status Comments Father Mother Social History Tobacco Use Types Packs/Day Years Used Date Smoking Tobacco: Former Smokeless Tobacco: Never Alcohol Use Standard Drinks/Week Comments Not Currently 0 (1 standard drink = 0.6 oz pur e alcohol) AUDIT-C Answer Date Recorded Frequency of Alcohol Consumption Not on file 05/18/2019 Average Number of Drinks 1 or 2 019 Frequency of Binge Drinking Never 04/22 Comments Unknown Sex and Gender Information Value Date Recorded Sex Assigned at Not on file Legal Sex Female 11:35 PM CDT Gender Identity Not on file Sexual Orientation Not on file 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 file Not on file Not on file Obstetrics History Last Filed Vital Signs Vital Sign Reading Time Taken Comments Blood Pressure 110/67 03/27/2022 10:43 AM CDT Pulse 59 03/27/2022 10:43 AM CDT Temperature 36.4 C (97.5 F) 03/27/2022 10:43 AM CDT Respiratory Rate 18 03/27/2022 10:43 AM CDT Oxygen Saturation 97% 03/27/2022 10:43 AM CDT Inhaled Oxygen Concentration - - Weight 86.2 kg (190 lb) 02/11/2022 8:02 PM CDT Height 177.8 cm (5' 10) 02/11/2022 8:02 PM CDT Body Mass Index 27.26 02/11/2022 8:02 PM CDT Plan of Treatment Not on file Insurance MEDICARE [place] MEDICARE IDPA MEDICARE IDPA Advance Directives For more information, please contact: [phone] * Full Code (Latest Code Status on File) Date Activated Date Inactivated Comments 2022 6:52 AM 02/17/2022 5:34 PM * Full Code Date Activated Date Inactivated Comments 05/18/2019 12:33 AM 05/29/2019 9:58 PM Care Teams Couture Dressmaker Relationship Specialty Start Date End Date Cindi Damon PA [address] [place] [address] PCP - General 02/11/22 Rico Sanders MD [address] [place] [address] Surgeon Surgery 02/16/22
--- OUTSIDE RECORDS SUMMARY | 2025-03-18 10:55 | XMS_ITS | Clinical Summary ---
Author Organization [facility] Address [address] [place] [address] Care Team Providers Care Stake Driver Name Role Phone Unavailable Primary Care Provider Unavailabl e Source Comments [facility],non-owned Affiliates and Associated Physician Practices is amultiple site organization consisting of ambulatory clinics and hospital sitesin [place], [place], [place] and [place]. This disclosure is being madepursuant to the Care Everywhere program and may not contain all information available regarding this patient. Last updated 18.[facility] [employer] Allergies Active Allergy Reactions Criticality Noted Date Comments Penicillins Rash High 07/25/2020 Sertraline Unknown 08/02/2020 Sulfa Drugs Unknown 08/03/2020 Medications * Be aware that medications may not be up to date on this document. Alwaysverify current medications with the patient. busPIRone (BUSPAR) 15 MG tablet Take 15 mg by mouth 3 times daily Active albuterol (PROVENTIL;SOM TOLIN) (5 MG/ML) 0.5% nebulizer solution Inhale 1 mL by mouth every 12 hours 1 Active enoxaparin (LOVENOX) 40 MG/0.4ML injection Inject 40 (forty) mg subcutaneously once daily 1 Active valproic acid (DEPAKENE) 250 MG/5ML solution 5 mL by Per NG/OG Tube route 2 times daily 1 Active sodium chloride, Inhalant, 7 % nebulizer solution Inhale 4 mL by mouth every 12 hours 1 Active potassium chloride (KLOR-CON) 20 MEQ packet 2 (two) packets by Enteral Tube route once daily 1 Active midodrine (PROAMATINE) 10 MG tablet 1 (one) tablet by Enteral Tube route every 8 hours 1 Active vitamin D3-cholecalcif apollo (CHOLECALCIFER OL) 25 MCG (1000 UNITS) tablet 1 (one) tablet by Enteral Tube route once daily 1 Active Multiple Vitamins-[place] als (THERA-M) TABS Take 1 tablet by mouth once daily Active divalproex sprinkle (DEPAKOTE SPRINKLE) 125 MG capsule Take 250 mg by mouth [address] (DEPAKOTE) 500 MG tablet Depakote 500 mg tablet,delayed release Take 1 tablet twice a day by oral route. Active divalproex DR (DEPAKOTE) 250 MG tablet 1 Active ciprofloxacin (CIPRO) 500 MG tablet 0 Active Active Problems Problem Noted Date Diagnosed Date Syncope 07/25/2020 Fall 07/25/2020 Age-related osteoporosis wit hout current pathological fracture 07/25/2020 Bipolar 1 disorder 07/25/2020 Acute pain of left shoulder 07/25/2020 Syncope and collapse 07/24/2020 Closed compression fracture of body of L1 verteb ra 07/23/2020 Severe sepsis with septic shock RICARDO (acute kidney injury) Acute respiratory failure with hypoxia Immunizations Immunization Administration Dates Next Due INFLUENZA [id number], HISTORIC VACCINE 04/12/2020 Social History Tobacco Use Types Packs/Day Years Used Date Smoking Tobacco: Never Smokeless Tobacco: Never Alcohol Use Standard Drinks/Week Comments Never 0 (1 standard drink = 0.6 oz pur e alcohol) AUDIT-C Answer Date Recorded Q1: How often do you have a drink containing alc ohol? Never 09/15/2020 Average Number of Drinks Not on file 021 Frequency of Binge Drinking Not on file 08/23 Comments Unknown Sex and Gender Information Value Date Recorded Sex Assigned at Not on file Legal Sex Female 4:06 AM CDT Gender Identity Not on file Sexual Orientation Not on file Last Filed Vital Signs Vital Sign Reading Time Taken Comments Blood Pressure 117/72 09/19/2020 12:05 PM BOATSWAINS MATE Pulse 82 09/19/2020 12:05 PM [employer]WA[employer] MATE Temperature 36.5 C (97.7 F) 09/19/2020 12:05 PM [employer]WA[employer] MATE Respiratory Rate 16 08/15/2020 4:34 AM [employer]WA[employer] MATE Oxygen Saturation 97% 09/19/2020 12:05 PM [employer]WA[employer] MATE Inhaled Oxygen Concentration 35% 08/14/2020 8 :20 PM BOATSWA[employer] MATE found on 35% Weight 85.7 kg (189 lb) 09/19/2020 12:05 PM BOATSWA[employer] MATE Height 180.3 cm (5' 11) 07/28/2020 4:00 AM BOATSWA[employer] MATE Body Mass Index 26.36 07/28/2020 4:00 AM [employer]ATSWA[employer] MATE Plan of Treatment Health Maintenance Due Date Last Done Comments BONE DENSITY TESTING 1950 Opioid Medication Agreement - Annual 1950 HEPATITIS C SCREENING 02/07/1966 DTAP/TDAP/TD VACCINES (1 - Tdap) 02/11/1967 PNEUMOCOCCAL VACCINE 50+ (1 of 1 - PCV) 02/11/1998 ZOSTER VACCINE (1 of 2) 02/11/1998 Respiratory Syncytial Virus (RSV) Vaccine Pt: or over 60 yrs (1 - 1-dose 75+ series) 02/11/2023 COVID-19 VACCINE ( - 2023-2 5 season) 2024 INFLUENZA VACCINE (#1) 2025 04/12/2020 HEPATITIS B VACCINE Aged Out No longe r eligible based on patient's age to complete this topic HIB VACCINE Aged Out No longer eligi ble based on patient's age to complete this topic HPV VACCINE Aged Out No longer eligi ble based on patient's age to complete this topic MENINGOCOCCAL (Group B) VACC INE SHARED DECISION-MAKING Aged Out No longer eligibl e based on patient's age to complete this topic MENINGOCOCCAL GROUPS A/C/Y/W VACCINE Aged Out No longer eligible b ased on patient's age to complete this topic Insurance MEDICARE MEDICARE * Guarantor: PERLA LEMON [employer] Account Type Relation to Patient Date of Phone Billing Address Personal/Family 1950 [address] [place] [address] MEDICARE Advance Directives * LIMITED RESUSCITATION-PRIOR AND AFTER ARREST (Latest Code Status on File) Date Activated Date Inactivated Comments 08/10/2020 4:43 PM 08/15/2020 9:43 PM Question Answer Comments Limited Resuscitation: No Chest Compress ionNo Cardioversion, No Defibrilation, No External or Internal PacemakerNo Cardioactive Drugs, No Vasopressors * LIMITED RESUSCITATION-PRIOR AND AFTER ARREST Date Activated Date Inactivated Comments 07/27/2020 3:28 PM 08/10/2020 4:43 PM Question Answer Comments Limited Resuscitation: No Chest Compress ionOther Limitations (ENTER COMMENT) If pulseless, no ACLS (CPR, vasoactive agents, defibrillation). If in OR, can remain full code. * Full Code Date Activated Date Inactivated Comments 07/27/2020 12:57 PM 07/27/2020 3:28 PM * Full Code Date Activated Date Inactivated Comments 07/24/2020 6:07 AM 07/27/2020 12:57 PM
== END 2025-03-18 10:47 | disposition home or self-care (01) ==
PROVIDERS: PCP Internal Medicine; Visit Provider Urology
DX: N20.0 Calculus of kidney (principal)
CPT/HCPCS: 74018

== ENCOUNTER 2025-05-04 00:57 | Day surgery (SDC) | payer MEDICARE, MEDICAID, SELFPAY ==
[2025-04-27 15:28] VITALS: BMI 19.8
--- NOTE | 2025-04-27 15:39 | PC.NURSE ---
[facility] has started construction of its new state of the art ER which will open Spring 2026. With this, we anticipate parking may be a challenge for some our surgical patients and families. Parking spaces are limited but are available for all Surgical, obstetrics, and ER patients sharing this lot. If you arrive and find you are having a hard time finding a parking space, please note that we understand the challenges, please drive around the hospital and park near Hospital Entrance 1. When you enter this entrance, you can ask a volunteer to direct or take you back to the surgical waiting area to check in. We appreciate everyone?s understanding of these expected challenges while we build for your future. Report to the Outpatient Waiting Room, entrance under the green pavilion located off [address], at time _0830am on date 05/04/25 . Planned Procedure Time: _10:30am .? Time changes happen often and if your time is changed the preop area will call you the afternoon before. - You and your visitor will be asked to self-screen and do not enter if you have any COVID symptoms. Please call surgeon if you need to reschedule. - A mask is optional within the hospital at this time. Patients may have clear liquids (water, carbonated beverages, clear teas, apple juice) until 3 hours prior to surgery with a maximum of 20 ounces. - No food from midnight until time of surgery and no smoking, or chewing tobacco (or any form of nicotine). No chewing gum, candy or mints. (0730am) Take only the following medications with a SIP of water on the morning of surgery: __Fluoxetine, Hydrocodone as needed, Ventolin as needed, Primidone as needed, Tylenol as needed DO NOT STOP ANY OF YOUR OTHER PRESCRIPTION MEDICATIONS PRIOR TO SURGERY EXCEPT THE FOLLOWING Hold all vitamins and supplements for 3 days per anesthesiologist. Date of last dose is 04/30/25 Medications to discontinue per physician ___NONE Date to take last dose NONE Please no make-up, nail cameroonian, hairspray, perfume, deodorant, or body powder the day of surgery.? No jewelry (including any body piercings) or valuables the day of surgery, leave them at home.? Please take a shower or bath the night before, or the morning of, surgery with an antibacterial soap.? Wear comfortable, loose fitting clothing.? - Jewelry must be removed prior to entering the operating room.? Rings and piercings that are not removed may be cut off. - The hospital will not accept responsibility for valuables.? - Please leave all valuables, including medications, at home the day of surgery. If you are going home after surgery, a licensed star route mail driver must drive you home.? - NO public transportation without another adult if you receive anesthesia. - We recommend that an adult stay with you for 24 hours following discharge. - We also recommend that you do not drive, make important decision, drink alcoholic beverages, or take any drugs that were not prescribed by your health care provider for at least 24 hours after your discharge time. Follow any additional instructions given to you from your surgeon. Ok for pt to be on Aspirin per Dr Galicia. Telephone instructions given to ____Faxed to Jackie at [facility] and asked if any additional questions and then verbalized understanding. Pt needs BMP to be done preop orders faxed to Jackie, will get EKG on arrival here as they dont do EKG there. Patient advised to call surgeon office or pre surgery nurse liaison [phone] if any additional questions.
[2025-05-04] VITALS (9 sets, daily range): BP systolic 106–168; BP diastolic 62–90; PULSE 64–95; RESP 14–20; TEMP 36.3–36.9; O2SAT 91–100
--- NOTE | ~2025-05-04 | XR_ITS ---
EXAMINATION: XR retrograde pyelo w/stent LT DATE: 05/04/2025 13:29 INDICATION: Left-sided stone extraction TECHNIQUE: 8 fluoroscopic images of the abdomen and pelvis were obtained during procedure performed by Dr. Galicia. Radiologist was not present for the imaging or procedure. The amount of fluoroscopy time used during this procedure was 0.8 minutes. Total DAP was 0.705 mGym^2. COMPARISON: CT dated 02/20/2025 and KUB dated 03/18/25 FINDINGS: Initial image redemonstrates bilateral renal stones. A wire has been advanced through the prior left intraureteral stent into an upper pole calyx of the left kidney. The stent is subsequently removed and a catheter advanced over the wire to the proximal left ureter. Final image demonstrates a new left intraureteral stent placed with proximal loop formed in an upper pole calyx of the left kidney and the distal loop formed in the bladder. The stones initially seen at the left renal pelvis and lower pole are unable to be distinguished from the contrast on the final images, unclear where these remain in place or have been extracted. IMPRESSION: 1. Bilateral nephrolithiasis with fluoroscopy utilized during left intraureteral stent exchange with new stents in expected position. 2. The left renal stones are unable to be distinguished from the contrast in the collecting system on the final images and it is unclear whether they remain in place or have been extracted. Correlate with procedure note for further detail. Reviewed, dictated and finalized at location A. IMPRESSION: 1. Bilateral nephrolithiasis with fluoroscopy utilized during left intrauretera l stent exchange with new stents in expected position. 2. The left renal stones are unable to be distinguished from the contrast in th e collecting system on the final images and it is unclear whether they remain i n place or have been extracted. Correlate with procedure note for further detai l.
--- OUTSIDE RECORDS SUMMARY | 2025-05-04 01:01 | XMS_ITS | Clinical Summary ---
Author Organization [facility] Address [address] [place] [address] Care Team Providers Care Maintenance Custodian Name Role Phone Unavailable Primary Care Provider Unavailabl e Source Comments [facility],non-owned Affiliates and Associated Physician Practices is amultiple site organization consisting of ambulatory clinics and hospital sitesin [place], [place], [place] and [place]. This disclosure is being madepursuant to the Care Everywhere program and may not contain all information available regarding this patient. Last updated 18.[facility] [employer] Allergies Active Allergy Reactions Criticality Noted Date [...] Tube route once daily 1 Active Multiple Vitamins-Falls als (THERA-M) TABS Take 1 tablet by [...] Immunizations Immunization Administration Dates Next Due INFLUENZA [id number], HISTORIC VACCINE 04/12/2020 Social History Tobacco Use [...] Comments Blood Pressure 117/72 09/19/2020 12:05 PM CONTINUITY WRITER Pulse 82 09/19/2020 12:05 PM CONTINUITY WRITER Temperature 36.5 C (97.7 F) 09/19/2020 12:05 PM CONTINUITY WRITER Respiratory Rate 16 08/15/2020 4:34 AM CONTINUITY WRITER Oxygen Saturation 97% 09/19/2020 12:05 PM CONTINUITY WRITER Inhaled Oxygen Concentration 35% 08/14/2020 8 :20 PM CONTINUITY WRITER found on 35% Weight 85.7 kg (189 lb) 09/19/2020 12:05 PM CONTINUITY WRITER Height 180.3 cm (5' 11) 07/28/2020 4:00 AM CONTINUITY WRITER Body Mass Index 26.36 07/28/2020 4:00 AM CONTINUITY WRITER Plan of Treatment Health Maintenance Due Date Last Done Comments BONE DENSITY TESTING 1950 Opioid Medication Agreement - Annual 1950 HEPATITIS C SCREENING 02/07/1966 DTAP/TDAP/TD VACCINES (1 - Tdap) 02/11/1967 PNEUMOCOCCAL VACCINE 50+ (1 of 1 - PCV) 02/11/1998 ZOSTER VACCINE (1 of 2) 02/11/1998 Respiratory Syncytial Virus (RSV) Vaccine Pt: or over 60 yrs (1 - 1-dose 75+ series) 02/11/2023 COVID-19 VACCINE (1 - 2023-2 5 season) 2025 INFLUENZA VACCINE (#1) 2025 04/12/2020 HEPATITIS B [...] Phone Billing Address Personal/Family [id number] [place] [address] MEDICARE Advance Directives * LIMITED RESUSCITATION-PRIOR AND [...]
--- OUTSIDE RECORDS SUMMARY | 2025-05-04 01:01 | XMS_ITS | Patient Health Record ---
Author Organization [facility] Address [address] [place] [phone] Care Team Providers Care Stock Analyst Name Role Phone DR. SAIDA AKBAR Primary Care Provider [phone] Melissa Elliott Unavailable [phone] Allergies Allergen (clinical drug ingredient) Drug/Non Drug Allergy documented on EMR Reaction Allergy Type Onset Date Status clindamycin Clindamycin rash Drug Allergy Act katharina Penicillin rash Drug Allergy Active Shellfish (FN) Shellfish-derived Products itching Drug Allergy Active Substance with sulfonamide structure and antibacterial mechanism of action (substance) Sulfa Antibiotics rash Drug Allergy Active sulfacetamide Sulfacetamide rash Drug Allergy Active tetracycline Tetracycline rash Drug Allergy A ctive Reason For Referral No Information Medications Medication SIG (Take, Route, Frequency, Duration) Notes Start Date End Date Status Fluticasone Propionate 50 MCG/ACT Suspension 1 spray in each nostril Nasally Twice a day Active Mirtazapine 15 MG Tablet 1 tablet at bed time Orally Once a day Active Multivitamin - Tablet 1 tablet Orally On ce a day Active Omeprazole 20 MG Capsule Delayed Release 1 capsule 1/2 to 1 hour before morning meal Orally Once a day Active Potassium Chloride ER 20 MEQ Tablet Extended Release 1 tablet with food Orally twice a day Active Primidone 50 MG Tablet 1 tablet Orally e very 12 hours Active ALPRAZolam 0.5 MG Tablet 1 tablet Orally daily Active Sennosides-Docusate Sodium 8.6-50 MG Tablet 1 tablet Orally Twice a day Active FLUoxetine HCl 20 MG Capsule 1 capsule Orally Once a day; Duration: 30 days 03/24/2025 Active Simethicone 80 MG Tablet Chewable 1 tablet Orally twice a day Active Acetaminophen 325 MG Tablet 1 tablet as needed Orally every 6 hrs Active Ventolin HFA 108 (90 Base) MCG/ACT Aerosol Solution 2 puffs as needed Inhalation 3 times a day Active Aspirin Adult Low Strength 81 MG Tablet Delayed Release 1 tablet Orally Once a day Active Voltaren 1 % Gel as directed External ly 4 times a day Active Docusate Sodium 100 MG Capsule 1 capsule Orally Once a day Active Tubersol 5 UNIT/0.1ML Solution as directed Intradermal Acti ve Famotidine 20 MG Tablet 1 tablet Orally every 12 hours Active FLUoxetine HCl 10 MG Capsule 1 capsule Orally Once a day Active Furosemide 20 MG Tablet 1 tablet Orally twice a day Active HYDROcodone-Acetaminophen 5-325 MG Tablet 1 tablet as needed Orally twice a day 03/03/2025 Active hydrOXYzine HCl 25 MG Tablet 1 tablet Orally every 12 hours Active Ipratropium-Albuterol 0.5-2.5 (3) MG/3ML Solution 3 mL as needed Inhalation every 6 hrs Active Lidocaine 4 % Patch 1 patch as needed Externally daily Active Lubricant Eye Drops 0.5 % Solution 1 drop in both eyes Ophthalmic every 12 hours Active Meclizine HCl 25 MG Tablet 1 tablet as n eeded Orally 3 times a day Active Melatonin 5 MG Tablet 1 tablet in the ev ening Orally Once a day Active Midodrine HCl 10 MG Tablet 1 tablet Oral ly 3 times a day Active MiraLax 17 GM/SCOOP Powder 1 gram mixed with 8 ounces of fluid Orally Once a day Active Social History Tobacco Use: Social History Observation Description Date Details (start date - stop date) Former Smoker NA - NA Social History Drug/Alcohol: Social Info Question Answer Notes Drugs Have you used drugs other than those for medical reasons in the past 12 months? No AUDIT-C (Standard) Did you have a drink containing alcohol in the past year? No Points 0 Interpretation Negative Tobacco Use: Social Info Question Answer Notes Tobacco Control (Standard) Tobacco use: Former smoker Problems Problem Type SNOMED Code ICD Code Onset Dates Problem Status W/U Status Risk Notes Problem Calculus of kidney (91012345) Calculus of kidney (N20.0) Active confirmed Problem Altered mental status (763768762) Altered mental status, unspecified (R41.82) Active confirmed Problem Depression (288130876) Depression, unspecified (F32.A) Active confirmed Problem Anxiety (87689823) Anxiety (F41.9) Active confirmed Problem Physical deconditioning (84443829040237) Physical deconditioning (R53.81) Active confirmed Problem Colostomy present (827259991) Colostomy present (Z93.3) Active confirmed Problem Urinary tract infectious disease (35921292) Urinary tract infection in female (N39.0) Active confirmed Problem Congestive heart failure (81963566) Congestive heart failure, unspecified (I50.9) Active confirmed Problem 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 Vital Signs Heart Rate 68 /min 04/27/2025 Temperature 98.1 degrees Fahrenheit 04/27/2025 Respiratory Rate 18 /min 04/27/2025 Oximetry 95 % 04/27/2025 Blood pressure diastolic 64 mm Hg 04/27/2025 Weight-kg 97.8 kg 04/20/2025 Blood pressure systolic 116 mm Hg 04/27/2025 Weight 215.6 lbs 04/20/2025 Encounters Encounter Location Date Provider Diagnosis [address] [address] 03/05/2025 SAIDA AKBAR [address] [address] 03/09/2025 Aften Lexi Wheezing R06.2 ; Calculus of kidney N20.0 ; Colostomy present Z93.3 ; Anxiety F41.9 ; Congestive heart failure, unspecified I50.9 ; Depression, unspecified F32.A ; Urinary tract infection in female N39.0 ; Physical deconditioning R53.81 and Frail elderly R54 [address] [address] 03/16/2025 Aften Lexi Calculus of kidney N20.0 ; Colostomy present Z93.3 ; Anxiety F41.9 ; Congestive heart failure, unspecified I50.9 ; Depression, unspecified F32.A ; Physical deconditioning R53.81 and Frail elderly R54 [address] [address] 03/23/2025 Aften Lexi Calculus of kidney N20.0 ; Colostomy present Z93.3 ; Anxiety F41.9 ; Congestive heart failure, unspecified I50.9 ; Depression, unspecified F32.A ; Physical deconditioning R53.81 ; Frail elderly R54 and Allergic rhinitis J30.[address] [address] 03/30/2025 Aften Lexi Calculus of kidney N20.0 ; Colostomy present Z93.3 ; Anxiety F41.9 ; Congestive heart failure, unspecified I50.9 ; Depression, unspecified F32.A ; Physical deconditioning R53.81 and Frail elderly R54 [address] [address] 04/06/2025 Aften Lexi Calculus of kidney N20.0 ; Colostomy present Z93.3 ; Anxiety F41.9 ; Congestive heart failure, unspecified I50.9 ; Depression, unspecified F32.A ; Physical deconditioning R53.81 and Frail elderly R54 [address] [address] 04/13/2025 Aften Lexi Calculus of kidney N20.0 ; Colostomy present Z93.3 ; Anxiety F41.9 ; Congestive heart failure, unspecified I50.9 ; Depression, unspecified F32.A ; Physical deconditioning R53.81 and Frail elderly R54 [address] [address] 04/20/2025 Aften Lexi Calculus of kidney N20.0 ; Colostomy present Z93.3 ; Anxiety F41.9 ; Congestive heart failure, unspecified I50.9 ; Depression, unspecified F32.A ; Physical deconditioning R53.81 and Frail elderly R54 [address] [address] 04/27/2025 Aften Lexi Calculus of kidney N20.0 ; Colostomy present Z93.3 ; Anxiety F41.9 ; Congestive heart failure, unspecified I50.9 ; Depression, unspecified F32.A ; Physical deconditioning R53.81 and Frail elderly R54 [address] [address] 03/03/2025 SAIDA AKBAR [address] [address] 03/03/2025 Aften Lexi [address] [address] 03/04/2025 SAIDA FLICK [facility] [address] [place] [address] 03/09/2025 SAIDA AKBAR [facility]-[address] [address] 03/15/2025 SAIDA AKBAR [facility] [address] [place] [address] 03/23/2025 SAIDA AKBAR [facility]-[address] [address] 03/23/2025 SAIDA AKBAR [facility] [address] [phone] 03/30/2025 Melissa Raml [facility] [address] [place] [address], [place] [address] 03/31/2025 SAIDA AKBAR [facility]-[address] [address] 04/06/2025 SAIDA AKBAR [facility]-[address] [address] 04/12/2025 SAIDA AKBAR [facility]-[address] [address] 04/20/2025 SAIDA AKBAR [facility]-[address] [address] 04/28/2025 SAIDA AKBAR Assessments Encounter Date Diagnosis (ICD Code) Assessment Notes Treatment Notes Treatment Clinical Notes Section Notes 03/09/2025 Calculus of kidney (ICD-10 - N20.0) Stent placed with last hospitalization continue to follow with urology drink plenty of fluids. 03/09/2025 Wheezing (ICD-10 - R06.2) Patient with wheezing on exam. will treat with albuterol. OK for patient to self administer albuterol Continue to monitor for s/s of worsening resp distress 03/16/2025 Calculus of kidney (ICD-10 - N20.0) Patient has an appointment with urology on March 18 and to discuss the stent and possibe removal. Continue to drink plenty of fluids. 03/16/2025 Colostomy present (ICD-10 - Z93.3) stable. colostomy care as needed 03/23/2025 Calculus of kidney (ICD-10 - N20.0) Patient has an appointment with urology on March 18 and to discuss the stent and possibe removal. Continue to drink plenty of fluids. KUB performed last week, urology to follow. 03/23/2025 Colostomy present (ICD-10 - Z93.3) stable. colostomy care as needed 03/30/2025 Calculus of kidney (ICD-10 - N20.0) Continues to follow with urology 03/30/2025 Colostomy present (ICD-10 - Z93.3) stable. colostomy care as needed 04/06/2025 Calculus of kidney (ICD-10 - N20.0) Continues to follow with urology. Patient has a urology appointment on 04/08/2025. 04/13/2025 Calculus of kidney (ICD-10 - N20.0) Continues to follow with urology. Patient has a urology appointment on 04/08/2025. 04/13/2025 Colostomy present (ICD-10 - Z93.3) stable. colostomy care as needed 04/20/2025 Calculus of kidney (ICD-10 - N20.0) Continues to follow with urology Awaiting KUB to decide what to do next. 04/20/2025 Colostomy present (ICD-10 - Z93.3) stable. colostomy care as needed 04/27/2025 Calculus of kidney (ICD-10 - N20.0) Continues to follow with urology Awaiting KUB to decide what to do next. 04/20/2025 Anxiety (ICD-10 - F41.9) Well controlled. Continue current medications. Anxiety disorders are a group of mental health conditions that cause fear, dread and other symptoms that are out of proportion to the situation Symptoms of anxiety disorders vary depending on the type. Psychological symptoms may include: Feeling panic, fear, dread and uneasiness. Feeling on edge or irritable. Uncontrollable, obsessive thoughts. Difficulty concentrating. Physical symptoms may include: Restlessness. Heart palpitations. Shortness of breath. Muscle tension. Cold or sweaty hands. Dry mouth. Nausea. Numbness or tingling in your hands or feet. Difficulty falling asleep or staying asleep (insomnia). 04/13/2025 Anxiety (ICD-10 - F41.9) Well controlled. Continue current medications. Anxiety disorders are a group of mental health conditions that cause fear, dread and other symptoms that are out of proportion to the situation Symptoms of anxiety disorders vary depending on the type. Psychological symptoms may include: Feeling panic, fear, dread and uneasiness. Feeling on edge or irritable. Uncontrollable, obsessive thoughts. Difficulty concentrating. Physical symptoms may include: Restlessness. Heart palpitations. Shortness of breath. Muscle tension. Cold or sweaty hands. Dry mouth. Nausea. Numbness or tingling in your hands or feet. Difficulty falling asleep or staying asleep (insomnia). 04/06/2025 Colostomy present (ICD-10 - Z93.3) stable. colostomy care as needed 04/27/2025 Colostomy present (ICD-10 - Z93.3) stable. colostomy care as needed 03/30/2025 Anxiety (ICD-10 - F41.9) Well controlled. Continue current medications. Anxiety disorders are a group of mental health conditions that cause fear, dread and other symptoms that are out of proportion to the situation Symptoms of anxiety disorders vary depending on the type. Psychological symptoms may include: Feeling panic, fear, dread and uneasiness. Feeling on edge or irritable. Uncontrollable, obsessive thoughts. Difficulty concentrating. Physical symptoms may include: Restlessness. Heart palpitations. Shortness of breath. Muscle tension. Cold or sweaty hands. Dry mouth. Nausea. Numbness or tingling in your hands or feet. Difficulty falling asleep or staying asleep (insomnia). 03/23/2025 Anxiety (ICD-10 - F41.9) Not well controlled. We will increase fluoxetine to 20 mg once daily. Continue to monitor for worsening symptoms. Anxiety disorders are a group of mental health conditions that cause fear, dread and other symptoms that are out of proportion to the situation Symptoms of anxiety disorders vary depending on the type. Psychological symptoms may include: Feeling panic, fear, dread and uneasiness. Feeling on edge or irritable. Uncontrollable, obsessive thoughts. Difficulty concentrating. Physical symptoms may include: Restlessness. Heart palpitations. Shortness of breath. Muscle tension. Cold or sweaty hands. Dry mouth. Nausea. Numbness or tingling in your hands or feet. Difficulty falling asleep or staying asleep (insomnia). 03/16/2025 Anxiety (ICD-10 - F41.9) Well controlled. Continue current medication regimen. Anxiety disorders are a group of mental health conditions that cause fear, dread and other symptoms that are out of proportion to the situation Symptoms of anxiety disorders vary depending on the type. Psychological symptoms may include: Feeling panic, fear, dread and uneasiness. Feeling on edge or irritable. Uncontrollable, obsessive thoughts. Difficulty concentrating. Physical symptoms may include: Restlessness. Heart palpitations. Shortness of breath. Muscle tension. Cold or sweaty hands. Dry mouth. Nausea. Numbness or tingling in your hands or feet. Difficulty falling asleep or staying asleep (insomnia). 03/09/2025 Colostomy present (ICD-10 - Z93.3) stable. colostomy care as needed 03/09/2025 Anxiety (ICD-10 - F41.9) Well controlled. Continue current medication regimen. Anxiety disorders are a group of mental health conditions that cause fear, dread and other symptoms that are out of proportion to the situation Symptoms of anxiety disorders vary depending on the type. Psychological symptoms may include: Feeling panic, fear, dread and uneasiness. Feeling on edge or irritable. Uncontrollable, obsessive thoughts. Difficulty concentrating. Physical symptoms may include: Restlessness. Heart palpitations. Shortness of breath. Muscle tension. Cold or sweaty hands. Dry mouth. Nausea. Numbness or tingling in your hands or feet. Difficulty falling asleep or staying asleep (insomnia). 03/16/2025 Congestive heart failure, unspecified (ICD-10 - I50.9) Stable with no recent exac Continue to monitor fluid intake Monitor weights per routine Report changes or concerns such as cough, congestion, shortness of breath, edema or weight gain Continue current medication regimen 03/23/2025 Congestive heart failure, unspecified (ICD-10 - I50.9) Stable with no recent exac Continue to monitor fluid intake Monitor weights per routine Report changes or concerns such as cough, congestion, shortness of breath, edema or weight gain Continue current medication regimen 03/30/2025 Congestive heart failure, unspecified (ICD-10 - I50.9) Stable with no recent exac Continue to monitor fluid intake Monitor weights per routine Report changes or concerns such as cough, congestion, shortness of breath, edema or weight gain Continue current medication regimen 04/06/2025 Anxiety (ICD-10 - F41.9) Well controlled. Continue current medications. Anxiety disorders are a group of mental health conditions that cause fear, dread and other symptoms that are out of proportion to the situation Symptoms of anxiety disorders vary depending on the type. Psychological symptoms may include: Feeling panic, fear, dread and uneasiness. Feeling on edge or irritable. Uncontrollable, obsessive thoughts. Difficulty concentrating. Physical symptoms may include: Restlessness. Heart palpitations. Shortness of breath. Muscle tension. Cold or sweaty hands. Dry mouth. Nausea. Numbness or tingling in your hands or feet. Difficulty falling asleep or staying asleep (insomnia). 04/27/2025 Anxiety (ICD-10 - F41.9) Well controlled. Continue current medications. Anxiety disorders are a group of mental health conditions that cause fear, dread and other symptoms that are out of proportion to the situation Symptoms of anxiety disorders vary depending on the type. Psychological symptoms may include: Feeling panic, fear, dread and uneasiness. Feeling on edge or irritable. Uncontrollable, obsessive thoughts. Difficulty concentrating. Physical symptoms may include: Restlessness. Heart palpitations. Shortness of breath. Muscle tension. Cold or sweaty hands. Dry mouth. Nausea. Numbness or tingling in your hands or feet. Difficulty falling asleep or staying asleep (insomnia). 04/13/2025 Congestive heart failure, unspecified (ICD-10 - I50.9) Stable with no recent exac Continue to monitor fluid intake Monitor weights per routine Report changes or concerns such as cough, congestion, shortness of breath, edema or weight gain Continue current medication regimen 04/20/2025 Congestive heart failure, unspecified (ICD-10 - I50.9) Stable with no recent exac Continue to monitor fluid intake Monitor weights per routine Report changes or concerns such as cough, congestion, shortness of breath, edema or weight gain Continue current medication regimen 04/20/2025 Depression, unspecified (ICD-10 - F32.A) controlled. Continue current medication regimen. Not everyone with depression will experience the same symptoms. Symptoms can vary in severity, how often they happen, and how long they last. If you experience some of the following signs and symptoms of depression nearly every day for at least 2 weeks, you may be living with depression: feeling sad, anxious, or empty feeling hopeless, worthless, and pessimistic crying a lot feeling bothered, annoyed, or angry loss of interest in hobbies and interests you once enjoyed decreased energy or fatigue difficulty concentrating, remembering, or making decisions moving or talking more slowly difficulty sleeping, supervisor public health nursing awakening, or oversleeping appetite or weight changes chronic physical pain with no clear cause that does not get better with treatment (headaches, aches or pains, digestive problems, cramps) thoughts of , suicide, self-harm, or suicide attempts 04/06/2025 Congestive heart failure, unspecified (ICD-10 - I50.9) Stable with no recent exac Continue to monitor fluid intake Monitor weights per routine Report changes or concerns such as cough, congestion, shortness of breath, edema or weight gain Continue current medication regimen 04/13/2025 Depression, unspecified (ICD-10 - F32.A) controlled. Continue current medication regimen. Not everyone with depression will experience the same symptoms. Symptoms can vary in severity, how often they happen, and how long they last. If you experience some of the following signs and symptoms of depression nearly every day for at least 2 weeks, you may be living with depression: feeling sad, anxious, or empty feeling hopeless, worthless, and pessimistic crying a lot feeling bothered, annoyed, or angry loss of interest in hobbies and interests you once enjoyed decreased energy or fatigue difficulty concentrating, remembering, or making decisions moving or talking more slowly difficulty sleeping, supervisor public health nursing awakening, or oversleeping appetite or weight changes chronic physical pain with no clear cause that does not get better with treatment (headaches, aches or pains, digestive problems, cramps) thoughts of , suicide, self-harm, or suicide attempts 04/27/2025 Congestive heart failure, unspecified (ICD-10 - I50.9) Stable with no recent exac Continue to monitor fluid intake Monitor weights per routine Report changes or concerns such as cough, congestion, shortness of breath, edema or weight gain Continue current medication regimen 03/30/2025 Depression, unspecified (ICD-10 - F32.A) controlled. Continue current medication regimen. Not everyone with depression will experience the same symptoms. Symptoms can vary in severity, how often they happen, and how long they last. If you experience some of the following signs and symptoms of depression nearly every day for at least 2 weeks, you may be living with depression: feeling sad, anxious, or empty feeling hopeless, worthless, and pessimistic crying a lot feeling bothered, annoyed, or angry loss of interest in hobbies and interests you once enjoyed decreased energy or fatigue difficulty concentrating, remembering, or making decisions moving or talking more slowly difficulty sleeping, supervisor public health nursing awakening, or oversleeping appetite or weight changes chronic physical pain with no clear cause that does not get better with treatment (headaches, aches or pains, digestive problems, cramps) thoughts of , suicide, self-harm, or suicide attempts 03/23/2025 Depression, unspecified (ICD-10 - F32.A) controlled. Continue current medication regimen. Not everyone with depression will experience the same symptoms. Symptoms can vary in severity, how often they happen, and how long they last. If you experience some of the following signs and symptoms of depression nearly every day for at least 2 weeks, you may be living with depression: feeling sad, anxious, or empty feeling hopeless, worthless, and pessimistic crying a lot feeling bothered, annoyed, or angry loss of interest in hobbies and interests you once enjoyed decreased energy or fatigue difficulty concentrating, remembering, or making decisions moving or talking more slowly difficulty sleeping, supervisor public health nursing awakening, or oversleeping appetite or weight changes chronic physical pain with no clear cause that does not get better with treatment (headaches, aches or pains, digestive problems, cramps) thoughts of , suicide, self-harm, or suicide attempts 03/16/2025 Depression, unspecified (ICD-10 - F32.A) controlled. Continue current medication regimen. Not everyone with depression will experience the same symptoms. Symptoms can vary in severity, how often they happen, and how long they last. If you experience some of the following signs and symptoms of depression nearly every day for at least 2 weeks, you may be living with depression: feeling sad, anxious, or empty feeling hopeless, worthless, and pessimistic crying a lot feeling bothered, annoyed, or angry loss of interest in hobbies and interests you once enjoyed decreased energy or fatigue difficulty concentrating, remembering, or making decisions moving or talking more slowly difficulty sleeping, supervisor public health nursing awakening, or oversleeping appetite or weight changes chronic physical pain with no clear cause that does not get better with treatment (headaches, aches or pains, digestive problems, cramps) thoughts of , suicide, self-harm, or suicide attempts 03/09/2025 Congestive heart failure, unspecified (ICD-10 - I50.9) Stable with no recent exac Continue to monitor fluid intake Monitor weights per routine Report changes or concerns such as cough, congestion, shortness of breath, edema or weight gain Continue current medication regimen 03/09/2025 Depression, unspecified (ICD-10 - F32.A) controlled. Continue current medication regimen. Not everyone with depression will experience the same symptoms. Symptoms can vary in severity, how often they happen, and how long they last. If you experience some of the following signs and symptoms of depression nearly every day for at least 2 weeks, you may be living with depression: feeling sad, anxious, or empty feeling hopeless, worthless, and pessimistic crying a lot feeling bothered, annoyed, or angry loss of interest in hobbies and interests you once enjoyed decreased energy or fatigue difficulty concentrating, remembering, or making decisions moving or talking more slowly difficulty sleeping, supervisor public health nursing awakening, or oversleeping appetite or weight changes chronic physical pain with no clear cause that does not get better with treatment (headaches, aches or pains, digestive problems, cramps) thoughts of , suicide, self-harm, or suicide attempts 03/16/2025 Physical deconditioning (ICD-10 - R53.81) On skilled care. Work with PT and OT. 03/23/2025 Physical deconditioning (ICD-10 - R53.81) On skilled care. Work with PT and OT. 04/06/2025 Depression, unspecified (ICD-10 - F32.A) controlled. Continue current medication regimen. Not everyone with depression will experience the same symptoms. Symptoms can vary in severity, how often they happen, and how long they last. If you experience some of the following signs and symptoms of depression nearly every day for at least 2 weeks, you may be living with depression: feeling sad, anxious, or empty feeling hopeless, worthless, and pessimistic crying a lot feeling bothered, annoyed, or angry loss of interest in hobbies and interests you once enjoyed decreased energy or fatigue difficulty concentrating, remembering, or making decisions moving or talking more slowly difficulty sleeping, supervisor public health nursing awakening, or oversleeping appetite or weight changes chronic physical pain with no clear cause that does not get better with treatment (headaches, aches or pains, digestive problems, cramps) thoughts of , suicide, self-harm, or suicide attempts 03/30/2025 Physical deconditioning (ICD-10 - R53.81) On skilled care. Work with PT and OT. 04/13/2025 Physical deconditioning (ICD-10 - R53.81) On skilled care. Work with PT and OT. 04/20/2025 Physical deconditioning (ICD-10 - R53.81) On skilled care. Work with PT and OT. 04/27/2025 Depression, unspecified (ICD-10 - F32.A) controlled. Continue current medication regimen. Not everyone with depression will experience the same symptoms. Symptoms can vary in severity, how often they happen, and how long they last. If you experience some of the following signs and symptoms of depression nearly every day for at least 2 weeks, you may be living with depression: feeling sad, anxious, or empty feeling hopeless, worthless, and pessimistic crying a lot feeling bothered, annoyed, or angry loss of interest in hobbies and interests you once enjoyed decreased energy or fatigue difficulty concentrating, remembering, or making decisions moving or talking more slowly difficulty sleeping, supervisor public health nursing awakening, or oversleeping appetite or weight changes chronic physical pain with no clear cause that does not get better with treatment (headaches, aches or pains, digestive problems, cramps) thoughts of , suicide, self-harm, or suicide attempts 04/20/2025 Frail elderly (ICD-10 - R54) Frail older adults are at increased risk of falls, disability, hospitalizations , and . Frailty may initially be overlooked or incorrectly identified as part of the normal aging process because of the variable nature of the presentation and diagnosis. Symptoms include generalized weakness, exhaustion, slow gait, poor balance, decreased physical activity, cognitive impairment, and weight loss. To keep yourself as healthy as possible, eat a healthy diet, drink adequate amounts of fluids, get a good nghts rest, participate in some stress relieving activities, enjoy outings with family or friends as desired, use an appropriate assistive device if needed for mobility Report any concerns you have to your family, nursing staff or provider 04/13/2025 Frail elderly (ICD-10 - R54) Frail older adults are at increased risk of falls, disability, hospitalizations , and . Frailty may initially be overlooked or incorrectly identified as part of the normal aging process because of the variable nature of the presentation and diagnosis. Symptoms include generalized weakness, exhaustion, slow gait, poor balance, decreased physical activity, cognitive impairment, and weight loss. To keep yourself as healthy as possible, eat a healthy diet, drink adequate amounts of fluids, get a good nghts rest, participate in some stress relieving activities, enjoy outings with family or friends as desired, use an appropriate assistive device if needed for mobility Report any concerns you have to your family, nursing staff or provider 04/27/2025 Physical deconditioning (ICD-10 - R53.81) On skilled care. Work with PT and OT. 03/30/2025 Frail elderly (ICD-10 - R54) Frail older adults are at increased risk of falls, disability, hospitalizations , and . Frailty may initially be overlooked or incorrectly identified as part of the normal aging process because of the variable nature of the presentation and diagnosis. Symptoms include generalized weakness, exhaustion, slow gait, poor balance, decreased physical activity, cognitive impairment, and weight loss. To keep yourself as healthy as possible, eat a healthy diet, drink adequate amounts of fluids, get a good nghts rest, participate in some stress relieving activities, enjoy outings with family or friends as desired, use an appropriate assistive device if needed for mobility Report any concerns you have to your family, nursing staff or provider 04/06/2025 Physical deconditioning (ICD-10 - R53.81) On skilled care. Work with PT and OT. 03/23/2025 Frail elderly (ICD-10 - R54) Frail older adults are at increased risk of falls, disability, hospitalizations , and . Frailty may initially be overlooked or incorrectly identified as part of the normal aging process because of the variable nature of the presentation and diagnosis. Symptoms include generalized weakness, exhaustion, slow gait, poor balance, decreased physical activity, cognitive impairment, and weight loss. To keep yourself as healthy as possible, eat a healthy diet, drink adequate amounts of fluids, get a good nghts rest, participate in some stress relieving activities, enjoy outings with family or friends as desired, use an appropriate assistive device if needed for mobility Report any concerns you have to your family, nursing staff or provider 03/16/2025 Frail elderly (ICD-10 - R54) Frail older adults are at increased risk of falls, disability, hospitalizations , and . Frailty may initially be overlooked or incorrectly identified as part of the normal aging process because of the variable nature of the presentation and diagnosis. Symptoms include generalized weakness, exhaustion, slow gait, poor balance, decreased physical activity, cognitive impairment, and weight loss. To keep yourself as healthy as possible, eat a healthy diet, drink adequate amounts of fluids, get a good nghts rest, participate in some stress relieving activities, enjoy outings with family or friends as desired, use an appropriate assistive device if needed for mobility Report any concerns you have to your family, nursing staff or provider 03/09/2025 Urinary tract infection in female (ICD-10 - N39.0) Patient with recurrent UTIs with E coli ESBL. Will continue to monitor and treat accordingly. 03/09/2025 Physical deconditioning (ICD-10 - R53.81) On skilled care. Work with PT and OT. 03/23/2025 Allergic rhinitis (ICD-10 - J30.9) Stop zyrtec. Start patient on claritin 10 mg daily. Continue to monitor for s/s of worsening congestion. COntinues to use flonase daily as well. 04/27/2025 Frail elderly (ICD-10 - R54) Frail older adults are at increased risk of falls, disability, hospitalizations , and . Frailty may initially be overlooked or incorrectly identified as part of the normal aging process because of the variable nature of the presentation and diagnosis. Symptoms include generalized weakness, exhaustion, slow gait, poor balance, decreased physical activity, cognitive impairment, and weight loss. To keep yourself as healthy as possible, eat a healthy diet, drink adequate amounts of fluids, get a good nghts rest, participate in some stress relieving activities, enjoy outings with family or friends as desired, use an appropriate assistive device if needed for mobility Report any concerns you have to your family, nursing staff or provider 04/06/2025 Frail elderly (ICD-10 - R54) Frail older adults are at increased risk of falls, disability, hospitalizations , and . Frailty may initially be overlooked or incorrectly identified as part of the normal aging process because of the variable nature of the presentation and diagnosis. Symptoms include generalized weakness, exhaustion, slow gait, poor balance, decreased physical activity, cognitive impairment, and weight loss. To keep yourself as healthy as possible, eat a healthy diet, drink adequate amounts of fluids, get a good nghts rest, participate in some stress relieving activities, enjoy outings with family or friends as desired, use an appropriate assistive device if needed for mobility Report any concerns you have to your family, nursing staff or provider 03/09/2025 Frail elderly (ICD-10 - R54) Frail older adults are at increased risk of falls, disability, hospitalizations , and . Frailty may initially be overlooked or incorrectly identified as part of the normal aging process because of the variable nature of the presentation and diagnosis. Symptoms include generalized weakness, exhaustion, slow gait, poor balance, decreased physical activity, cognitive impairment, and weight loss. To keep yourself as healthy as possible, eat a healthy diet, drink adequate amounts of fluids, get a good nghts rest, participate in some stress relieving activities, enjoy outings with family or friends as desired, use an appropriate assistive device if needed for mobility Report any concerns you have to your family, nursing staff or provider 03/09/2025 Other REVIEWED HIPAA RIGHTS PRIVACY PRACTICES WITH PT/FAMILY/CAREGI [place] COPY OF HIPAA RIGHTS PRIVACY PRACTICES GIVEN TO PT/FAMLY/CAREGIV ER 03/16/2025 Other REVIEWED HIPAA RIGHTS PRIVACY PRACTICES WITH PT COPY OF HIPAA RIGHTS PRIVACY PRACTICES GIVEN TO PT 03/23/2025 Other REVIEWED HIPAA RIGHTS PRIVACY PRACTICES WITH PT COPY OF HIPAA RIGHTS PRIVACY PRACTICES GIVEN TO PT 03/30/2025 Other REVIEWED HIPAA RIGHTS PRIVACY PRACTICES WITH PT COPY OF HIPAA RIGHTS PRIVACY PRACTICES GIVEN TO PT 04/06/2025 Other REVIEWED HIPAA RIGHTS PRIVACY PRACTICES WITH PT COPY OF HIPAA RIGHTS PRIVACY PRACTICES GIVEN TO PT 04/13/2025 Other REVIEWED HIPAA RIGHTS PRIVACY PRACTICES WITH PT COPY OF HIPAA RIGHTS PRIVACY PRACTICES GIVEN TO PT 04/20/2025 Other REVIEWED HIPAA RIGHTS PRIVACY PRACTICES WITH PT COPY OF HIPAA RIGHTS PRIVACY PRACTICES GIVEN TO PT 04/27/2025 Other REVIEWED HIPAA RIGHTS PRIVACY PRACTICES WITH PT COPY OF HIPAA RIGHTS PRIVACY PRACTICES GIVEN TO PT Plan Of Treatment Next Appt Details Provider Name:Melissa Elliott, 05/04/2025 07:00:00 AM, [address] [place] [address], [id number], Insurance Providers Payer Name Payer Address Payer Phone Subscriber Number Group Number Insured Name Patient Relationship to Insured Coverage Start Date Coverage End Date Medicare of [place] [address] [employer] [id number] Jolly Cheema Self - patient is the insured Medicaid of [place] [address] [address] [place], [place] [id number] Jolly Cheema Self - patient is the insured Medical (General) History Medical History History ICD Code Acute cystitis with hematuria N30.01 Altered mental status, unspecified R41.8 2 Urinary tract infection, site not specif ied N39.0 History of ESBL E. coli infection Z86.19 Acute kidney injury N17.9 Severe sepsis with septic shock R65.[address] history of kidney stones anxiety depression smoker Surgical History Surgery Date(Month/Year) hysterectomy colonoscopy colostomy
--- OUTSIDE RECORDS SUMMARY | 2025-05-04 01:01 | XMS_ITS | Clinical Summary ---
Author Organization [facility] Address [address] [place] [address] Care Team Providers Care Integrated Circuit Fabricator Name Role Phone NelsonIsabeldavid WHITMORE Primary Care Provider [phone] Rico Sanders MD Unavailable [phone] Allergies Active Allergy Reactions Criticality Noted Date Comments Iodine Itching Low 02/11/[address] dye. This is food iodine Penicillins Unknown 05/17/2019 Sulfa (Sulfonamide Antibiotics) Unknown 05/17/2019 Tetracyclines Unknown 05/17/2019 Medications multivit zmyatzij-axpi-W A-calcium (THERA-M) 9 mg iron-400 mcg tabletIndicatio [...] scheduled Tylenol, lidocaine patch. Anticipate discharge to [facility] with accepting facility available Assessment & [...] not likely be able to return to [place] if not making more progress. Continue therapies [...] of Treatment Not on file Insurance MEDICARE [place] [address] Advance Directives For more information, please contact: [phone] * Full Code (Latest Code Status on File) Date Activated Date Inactivated Comments 2022 6:52 AM 02/17/2022 5:34 PM * Full Code Date Activated Date Inactivated Comments 05/18/2019 12:33 AM 05/29/2019 9:58 PM Care Teams Integrated Circuit Fabricator Relationship Specialty Start Date End Date Cindi Damon PA [address] [place] [address] PCP - General 02/11/22 Rico Sanders MD [address] [place] [address] Surgeon Surgery 02/16/22
[2025-05-04] MEDS: LACTATED RINGERS 1,000 ML 30 ML IV CONT ×2 (09:00→13:24)
--- NOTE | 2025-05-04 09:31 | ECG_ITS ---
Test Date: 2025-05-04 09:47:06 Measurements Intervals [place] Rate: 57 P: 36 MD: 148 QRS: 3 QRSD: 77 T: 69 QT: 414 QTc: 404 Interpretive Statements SINUS BRADYCARDIA LOW QRS VOLTAGE IN PRECORDIAL LEADS POSSIBLE RIGHT VENTRICULAR CONDUCTION DELAY DELAYED PRECORDIAL R/S TRANSITION BORDERLINE ST-T WAVE ABNORMALITY- ANT/HIGH LAT LEADS BASELINE ARTIFACT- I, II, III ,AVR, AVL, V1, V5-V6 BORDERLINE ECG Compared to ECG 04/24/2024 19:28:57 HEART RATE HAS DECREASED Electronically Signed On 05-04-2025 11:42:43 CDT by Ramesh Monreal D.O.
--- NOTE | 2025-05-04 10:58 | WPDANESEPPF ---
Anes - Initial Pre Proc Eval Procedure: Operation Date: 05/04/25 10:30 Proposed Procedures p Cystoscopy, Left Ureteroscopy, Possible Left Retrograde Pyelogram, Possible Left Stone Extraction, Possible Left Stent Placement, Possible Laser Lithotripsy - Markos Galicia MD Date/Time: 05/04/25 10:58 Surgeon: Markos Galicia MD Pre Op Diagnosis: left kidney stone Patient Data Age: 75 Gender: F Height: 1.75 m Weight: 93.2 kg Last Vital Signs Temp 36.9 C 05/04/25 10:12 Pulse 70 05/04/25 10:12 Resp 16 05/04/25 10:12 BP 106/78 05/04/25 10:12 Pulse Ox 96 05/04/25 10:12 O2 Del Method Room Air 05/04/25 10:12 Allergies Allergy/AdvReac Type Severity Reaction Status Date / Time Penicillins Allergy Severe RASH Verified 05/04/25 10:08 clindamycin Allergy Intermediate Rash Verified 05/04/25 10:08 Sulfa (Sulfonamide Allergy Mild Rash Verified 05/04/25 10:08 Antibiotics) sulfacetamide Allergy Mild Rash Verified 05/04/25 10:08 tetracycline Allergy Unknown RASH Verified 05/04/25 10:08 shellfish derived AdvReac Itching Verified 05/04/25 10:08 Home Medications ?Medication ?Instructions ?Recorded ?Confirmed ?Type midodrine 10 mg PO TID 12/23/21 04/27/25 History albuterol sulfate 90 mcg/actuation 2 puff inhalation TID PRN 01/12/22 04/27/25 History aerosol inhaler (Ventolin HFA) Shortness Of Breath Or Wheezing aspirin 81 mg chewable tablet 81 mg PO DAILY 01/12/22 04/27/25 History camphor 4 %-methyl salicylate 30 1 applic topical BID PRN 01/16/22 04/27/25 Rx %-menthol 10 % topical cream Muscle/Joint Pain #57 grams (Bengay Ultra Strength) acetaminophen 325 mg tablet 325 mg PO Q6H 04/24/24 04/27/25 History meclizine 25 mg tablet 25 mg PO TID PRN Dizziness 04/24/24 04/27/25 History mirtazapine 15 mg tablet 15 mg PO HS 04/24/24 04/27/25 History polyethylene glycol 3350 17 gram 17 g PO DAILY 04/24/24 04/27/25 History oral powder packet (Miralax) primidone 50 mg tablet 50 mg PO Q12H 04/24/24 04/27/25 History melatonin 3 mg tablet 5 mg PO HS 04/25/24 04/27/25 History alprazolam 0.5 mg tablet 0.5 mg PO QHS 02/20/25 04/27/25 History diclofenac sodium 1 % topical gel 2 g topical QID 02/20/25 04/27/25 History (Arthritis Pain (diclofenac)) docusate sodium 100 mg capsule 100 mg PO HS 02/20/25 04/27/25 History (Colace) famotidine 20 mg tablet 20 mg PO Q12H 02/20/25 04/27/25 History fluticasone propionate 50 1 spray intranasal Q12H 02/20/25 04/27/25 History mcg/actuation nasal spray,suspension hydroxyzine HCl 25 mg tablet 12.5 mg PO .q12hr 02/20/25 04/27/25 History lidocaine 4 % topical patch 1 patch topical DAILY PRN pain 02/20/25 04/27/25 History (Lidocaine Pain Relief) multivitamin (Daily Multi-Vitamin 1 tablet PO DAILY 02/20/25 04/27/25 History tablet) omeprazole 20 mg capsule,delayed 20 mg PO DAILY 02/20/25 04/27/25 History release peg 400-propylene glycol (PF) 0.4 1 drp EACH EYE Q12H 02/20/25 04/27/25 History %-0.3 % eye drops in a dropperette (Lubricant Eye (PG-PEG 400) (PF)) simethicone 80 mg chewable tablet 80 mg PO BID 02/20/25 04/27/25 History (Gas Relief (simethicone)) furosemide 20 mg tablet 20 mg PO BID #60 tabs 02/26/25 04/27/25 Rx hydrocodone 5 mg-acetaminophen 325 1 tablet PO BID PRN pain #6 tabs 02/26/25 04/27/25 Rx mg tablet ipratropium 0.5 mg-albuterol 3 mg 3 ml inhalation Q6HRT PRN 02/26/25 04/27/25 Rx (2.5 mg base)/3 mL nebulization Shortness Of Breath #30 mL soln potassium chloride 20 mEq 20 meq PO BID #60 tabs 02/26/25 04/27/25 Rx tablet,extended release (K-Tab) fluoxetine 10 mg capsule (Prozac) 30 mg PO DAILY 04/27/25 04/27/25 History nitrofurantoin 100 mg PO Q12H 04/27/25 04/27/25 History monohydrate/macrocrystals 100 mg capsule Laboratory Tests 05/04/25 09:24 Sodium Cancelled Potassium Cancelled Chloride Cancelled Carbon Dioxide Cancelled Anion Gap Cancelled BUN Cancelled Creatinine Cancelled Estim Creat Clear Calc Cancelled Estimated GFR Cancelled Glucose Cancelled Calcium Cancelled Patient hx anesthesia problems: none Family hx anesthesia problems: none Results Review: All pre-operative results and documents have been reviewed as part of the pre-operative evaluation. [facility] Past Medical History Medical History History of ESBL E. coli infection Urinary tract infection Colostomy in place History of kidney stones Anxiety Depression Smoker Depression Surgical History Surgical History H/O hysterectomy for benign disease H/O colonoscopy H/O: hysterectomy Family History Family History Mother Dementia Kidney disease Hypertension Family history of Alzheimer's disease Father Brain cancer Sibling Liver disease Kidney stones Sibling Schizophrenia Obesity Mother No problems noted. Social History Social History Smoking packs per day: 1.5 Smoking cigarettes per day: 30.0 Years smoked: 40 Smoking pack-years: 60.00 Smoking status: Unknown if ever smoked Additional smoking assessment comments: Cutting back on smoking and currently at a 1/2 pack a day. Alcohol intake: never Substance use: never Substance use type: unknown Do You Feel Safe in your Home?: Yes Lack of Transportation: No Lack of Food: Never True Current Housing: I Have Housing Concerned About Future Housing: No Difficulty Paying Gas/Electric Bills: No Difficulty Paying for Meds: No Currently Unemployed: No Education: Bachelor's Degree Difficulty w/ Childcare or Family Care: No [facility] Additional living arrangements comments: [facility] Gender identity (if verbalized by the patient): Female Sexual Orientation (if Verbalized by the Patient): Straight or Heterosexual Spiritual care concerns: No Agree to blood products: Yes Anes - Adriane Final PreProcedure Day of Procedure 05/04/25 10:58 Patient weight: obese Heart: regular rate and rhythm Lungs: decreased breath sounds Airway: Mallampati scale class III Neurological: alert and oriented Last oral intake: >/= 8 hours ASA classification: III Emergent: no Anesthetic plan: proceed Anesthesia type and monitoring: general LMA and standard monitoring Results Review: All pre-operative results and documents have been reviewed as part of the pre-operative evaluation. Informed Consent: The patient's anesthetic plan and its attendant risks and benefits were discussed with the patient/family/POA. Questions were solicited and answers provided to the satisfaction of the patient/family/POA.
--- NOTE | 2025-05-04 11:05 | PM.HPGS ---
History of Present Illness History of Present Illness Consent: Risks, benefits, and alternatives have been discussed and questions answered. Patient agrees to proceed with procedure. Chief complaint: left kidney stone Narrative: Jolly Saldana is a 75 year old female with history of UTI/sepsis and nephrolithiasis. She is s/p placement of left ureteral stent 02/20/2025 with one of my colleagues. She has significant stone burden in her kidneys. She presents today for endoscopic management of her left kidney stones measuring greater than 5 cm using CVAC. Review of Systems Review of Systems: All systems reviewed & are unremarkable except as noted in HPI and below Constitutional: Constitutional: Reports as per HPI ENT: Reports system reviewed and no additional complaints, except as documented Cardiovascular: Cardiovascular: Reports as per HPI Respiratory: Respiratory: Reports as per HPI Gastrointestinal: Gastrointestinal: Reports as per HPI Genitourinary: Genitourinary: Reports no additional female genitourinary complaints Musculoskeletal: Musculoskeletal: Reports no additional musculoskeletal complaints Integumentary/Breasts: Skin/Breast: Reports system reviewed and no additional complaints, except as docu Psychiatric: Psychiatric: Reports no additional psychiatric complaints [facility] Past Medical History Medical History History of ESBL E. coli infection Urinary tract infection Colostomy in place History of kidney stones Anxiety Depression Smoker Depression Surgical History Surgical History H/O hysterectomy for benign disease H/O colonoscopy H/O: hysterectomy Family History Family History Mother Dementia Kidney disease Hypertension Family history of Alzheimer's disease Father Brain cancer Sibling Liver disease Kidney stones Sibling Schizophrenia Obesity Mother No problems noted. Social History Social History Smoking packs per day: 1.5 Smoking cigarettes per day: 30.0 Years smoked: 40 Smoking pack-years: 60.00 Smoking status: Unknown if ever smoked Additional smoking assessment comments: Cutting back on smoking and currently at a 1/2 pack a day. Alcohol intake: never Substance use: never Substance use type: unknown Do You Feel Safe in your Home?: Yes Lack of Transportation: No Lack of Food: Never True Current Housing: I Have Housing Concerned About Future Housing: No Difficulty Paying Gas/Electric Bills: No Difficulty Paying for Meds: No Currently Unemployed: No Education: Bachelor's Degree Difficulty w/ Childcare or Family Care: No Living arrangements: care home Additional living arrangements comments: [facility] Gender identity (if verbalized by the patient): Female Sexual Orientation (if Verbalized by the Patient): Straight or Heterosexual Spiritual care concerns: No Agree to blood products: Yes Meds Home Medications and Allergies Home Medications ?Medication ?Instructions ?Recorded ?Confirmed ?Type midodrine 10 mg PO TID 12/23/21 04/27/25 History albuterol sulfate 90 mcg/actuation 2 puff inhalation TID PRN 01/12/22 04/27/25 History aerosol inhaler (Ventolin HFA) Shortness Of Breath Or Wheezing aspirin 81 mg chewable tablet 81 mg PO DAILY 01/12/22 04/27/25 History camphor 4 %-methyl salicylate 30 1 applic topical BID PRN 01/16/22 04/27/25 Rx %-menthol 10 % topical cream Muscle/Joint Pain #57 grams (Bengay Ultra Strength) acetaminophen 325 mg tablet 325 mg PO Q6H 04/24/24 04/27/25 History meclizine 25 mg tablet 25 mg PO TID PRN Dizziness 04/24/24 04/27/25 History mirtazapine 15 mg tablet 15 mg PO HS 04/24/24 04/27/25 History polyethylene glycol 3350 17 gram 17 g PO DAILY 04/24/24 04/27/25 History oral powder packet (Miralax) primidone 50 mg tablet 50 mg PO Q12H 04/24/24 04/27/25 History melatonin 3 mg tablet 5 mg PO HS 04/25/24 04/27/25 History alprazolam 0.5 mg tablet 0.5 mg PO QHS 02/20/25 04/27/25 History diclofenac sodium 1 % topical gel 2 g topical QID 02/20/25 04/27/25 History (Arthritis Pain (diclofenac)) docusate sodium 100 mg capsule 100 mg PO HS 02/20/25 04/27/25 History (Colace) famotidine 20 mg tablet 20 mg PO Q12H 02/20/25 04/27/25 History fluticasone propionate 50 1 spray intranasal Q12H 02/20/25 04/27/25 History mcg/actuation nasal spray,suspension hydroxyzine HCl 25 mg tablet 12.5 mg PO .q12hr 02/20/25 04/27/25 History lidocaine 4 % topical patch 1 patch topical DAILY PRN pain 02/20/25 04/27/25 History (Lidocaine Pain Relief) multivitamin (Daily Multi-Vitamin 1 tablet PO DAILY 02/20/25 04/27/25 History tablet) omeprazole 20 mg capsule,delayed 20 mg PO DAILY 02/20/25 04/27/25 History release peg 400-propylene glycol (PF) 0.4 1 drp EACH EYE Q12H 02/20/25 04/27/25 History %-0.3 % eye drops in a dropperette (Lubricant Eye (PG-PEG 400) (PF)) simethicone 80 mg chewable tablet 80 mg PO BID 02/20/25 04/27/25 History (Gas Relief (simethicone)) furosemide 20 mg tablet 20 mg PO BID #60 tabs 02/26/25 04/27/25 Rx hydrocodone 5 mg-acetaminophen 325 1 tablet PO BID PRN pain #6 tabs 02/26/25 04/27/25 Rx mg tablet ipratropium 0.5 mg-albuterol 3 mg 3 ml inhalation Q6HRT PRN 02/26/25 04/27/25 Rx (2.5 mg base)/3 mL nebulization Shortness Of Breath #30 mL soln potassium chloride 20 mEq 20 meq PO BID #60 tabs 02/26/25 04/27/25 Rx tablet,extended release (K-Tab) fluoxetine 10 mg capsule (Prozac) 30 mg PO DAILY 04/27/25 04/27/25 History nitrofurantoin 100 mg PO Q12H 04/27/25 04/27/25 History monohydrate/macrocrystals 100 mg capsule Allergies Allergy/AdvReac Type Severity Reaction Status Date / Time Penicillins Allergy Severe RASH Verified 05/04/25 10:08 clindamycin Allergy Intermediate Rash Verified 05/04/25 10:08 Sulfa (Sulfonamide Allergy Mild Rash Verified 05/04/25 10:08 Antibiotics) sulfacetamide Allergy Mild Rash Verified 05/04/25 10:08 tetracycline Allergy Unknown RASH Verified 05/04/25 10:08 shellfish derived AdvReac Itching Verified 05/04/25 10:08 Vital Signs Vital Signs - 24 hr 05/04/25 10:12 Temperature 36.9 C Pulse Rate 70 Respiratory Rate 16 Blood Pressure 106/78 Pulse Oximetry 96 Oxygen Delivery Room Air Exam Const: General: cooperative and no acute distress HENMT: Head: normal to inspection and atraumatic Eyes: Alignment and Position: alignment normal and position normal Neck: Neck: normal visual inspection Chest: Chest palpation & inspection: normal inspection of the chest Resp: Effort & Inspection: normal respiratory effort Cardio: Rate: regular rate GI: Inspection: normal to inspection Skin: General skin exam: normal color Neuro: General: patient oriented x3 Extrem: General: normal to inspection Assessment and Plan Assessment and plan (1) Nephrolithiasis: Code(s): N20.0 - Calculus of kidney Status: Acute Plan 75yF with significant kidney stone burden s/p left ureteral stent on 02/26/2025 - To OR for cystoscopy, left RPG, URS, laser lithotripsy with CVAC, stone basket extraction, Left ureteral stent exchange - Risks, benefits, alternatives discussed. Patient is amenable to proceed - Anticipate discharge home thereafter
--- NOTE | 2025-05-04 11:14 | WPDHPUPDATE1 ---
History and Physical Update Update Date/Time: 05/04/25 11:14 History and Physical has been reviewed, including an updated exam of the patient. There are NO changes in the patient's condition. Risks, benefits, and alternatives have been discussed and questions answered. Patient agrees to proceed with procedure.
[2025-05-04 11:42] LABS: Anion Gap 10 mmol/L (4-12); Blood Urea Nitrogen 22 mg/dL (7-17); Calcium 9.4 mg/dL (8.4-10.2); Carbon Dioxide 24 mmol/L (22-30); Chloride 105 mmol/L (98-107); Estimated CRCL calculation 64 ml/min; Estimated Glomerular Filt Rate > 60; Glucose 100 mg/dL (65-110); Potassium 4.9 mmol/L (3.4-5.0); Sodium 139 mmol/L (137-145)
[2025-05-04] MEDS: ceFAZolin 2 GM in SODIUM CHLORIDE 0.9% IV 50 ML 100 ML IVPB (11:49)
--- NOTE | 2025-05-04 13:16 | S_PTH ---
PATIENT: Jolly Ching LOC: [facility] U#:[id number] AGE/SX: 75/F ROOM: RE05/04/[address]: Markos Galicia MD : 1950 BED: DIS: 05/04/2025 SPEC #: [id number] RECD: 05/05/25 11:03 STATUS: MARIXA REQ #: [id number] NESTOR: 05/04/25 13:[address]: Markos Galicia DEPT: [facility] Surgical RECD BY: Kathie Metzger ENTERED: 05/05/25 11:03 SP TYPE: Surgical OTHR DR: Mars Isidro, DO Tissues: A - Stone Procedures: Gross Exam Level 1 Crystalline Analysis
[2025-05-04] MEDS: ONDANSETRON INJ 4 MG/2 ML VIAL IV PUSH (13:54)
[2025-05-04] MEDS: fentaNYL CITRATE INJ (*CRX) 100 MCG/2 ML VIAL 25 MCG IV PUSH ×3 (14:07→14:15)
--- NOTE | 2025-05-04 14:18 | W.PM.PROC2 ---
Procedure Note - Detailed Date of Procedure 05/04/25 Pre-op Diagnosis left kidney stone Post-op Diagnosis Same Procedure Performed 1. Cystoscopy 2. Left ureteroscopy 3. Left retrograde pyelogram with intraoperative interpretation 4. Laser lithotripsy 5. Steerable ureteroscopic renal evacuation using CVAC Calyxo (modifier 22) 6. Left ureteral stent exchange Surgeon Markos Galicia MD Anesthesia General Findings 1. Left ureteral stent in appropriate position. Orthotopic ureteral orifices bilaterally. No suspicious lesions, tumors, active bleeding, or stones in the lower urinary tract. 2. Modifier 22 -please note that this case took significantly longer time, intensity, technical difficulty, and physical and mental effort given the patient's significant kidney stone burden measuring 5-6 cm of total stone 3. Left retrograde pyelogram using a 50 50 mixture of contrast and saline performed after stone treatment showed no hydroureteronephrosis, filling defects, or contrast extravasation 4. Successful left ureteral stent exchange with strings attached which was secured to a piece of Tegaderm which was placed in the patient's vagina Description of Procedure After informed consent obtained, the patient was brought to operating theater placed in supine position on the operative table, whereupon general endotracheal anesthesia was induced. The patient was placed in a dorsal lithotomy position and all pressure points were padded. Sequential compression devices were on and noted to be functioning. Patient was prepped and draped in a sterile fashion for an endoscopic case. A formal time-out was performed to confirm the correct patient, site, and procedure and all agreed to proceed. To begin with atraumatically advanced a 22 Beninese rigid cystoscope transurethrally the patient's bladder with attention drawn to the left ureteral orifice. Her left ureteral stent was in appropriate position. Bladder urine was obtained as a specimen for culture. I then advanced a Sensor wire alongside the existing stent up to level of left kidney under fluoroscopy. I then used flexible alligator graspers to retrieve the existing stent is entirety. The Sensor wire was secured to the drapes with a hemostat. I then reinserted the cystoscope transurethrally in the patient's bladder with attention drawn to the left ureteral orifice and advanced to 2nd, safety Glidewire up to the level of left kidney under fluoroscopy. The cystoscope was removed and then under direct fluoroscopic guidance I advanced a 12/14 Beninese ureteral access sheath over top of the Glidewire and advanced this level of left proximal ureter under fluoroscopy. The inner sheath was removed and I advanced the Calyxo steerable ureteroscopic renal evacuation system ureteral scope through the outer sheath and performed left renal endoscopy. Patient had significant stone burden commensurate with her recent CT scan, overall measuring about 5-6 cm of total stone burden. I used a 200 micron Ziyad laser to dust and fragment the stones into smaller pieces. This process was continued for approximately 1 hours given the significant stone burden. After fluids I used the suctioning device to flush and evacuate the vast majority of stone fragments. This process was repeated until there were no sizable stone fragments remaining in the left kidney. I then performed a left-sided retrograde pyelogram through scope using a 50 50 mixture of contrast and saline with findings noted above. I then removed the scope and the access sheath and noted no ureteral injury or stones. Next, I backloaded the cystoscope onto the Sensor wire which was advanced transurethrally patient's bladder without tension around the left orifice. Over top of the wire passed the 6 Beninese JJ variable length stent used the pusher to deploy the stent in place, confirming a good proximal curl in left kidney under fluoroscopy and a good distal curl in the bladder under both direct cystoscopic and fluoroscopic vision. Of note, the string was left attached to stent and coil the string and secured to a piece of Tegaderm which was then folded and placed in the patient's vagina to avoid inadvertent dislodgement. The patient's bladder was drained the scope removed, essentially concluded the case. The patient tolerated procedure well and there were no immediate complications noted. She was awoken from anesthesia and taken to recovery in stable condition. Of note, all sponge, instrument, sharp counts were correct x2 conclusion case. Disposition: Patient will monitor in the PACU discharged to a nursing facility after for PACU protocol. She was instructed to remove her ureteral stent on 05/09/2025. We will coordinate this with her nursing facility. Patient's daughter, Isabel was provided with the following procedure all questions were answered to her satisfaction at the conclusion of our discussion. Implants A 6 Beninese JJ variable length left ureteral stent with strings attached, secured to a piece of small Tegaderm and placed in the patient's vagina Estimated Blood Loss 1 Complications No immediate complications Disposition PACU
--- NOTE | 2025-05-04 15:59 | SUR.PHASEII ---
1530: Patient ready for dc. Assisting patient to get dressed, into alla lift to place into w/c and wait on ride.
== END 2025-05-04 16:00 | disposition home or self-care (01) ==
PROVIDERS: Anesthesiology; PCP Internal Medicine; Visit Provider Urology
PROC: (CPT 52352; principal; 2025-05-04 10:30)
DX: N20.0 Calculus of kidney (principal); F41.9 Anxiety disorder, unspecified; F32.A Depression, unspecified; F17.210 Nicotine dependence, cigarettes, uncomplicated; E66.9 Obesity, unspecified; Z68.30 Body mass index [BMI] 30.0-30.9, adult; Z79.51 Long term (current) use of inhaled steroids; Z79.82 Long term (current) use of aspirin; Z98.890 Other specified postprocedural states; Z93.3 Colostomy status; Z80.8 Family history of malignant neoplasm of other organs or systems
CPT/HCPCS: C9761; 36415; 74420; 80048; 82365; 87070; 87075; 87205; 88300; 93005; J0690; C1747; C1769; C1894; C2617; J1100; J1200; J2405; J2704; J3010; J7120; Q9966

== ENCOUNTER 2025-05-05 23:50 | Inpatient (IN) | payer MEDICARE, MEDICAID, SELFPAY ==
--- OUTSIDE RECORDS SUMMARY | 2025-05-04 22:50 | XMS_ITS ---
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 SAIDA AKBAR Primary Care Provider [phone] Melissa Elliott Unavailable [phone] Allergies Allergen (clinical drug ingredient) Drug/Non Drug [...] tetracycline Tetracycline rash Drug Allergy A ctive REASON FOR VISIT CHART PREP Medications Medication SIG (Take, Route, Frequency, Duration) Notes Start Date End Date Status Loperamide HCl 2 MG Tablet 1 tablet as n eeded Orally Four times a day Active Loratadine 10 MG Tablet 1 tablet Orally Once a day Active Zofran 4 MG Tablet 1 tablet Orally Once a day Active ALPRAZolam 0.5 MG Tablet 1 tablet Orally daily Active Acetaminophen 325 MG Tablet 1 tablet as needed Orally every 6 hrs Active Aspirin Adult Low Strength 81 MG Tablet Delayed Release 1 tablet Orally Once a day Active Docusate Sodium 100 MG Capsule 1 capsule Orally Once a day Active Famotidine 20 MG Tablet 1 tablet Orally every 12 hours Active Fluticasone Propionate 50 MCG/ACT Suspension 1 spray in each nostril Nasally Twice a day Active Furosemide 20 MG Tablet [...] of fluid Orally Once a day Active Mirtazapine 15 MG Tablet [...] with food Orally twice a day Active Voltaren 1 % Gel as directed External ly 4 times a day Active Primidone 50 MG Tablet 1 tablet Orally e very 12 hours Active Sennosides-Docusate Sodium 8.6-50 MG Tablet 1 tablet Orally Twice a day Active Simethicone 80 MG Tablet Chewable 1 tablet Orally twice a day Active Ventolin HFA 108 (90 Base) MCG/ACT Aerosol Solution 2 puffs as needed Inhalation 3 times a day Active Tubersol 5 UNIT/0.1ML Solution as directed Intradermal Acti ve Social History Tobacco Use: Social History Observation Description Date Details (start date - stop date) Former Smoker NA - NA Social History Tobacco Use: Social Info Question Answer Notes Tobacco Control (Standard) Tobacco use: Former smoker Encounters Encounter Location Date Provider Diagnosis [facility] [address] 05/05/2025 SAIDA AKBAR Plan Of Treatment No Information Progress Notes * Jolly MARADIAGADOB:1949 (75 yo F)Acc No.[id number]:05/05/2025 Patient: Jolly CM :1950 A ge:75 Y S ex:Female Address:[address] [place] [address] Subjective: * Chief Complaints: * C HAYS PREP * Medical History: Acute cystitis with hematuria Altered mental status, unspecified Urinary tract infection, site not specified History of ESBL E. coli infection Acute kidney injury Severe sepsis with septic shock Colostomy in place History of kidney stones Anxiety Depression Smoker * Surgical History: hysterectomy colonoscopy colostomy Surgical History verified. * Family History: F ather: brain cancer. M other: dementia, kidney disease, diagnosed with Hypertension.?Family History Verified.. * Social History: T obacco Use: T obacco Control (Standard) T obacco use: F ormer smoker. Social History Verified. * Medications: T akingZofran 4 MG Tablet 1 tablet Orally Once a day Loratadine 10 MG Tablet 1 tablet Orally Once a day Loperamide HCl 2 MG Tablet 1 tablet as needed Orally Four times a day Tubersol 5 UNIT/0.1ML Solution as directed Intradermal Voltaren 1 % Gel as directed Externally 4 times a day Ventolin HFA 108 (90 Base) MCG/ACT Aerosol Solution 2 puffs as needed Inhalation 3 times a day Simethicone 80 MG Tablet Chewable 1 tablet Orally twice a day Sennosides-Docusate Sodium 8.6-50 MG Tablet 1 tablet Orally Twice a day Primidone 50 MG Tablet 1 tablet Orally every 12 hours Potassium Chloride ER 20 MEQ Tablet Extended Release 1 tablet with food Orally twice a day Omeprazole 20 MG Capsule Delayed Release 1 capsule 1/2 to 1 hour before morning meal Orally Once a day Multivitamin - Tablet 1 tablet Orally Once a day Mirtazapine 15 MG Tablet 1 tablet at bedtime Orally Once a day MiraLax 17 GM/SCOOP Powder 1 gram mixed with 8 ounces of fluid Orally Once a day Midodrine HCl 10 MG Tablet 1 tablet Orally 3 times a day Melatonin 5 MG Tablet 1 tablet in the evening Orally Once a day Meclizine HCl 25 MG Tablet 1 tablet as needed Orally 3 times a day Lubricant Eye Drops 0.5 % Solution 1 drop in both eyes Ophthalmic every 12 hours Lidocaine 4 % Patch 1 patch as needed Externally daily Ipratropium-Albuterol 0.5-2.5 (3) MG/3ML Solution 3 mL as needed Inhalation every 6 hrs hydrOXYzine HCl 25 MG Tablet 1 tablet Orally every 12 hours HYDROcodone-Acetaminophen 5-325 MG Tablet 1 tablet as needed Orally twice a day Furosemide 20 MG Tablet 1 tablet Orally twice a day Fluticasone Propionate 50 MCG/ACT Suspension 1 spray in each nostril Nasally Twice a day Famotidine 20 MG Tablet 1 tablet Orally every 12 hours Docusate Sodium 100 MG Capsule 1 capsule Orally Once a day Aspirin Adult Low Strength 81 MG Tablet Delayed Release 1 tablet Orally Once a day Acetaminophen 325 MG Tablet 1 tablet as needed Orally every 6 hrs ALPRAZolam 0.5 MG Tablet 1 tablet Orally daily Taking Zofran 4 MG Tablet 1 tablet Orally Once a day Taking Loratadine 10 MG Tablet 1 tablet Orally Once a day Taking Loperamide HCl 2 MG Tablet 1 tablet as needed Orally Four times a day Taking Tubersol 5 UNIT/0.1ML Solution as directed Intradermal Taking Voltaren 1 % Gel as directed Externally 4 times a day Taking Ventolin HFA 108 (90 Base) MCG/ACT Aerosol Solution 2 puffs as needed Inhalation 3 times a day Taking Simethicone 80 MG Tablet Chewable 1 tablet Orally twice a day Taking Sennosides-Docusate Sodium 8.6-50 MG Tablet 1 tablet Orally Twice a day Taking Primidone 50 MG Tablet 1 tablet Orally every 12 hours Taking Potassium Chloride ER 20 MEQ Tablet Extended Release 1 tablet with food Orally twice a day Taking Omeprazole 20 MG Capsule Delayed Release 1 capsule 1/2 to 1 hour before morning meal Orally Once a day Taking Multivitamin - Tablet 1 tablet Orally Once a day Taking Mirtazapine 15 MG Tablet 1 tablet at bedtime Orally Once a day Taking MiraLax 17 GM/SCOOP Powder 1 gram mixed with 8 ounces of fluid Orally Once a day Taking Midodrine HCl 10 MG Tablet 1 tablet Orally 3 times a day Taking Melatonin 5 MG Tablet 1 tablet in the evening Orally Once a day Taking Meclizine HCl 25 MG Tablet 1 tablet as needed Orally 3 times a day Taking Lubricant Eye Drops 0.5 % Solution 1 drop in both eyes Ophthalmic every 12 hours Taking Lidocaine 4 % Patch 1 patch as needed Externally daily Taking Ipratropium-Albuterol 0.5-2.5 (3) MG/3ML Solution 3 mL as needed Inhalation every 6 hrs Taking hydrOXYzine HCl 25 MG Tablet 1 tablet Orally every 12 hours Taking HYDROcodone-Acetaminophen 5-325 MG Tablet 1 tablet as needed Orally twice a day Taking Furosemide 20 MG Tablet 1 tablet Orally twice a day Taking Fluticasone Propionate 50 MCG/ACT Suspension 1 spray in each nostril Nasally Twice a day Taking Famotidine 20 MG Tablet 1 tablet Orally every 12 hours Taking Docusate Sodium 100 MG Capsule 1 capsule Orally Once a day Taking Aspirin Adult Low Strength 81 MG Tablet Delayed Release 1 tablet Orally Once a day Taking Acetaminophen 325 MG Tablet 1 tablet as needed Orally every 6 hrs Taking ALPRAZolam 0.5 MG Tablet 1 tablet Orally daily DiscontinuedFLUoxetine HCl 10 MG Capsule 1 capsule Orally Once a day FLUoxetine HCl 20 MG Capsule 1 capsule Orally Once a day Discontinued FLUoxetine HCl 10 MG Capsule 1 capsule Orally Once a day Discontinued FLUoxetine HCl 20 MG Capsule 1 capsule Orally Once a day * Allergies: P enicillin: rashClindamycin: rashSulfa Antibiotics: rashSulfacetamide: rashTetracycline: rashShellfish-derived Products: itchingyesAllergies Verified. * true * Date: Generated for Bhakti tate/Samuel/Vasiliy on: 12:38 AM CDT
--- NOTE | ~2025-05-05 | CT_ITS ---
EXAMINATION: CT abdomen pelvis wo con DATE: 05/06/2025 01:16 INDICATION: Urinary tract infection. Recent stent placement. TECHNIQUE: Computed tomography (CT) of the abdomen and pelvis was performed without intravenous contrast. Automated exposure control and iterative reconstruction technique were employed. The dose-length product was 1658.70 mGy-cm. COMPARISON: CT abdomen and pelvis 02/20/25 FINDINGS: The visualized portions of the lung bases demonstrate mild atelectasis. No pleural effusion. The heart size is normal. There are coronary artery calcifications. No pericardial effusion. There are cysts in the liver measuring up to 10 mm. There are gallstones in the gallbladder, which is diste nded. The spleen, pancreas, and adrenal glands are normal. There are approximately 8 stones in right kidney measuring up to 14 mm. There is mild right hydronephrosis. There are greater than 10 stones in left kidney measuring up to 5 mm. There is mild left hydronephrosis. There is a left internal ureteral stent in expected position. There are foci of free gas in the left perinephric space. There is a left inguinal hernia containing fat. There is an end colostomy in left abdomen. A Mahsa pouch is noted. The appendix is normal. There are no dilated loops of bowel. There is a 4.0 cm fusiform infrarenal aortic aneurysm. There is mild left para-aortic lymphadenopathy. There is no free intraperitoneal fluid. There is severe lumbar spondylosis. There is a chronic compression fracture of L1. IMPRESSION: 1. Cholelithiasis. Gallbladder distention may be secondary to fasting. 2. Bilateral nonobstructing kidney stones. 3. Mild bilateral hydronephrosis. Left internal ureteral stent in expected position. 4. Foci of free gas in the left perinephric fat, which may be secondary to ureteral perforation. 5. 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 Reviewed, dictated and finalized at location E. IMPRESSION: 1. Cholelithiasis. Gallbladder distention may be secondary to fasting. 2. Bilateral nonobstructing kidney stones. 3. Mild bilateral hydronephrosis. Left internal ureteral stent in expected posi tion. 4. Foci of free gas in the left perinephric fat, which may be secondary to uret eral perforation. 5. 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
[2025-05-05 23:49] VITALS: BP 85/49; PULSE 83; RESP 37; TEMP 36.7; O2SAT 92; O2SAT 97
[2025-05-06] VITALS (60 sets, daily range): BP systolic 73–135; BP diastolic 33–79; PULSE 60–97; RESP 14–35; TEMP 35.6–38.2; O2SAT 92–100; BMI 32.1
--- NOTE | 2025-05-06 00:02 | ECG_ITS ---
Test Date: 2025-05-06 00:41:40 Measurements Intervals [place] Rate: 78 P: 47 OK: 149 QRS: 28 QRSD: 89 T: 125 QT: 379 QTc: 433 Interpretive Statements SINUS RHYTHM LOW QRS VOLTAGE IN PRECORDIAL LEADS POSSIBLE RIGHT VENTRICULAR CONDUCTION DELAY DELAYED PRECORDIAL R/S TRANSITION BORDERLINE ST-T WAVE ABNORMALITY- DIFFUSE LEADS BASELINE WANDER- V4 BORDERLINE ECG Compared to ECG 05/04/2025 09:47:06 HEART RATE HAS INCREASED Electronically Signed On 05-06-2025 05:13:00 CDT by Ramesh Monreal D.O.
[2025-05-06 00:20] LABS: Hematocrit 35.5 % (37.0-47.0); Hemoglobin 11.8 g/dL (12.0-15.0); Immature Granulocyte Percent A 0.8 % (0-0.5); Lymphocytes Absolute Auto 1.80 K/mm3 (0.9-3.2); Mean Corpuscular HGB Conc 33.2 g/dl (32-36); Mean Corpuscular Hemoglobin 30.3 pg (26-34); Mean Corpuscular Volume 91.3 fl (80-100); Nucleated Red Blood Cells Absolute Auto 0.000 K/mm3 (0.0-0.012); Nucleated Red Blood Cells Perc 0.0 % (0.0-0.2); Platelet Count Result 260 k/mm3 (150-375); Red Blood Count 3.89 M/mm3 (4.2-5.4); White Blood Count 19.7 K/mm3 (4.5-10.0)
[2025-05-06] MEDS: cefTRIAXone 1 GM in SODIUM CHLORIDE 0.9% IV 50 ML 100 ML IVPB (00:32)
[2025-05-06 00:33] LABS: INR 1.4; Prothrombin Time 16.5 Seconds (11.1-14.7)
[2025-05-06 00:34] LABS: Partial Thromboplastin Time 44.4 Seconds (22.3-36.8)
[2025-05-06] MEDS: SODIUM CHLORIDE 0.9% IV 1,000 ML 999 ML IV CONT ×2 (00:38)
--- OUTSIDE RECORDS SUMMARY | 2025-05-06 00:38 | XMS_ITS | Clinical Summary ---
Author Organization [facility] Address [address] [place] [address] Care Team Providers Care Fish Hatchery Supervisor Name Role Phone NelsonIsabeldavid WHITMORE Primary Care Provider [phone] Rico Sanders MD Unavailable [phone] Allergies Active Allergy Reactions Criticality Noted Date Comments Iodine Itching Low 02/11/[address] dye. This is food iodine Penicillins Unknown 05/17/2019 Sulfa (Sulfonamide Antibiotics) Unknown 05/17/2019 Tetracyclines Unknown 05/17/2019 Medications multivit [id number] A-calcium (THERA-M) 9 mg iron-400 mcg tabletIndicatio [...] scheduled Tylenol, lidocaine patch. Anticipate discharge to [facility] with accepting facility available Assessment & Plan [...] not likely be able to return to [place] if not making more progress. Continue therapies [...] of Treatment Not on file Insurance MEDICARE IDFL [place] [address] Advance Directives For more information, please contact: [phone] * Full Code (Latest Code Status on File) Date Activated Date Inactivated Comments 2022 6:52 AM 02/17/2022 5:34 PM * Full Code Date Activated Date Inactivated Comments 05/18/2019 12:33 AM 05/29/2019 9:58 PM Care Teams Fish Hatchery Supervisor Relationship Specialty Start Date End Date Cindi Damon PA [address] [place] [address] PCP - General 02/11/22 Rico Sanders MD [address] [place] [address] Surgeon Surgery 02/16/22
--- OUTSIDE RECORDS SUMMARY | 2025-05-06 00:38 | XMS_ITS | Clinical Summary ---
Author Organization [facility] Address [address] [place] [address] Care Team Providers Care Liquor Bridge Operator Helper Name Role Phone Unavailable Primary Care Provider Unavailabl e Source Comments [facility],non-owned Affiliates and Associated Physician Practices is amultiple site organization consisting of ambulatory clinics and hospital sitesin [place], [place], [place] and [place]. This disclosure is being madepursuant to the Care Everywhere program and may not contain all information available regarding this patient. Last updated 18.[facility] [employer] Allergies Active Allergy Reactions Criticality Noted Date [...] Tube route once daily 1 Active Multiple Vitamins-[place] als (THERA-M) TABS Take 1 tablet by [...] Immunizations Immunization Administration Dates Next Due INFLUENZA [id number], HISTORIC VACCINE 04/12/2020 Social History Tobacco Use [...] Comments Blood Pressure 117/72 09/19/2020 12:05 PM INSTRUMENTAL MUSICIAN Pulse 82 09/19/2020 12:05 PM INSTRUMENTAL MUSICIAN Temperature 36.5 C (97.7 F) 09/19/2020 12:05 PM INSTRUMENTAL MUSICIAN Respiratory Rate 16 08/15/2020 4:34 AM INSTRUMENTAL MUSICIAN Oxygen Saturation 97% 09/19/2020 12:05 PM INSTRUMENTAL MUSICIAN Inhaled Oxygen Concentration 35% 08/14/2020 8 :20 PM INSTRUMENTAL MUSICIAN found on 35% Weight 85.7 kg (189 lb) 09/19/2020 12:05 PM INSTRUMENTAL MUSICIAN Height 180.3 cm (5' 11) 07/28/2020 4:00 AM INSTRUMENTAL MUSICIAN Body Mass Index 26.36 07/28/2020 4:00 AM INSTRUMENTAL MUSICIAN Plan of Treatment Health Maintenance Due Date [...] Phone Billing Address Personal/Family [address] [place] [address] MEDICARE Advance Directives * LIMITED RESUSCITATION-PRIOR AND [...]
--- OUTSIDE RECORDS SUMMARY | 2025-05-06 00:38 | XMS_ITS | Patient Health Record ---
Author Organization [facility] Address [address] [place] [id number] Care Team Providers Care Hand Candy Dipper Name Role Phone DR. SAIDA AKBAR Primary Care Provider Melissa Elliott Unavailable [phone] Allergies Allergen (clinical drug ingredient) Drug/Non Drug [...] Duration) Notes Start Date End Date Status Voltaren 1 % Gel as directed External ly 4 times a day Active Tubersol 5 UNIT/0.1ML Solution as directed Intradermal Acti ve Loperamide HCl 2 MG Tablet 1 tablet as n eeded Orally Four times a day Active Loratadine 10 MG Tablet 1 tablet Orally Once a day Active Zofran 4 MG Tablet 1 tablet Orally Once a day Active Fluticasone Propionate 50 MCG/ACT Suspension 1 spray in each nostril Nasally Twice a day Active Furosemide 20 MG Tablet 1 tablet Orally twice a day Active HYDROcodone-Acetaminophen 5-325 MG Tablet 1 tablet as needed Orally twice a day 03/03/2025 Active hydrOXYzine HCl 25 MG Tablet 1 tablet Orally every 12 hours Active Primidone 50 MG Tablet 1 tablet Orally e very 12 hours Active Ipratropium-Albuterol 0.5-2.5 (3) MG/3ML Solution 3 mL as needed Inhalation every 6 hrs Active Sennosides-Docusate Sodium 8.6-50 MG Tablet 1 tablet Orally Twice a day Active Simethicone 80 MG Tablet Chewable 1 tablet Orally twice a day Active Ventolin HFA 108 (90 Base) MCG/ACT Aerosol Solution 2 puffs as needed Inhalation 3 times a day Active Lidocaine 4 % Patch 1 patch [...] with food Orally twice a day Active ALPRAZolam 0.5 MG Tablet [...] 1 tablet Orally every 12 hours Active Social History Tobacco Use: Social History [...] Status Risk Notes Problem Calculus of kidney (02473566) Calculus of kidney (N20.0) Active confirmed Problem Altered mental status (120805931) Altered mental status, unspecified (R41.82) Active confirmed Problem Depression (677736662) Depression, unspecified (F32.A) Active confirmed Problem Anxiety (67693389) Anxiety (F41.9) Active confirmed Problem Physical deconditioning (21322824533439) Physical deconditioning (R53.81) Active confirmed Problem Colostomy present (981438033) Colostomy present (Z93.3) Active confirmed Problem Urinary tract infectious disease (64665231) Urinary tract infection in female (N39.0) Active confirmed Problem Congestive heart failure (22670615) Congestive heart failure, unspecified (I50.9) Active confirmed Problem 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 Vital Signs Heart Rate 68 /min 04/27/2025 Temperature 98.1 degrees Fahrenheit 04/27/2025 Respiratory Rate 18 /min 04/27/2025 Oximetry 95 % 04/27/2025 Blood pressure diastolic 64 mm Hg 04/27/2025 Weight-kg 97.8 kg 04/20/2025 Blood pressure systolic 116 mm Hg 04/27/2025 Weight 215.6 lbs 04/20/2025 Encounters Encounter Location Date Provider Diagnosis [address] [address] 03/05/2025 SAIDA AKBAR [address] [address] 03/09/2025 Aften Lexi Wheezing R06.2 ; Calculus of kidney N20.0 ; Colostomy present Z93.3 ; Anxiety F41.9 ; Congestive heart failure, unspecified I50.9 ; Depression, unspecified F32.A ; Urinary tract infection in female N39.0 ; Physical deconditioning R53.81 and Frail elderly R54 [address] [address] 03/16/2025 Aften [facility]i Calculus of kidney N20.0 ; Colostomy present Z93.3 ; Anxiety F41.9 ; Congestive heart failure, unspecified I50.9 ; Depression, unspecified F32.A ; Physical deconditioning R53.81 and Frail elderly R54 [address] [address] 03/23/2025 Aften [facility]i Calculus of kidney N20.0 ; Colostomy present Z93.3 ; Anxiety F41.9 ; Congestive heart failure, unspecified I50.9 ; Depression, unspecified F32.A ; Physical deconditioning R53.81 ; Frail elderly R54 and Allergic rhinitis J30.[address] [address] 03/30/2025 Aften [facility]i Calculus of kidney N20.0 ; Colostomy present Z93.3 ; Anxiety F41.9 ; Congestive heart failure, unspecified I50.9 ; Depression, unspecified F32.A ; Physical deconditioning R53.81 and Frail elderly R54 [address] [address] 04/06/2025 Aften Lexi Calculus of kidney N20.0 ; Colostomy present Z93.3 ; Anxiety F41.9 ; Congestive heart failure, unspecified I50.9 ; Depression, unspecified F32.A ; Physical deconditioning R53.81 and Frail elderly R54 [address] [address] 04/13/2025 Aften Lexi Calculus of kidney N20.0 ; Colostomy present Z93.3 ; Anxiety F41.9 ; Congestive heart failure, unspecified I50.9 ; Depression, unspecified F32.A ; Physical deconditioning R53.81 and Frail elderly R54 [address] [address] 04/20/2025 Aften Lexi Calculus of kidney N20.0 ; Colostomy present Z93.3 ; Anxiety F41.9 ; Congestive heart failure, unspecified I50.9 ; Depression, unspecified F32.A ; Physical deconditioning R53.81 and Frail elderly R54 [address] [address] 04/27/2025 Aften Lexi Calculus of kidney N20.0 ; Colostomy present Z93.3 ; Anxiety F41.9 ; Congestive heart failure, unspecified I50.9 ; Depression, unspecified F32.A ; Physical deconditioning R53.81 and Frail elderly R54 [address] [address] 03/03/[address] [address] 03/03/2025 Aften Lexi [address] 03/04/2025 SAIDA RAFFY [facility] [address] [place] [address] 03/09/2025 SAIDA AKBAR [facility] [address] [place] [address] 03/15/2025 SAIDA AKBAR [facility] [address] [place] [address] 03/23/2025 SAIDA AKBAR [facility] [address] [place] [address] 03/23/2025 SAIDA [facility] [address] [id number] 03/30/2025 Melissa Elliott [facility] [address] [place] [address] 03/31/2025 SAIDA AKBAR [facility] [address] [place] [address] 04/06/2025 SAIDA AKBAR [facility] [address] [place] [address] 04/12/2025 SAIDA AKBAR [facility] [address] 04/20/2025 SAIDA AKBAR [facility] [address] [place] [address] 04/28/2025 SAIDA AKBAR [facility] [address] 05/05/2025 SAIDA AKBAR [facility] [address] 05/05/2025 SAIDA AKBAR Assessments Encounter Date Diagnosis (ICD [...] moving or talking more slowly difficulty sleeping, pigment pusher awakening, or oversleeping appetite or weight changes [...] moving or talking more slowly difficulty sleeping, pigment pusher awakening, or oversleeping appetite or weight changes [...] moving or talking more slowly difficulty sleeping, pigment pusher awakening, or oversleeping appetite or weight changes [...] moving or talking more slowly difficulty sleeping, pigment pusher awakening, or oversleeping appetite or weight changes [...] moving or talking more slowly difficulty sleeping, pigment pusher awakening, or oversleeping appetite or weight changes [...] moving or talking more slowly difficulty sleeping, pigment pusher awakening, or oversleeping appetite or weight changes [...] moving or talking more slowly difficulty sleeping, pigment pusher awakening, or oversleeping appetite or weight changes [...] moving or talking more slowly difficulty sleeping, pigment pusher awakening, or oversleeping appetite or weight changes [...] PRACTICES GIVEN TO PT Plan Of Treatment No Information Insurance Providers Payer Name Payer Address Payer Phone Subscriber Number Group Number Insured Name Patient Relationship to Insured Coverage Start Date Coverage End Date Medicare of [place] [address] [employer] [id number] Jolly Cheema Self - patient is the insured Medicaid of [place] [address] [address] [place], [place] [id number] [phone] [id number] Jolly Cheema Self - patient is the [...]
[2025-05-06 00:46] LABS: Alanine Aminotransferase 12 U/L (6-35); Albumin Level 3.5 g/dL (3.5-5.1); Alkaline Phosphatase 156 U/L (38-126); Anion Gap 8 mmol/L (4-12); Aspartate Amino Transferase 24 U/L (14-36); Bilirubin,Total 1.0 mg/dL (0.2-1.3); Blood Urea Nitrogen 32 mg/dL (7-17); Calcium 8.4 mg/dL (8.4-10.2); Carbon Dioxide 22 mmol/L (22-30); Chloride 101 mmol/L (98-107); Estimated Glomerular Filt Rate 33; Glucose 114 mg/dL (65-110); Potassium 4.7 mmol/L (3.4-5.0); Sodium 131 mmol/L (137-145); Total Protein 7.1 g/dL (6.3-8.2)
[2025-05-06 00:47] LABS: Add Urine Microscopic? YES; Appearance Urine Turbid (Clear)
[2025-05-06 00:48] LABS: Glucose Urine UA Negative (Negative); Leukocyte Esterase Ur 2+ LEU/UL (Negative); Nitrate Urine Positive (Negative); Specific Grav Ur 1.020 (1.001-1.035)
[2025-05-06 00:58] LABS: Troponin I < 0.012 ng/mL (0.000-0.034)
--- NOTE | 2025-05-06 01:07 | ED.GENADULT ---
HPI - General Adult General Chief complaint: Altered Mental Status Stated complaint: Possible confusion Time Seen by Provider: 05/06/25 00:04 History of Present Illness HPI narrative: Patient 75-year-old female who presents emergency department chief complaint of generalized weakness patient had a kidney stone that was managed by Urology with removal and stent placement patient was discharged back to the facility where she is resident of and today they noticed that she was not acting her usual self and was very slow patient states she feels very hot and reports does not feel well has also noticed that her urine is dark colored Related Data Home Medications ?Medication ?Instructions ?Recorded ?Confirmed ?Last Taken ?Type midodrine 10 mg PO TID 12/23/21 04/27/25 02/19/25 17:00 History 10 mg albuterol sulfate 90 mcg/actuation 2 puff inhalation TID PRN 01/12/22 04/27/25 02/19/25 21:00 History aerosol inhaler (Ventolin HFA) Shortness Of Breath Or Wheezing 2 puff aspirin 81 mg chewable tablet 81 mg PO DAILY 01/12/22 04/27/25 02/19/25 08:00 History 81 mg acetaminophen 325 mg tablet 325 mg PO Q6H 04/24/24 04/27/25 02/19/25 23:00 History 1,000 mg meclizine 25 mg tablet 25 mg PO TID PRN Dizziness 04/24/24 04/27/25 04/20/24 History mirtazapine 15 mg tablet 15 mg PO HS 04/24/24 04/27/25 02/19/25 21:00 History 15 mg polyethylene glycol 3350 17 gram 17 g PO DAILY 04/24/24 04/27/25 04/24/24 History oral powder packet (Miralax) primidone 50 mg tablet 50 mg PO Q12H 04/24/24 04/27/25 02/19/25 21:00 History 50 mg melatonin 3 mg tablet 5 mg PO HS 04/25/24 04/27/25 02/19/25 21:00 History 5.0001 mg alprazolam 0.5 mg tablet 0.5 mg PO QHS 02/20/25 04/27/25 02/19/25 21:00 History 0.5 mg diclofenac sodium 1 % topical gel 2 g topical QID 02/20/25 04/27/25 02/19/25 21:00 History (Arthritis Pain (diclofenac)) docusate sodium 100 mg capsule 100 mg PO HS 02/20/25 04/27/25 02/19/25 17:00 History (Colace) 100 mg famotidine 20 mg tablet 20 mg PO Q12H 02/20/25 04/27/25 02/19/25 21:00 History 20 mg fluticasone propionate 50 1 spray intranasal Q12H 02/20/25 04/27/25 02/19/25 21:00 History mcg/actuation nasal 1 spray spray,suspension hydroxyzine HCl 25 mg tablet 12.5 mg PO .q12hr 02/20/25 04/27/25 02/19/25 21:00 History 12.5 mg lidocaine 4 % topical patch 1 patch topical DAILY PRN pain 02/20/25 04/27/25 02/20/25 09:00 History (Lidocaine Pain Relief) 1 patch multivitamin (Daily Multi-Vitamin 1 tablet PO DAILY 02/20/25 04/27/25 02/19/25 09:00 History tablet) 1 tablet omeprazole 20 mg capsule,delayed 20 mg PO DAILY 02/20/25 04/27/25 02/19/25 09:00 History release 20 mg peg 400-propylene glycol (PF) 0.4 1 drp EACH EYE Q12H 02/20/25 04/27/25 02/19/25 21:00 History %-0.3 % eye drops in a dropperette 1 drp (Lubricant Eye (PG-PEG 400) (PF)) simethicone 80 mg chewable tablet 80 mg PO BID 02/20/25 04/27/25 02/19/25 17:00 History (Gas Relief (simethicone)) 80 mg fluoxetine 10 mg capsule (Prozac) 30 mg PO DAILY 04/27/25 04/27/25 Unknown History nitrofurantoin 100 mg PO Q12H 04/27/25 04/27/25 Unknown History monohydrate/macrocrystals 100 mg capsule Allergies Allergy/AdvReac Type Severity Reaction Status Date / Time Penicillins Allergy Severe RASH Verified 05/04/25 10:08 clindamycin Allergy Intermediate Rash Verified 05/04/25 10:08 Sulfa (Sulfonamide Allergy Mild Rash Verified 05/04/25 10:08 Antibiotics) sulfacetamide Allergy Mild Rash Verified 05/04/25 10:08 tetracycline Allergy Unknown RASH Verified 05/04/25 10:08 shellfish derived AdvReac Itching Verified 05/04/25 10:08 Review of Systems Review of Systems: A 10 system review of systems was completed on the patient and is negative except for what is stated in the HPI. Nursing and ancillary documentation was reviewed. PMFSH Past Medical History Medical History History of ESBL E. coli infection Urinary tract infection Colostomy in place History of kidney stones Anxiety Depression Smoker Depression Surgical History Surgical History H/O hysterectomy for benign disease H/O colonoscopy H/O: hysterectomy Family History Family History Mother Dementia Kidney disease Hypertension Family history of Alzheimer's disease Father Brain cancer Sibling Liver disease Kidney stones Sibling Schizophrenia Obesity Mother No problems noted. Social History Social History Smoking packs per day: 1.5 Smoking cigarettes per day: 30.0 Years smoked: 40 Smoking pack-years: 60.00 Smoking status: Unknown if ever smoked Additional smoking assessment comments: Cutting back on smoking and currently at a 1/2 pack a day. Alcohol intake: never Substance use: never Substance use type: unknown Do You Feel Safe in your Home?: Yes Lack of Transportation: No Lack of Food: Never True Current Housing: I Have Housing Concerned About Future Housing: No Difficulty Paying Gas/Electric Bills: No Difficulty Paying for Meds: No Currently Unemployed: No Education: Bachelor's Degree Difficulty w/ Childcare or Family Care: No Living arrangements: penitentiary Additional living arrangements comments: [facility] Gender identity (if verbalized by the patient): Female Sexual Orientation (if Verbalized by the Patient): Straight or Heterosexual Spiritual care concerns: No Agree to blood products: Yes Exam Narrative: GENERAL: Well-appearing, well-nourished, and in no acute distress. HEAD: Normocephalic, atraumatic. EYES: PERRLA and EOMI. ENT: Nares clear, no rhinorrhea or epistaxis. Mucous membranes moist. NECK: Supple. CHEST: Clear to auscultation. No respiratory distress. HEART: Regular rate and rhythm. No murmur heard. Normal peripheral pulses. ABDOMEN: Soft, nontender, nondistended, normal active bowel sounds. EXTREMITIES: Normal range of motion. No edema. SKIN: Warm, dry, no rash. NEURO: No focal deficits. Alert and oriented x3. PSYCH: Normal mood and affect. Course Vital Signs Vital signs: Vital Signs Temperature 36.7 C 05/05/25 23:49 Pulse Rate 83 05/05/25 23:49 Respiratory Rate 37 H 05/05/25 23:49 Blood Pressure 85/49 L 05/05/25 23:49 Pulse Oximetry 92 05/05/25 23:49 Oxygen Delivery Room Air 05/05/25 23:49 Temperature 36.7 C 05/05/25 23:49 Pulse Rate 82 05/06/25 01:31 Respiratory Rate 27 H 05/06/25 01:31 Blood Pressure 98/49 L 05/06/25 01:31 Pulse Oximetry 94 05/06/25 01:01 Oxygen Delivery Room Air 05/05/25 23:49 Medical Decision Making MDM Narrative Medical decision making narrative: Differential diagnosis includes UTI, pyelonephritis, sepsis, CT scan was obtained that showed some small focus of air around the radial pelvis stent is in place urinalysis showed evidence of UTI patient had a leukocytosis of 19 patient was started on IV antibiotics in the emergency department previous culture was reviewed that showed Proteus from a blood culture that was sensitive to Rocephin the case was discussed with Urology and also the hospitalist and the patient will be admitted for further care Vital Signs Vital Signs: Vital Signs Temperature 36.7 C 05/05/25 23:49 Pulse Rate 83 05/05/25 23:49 Respiratory Rate 37 H 05/05/25 23:49 Blood Pressure 85/49 L 05/05/25 23:49 Pulse Oximetry 92 05/05/25 23:49 Oxygen Delivery Room Air 05/05/25 23:49 Temperature 36.7 C 05/05/25 23:49 Pulse Rate 82 05/06/25 01:31 Respiratory Rate 27 H 05/06/25 01:31 Blood Pressure 98/49 L 05/06/25 01:31 Pulse Oximetry 94 05/06/25 01:01 Oxygen Delivery Room Air 05/05/25 23:49 Lab Data 05/06/25 00:05 05/06/25 00:05 Labs: Lab Results 05/06/25 05/06/25 05/06/25 Range/Units 00:05 00:08 00:30 WBC 19.7 H (4.5-10.0) K/mm3 RBC 3.89 L (4.2-5.4) M/mm3 Hgb 11.8 L (12.0-15.0) g/dL Hct 35.5 L (37.0-47.0) % MCV 91.3 (80-100) fl MCH 30.3 (26-34) pg MCHC 33.2 (32-36) g/dl RDW 14.2 (11.5-14.5) % Plt Count 260 (150-375) k/mm3 MPV 9.6 (7.4-10.4) fl Immature Gran % (Auto) 0.8 H (0-0.5) % Neut % (Auto) 83.1 H (45.5-73.1) % Lymph % (Auto) 9.2 L (18.3-44.2) % Bee % (Auto) 6.5 (2.6-8.5) % Eos % (Auto) 0.1 (0-4.4) % Baso % (Auto) 0.3 (0.2-1.2) % Lymph # (Auto) 1.80 (0.9-3.2) K/mm3 Bee # (Auto) 1.3 H (0.1-0.6) K/mm3 Eos # (Auto) 0.0 (0-0.3) K/mm3 Baso # (Auto) 0.1 (0.0-0.1) K/mm3 Abs Immat Gran (auto) 0.16 H (0.00-0.031) K/mm3 Absolute Neuts (auto) 16.4 H (1.3-6.7) K/mm3 Absolute Nucleated RBC 0.000 (0.0-0.012) K/mm3 Nucleated RBC % 0.0 (0.0-0.2) % PT 16.5 H (11.1-14.7) Seconds INR 1.4 APTT 44.4 H (22.3-36.8) Seconds Sodium 131 L (137-145) mmol/L Potassium 4.7 (3.4-5.0) mmol/L Chloride 101 (98-107) mmol/L Carbon Dioxide 22 (22-30) mmol/L Anion Gap 8 (4-12) mmol/L BUN 32 H D (7-17) mg/dL Creatinine 1.51 H (0.7-1.0) mg/dL Estim Creat Clear Calc Not Reportable Estimated GFR 33 L (59 - ) Glucose 114 H (65-110) mg/dL Lactic Acid 1.4 (0.7-2.0) mmol/L Calcium 8.4 (8.4-10.2) mg/dL Total Bilirubin 1.0 (0.2-1.3) mg/dL AST 24 (14-36) U/L ALT 12 (6-35) U/L Alkaline Phosphatase 156 H (38-126) U/L Troponin I < 0.012 (0.000-0.034) ng/mL Total Protein 7.1 (6.3-8.2) g/dL Albumin 3.5 (3.5-5.1) g/dL Procalcitonin 27.3 ng/mL Urine Color Brown H (Yellow) Urine Appearance Turbid H (Clear) Urine pH 6.0 (5.0-9.0) Ur Specific [place] 1.020 (1.001-1.035) Urine Protein 3+ H (Negative) mg/dL Urine Glucose (UA) Negative (Negative) mg/dL Urine Ketones 1+ H (Negative) mg/dL Ur Blood (Man) 3+ H (Negative) Urine Nitrate Positive H (Negative) Urine Bilirubin 1+ H (Negative) Urine Urobilinogen 0.2 (<2.0) mg/dL Leukocyte Esterase Rfl 2+ H (Negative) MILLY/UL Urine RBC 51-100 H (0-2) /hpf Urine WBC 21-50 (0-3) /hpf Ur Squamous Epith Cells Few (Few) /hpf Urine Bacteria 2+ (None) /hpf Discharge Plan Discharge Clinical Impression: Acute UTI, Ureteral stent present, Leukocytosis Patient Disposition: Still a Patient Condition: Stable Patient Language: Swiss Prescriptions: No Action acetaminophen 325 mg Tablet 325 mg PO Q6H primidone 50 mg Tablet 50 mg PO Q12H polyethylene glycol 3350 [Miralax] 17 gram Powder In Packet 17 g PO DAILY meclizine 25 mg tablet 25 mg PO TID PRN (Reason: Dizziness) mirtazapine 15 mg Tablet 15 mg PO HS melatonin 3 mg tablet 5 mg PO HS nitrofurantoin monohyd/m-cryst 100 mg capsule 100 mg PO Q12H fluoxetine [Prozac] 10 mg capsule 30 mg PO DAILY midodrine 10 mg PO TID Patient Comments: for low BP albuterol sulfate [Ventolin HFA] 90 mcg/actuation HFA aerosol inhaler 2 puff INHALATION TID PRN (Reason: Shortness Of Breath Or Wheezing) aspirin 81 mg Tablet,Chewable 81 mg PO DAILY [place] Ultra Strength 4-30-10 % Cream 1 applic topical BID PRN (Reason: Muscle/Joint Pain) Qty: 57 0RF alprazolam 0.5 mg tablet 0.5 mg PO QHS famotidine 20 mg tablet 20 mg PO Q12H fluticasone propionate 50 mcg/actuation spray,suspension 1 spray INTRANASAL Q12H hydroxyzine HCl 25 mg tablet 12.5 mg PO .q12hr omeprazole 20 mg capsule,delayed release(DR/EC) 20 mg PO DAILY docusate sodium [Colace] 100 mg capsule 100 mg PO HS multivitamin [Daily Multi-Vitamin] Tablet 1 tablet PO DAILY simethicone [Gas Relief (simethicone)] 80 mg tablet,chewable 80 mg PO BID Rx Instructions: after meals lidocaine [Lidocaine Pain Relief] 4 % adhesive patch,medicated 1 patch topical DAILY PRN (Reason: pain) diclofenac sodium [Arthritis Pain (diclofenac)] 1 % gel 2 g topical QID Rx Instructions: apply to single elbow, wrist or hand; for hand includes palm/fingers/back of hand Lubricant Eye (PG-PEG 400)(PF) 0.4-0.3 % dropperette 1 drp EACH EYE Q12H furosemide 20 mg Tablet 20 mg PO BID Qty: 60 0RF potassium chloride [K-Tab] 20 mEq tablet extended release 20 meq PO BID Qty: 60 0RF ipratropium-albuterol 0.5 mg-3 mg(2.5 mg base)/3 mL solution for nebulization 3 ml inhalation Q6HRT PRN (Reason: Shortness Of Breath) Qty: 30 0RF hydrocodone-acetaminophen 5-325 mg tablet 1 tablet PO BID PRN (Reason: pain) Qty: 6 0RF Follow-up/Referrals: Sanna,Mars Weldon DO [Primary Care Provider, Unknown] Time of Disposition: 03:33
[2025-05-06 01:26] LABS: Procalcitonin 27.3 ng/mL
[2025-05-06] MEDS: fentaNYL CITRATE INJ (*CRX) 100 MCG/2 ML VIAL 50 MCG IV PUSH (02:14)
[2025-05-06] MEDS: ACETAMINOPHEN 500 MG TABLET 1000 MG PO (03:35)
[2025-05-06] MEDS: SODIUM CHLORIDE 0.9% IV 1,000 ML 100 ML IV CONT ×2 (04:52→12:57)
--- NOTE | 2025-05-06 05:10 | PC.NURSE ---
Pt's ostomy leaking, new bag placed, linens changed.
[2025-05-06] MEDS: MIDODRINE HCL 10 MG TABLET PO ×4 (05:35→18:19)
--- NOTE | 2025-05-06 08:13 | WPDURCON ---
Assessment and Plan Assessment and plan (1) Urinary tract infection: Qualifiers: Hematuria presence: with hematuria Urinary tract infection type: acute cystitis Qualified Code(s): N30.01 - Acute cystitis with hematuria Code(s): N39.0 - Urinary tract infection, site not specified Status: Acute (2) Kidney stone on left side: Code(s): N20.0 - Calculus of kidney Status: Acute (3) Obstruction of left ureteropelvic junction (UPJ) due to stone: Code(s): N20.1 - Calculus of ureter Status: Acute Assessment and Plan: Febrile urinary tract infection following extensive endoscopic ureteral stone procedure Left ureteral stent appears to be in position Agree with admission for broad-spectrum antibiotics pending blood and urine culture results Urology Consult Note HPI Date Seen: 05/06/25 Requesting Physician: Suyapa Roberto MD Primary Care Provider: Mars Isidro, DO Consult Narrative Narrative: Jolly Saldana is a 75 year old female Who was well known to our practice with a history of chronic/recurrent cystitis and recurrent urolithiasis. She has a known large stone burden in her left kidney and underwent extensive ureteroscopy with laser lithotripsy and extraction of left renal calculi on 05/04/2025. This is done as an outpatient but she presents to the ER last night with generalized malaise, feeling poorly and subjective. CT scan shows her left ureteral stent to be in position with a very small residual volume of stones in her kidney. Patient is currently very somnolent and appears Review of Systems Review of Systems: All systems reviewed & are unremarkable except as noted in HPI and below PMFSH Past Medical History Medical History History of ESBL E. coli infection Urinary tract infection Colostomy in place History of kidney stones Anxiety Depression Smoker Depression Surgical History Surgical History H/O hysterectomy for benign disease H/O colonoscopy H/O: hysterectomy Family History Family History Mother Dementia Kidney disease Hypertension Family history of Alzheimer's disease Father Brain cancer Sibling Liver disease Kidney stones Sibling Schizophrenia Obesity Mother No problems noted. Social History Social History Smoking packs per day: 1.5 Smoking cigarettes per day: 30.0 Years smoked: 40 Smoking pack-years: 60.00 Smoking status: Unknown if ever smoked Additional smoking assessment comments: Cutting back on smoking and currently at a 1/2 pack a day. Alcohol intake: never Substance use: never Substance use type: unknown Do You Feel Safe in your Home?: Yes Lack of Transportation: No Lack of Food: Never True Current Housing: I Have Housing Concerned About Future Housing: No Difficulty Paying Gas/Electric Bills: No Difficulty Paying for Meds: No Currently Unemployed: No Education: Bachelor's Degree Difficulty w/ Childcare or Family Care: No Living arrangements: custodial Additional living arrangements comments: [facility] Gender identity (if verbalized by the patient): Female Sexual Orientation (if Verbalized by the Patient): Straight or Heterosexual Spiritual care concerns: No Agree to blood products: Yes Meds Home Medications and Allergies Home Medications ?Medication ?Instructions ?Recorded ?Confirmed ?Type midodrine 10 mg PO TID 12/23/21 05/06/25 History albuterol sulfate 90 mcg/actuation 2 puff inhalation TID PRN 01/12/22 05/06/25 History aerosol inhaler (Ventolin HFA) Shortness Of Breath Or Wheezing aspirin 81 mg chewable tablet 81 mg PO DAILY 01/12/22 05/06/25 History camphor 4 %-methyl salicylate 30 1 applic topical BID PRN 01/16/22 05/06/25 Rx %-menthol 10 % topical cream Muscle/Joint Pain #57 grams (Bengay Ultra Strength) acetaminophen 325 mg tablet 325 mg PO Q6H 04/24/24 05/06/25 History meclizine 25 mg tablet 25 mg PO TID PRN Dizziness 04/24/24 05/06/25 History mirtazapine 15 mg tablet 15 mg PO HS 04/24/24 05/06/25 History polyethylene glycol 3350 17 gram 17 g PO DAILY 04/24/24 05/06/25 History oral powder packet (Miralax) primidone 50 mg tablet 50 mg PO Q12H 04/24/24 05/06/25 History melatonin 3 mg tablet 5 mg PO HS 04/25/24 05/06/25 History alprazolam 0.5 mg tablet 0.5 mg PO QHS 02/20/25 05/06/25 History diclofenac sodium 1 % topical gel 2 g topical QID 02/20/25 05/06/25 History (Arthritis Pain (diclofenac)) docusate sodium 100 mg capsule 100 mg PO HS 02/20/25 05/06/25 History (Colace) famotidine 20 mg tablet 20 mg PO Q12H 02/20/25 05/06/25 History fluticasone propionate 50 1 spray intranasal Q12H 02/20/25 05/06/25 History mcg/actuation nasal spray,suspension hydroxyzine HCl 25 mg tablet 12.5 mg PO .q12hr 02/20/25 05/06/25 History lidocaine 4 % topical patch 1 patch topical DAILY PRN pain 02/20/25 05/06/25 History (Lidocaine Pain Relief) multivitamin (Daily Multi-Vitamin 1 tablet PO DAILY 02/20/25 05/06/25 History tablet) omeprazole 20 mg capsule,delayed 20 mg PO DAILY 02/20/25 05/06/25 History release peg 400-propylene glycol (PF) 0.4 1 drp EACH EYE Q12H 02/20/25 05/06/25 History %-0.3 % eye drops in a dropperette (Lubricant Eye (PG-PEG 400) (PF)) simethicone 80 mg chewable tablet 80 mg PO BID 02/20/25 05/06/25 History (Gas Relief (simethicone)) furosemide 20 mg tablet 20 mg PO BID #60 tabs 02/26/25 05/06/25 Rx hydrocodone 5 mg-acetaminophen 325 1 tablet PO BID PRN pain #6 tabs 02/26/25 05/06/25 Rx mg tablet ipratropium 0.5 mg-albuterol 3 mg 3 ml inhalation Q6HRT PRN 02/26/25 05/06/25 Rx (2.5 mg base)/3 mL nebulization Shortness Of Breath #30 mL soln potassium chloride 20 mEq 20 meq PO BID #60 tabs 02/26/25 05/06/25 Rx tablet,extended release (K-Tab) fluoxetine 10 mg capsule (Prozac) 30 mg PO DAILY 04/27/25 05/06/25 History albuterol 90 mcg/actuation aerosol 90 mcg inhalation Q6H PRN wheezing 05/06/25 05/06/25 History inhaler levofloxacin 500 mg tablet 500 mg PO DAILY 05/06/25 05/06/25 History loratadine 10 mg tablet (Allergy 10 mg PO DAILY 05/06/25 05/06/25 History Relief (loratadine)) ondansetron 4 mg disintegrating 4 mg PO Q8H PRN nausea 05/06/25 05/06/25 History tablet sennosides 8.6 mg-docusate sodium 1 tab-cap PO BID 05/06/25 05/06/25 History 50 mg tablet (Senna Plus) Allergies Allergy/AdvReac Type Severity Reaction Status Date / Time Penicillins Allergy Severe RASH Verified 05/04/25 10:08 clindamycin Allergy Intermediate Rash Verified 05/04/25 10:08 Sulfa (Sulfonamide Allergy Mild Rash Verified 05/04/25 10:08 Antibiotics) sulfacetamide Allergy Mild Rash Verified 05/04/25 10:08 tetracycline Allergy Unknown RASH Verified 05/04/25 10:08 shellfish derived AdvReac Itching Verified 05/04/25 10:08 Vital Signs Vital Signs - 24 hr 05/05/25 23:49 05/05/25 23:49 05/06/25 00:02 Temperature 98.0 F Pulse Rate 83 86 Respiratory Rate 37 H 29 H Blood Pressure 85/49 L Pulse Oximetry 92 97 92 Oxygen Delivery Room Air Nasal Cannula Oxygen Flow Rate 2 05/06/25 00:19 05/06/25 00:46 05/06/25 00:47 Temperature Pulse Rate 81 83 81 Respiratory Rate 25 H 25 H 26 H Blood Pressure 109/58 L Pulse Oximetry 92 93 95 Oxygen Delivery Oxygen Flow Rate 05/06/25 01:00 05/06/25 01:01 05/06/25 01:22 Temperature Pulse Rate 92 94 85 Respiratory Rate 35 H 30 H 29 H Blood Pressure 120/65 107/59 L Pulse Oximetry 95 94 Oxygen Delivery Oxygen Flow Rate 05/06/25 01:23 05/06/25 01:30 05/06/25 01:31 Temperature Pulse Rate 83 80 82 Respiratory Rate 29 H 26 H 27 H Blood Pressure 98/49 L Pulse Oximetry Oxygen Delivery Oxygen Flow Rate 05/06/25 01:32 05/06/25 02:19 05/06/25 03:15 Temperature 100.7 F H Pulse Rate 81 87 Respiratory Rate 27 H 29 H Blood Pressure Pulse Oximetry 95 Oxygen Delivery Oxygen Flow Rate 05/06/25 03:52 05/06/25 04:05 05/06/25 04:34 Temperature 98.2 F 98.2 F Pulse Rate 93 97 Respiratory Rate 30 H 26 H Blood Pressure 106/55 L 76/53 L Pulse Oximetry 97 95 Oxygen Delivery Oxygen Flow Rate 05/06/25 05:16 05/06/25 05:30 05/06/25 05:31 Temperature Pulse Rate 74 74 74 Respiratory Rate 28 H 28 H 27 H Blood Pressure 77/52 L Pulse Oximetry 95 95 95 Oxygen Delivery Oxygen Flow Rate 05/06/25 05:38 05/06/25 05:45 05/06/25 05:46 Temperature Pulse Rate 79 71 73 Respiratory Rate 29 H 25 H 26 H Blood Pressure 80/39 L 78/40 L Pulse Oximetry 94 95 95 Oxygen Delivery Oxygen Flow Rate 05/06/25 06:00 05/06/25 06:01 05/06/25 06:09 Temperature Pulse Rate 77 76 70 Respiratory Rate 32 H 28 H 29 H Blood Pressure 76/42 L 73/33 L Pulse Oximetry 95 95 96 Oxygen Delivery Oxygen Flow Rate 05/06/25 06:12 05/06/25 06:14 05/06/25 06:15 Temperature Pulse Rate 70 69 Respiratory Rate 28 H 23 H Blood Pressure 90/51 L 90/51 L 84/52 L Pulse Oximetry 96 95 95 Oxygen Delivery Oxygen Flow Rate 05/06/25 06:30 05/06/25 06:45 05/06/25 07:00 Temperature Pulse Rate 65 66 65 Respiratory Rate 21 H 25 H 25 H Blood Pressure 88/51 L 89/52 L 97/55 L Pulse Oximetry 95 96 96 Oxygen Delivery Oxygen Flow Rate Exam Const: General: no acute distress Resp: Effort & Inspection: normal respiratory effort GI: Inspection: non-distended GI Palp: No abdominal tenderness and No Guarding due to palpation present (GI) Auscultation: normal bowel sounds Results Labs 05/06/25 00:05 05/06/25 00:05 Labs: Short CBC 05/06/25 Range/Units 00:05 WBC 19.7 H (4.5-10.0) K/mm3 Hgb 11.8 L (12.0-15.0) g/dL Hct 35.5 L (37.0-47.0) % Plt Count 260 (150-375) k/mm3 BMP 05/06/25 00:05 Sodium 131 L Potassium 4.7 Chloride 101 Carbon Dioxide 22 BUN 32 H D Creatinine 1.51 H Glucose 114 H Calcium 8.4 Cardiac Enzymes 05/06/25 Range/Units 00:30 Troponin I < 0.012 (0.000-0.034) ng/mL Liver Function 05/06/25 Range/Units 00:05 Total Bilirubin 1.0 (0.2-1.3) mg/dL AST 24 (14-36) U/L ALT 12 (6-35) U/L Alkaline Phosphatase 156 H (38-126) U/L Albumin 3.5 (3.5-5.1) g/dL Urine 05/06/25 Range/Units 00:08 Urine Color Brown H (Yellow) Urine Appearance Turbid H (Clear) Urine pH 6.0 (5.0-9.0) Ur Specific [place] 1.020 (1.001-1.035) Urine Protein 3+ H (Negative) mg/dL Urine Glucose (UA) Negative (Negative) mg/dL
--- NOTE | 2025-05-06 08:25 | PC.NURSE ---
Bandar Roberto at [phone], made aware of medication list was verified and ready to be viewed at this time.
--- NOTE | 2025-05-06 08:41 | PC.NURSE ---
Lifted pt up in bed repositioned to Left side per pts request. Floated pts heels. Pt aware of morning meds being verified by pharm.
--- NOTE | 2025-05-06 09:10 | PC.NURSE ---
Dr Roberto stated okay for heart health diet if not going to surgery for urology. Dr Roberto aware that urologyhas not seen the patient at this time.
--- NOTE | 2025-05-06 09:14 | PC.NURSE ---
Medication Order clarification for albuterol and Ipratropium/Albuterol calrified by Dr Roberto.
[2025-05-06] MEDS: [UNRECOGNIZED DRUG - REMARK] XX (09:16)
[2025-05-06] MEDS: FAMOTIDINE 20 MG TABLET PO ×2 (09:32→20:13)
[2025-05-06] MEDS: SENNA/DOCUSATE SODIUM TABLET 1 TAB PO ×2 (09:33→18:02)
[2025-05-06] MEDS: MULTIVITAMINS THERAPEUTIC TAB (*BKC) 1 TABLET PO (09:33)
[2025-05-06] MEDS: POTASSIUM CHLORIDE 20 MEQ ER TABLET PO ×2 (09:34→18:02)
[2025-05-06] MEDS: LORATADINE 10 MG TABLET PO (09:34)
[2025-05-06] MEDS: MECLIZINE HCL 25 MG TABLET PO (09:34)
[2025-05-06] MEDS: SIMETHICONE 80 MG TAB.CHEW PO ×2 (09:34→18:19)
[2025-05-06] MEDS: PRIMIDONE 50 MG TABLET PO ×2 (09:34→20:12)
[2025-05-06] MEDS: hydrOXYzine HCL 12.5 MG TABLET PO ×2 (09:34→20:13)
[2025-05-06] MEDS: PANTOPRAZOLE 40 MG TABLET PO (09:34)
[2025-05-06] MEDS: ACETAMINOPHEN 325 MG TABLET PO ×3 (09:35→19:21)
[2025-05-06] MEDS: FUROSEMIDE 20 MG TABLET PO ×2 (09:35→18:02)
[2025-05-06] MEDS: ASPIRIN 81 MG CHEWABLE TABLET PO (09:36)
[2025-05-06] MEDS: ARTIFICIAL TEARS OPHTH SOLN 15 ML BOTTLE 1 DROP EACH EYE ×2 (09:41→20:20)
--- NOTE | 2025-05-06 09:53 | PC.NURSE ---
topical Diclofenac not available.
--- NOTE | 2025-05-06 11:43 | PC.NURSE ---
Repositioned after being on back for a few minutes, changed linens, and moved to a hospital admit bed.
--- NOTE | 2025-05-06 11:45 | ECG_ITS ---
Test Date: 2025-05-06 11:49:32 Measurements Intervals [place] Rate: 70 P: 51 AK: 147 QRS: 23 QRSD: 86 T: 128 QT: 388 QTc: 420 Interpretive Statements SINUS RHYTHM LOW QRS VOLTAGE IN PRECORDIAL LEADS BORDERLINE ST-T WAVE ABNORMALITY- DIFFUSE LEADS BASELINE ARTIFACT- I, II, III, AVR, AVL ,AVF, V1-V2 BORDERLINE ECG Compared to ECG 05/06/2025 00:41:40 NO SIGNIFICANT CHANGE Electronically Signed On 05-06-2025 12:14:18 CDT by Ramesh Monreal D.O.
[2025-05-06] MEDS: HYDROcodone/acetaminophen (*CRX) 5-325 MG TABLET 1 TAB PO ×2 (12:55→22:56)
[2025-05-06] MEDS: IPRATROPIUM 0.5 MG/ALBUTEROL SULFATE 2.5 MG (BASE) AMPUL.NEB 3 ML INHALATION ×2 (15:19→20:47)
--- NOTE | 2025-05-06 16:24 | ADMGEN ---
This patient, Jolly Sadlana, was admitted to Medical Room 348-01. Patient/family oriented to hospital policies and general routines including ID bracelet, bed and alarms, visiting hours, pain management, procedures, bathroom and other care routines, personal items, smoking policy, room service/diet, and visiting hours. Information on how to activate the Rapid Response Team has been discussed. Patient/Family are encouraged to report perceived risks to care and to ask questions if they do not understand what they are told or what they should do.
--- NOTE | 2025-05-06 16:42 | PM.IMHP ---
H&P: HPI History of Present Illness Date/Time: 05/06/25 16:42 Chief Complaint: AMS Narrative: HPI narrative: Patient 75-year-old female who presents emergency department chief complaint of generalized weakness patient had a kidney stone that was managed by Urology with removal and stent placement patient was discharged back to the facility where she is resident of and today they noticed that she was not acting her usual self and was very slow patient states she feels very hot and reports does not feel well has also noticed that her urine is dark colored patient with abdominal pain and was found to have kidney stones, was seen by the urologist and patient had a procedures to remove the stones, suepect patient has developed UTI 2/2 to the procedure, patient stats pain is not as bad as when she came in the hospital. urine is quite suspicous for the UTI and being treated with ceftrixone, will follow up urine culture and furthe recommendation to follow. PMF Past Medical History Medical History History of ESBL E. coli infection Urinary tract infection Colostomy in place History of kidney stones Anxiety Depression Smoker Depression Surgical History Surgical History H/O hysterectomy for benign disease H/O colonoscopy H/O: hysterectomy Family History Family History Mother Dementia Kidney disease Hypertension Family history of Alzheimer's disease Father Brain cancer Sibling Liver disease Kidney stones Sibling Schizophrenia Obesity Mother No problems noted. Social History Social History Smoking packs per day: 1.5 Smoking cigarettes per day: 30.0 Years smoked: 40 Smoking pack-years: 60.00 Smoking status: Current every day smoker Additional smoking assessment comments: Cutting back on smoking and currently at a 1/2 pack a day. Alcohol intake: never Substance use: never Substance use type: unknown Do You Feel Safe in your Home?: Yes Lack of Transportation: No Lack of Food: Never True Current Housing: I Have Housing Concerned About Future Housing: No Difficulty Paying Gas/Electric Bills: No Difficulty Paying for Meds: No Currently Unemployed: No Education: Bachelor's Degree Difficulty w/ Childcare or Family Care: No Living arrangements: [facility] Additional living arrangements comments: [facility] Gender identity (if verbalized by the patient): Female Sexual Orientation (if Verbalized by the Patient): Straight or Heterosexual Spiritual care concerns: No Agree to blood products: Yes Meds Home Medications and Allergies Home Medications ?Medication ?Instructions ?Recorded ?Confirmed ?Type midodrine 10 mg PO TID 12/23/21 05/06/25 History albuterol sulfate 90 mcg/actuation 2 puff inhalation TID PRN 01/12/22 05/06/25 History aerosol inhaler (Ventolin HFA) Shortness Of Breath Or Wheezing aspirin 81 mg chewable tablet 81 mg PO DAILY 01/12/22 05/06/25 History camphor 4 %-methyl salicylate 30 1 applic topical BID PRN 01/16/22 05/06/25 Rx %-menthol 10 % topical cream Muscle/Joint Pain #57 grams (Bengay Ultra Strength) acetaminophen 325 mg tablet 325 mg PO Q6H 04/24/24 05/06/25 History meclizine 25 mg tablet 25 mg PO TID PRN Dizziness 04/24/24 05/06/25 History mirtazapine 15 mg tablet 15 mg PO HS 04/24/24 05/06/25 History polyethylene glycol 3350 17 gram 17 g PO DAILY 04/24/24 05/06/25 History oral powder packet (Miralax) primidone 50 mg tablet 50 mg PO Q12H 04/24/24 05/06/25 History melatonin 3 mg tablet 5 mg PO HS 04/25/24 05/06/25 History alprazolam 0.5 mg tablet 0.5 mg PO QHS 02/20/25 05/06/25 History diclofenac sodium 1 % topical gel 2 g topical QID 02/20/25 05/06/25 History (Arthritis Pain (diclofenac)) docusate sodium 100 mg capsule 100 mg PO HS 02/20/25 05/06/25 History (Colace) famotidine 20 mg tablet 20 mg PO Q12H 02/20/25 05/06/25 History fluticasone propionate 50 1 spray intranasal Q12H 02/20/25 05/06/25 History mcg/actuation nasal spray,suspension hydroxyzine HCl 25 mg tablet 12.5 mg PO .q12hr 02/20/25 05/06/25 History lidocaine 4 % topical patch 1 patch topical DAILY PRN pain 02/20/25 05/06/25 History (Lidocaine Pain Relief) multivitamin (Daily Multi-Vitamin 1 tablet PO DAILY 02/20/25 05/06/25 History tablet) omeprazole 20 mg capsule,delayed 20 mg PO DAILY 02/20/25 05/06/25 History release peg 400-propylene glycol (PF) 0.4 1 drp EACH EYE Q12H 02/20/25 05/06/25 History %-0.3 % eye drops in a dropperette (Lubricant Eye (PG-PEG 400) (PF)) simethicone 80 mg chewable tablet 80 mg PO BID 02/20/25 05/06/25 History (Gas Relief (simethicone)) furosemide 20 mg tablet 20 mg PO BID #60 tabs 02/26/25 05/06/25 Rx hydrocodone 5 mg-acetaminophen 325 1 tablet PO BID PRN pain #6 tabs 02/26/25 05/06/25 Rx mg tablet ipratropium 0.5 mg-albuterol 3 mg 3 ml inhalation Q6HRT PRN 02/26/25 05/06/25 Rx (2.5 mg base)/3 mL nebulization Shortness Of Breath #30 mL soln potassium chloride 20 mEq 20 meq PO BID #60 tabs 02/26/25 05/06/25 Rx tablet,extended release (K-Tab) fluoxetine 10 mg capsule (Prozac) 30 mg PO DAILY 04/27/25 05/06/25 History albuterol 90 mcg/actuation aerosol 90 mcg inhalation Q6H PRN wheezing 05/06/25 05/06/25 History inhaler levofloxacin 500 mg tablet 500 mg PO DAILY 05/06/25 05/06/25 History loperamide 2 mg capsule 2 mg PO Q6H PRN loose stool 05/06/25 05/06/25 History (Anti-Diarrheal (loperamide)) loratadine 10 mg tablet (Allergy 10 mg PO DAILY 05/06/25 05/06/25 History Relief (loratadine)) ondansetron 4 mg disintegrating 4 mg PO Q8H PRN nausea 05/06/25 05/06/25 History tablet sennosides 8.6 mg-docusate sodium 1 tab-cap PO BID 05/06/25 05/06/25 History 50 mg tablet (Senna Plus) Allergies Allergy/AdvReac Type Severity Reaction Status Date / Time Penicillins Allergy Severe RASH Verified 05/06/25 16:40 clindamycin Allergy Intermediate Rash Verified 05/06/25 16:40 Sulfa (Sulfonamide Allergy Mild Rash Verified 05/06/25 16:40 Antibiotics) sulfacetamide Allergy Mild Rash Verified 05/06/25 16:40 tetracycline Allergy Unknown RASH Verified 05/06/25 16:40 shellfish derived AdvReac Itching Verified 05/06/25 16:40 Vital Signs Vital Signs - 24 hr 05/05/25 23:49 05/05/25 23:49 05/06/25 00:02 Temperature 36.7 C Pulse Rate 83 86 Respiratory Rate 37 H 29 H Blood Pressure 85/49 L Pulse Oximetry 92 97 92 Oxygen Delivery Room Air Nasal Cannula Oxygen Flow Rate 2 05/06/25 00:19 05/06/25 00:46 05/06/25 00:47 Temperature Pulse Rate 81 83 81 Respiratory Rate 25 H 25 H 26 H Blood Pressure 109/58 L Pulse Oximetry 92 93 95 Oxygen Delivery Oxygen Flow Rate 05/06/25 01:00 05/06/25 01:01 05/06/25 01:22 Temperature Pulse Rate 92 94 85 Respiratory Rate 35 H 30 H 29 H Blood Pressure 120/65 107/59 L Pulse Oximetry 95 94 Oxygen Delivery Oxygen Flow Rate 05/06/25 01:23 05/06/25 01:30 05/06/25 01:31 Temperature Pulse Rate 83 80 82 Respiratory Rate 29 H 26 H 27 H Blood Pressure 98/49 L Pulse Oximetry Oxygen Delivery Oxygen Flow Rate 05/06/25 01:32 05/06/25 02:19 05/06/25 03:15 Temperature 38.2 C H Pulse Rate 81 87 Respiratory Rate 27 H 29 H Blood Pressure Pulse Oximetry 95 Oxygen Delivery Oxygen Flow Rate 05/06/25 03:52 05/06/25 04:05 05/06/25 04:34 Temperature 36.8 C 36.8 C Pulse Rate 93 97 Respiratory Rate 30 H 26 H Blood Pressure 106/55 L 76/53 L Pulse Oximetry 97 95 Oxygen Delivery Oxygen Flow Rate 05/06/25 05:16 05/06/25 05:30 05/06/25 05:31 Temperature Pulse Rate 74 74 74 Respiratory Rate 28 H 28 H 27 H Blood Pressure 77/52 L Pulse Oximetry 95 95 95 Oxygen Delivery Oxygen Flow Rate 05/06/25 05:38 05/06/25 05:45 05/06/25 05:46 Temperature Pulse Rate 79 71 73 Respiratory Rate 29 H 25 H 26 H Blood Pressure 80/39 L 78/40 L Pulse Oximetry 94 95 95 Oxygen Delivery Oxygen Flow Rate 05/06/25 06:00 05/06/25 06:01 05/06/25 06:09 Temperature Pulse Rate 77 76 70 Respiratory Rate 32 H 28 H 29 H Blood Pressure 76/42 L 73/33 L Pulse Oximetry 95 95 96 Oxygen Delivery Oxygen Flow Rate 05/06/25 06:12 05/06/25 06:14 05/06/25 06:15 Temperature Pulse Rate 70 69 Respiratory Rate 28 H 23 H Blood Pressure 90/51 L 90/51 L 84/52 L Pulse Oximetry 96 95 95 Oxygen Delivery Oxygen Flow Rate 05/06/25 06:30 05/06/25 06:45 05/06/25 07:00 Temperature Pulse Rate 65 66 65 Respiratory Rate 21 H 25 H 25 H Blood Pressure 88/51 L 89/52 L 97/55 L Pulse Oximetry 95 96 96 Oxygen Delivery Oxygen Flow Rate 05/06/25 08:00 05/06/25 08:19 05/06/25 08:32 Temperature Pulse Rate 62 62 71 Respiratory Rate 22 H 24 H 17 Blood Pressure 94/55 L Pulse Oximetry 95 96 94 Oxygen Delivery Oxygen Flow Rate 05/06/25 08:40 05/06/25 08:44 05/06/25 09:36 Temperature 36.7 C Pulse Rate 61 64 63 Respiratory Rate 14 21 H Blood Pressure 89/57 L Pulse Oximetry 93 98 Oxygen Delivery Oxygen Flow Rate 05/06/25 09:40 05/06/25 09:41 05/06/25 11:00 Temperature Pulse Rate 67 74 74 Respiratory Rate 20 18 24 H Blood Pressure 122/67 135/79 Pulse Oximetry 100 100 99 Oxygen Delivery Oxygen Flow Rate 05/06/25 11:20 05/06/25 12:00 05/06/25 12:20 Temperature Pulse Rate 68 63 60 Respiratory Rate 24 H 25 H 22 H Blood Pressure 122/73 121/61 114/67 Pulse Oximetry 99 99 97 Oxygen Delivery Oxygen Flow Rate 05/06/25 12:40 05/06/25 12:45 05/06/25 13:09 Temperature Pulse Rate 68 69 62 Respiratory Rate 19 29 H 21 H Blood Pressure 112/65 Pulse Oximetry 97 94 95 Oxygen Delivery Oxygen Flow Rate 05/06/25 13:15 05/06/25 13:16 05/06/25 13:30 Temperature Pulse Rate 60 60 60 Respiratory Rate 20 21 H 21 H Blood Pressure 115/58 L Pulse Oximetry 95 95 94 Oxygen Delivery Oxygen Flow Rate 05/06/25 13:45 05/06/25 15:20 05/06/25 15:23 Temperature Pulse Rate 60 71 72 Respiratory Rate 21 H 22 H 17 Blood Pressure Pulse Oximetry 94 Oxygen Delivery Oxygen Flow Rate 05/06/25 15:41 Temperature Pulse Rate 77 Respiratory Rate 18 Blood Pressure 118/62 Pulse Oximetry 98 Oxygen Delivery Oxygen Flow Rate Exam Narrative: Morbidly obese Patient is comfortable, NAD HEENT: eyes are clear and none icteric LUNGS:CTA HEART: RR S1S2 ABD: BS+, Soft and nontender Lower extremities: no edema SKIN: nonjaundiced Neuro: grossly intact. H&P: Results Labs Labs: Short CBC 05/06/25 Range/Units 00:05 WBC 19.7 H (4.5-10.0) K/mm3 Hgb 11.8 L (12.0-15.0) g/dL Hct 35.5 L (37.0-47.0) % Plt Count 260 (150-375) k/mm3 BMP 05/06/25 00:05 Sodium 131 L Potassium 4.7 Chloride 101 Carbon Dioxide 22 BUN 32 H D Creatinine 1.51 H Glucose 114 H Calcium 8.4 Cardiac Enzymes 05/06/25 Range/Units 00:30 Troponin I < 0.012 (0.000-0.034) ng/mL Liver Function 05/06/25 Range/Units 00:05 Total Bilirubin 1.0 (0.2-1.3) mg/dL AST 24 (14-36) U/L ALT 12 (6-35) U/L Alkaline Phosphatase 156 H (38-126) U/L Albumin 3.5 (3.5-5.1) g/dL Urine 05/06/25 Range/Units 00:08 Urine Color Brown H (Yellow) Urine Appearance Turbid H (Clear) Urine pH 6.0 (5.0-9.0) Ur Specific [place] 1.020 (1.001-1.035) Urine Protein 3+ H (Negative) mg/dL Urine Glucose (UA) Negative (Negative) mg/dL Assessment and Plan Assessment and plan (1) Kidney stone on left side: Code(s): N20.0 - Calculus of kidney Status: Acute (2) Obstruction of left ureteropelvic junction (UPJ) due to stone: Code(s): N20.1 - Calculus of ureter Status: Acute (3) RICARDO (acute kidney injury): Code(s): N17.9 - Acute kidney failure, unspecified Status: Resolved (4) Acute UTI: Code(s): N39.0 - Urinary tract infection, site not specified Status: Acute Plan patient with abdominal pain and was found to have kidney stones, was seen by the urologist and patient had a procedures to remove the stones, suepect patient has developed UTI 2/2 to the procedure, patient stats pain is not as bad as when she came in the hospital. urine is quite suspicous for the UTI and being treated with ceftrixone, will follow up urine culture and furthe recommendation to follow. Quality VTE Prophylaxis VTE prophylaxis: mechanical ordered Hospitalist MIPS Advance Care Plan The patient's Advanced Care plan is not present because:: Patient doesn't want to name surrogate or provider advance care plan Medication Reconciliation The patient is not eligible for med reconciliation; the patient is in a emergent medical situation where delaying treatment would jeopardize the patients health.: Yes
[2025-05-06] MEDS: ALPRAZolam (*CRX) 0.5 MG TABLET PO (20:12)
[2025-05-06] MEDS: MIRTAZAPINE 15 MG TABLET PO (20:12)
[2025-05-06] MEDS: DOCUSATE SODIUM 100 MG CAPSULE PO (20:12)
[2025-05-06] MEDS: MELATONIN 5 MG TABLET PO (20:13)
[2025-05-06] MEDS: FLUTICASONE PROPIONATE 0.05% NA SPR 16 GM BTL (*BKC) 1 SPRAY NASAL (20:20)
[2025-05-07] VITALS (18 sets, daily range): BP systolic 111–126; BP diastolic 53–72; PULSE 56–83; RESP 16–20; TEMP 36.3–36.6; O2SAT 92–97
[2025-05-07] MEDS: cefTRIAXone 1 GM in SODIUM CHLORIDE 0.9% IV 50 ML 100 ML IVPB (01:02)
[2025-05-07] MEDS: SODIUM CHLORIDE 0.9% IV 1,000 ML 100 ML IV CONT (01:02)
[2025-05-07] MEDS: IPRATROPIUM 0.5 MG/ALBUTEROL SULFATE 2.5 MG (BASE) AMPUL.NEB 3 ML INHALATION ×4 (02:35→20:29)
[2025-05-07 06:33] LABS: Hematocrit 34.9 % (37.0-47.0); Hemoglobin 10.5 g/dL (12.0-15.0); Mean Corpuscular HGB Conc 30.1 g/dl (32-36); Mean Corpuscular Hemoglobin 29.5 pg (26-34); Mean Corpuscular Volume 98.0 fl (80-100); Platelet Count Result 190 k/mm3 (150-375); Red Blood Count 3.56 M/mm3 (4.2-5.4); White Blood Count 10.7 K/mm3 (4.5-10.0)
--- NOTE | 2025-05-07 08:57 | P.PNUR_ITS ---
Progress Note: A&P Assessment and Plan (1) Urinary tract infection: Qualifiers: Hematuria presence: with hematuria Urinary tract infection type: acute cystitis Qualified Code(s): N30.01 - Acute cystitis with hematuria Code(s): N39.0 - Urinary tract infection, site not specified Status: Acute (2) Kidney stone on left side: Code(s): N20.0 - Calculus of kidney Status: Acute (3) Obstruction of left ureteropelvic junction (UPJ) due to stone: Code(s): N20.1 - Calculus of ureter Status: Acute Assessment and Plan: * Febrile urinary tract infection following extensive endoscopic ureteral stone procedure * Left ureteral stent appears to be in position * Continue broad-spectrum antibiotics until urine culture has resulted and then can change to culture driven antibiotics. * WBC has decreased from 19.7-10.7. * Creatinine has decreased from 1.51-0.83. * Maintain Jalloh catheter at this time. Subjective Subjective Date/Time Seen: 05/07/25 08:57 Interval history: No overnight events. Feeling better. No nausea vomiting. Review of Systems Review of Systems: All systems reviewed & are unremarkable except as noted in HPI and below Exam Const: General: no acute distress Resp: Effort & Inspection: normal respiratory effort GI: Inspection: non-distended Auscultation: normal bowel sounds Objective Data Vital Signs Vital Signs: Vital Signs - 24 hr 05/06/25 09:36 05/06/25 09:40 05/06/25 09:41 Temperature Pulse Rate 63 67 74 Respiratory Rate 21 H 20 18 Blood Pressure 122/67 Pulse Oximetry 98 100 100 Oxygen Delivery Oxygen Flow Rate 05/06/25 11:00 05/06/25 11:20 05/06/25 12:00 Temperature Pulse Rate 74 68 63 Respiratory Rate 24 H 24 H 25 H Blood Pressure 135/79 122/73 121/61 Pulse Oximetry 99 99 99 Oxygen Delivery Oxygen Flow Rate 05/06/25 12:20 05/06/25 12:40 05/06/25 12:45 Temperature Pulse Rate 60 68 69 Respiratory Rate 22 H 19 29 H Blood Pressure 114/67 112/65 Pulse Oximetry 97 97 94 Oxygen Delivery Oxygen Flow Rate 05/06/25 13:09 05/06/25 13:15 05/06/25 13:16 Temperature Pulse Rate 62 60 60 Respiratory Rate 21 H 20 21 H Blood Pressure 115/58 L Pulse Oximetry 95 95 95 Oxygen Delivery Oxygen Flow Rate 05/06/25 13:30 05/06/25 13:45 05/06/25 15:20 Temperature Pulse Rate 60 60 71 Respiratory Rate 21 H 21 H 22 H Blood Pressure Pulse Oximetry 94 94 Oxygen Delivery Oxygen Flow Rate 05/06/25 15:23 05/06/25 15:41 05/06/25 16:49 Temperature 96.0 F L Pulse Rate 72 77 66 Respiratory Rate 17 18 16 Blood Pressure 118/62 87/57 L Pulse Oximetry 98 94 Oxygen Delivery Oxygen Flow Rate 05/06/25 18:12 05/06/25 20:00 05/06/25 20:45 Temperature Pulse Rate 66 72 Respiratory Rate 16 Blood Pressure Pulse Oximetry 94 95 Oxygen Delivery Nasal Cannula Nasal Cannula Oxygen Flow Rate 2 2 05/06/25 20:49 05/06/25 20:56 05/06/25 22:00 Temperature 97.6 F Pulse Rate 70 72 78 Respiratory Rate 16 16 16 Blood Pressure 113/69 Pulse Oximetry 95 Oxygen Delivery Oxygen Flow Rate 05/07/25 00:00 05/07/25 02:35 05/07/25 02:40 Temperature Pulse Rate 63 62 63 Respiratory Rate 16 16 Blood Pressure Pulse Oximetry Oxygen Delivery Oxygen Flow Rate 05/07/25 04:00 05/07/25 06:00 05/07/25 07:50 Temperature 97.8 F Pulse Rate 67 83 73 Respiratory Rate 18 20 Blood Pressure 111/72 Pulse Oximetry 97 92 Oxygen Delivery Nasal Cannula Oxygen Flow Rate 1.5 05/07/25 07:50 05/07/25 07:59 Temperature Pulse Rate 73 74 Respiratory Rate 20 20 Blood Pressure Pulse Oximetry Oxygen Delivery Oxygen Flow Rate Intake/Output Intake/Output: Intake & Output 05/04/25 05/05/25 05/06/25 05/07/25 23:59 23:59 23:59 23:59 Intake Total 3868.3 500 Output Total 870 2600 Balance 2998.3 -2100 Meds/Results Medications: Active Medications Generic Name Dose Route Start Last Admin Trade Name Freq PRN Reason Stop Dose Admin Acetaminophen 650 mg 05/06/25 03:28 Acetaminophen 325 Mg Tablet PO Q4H PRN Mild Pain (1-3) or Fever Acetaminophen 325 mg 05/06/25 09:00 05/07/25 04:36 Acetaminophen 325 Mg Tablet PO Not Given Q6H [facility] Hydrocodone Bitart/Acetaminophen 1 tab 05/06/25 08:29 05/06/25 22:56 Hydrocodone/Acetaminophen (*Crx) 5-325 Mg Tablet PO 1 tab BID PRN Administration Pain 4-6 Albuterol 2 puff 05/06/25 09:15 Albuterol Sulfate (*Sp) Aerosol 1 Puff INHALATION Q6H PRN wheezing Albuterol/Ipratropium 3 ml 05/06/25 14:00 05/07/25 07:49 Ipratropium 0.5 Mg/Albuterol Sulfate 2.5 Mg (Base) Ampul.Neb 3 Ml INHALATION 3 ml Q6HRT [facility]LE[facility] Administration Alprazolam 0.5 mg 05/06/25 21:00 05/06/25 20:12 Alprazolam (*Crx) 0.5 Mg Tablet PO 0.5 mg QHS [facility]LE[facility] Administration Artificial Tears 1 drop 05/06/25 08:45 05/06/25 20:20 Artificial Tears Ophth Soln 15 Ml Bottle EACH EYE 1 drop Q12H [facility]LE[facility] Administration Aspirin 81 mg 05/06/25 09:00 05/06/25 09:36 Aspirin 81 Mg Chewable Tablet PO 81 mg DAILY [facility] Administration Diclofenac Sodium 1 applic 05/06/25 09:00 05/06/25 20:21 Diclofenac Sodium 1% 100 Gm Gel (*Bkc) TOPICAL Not Given QID [facility] Docusate Sodium 100 mg 05/06/25 21:00 05/06/25 20:12 Docusate Sodium 100 Mg Capsule PO 100 mg HS [facility] Administration Famotidine 20 mg 05/06/25 09:00 05/06/25 20:13 Famotidine 20 Mg Tablet PO 20 mg Q12HR [facility] Administration Fentanyl Citrate 50 mcg 05/06/25 03:28 Fentanyl Citrate Inj (*Crx) 100 Mcg/2 Ml Vial IV PUSH Q2H PRN Pain Rated 7-10 Fluoxetine HCl 30 mg 05/06/25 09:00 05/06/25 09:33 Fluoxetine Hcl 10 Mg Capsule PO 30 mg DAILY [facility] Administration Fluticasone Propionate 1 spray 05/06/25 09:00 05/06/25 20:20 Fluticasone Propionate 0.05% Na Spr 16 Gm Btl (*Bkc) NASAL 1 spray Q12HR [facility] Administration Furosemide 20 mg 05/06/25 09:00 05/06/25 18:02 Furosemide 20 Mg Tablet PO 20 mg BID [facility] Administration Hydroxyzine HCl 12.5 mg 05/06/25 09:00 05/06/25 20:13 Hydroxyzine Hcl 12.5 Mg Tablet PO 12.5 mg Q12HR [facility] Administration Ceftriaxone Sodium 1 gm/ 50 mls @ 100 mls/hr 05/07/25 01:00 05/07/25 01:02 Sodium Chloride IVPB 100 mls/hr Q24H [facility] Administration Sodium Chloride 1,000 mls @ 100 mls/hr 05/06/25 03:30 05/07/25 01:02 Normal Saline Iv IV CONT 100 mls/hr .Q10H [facility] Administration Levofloxacin 500 mg 05/06/25 09:00 05/06/25 09:33 Levofloxacin 500 Mg Tablet PO 500 mg DAILY [facility] Administration Lidocaine 1 patch 05/06/25 08:29 Lidocaine 5% Patch TOPICAL DAILY PRN pain Loratadine 10 mg 05/06/25 09:00 05/06/25 09:34 Loratadine 10 Mg Tablet PO 10 mg DAILY [facility] Administration Meclizine HCl 25 mg 05/06/25 08:29 05/06/25 09:34 Meclizine Hcl 25 Mg Tablet PO 25 mg TID PRN Administration Dizziness Melatonin 5 mg 05/06/25 21:00 05/06/25 20:13 Melatonin 5 Mg Tablet PO 5 mg HS [facility] Administration Menthol/Methyl Salicylate 1 applic 05/06/25 08:29 Menthol 10% / Methyl Salicylate 15% 57 Gm Tube TOPICAL BID PRN Muscle/Joint Pain Midodrine 10 mg 05/06/25 05:16 05/06/25 18:19 Midodrine Hcl 10 Mg Tablet PO 10 mg TID [facility] Administration Mirtazapine 15 mg 05/06/25 21:00 05/06/25 20:12 Mirtazapine 15 Mg Tablet PO 15 mg HS [facility] Administration Multivitamins Therapeutic 1 tablet 05/06/25 09:00 05/06/25 09:33 Multivitamins Therapeutic Tab (*Bkc) PO 1 tablet DAILY [facility] Administration Ondansetron HCl 4 mg 05/06/25 03:28 Ondansetron Inj 4 Mg/2 Ml Vial IV PUSH Q4H PRN Nausea Ondansetron HCl 4 mg 05/06/25 08:29 Ondansetron Hcl Odt 4 Mg Tablet PO Q8H PRN Nausea Pantoprazole Sodium 40 mg 05/06/25 09:00 05/06/25 09:34 Pantoprazole 40 Mg Tablet PO 06/05/25 08:59 40 mg DAILY [facility] Administration Polyethylene Glycol 17 gm 05/06/25 09:00 05/06/25 09:44 Polyethylene Glycol 3350 17 Gm Powd.Pack PO Not Given DAILY [facility] Potassium Chloride 20 meq 05/06/25 09:00 05/06/25 18:02 Potassium Chloride 20 Meq Er Tablet PO 20 meq BID [facility] Administration Primidone 50 mg 05/06/25 09:00 05/06/25 20:12 Primidone 50 Mg Tablet PO 50 mg Q12HR [facility] Administration Senna/Docusate Sodium 1 tab 05/06/25 09:00 05/06/25 18:02 Senna/Docusate Sodium Tablet PO 1 tab BID [facility] Administration Simethicone 80 mg 05/06/25 09:00 05/06/25 18:19 Simethicone 80 Mg Tab.Chew PO 80 mg BID [facility] Administration Radiology Results: ITS Impressions Abdomen/Pelvis CT 05/06/25 08:03 IMPRESSION: 1. Cholelithiasis. Gallbladder distention may be secondary to fasting. 2. Bilateral nonobstructing kidney stones. 3. Mild bilateral hydronephrosis. Left internal ureteral stent in expected position. 4. Foci of free gas in the left perinephric fat, which may be secondary to ureteral perforation. 5. 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 Labs Labs: Laboratory Results - last 24 hr 05/07/25 06:22 WBC 10.7 H RBC 3.56 L Hgb 10.5 L Hct 34.9 L MCV 98.0 D MCH 29.5 MCHC 30.1 L RDW 14.1 Plt Count 190 MPV 9.8
[2025-05-07 09:02] LABS: Anion Gap 7 mmol/L (4-12); Blood Urea Nitrogen 17 mg/dL (7-17); Calcium 8.2 mg/dL (8.4-10.2); Carbon Dioxide 20 mmol/L (22-30); Chloride 107 mmol/L (98-107); Estimated CRCL calculation 66 ml/min; Estimated Glomerular Filt Rate > 60; Glucose 106 mg/dL (65-110); Magnesium 1.8 mg/dL (1.6-2.3); Potassium 3.6 mmol/L (3.4-5.0); Sodium 134 mmol/L (137-145)
[2025-05-07] MEDS: SIMETHICONE 80 MG TAB.CHEW PO ×2 (09:13→16:22)
[2025-05-07] MEDS: ACETAMINOPHEN 325 MG TABLET PO ×3 (09:13→20:43)
[2025-05-07] MEDS: FAMOTIDINE 20 MG TABLET PO ×2 (09:13→20:43)
[2025-05-07] MEDS: hydrOXYzine HCL 12.5 MG TABLET PO ×2 (09:13→20:43)
[2025-05-07] MEDS: ASPIRIN 81 MG CHEWABLE TABLET PO (09:13)
[2025-05-07] MEDS: MULTIVITAMINS THERAPEUTIC TAB (*BKC) 1 TABLET PO (09:13)
[2025-05-07] MEDS: PRIMIDONE 50 MG TABLET PO ×2 (09:13→20:43)
[2025-05-07] MEDS: POTASSIUM CHLORIDE 20 MEQ ER TABLET PO ×2 (09:13→16:22)
[2025-05-07] MEDS: PANTOPRAZOLE 40 MG TABLET PO (09:13)
[2025-05-07] MEDS: SENNA/DOCUSATE SODIUM TABLET 1 TAB PO ×2 (09:13→16:23)
[2025-05-07] MEDS: LORATADINE 10 MG TABLET PO (09:13)
[2025-05-07] MEDS: FUROSEMIDE 20 MG TABLET PO (09:13)
[2025-05-07] MEDS: MIDODRINE HCL 10 MG TABLET PO ×3 (09:13→16:22)
[2025-05-07] MEDS: ARTIFICIAL TEARS OPHTH SOLN 15 ML BOTTLE 1 DROP EACH EYE ×2 (09:21→20:44)
[2025-05-07] MEDS: FLUTICASONE PROPIONATE 0.05% NA SPR 16 GM BTL (*BKC) 1 SPRAY NASAL ×2 (09:21→20:44)
[2025-05-07] MEDS: HYDROcodone/acetaminophen (*CRX) 5-325 MG TABLET 1 TAB PO (11:48)
--- NOTE | 2025-05-07 14:56 | PM.IMPN ---
Progress Note: A&P Assessment and Plan (1) Kidney stone on left side: Code(s): N20.0 - Calculus of kidney Status: Acute (2) Obstruction of left ureteropelvic junction (UPJ) due to stone: Code(s): N20.1 - Calculus of ureter Status: Acute (3) RICARDO (acute kidney injury): Code(s): N17.9 - Acute kidney failure, unspecified Status: Resolved (4) Acute UTI: Code(s): N39.0 - Urinary tract infection, site not specified Status: Acute Plan This is a 75-year-old female who presents to the ED with generalized weakness. She is a senior living resident. She was also noted to have altered mental status and fever with dark-colored urine. In the ED her blood pressure was low with 85/49. Laboratory workup revealed WBC of 19.7 hemoglobin of 11.8 platelet count of 260. Chem panel shows sodium of 131 potassium of 4.7 chloride 101 bicarbonate 20 2 creatinine 1.5 in blood glucose of 114. Lactate was normal at 1.4 troponin was negative LFTs were normal except for alkaline phosphatase 156. Urinalysis was suggestive of UTI with 21-50 WBC and 51-[address] abdomen pelvis was performed which showed small focus of air around the pelvis stent in place. Patient received IV fluids and started on IV antibiotics. Urology has been consulted. Sepsis with UTI Recent extraction of left renal calculi on 05/04/2025. CT with left ureteral stent in position RICARDO with creatinine of 1.5 back improved Hypertension on midodrine at home which will be continued History of kidney stones History of ESBL history of recurrent UTIs Anxiety/depression Colostomy in place DVT prophylaxis Code status full code Subjective Date/time seen: 05/07/25 14:56 Interval history: No overnight events. Feeling better. No nausea vomiting. Remains afebrile. Review of Systems Review of Systems: All systems reviewed & are unremarkable except as noted in HPI and below Exam Narrative: Morbidly obese not in acute distress Patient is comfortable, NAD HEENT: eyes are clear and none icteric LUNGS:CTA HEART: RR S1S2 ABD: BS+, Soft and nontender Lower extremities: no edema SKIN: nonjaundiced Neuro: grossly intact. Objective Data Vital Signs Vital Signs: Vital Signs - 24 hr 05/06/25 15:20 05/06/25 15:23 05/06/25 15:41 Temperature Pulse Rate 71 72 77 Respiratory Rate 22 H 17 18 Blood Pressure 118/62 Pulse Oximetry 98 Oxygen Delivery Oxygen Flow Rate 05/06/25 16:49 05/06/25 18:12 05/06/25 20:00 Temperature 96.0 F L Pulse Rate 66 66 72 Respiratory Rate 16 16 Blood Pressure 87/57 L Pulse Oximetry 94 94 Oxygen Delivery Nasal Cannula Oxygen Flow Rate 2 05/06/25 20:45 05/06/25 20:49 05/06/25 20:56 Temperature Pulse Rate 70 72 Respiratory Rate 16 16 Blood Pressure Pulse Oximetry 95 Oxygen Delivery Nasal Cannula Oxygen Flow Rate 2 05/06/25 22:00 05/07/25 00:00 05/07/25 02:35 Temperature 97.6 F Pulse Rate 78 63 62 Respiratory Rate 16 16 Blood Pressure 113/69 Pulse Oximetry 95 Oxygen Delivery Oxygen Flow Rate 05/07/25 02:40 05/07/25 04:00 05/07/25 06:00 Temperature 97.8 F Pulse Rate 63 67 83 Respiratory Rate 16 18 Blood Pressure 111/72 Pulse Oximetry 97 Oxygen Delivery Oxygen Flow Rate 05/07/25 07:50 05/07/25 07:50 05/07/25 07:59 Temperature Pulse Rate 73 73 74 Respiratory Rate 20 20 20 Blood Pressure Pulse Oximetry 92 Oxygen Delivery Nasal Cannula Oxygen Flow Rate 1.5 05/07/25 08:00 05/07/25 08:00 05/07/25 12:00 Temperature Pulse Rate 72 57 L Respiratory Rate Blood Pressure Pulse Oximetry 92 Oxygen Delivery Nasal Cannula Oxygen Flow Rate 2 05/07/25 13:42 05/07/25 13:42 05/07/25 13:48 Temperature Pulse Rate 67 67 72 Respiratory Rate 20 20 20 Blood Pressure Pulse Oximetry 94 Oxygen Delivery Nasal Cannula Oxygen Flow Rate 2.0 05/07/25 14:00 Temperature 97.3 F L Pulse Rate 75 Respiratory Rate 19 Blood Pressure 126/53 L Pulse Oximetry 97 Oxygen Delivery Oxygen Flow Rate Intake/Output Intake/Output: Intake & Output 05/04/25 05/05/25 05/06/25 05/07/25 23:59 23:59 23:59 23:59 Intake Total 3868.3 740 Output Total 870 2600 Balance 2998.3 -1860 Meds/Results Medications: Active Medications Generic Name Dose Route Start Last Admin Trade Name Freq PRN Reason Stop Dose Admin Acetaminophen 650 mg 05/06/25 03:28 Acetaminophen 325 Mg Tablet PO Q4H PRN Mild Pain (1-3) or Fever Acetaminophen 325 mg 05/06/25 09:00 05/07/25 09:13 Acetaminophen 325 Mg Tablet PO 325 mg Q6H CELESTE Administration Hydrocodone Bitart/Acetaminophen 1 tab 05/06/25 08:29 05/07/25 11:48 Hydrocodone/Acetaminophen (*Crx) 5-325 Mg Tablet PO 1 tab BID PRN Administration Pain 4-6 Albuterol 2 puff 05/06/25 09:15 Albuterol Sulfate (*Sp) Aerosol 1 Puff INHALATION Q6H PRN wheezing Albuterol/Ipratropium 3 ml 05/06/25 14:00 05/07/25 13:41 Ipratropium 0.5 Mg/Albuterol Sulfate 2.5 Mg (Base) Ampul.Neb 3 Ml INHALATION 3 ml Q6HRT CELESTE Administration Alprazolam 0.5 mg 05/06/25 21:00 05/06/25 20:12 Alprazolam (*Crx) 0.5 Mg Tablet PO 0.5 mg QHS CELESTE Administration Artificial Tears 1 drop 05/06/25 08:45 05/07/25 09:21 Artificial Tears Ophth Soln 15 Ml Bottle EACH EYE 1 drop Q12H CELESTE Administration Aspirin 81 mg 05/06/25 09:00 05/07/25 09:13 Aspirin 81 Mg Chewable Tablet PO 81 mg DAILY CELESTE Administration Diclofenac Sodium 1 applic 05/06/25 09:00 05/07/25 11:57 Diclofenac Sodium 1% 100 Gm Gel (*Bkc) TOPICAL Not Given QID [facility] Docusate Sodium 100 mg 05/06/25 21:00 05/06/25 20:12 Docusate Sodium 100 Mg Capsule PO 100 mg HS CELESTE Administration Famotidine 20 mg 05/06/25 09:00 05/07/25 09:13 Famotidine 20 Mg Tablet PO 20 mg Q12HR CELESTE Administration Fentanyl Citrate 50 mcg 05/06/25 03:28 Fentanyl Citrate Inj (*Crx) 100 Mcg/2 Ml Vial IV PUSH Q2H PRN Pain Rated 7-10 Fluoxetine HCl 30 mg 05/06/25 09:00 05/07/25 09:13 Fluoxetine Hcl 10 Mg Capsule PO 30 mg DAILY CELESTE Administration Fluticasone Propionate 1 spray 05/06/25 09:00 05/07/25 09:21 Fluticasone Propionate 0.05% Na Spr 16 Gm Btl (*Bkc) NASAL 1 spray Q12HR CELESTE Administration Furosemide 20 mg 05/06/25 09:00 05/07/25 09:13 Furosemide 20 Mg Tablet PO 20 mg BID CELESTE Administration Hydroxyzine HCl 12.5 mg 05/06/25 09:00 05/07/25 09:13 Hydroxyzine Hcl 12.5 Mg Tablet PO 12.5 mg Q12HR CELESTE Administration Ceftriaxone Sodium 1 gm/ 50 mls @ 100 mls/hr 05/07/25 01:00 05/07/25 01:02 Sodium Chloride IVPB 100 mls/hr Q24H CELESTE Administration Sodium Chloride 1,000 mls @ 100 mls/hr 05/06/25 03:30 05/07/25 09:23 Normal Saline Iv IV CONT Not Given .Q10H CELESTE Levofloxacin 500 mg 05/06/25 09:00 05/07/25 09:13 Levofloxacin 500 Mg Tablet PO 500 mg DAILY CELESTE Administration Lidocaine 1 patch 05/06/25 08:29 Lidocaine 5% Patch TOPICAL DAILY PRN pain Loratadine 10 mg 05/06/25 09:00 05/07/25 09:13 Loratadine 10 Mg Tablet PO 10 mg DAILY CELESTE Administration Meclizine HCl 25 mg 05/06/25 08:29 05/06/25 09:34 Meclizine Hcl 25 Mg Tablet PO 25 mg TID PRN Administration Dizziness Melatonin 5 mg 05/06/25 21:00 05/06/25 20:13 Melatonin 5 Mg Tablet PO 5 mg HS CELESTE Administration Menthol/Methyl Salicylate 1 applic 05/06/25 08:29 Menthol 10% / Methyl Salicylate 15% 57 Gm Tube TOPICAL BID PRN Muscle/Joint Pain Midodrine 10 mg 05/06/25 05:16 05/07/25 12:01 Midodrine Hcl 10 Mg Tablet PO 10 mg TID CELESTE Administration Mirtazapine 15 mg 05/06/25 21:00 05/06/25 20:12 Mirtazapine 15 Mg Tablet PO 15 mg HS CELESTE Administration Multivitamins Therapeutic 1 tablet 05/06/25 09:00 05/07/25 09:13 Multivitamins Therapeutic Tab (*Bkc) PO 1 tablet DAILY CELESTE Administration Ondansetron HCl 4 mg 05/06/25 03:28 Ondansetron Inj 4 Mg/2 Ml Vial IV PUSH Q4H PRN Nausea Ondansetron HCl 4 mg 05/06/25 08:29 Ondansetron Hcl Odt 4 Mg Tablet PO Q8H PRN Nausea Pantoprazole Sodium 40 mg 05/06/25 09:00 05/07/25 09:13 Pantoprazole 40 Mg Tablet PO 06/05/25 08:59 40 mg DAILY CELESTE Administration Polyethylene Glycol 17 gm 05/06/25 09:00 05/07/25 09:21 Polyethylene Glycol 3350 17 Gm Powd.Pack PO Not Given DAILY CELESTE Potassium Chloride 20 meq 05/06/25 09:00 05/07/25 09:13 Potassium Chloride 20 Meq Er Tablet PO 20 meq BID CELESTE Administration Primidone 50 mg 05/06/25 09:00 05/07/25 09:13 Primidone 50 Mg Tablet PO 50 mg Q12HR CELESTE Administration Senna/Docusate Sodium 1 tab 05/06/25 09:00 05/07/25 09:13 Senna/Docusate Sodium Tablet PO 1 tab BID CELESTE Administration Simethicone 80 mg 05/06/25 09:00 05/07/25 09:13 Simethicone 80 Mg Tab.Chew PO 80 mg BID CELESTE Administration Radiology Results: ITS Impressions Abdomen/Pelvis CT 05/06/25 08:03 IMPRESSION: 1. Cholelithiasis. Gallbladder distention may be secondary to fasting. 2. Bilateral nonobstructing kidney stones. 3. Mild bilateral hydronephrosis. Left internal ureteral stent in expected position. 4. Foci of free gas in the left perinephric fat, which may be secondary to ureteral perforation. 5. 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 Labs Labs: Laboratory Results - last 24 hr 05/07/25 05/07/25 06:22 07:52 WBC 10.7 H RBC 3.56 L Hgb 10.5 L Hct 34.9 L MCV 98.0 D MCH 29.5 MCHC 30.1 L RDW 14.1 Plt Count 190 MPV 9.8 Sodium 134 L Potassium 3.6 Chloride 107 Carbon Dioxide 20 L Anion Gap 7 BUN 17 D Creatinine 0.83 Estim Creat Clear Calc 66 Estimated GFR > 60 Glucose 106 Calcium 8.2 L Magnesium 1.8
[2025-05-07] MEDS: LIDOCAINE 5% PATCH 1 PATCH TOPICAL (20:43)
[2025-05-07] MEDS: ALPRAZolam (*CRX) 0.5 MG TABLET PO (20:43)
[2025-05-07] MEDS: MIRTAZAPINE 15 MG TABLET PO (20:43)
[2025-05-07] MEDS: DOCUSATE SODIUM 100 MG CAPSULE PO (20:43)
[2025-05-07] MEDS: MELATONIN 5 MG TABLET PO (20:43)
[2025-05-08] VITALS (17 sets, daily range): BP systolic 108–131; BP diastolic 62–83; PULSE 60–77; RESP 13–20; TEMP 36.3–36.8; O2SAT 92–97
[2025-05-08] MEDS: HYDROcodone/acetaminophen (*CRX) 5-325 MG TABLET 1 TAB PO (00:48)
[2025-05-08] MEDS: cefTRIAXone 1 GM in SODIUM CHLORIDE 0.9% IV 50 ML 100 ML IVPB (00:48)
[2025-05-08 06:06] LABS: Hematocrit 31.2 % (37.0-47.0); Hemoglobin 10.2 g/dL (12.0-15.0); Mean Corpuscular HGB Conc 32.7 g/dl (32-36); Mean Corpuscular Hemoglobin 29.7 pg (26-34); Mean Corpuscular Volume 91.0 fl (80-100); Platelet Count Result 243 k/mm3 (150-375); Red Blood Count 3.43 M/mm3 (4.2-5.4); White Blood Count 8.0 K/mm3 (4.5-10.0)
[2025-05-08 06:29] LABS: Anion Gap 9 mmol/L (4-12); Blood Urea Nitrogen 15 mg/dL (7-17); Calcium 8.1 mg/dL (8.4-10.2); Carbon Dioxide 19 mmol/L (22-30); Chloride 105 mmol/L (98-107); Estimated CRCL calculation 69 ml/min; Estimated Glomerular Filt Rate > 60; Glucose 102 mg/dL (65-110); Magnesium 1.9 mg/dL (1.6-2.3); Potassium 3.7 mmol/L (3.4-5.0); Sodium 133 mmol/L (137-145)
[2025-05-08] MEDS: IPRATROPIUM 0.5 MG/ALBUTEROL SULFATE 2.5 MG (BASE) AMPUL.NEB 3 ML INHALATION ×3 (07:27→20:11)
[2025-05-08] MEDS: PRIMIDONE 50 MG TABLET PO ×2 (09:15→20:41)
[2025-05-08] MEDS: FAMOTIDINE 20 MG TABLET PO ×2 (09:17→20:41)
[2025-05-08] MEDS: LORATADINE 10 MG TABLET PO (09:17)
[2025-05-08] MEDS: ACETAMINOPHEN 325 MG TABLET PO ×3 (09:17→20:41)
[2025-05-08] MEDS: MIDODRINE HCL 10 MG TABLET PO ×3 (09:17→17:09)
[2025-05-08] MEDS: SIMETHICONE 80 MG TAB.CHEW PO ×2 (09:17→17:09)
[2025-05-08] MEDS: PANTOPRAZOLE 40 MG TABLET PO (09:17)
[2025-05-08] MEDS: MULTIVITAMINS THERAPEUTIC TAB (*BKC) 1 TABLET PO (09:17)
[2025-05-08] MEDS: POTASSIUM CHLORIDE 20 MEQ ER TABLET PO ×2 (09:17→17:09)
[2025-05-08] MEDS: hydrOXYzine HCL 12.5 MG TABLET PO ×2 (09:18→20:41)
[2025-05-08] MEDS: ASPIRIN 81 MG CHEWABLE TABLET PO (09:18)
[2025-05-08] MEDS: FLUTICASONE PROPIONATE 0.05% NA SPR 16 GM BTL (*BKC) 1 SPRAY NASAL ×2 (09:18→20:42)
[2025-05-08] MEDS: ARTIFICIAL TEARS OPHTH SOLN 15 ML BOTTLE 1 DROP EACH EYE ×2 (09:19→20:42)
[2025-05-08] MEDS: cefTRIAXone 2 GM in SODIUM CHLORIDE 0.9% IV 100 ML 200 ML IVPB (13:16)
--- NOTE | 2025-05-08 14:04 | P.PNIM_ITS ---
Progress Note: A&P Assessment and Plan (1) Kidney stone on left side: Code(s): N20.0 - Calculus of kidney Status: Acute (2) Obstruction of left ureteropelvic junction (UPJ) due to stone: Code(s): N20.1 - Calculus of ureter Status: Acute (3) RICARDO (acute kidney injury): Code(s): N17.9 - Acute kidney failure, unspecified Status: Resolved (4) Acute UTI: Code(s): N39.0 - Urinary tract infection, site not specified Status: Acute Plan This is a 75-year-old female who presents to the ED with generalized weakness. She is a care home resident. She was also noted to have altered mental status and fever with dark-colored urine. In the ED her blood pressure was low with 85/49. Laboratory workup revealed WBC of 19.7 hemoglobin of 11.8 platelet count of 260. Chem panel shows sodium of 131 potassium of 4.7 chloride 101 bicarbonate 20 2 creatinine 1.5 in blood glucose of 114. Lactate was normal at 1.4 troponin was negative LFTs were normal except for alkaline phosphatase 156. Urinalysis was suggestive of UTI with 21-50 WBC and 51-[address] abdomen pelvis was performed which showed small focus of air around the pelvis stent in place. Patient received IV fluids and started on IV antibiotics. Urology has been consulted. Sepsis with UTI Bacteremia with Gram-negative bacilli. Identified as E coli. Sensitivity pending. Increase ceftriaxone to 2 g daily. E coli in the past was ESBL. WBC did improve with resolution of fever and will continue on ceftriaxone for now. Recent extraction of left renal calculi on 05/04/2025. CT with left ureteral stent in position RICARDO with creatinine of 1.5 back improved Hypertension on midodrine at home which will be continued History of kidney stones History of ESBL history of recurrent UTIs Anxiety/depression Colostomy in place DVT prophylaxis Code status full code Subjective Date/time seen: 05/08/25 14:04 Interval history: No overnight events. Remains afebrile. Feeling better. From care home. Review of Systems Review of Systems: All systems reviewed & are unremarkable except as noted in HPI and below Exam Narrative: Morbidly obese not in acute distress Patient is comfortable, NAD HEENT: eyes are clear and none icteric LUNGS:CTA HEART: RR S1S2 ABD: BS+, Soft and nontender Lower extremities: no edema SKIN: nonjaundiced Neuro: grossly intact. Objective Data Vital Signs Vital Signs: Vital Signs - 24 hr 05/07/25 16:00 05/07/25 20:00 05/07/25 20:29 Temperature Pulse Rate 56 L 57 L 66 Respiratory Rate 20 Blood Pressure Pulse Oximetry Oxygen Delivery Oxygen Flow Rate 05/07/25 20:34 05/07/25 20:38 05/07/25 22:00 Temperature 97.7 F Pulse Rate 66 67 65 Respiratory Rate 20 18 Blood Pressure 113/57 L Pulse Oximetry 95 92 Oxygen Delivery Nasal Cannula Oxygen Flow Rate 1 05/08/25 00:00 05/08/25 04:00 05/08/25 06:00 Temperature 98.0 F Pulse Rate 66 66 66 Respiratory Rate 18 Blood Pressure 108/62 Pulse Oximetry 92 Oxygen Delivery Oxygen Flow Rate 05/08/25 07:27 05/08/25 07:30 05/08/25 08:00 Temperature Pulse Rate 68 61 Respiratory Rate 13 Blood Pressure Pulse Oximetry 93 Oxygen Delivery Nasal Cannula Oxygen Flow Rate 2 05/08/25 09:16 05/08/25 12:00 Temperature 97.5 F L Pulse Rate 70 60 Respiratory Rate 20 Blood Pressure 131/69 Pulse Oximetry 97 Oxygen Delivery Oxygen Flow Rate Intake/Output Intake/Output: Intake & Output 05/05/25 05/06/25 05/07/25 05/08/25 23:59 23:59 23:59 23:59 Intake Total 3868.3 1877 440 Output Total 870 3375 775 Balance 2998.3 -1498 -335 Meds/Results Medications: Active Medications Generic Name Dose Route Start Last Admin Trade Name Freq PRN Reason Stop Dose Admin Acetaminophen 650 mg 05/06/25 03:28 Acetaminophen 325 Mg Tablet PO Q4H PRN Mild Pain (1-3) or Fever Acetaminophen 325 mg 05/06/25 09:00 05/08/25 09:17 Acetaminophen 325 Mg Tablet PO 325 mg Q6H CELESTE Administration Hydrocodone Bitart/Acetaminophen 1 tab 05/06/25 08:29 05/08/25 00:48 Hydrocodone/Acetaminophen (*Crx) 5-325 Mg Tablet PO 1 tab BID PRN Administration Pain 4-6 Albuterol 2 puff 05/06/25 09:15 Albuterol Sulfate (*Sp) Aerosol 1 Puff INHALATION Q6H PRN wheezing Albuterol/Ipratropium 3 ml 05/06/25 14:00 05/08/25 07:27 Ipratropium 0.5 Mg/Albuterol Sulfate 2.5 Mg (Base) Ampul.Neb 3 Ml INHALATION 3 ml Q6HRT CELESTE Administration Alprazolam 0.5 mg 05/06/25 21:00 05/07/25 20:43 Alprazolam (*Crx) 0.5 Mg Tablet PO 0.5 mg QHS CELESTE Administration Artificial Tears 1 drop 05/06/25 08:45 05/08/25 09:19 Artificial Tears Ophth Soln 15 Ml Bottle EACH EYE 1 drop Q12H CELESTE Administration Aspirin 81 mg 05/06/25 09:00 05/08/25 09:18 Aspirin 81 Mg Chewable Tablet PO 81 mg DAILY CELESTE Administration Diclofenac Sodium 1 applic 05/06/25 09:00 05/08/25 12:41 Diclofenac Sodium 1% 100 Gm Gel (*Bkc) TOPICAL Not Given QID [facility] Docusate Sodium 100 mg 05/06/25 21:00 05/07/25 20:43 Docusate Sodium 100 Mg Capsule PO 100 mg HS CELESTE Administration Famotidine 20 mg 05/06/25 09:00 05/08/25 09:17 Famotidine 20 Mg Tablet PO 20 mg Q12HR CELESTE Administration Fentanyl Citrate 50 mcg 05/06/25 03:28 Fentanyl Citrate Inj (*Crx) 100 Mcg/2 Ml Vial IV PUSH Q2H PRN Pain Rated 7-10 Fluoxetine HCl 30 mg 05/06/25 09:00 05/08/25 09:17 Fluoxetine Hcl 10 Mg Capsule PO 30 mg DAILY CELESTE Administration Fluticasone Propionate 1 spray 05/06/25 09:00 05/08/25 09:18 Fluticasone Propionate 0.05% Na Spr 16 Gm Btl (*Bkc) NASAL 1 spray Q12HR CELESTE Administration Furosemide 20 mg 05/06/25 09:00 05/07/25 09:13 Furosemide 20 Mg Tablet PO 20 mg On Hold: 05/07/25 15:05 BID CELESTE Administration Hydroxyzine HCl 12.5 mg 05/06/25 09:00 05/08/25 09:18 Hydroxyzine Hcl 12.5 Mg Tablet PO 12.5 mg Q12HR CELESTE Administration Ceftriaxone Sodium 2 gm/ 100 mls @ 200 mls/hr 05/08/25 13:00 05/08/25 13:16 Sodium Chloride IVPB 200 mls/hr Q24H CELESTE Administration Lidocaine 1 patch 05/06/25 08:29 05/07/25 20:43 Lidocaine 5% Patch TOPICAL 1 patch DAILY PRN Administration pain Loratadine 10 mg 05/06/25 09:00 05/08/25 09:17 Loratadine 10 Mg Tablet PO 10 mg DAILY CELESTE Administration Meclizine HCl 25 mg 05/06/25 08:29 05/06/25 09:34 Meclizine Hcl 25 Mg Tablet PO 25 mg TID PRN Administration Dizziness Melatonin 5 mg 05/06/25 21:00 05/07/25 20:43 Melatonin 5 Mg Tablet PO 5 mg HS CELESTE Administration Menthol/Methyl Salicylate 1 applic 05/06/25 08:29 Menthol 10% / Methyl Salicylate 15% 57 Gm Tube TOPICAL BID PRN Muscle/Joint Pain Midodrine 10 mg 05/06/25 05:16 05/08/25 12:51 Midodrine Hcl 10 Mg Tablet PO 10 mg TID CELESTE Administration Mirtazapine 15 mg 05/06/25 21:00 05/07/25 20:43 Mirtazapine 15 Mg Tablet PO 15 mg HS CELESTE Administration Multivitamins Therapeutic 1 tablet 05/06/25 09:00 05/08/25 09:17 Multivitamins Therapeutic Tab (*Bkc) PO 1 tablet DAILY CELESTE Administration Ondansetron HCl 4 mg 05/06/25 03:28 Ondansetron Inj 4 Mg/2 Ml Vial IV PUSH Q4H PRN Nausea Ondansetron HCl 4 mg 05/06/25 08:29 Ondansetron Hcl Odt 4 Mg Tablet PO Q8H PRN Nausea Pantoprazole Sodium 40 mg 05/06/25 09:00 05/08/25 09:17 Pantoprazole 40 Mg Tablet PO 06/05/25 08:59 40 mg DAILY CELESTE Administration Polyethylene Glycol 17 gm 05/06/25 09:00 05/08/25 09:18 Polyethylene Glycol 3350 17 Gm Powd.Pack PO Not Given DAILY CELESTE Potassium Chloride 20 meq 05/06/25 09:00 05/08/25 09:17 Potassium Chloride 20 Meq Er Tablet PO 20 meq BID CELESTE Administration Primidone 50 mg 05/06/25 09:00 05/08/25 09:15 Primidone 50 Mg Tablet PO 50 mg Q12HR CELESTE Administration Senna/Docusate Sodium 1 tab 05/06/25 09:00 05/08/25 09:18 Senna/Docusate Sodium Tablet PO Not Given BID CELESTE Simethicone 80 mg 05/06/25 09:00 05/08/25 09:17 Simethicone 80 Mg Tab.Chew PO 80 mg BID CELESTE Administration Radiology Results: ITS Impressions Abdomen/Pelvis CT 05/06/25 08:03 IMPRESSION: 1. Cholelithiasis. Gallbladder distention may be secondary to fasting. 2. Bilateral nonobstructing kidney stones. 3. Mild bilateral hydronephrosis. Left internal ureteral stent in expected position. 4. Foci of free gas in the left perinephric fat, which may be secondary to ureteral perforation. 5. 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 Labs Labs: Laboratory Results - last 24 hr 05/08/25 05:44 WBC 8.0 RBC 3.43 L Hgb 10.2 L Hct 31.2 L MCV 91.0 D MCH 29.7 MCHC 32.7 RDW 14.3 Plt Count 243 MPV 9.7 Sodium 133 L Potassium 3.7 Chloride 105 Carbon Dioxide 19 L Anion Gap 9 BUN 15 Creatinine 0.79 Estim Creat Clear Calc 69 Estimated GFR > 60 Glucose 102 Calcium 8.1 L Magnesium 1.9
[2025-05-08] MEDS: DOCUSATE SODIUM 100 MG CAPSULE PO (20:41)
[2025-05-08] MEDS: MELATONIN 5 MG TABLET PO (20:41)
[2025-05-08] MEDS: MIRTAZAPINE 15 MG TABLET PO (20:41)
[2025-05-08] MEDS: ALPRAZolam (*CRX) 0.5 MG TABLET PO (20:41)
[2025-05-09] VITALS (12 sets, daily range): BP systolic 101–132; BP diastolic 68–73; PULSE 55–70; RESP 16; TEMP 36.6–36.9; O2SAT 92–96
[2025-05-09] MEDS: IPRATROPIUM 0.5 MG/ALBUTEROL SULFATE 2.5 MG (BASE) AMPUL.NEB 3 ML INHALATION ×2 (02:05→07:52)
[2025-05-09 05:51] LABS: Hematocrit 34.3 % (37.0-47.0); Hemoglobin 11.4 g/dL (12.0-15.0); Mean Corpuscular HGB Conc 33.2 g/dl (32-36); Mean Corpuscular Hemoglobin 29.7 pg (26-34); Mean Corpuscular Volume 89.3 fl (80-100); Platelet Count Result 264 k/mm3 (150-375); Red Blood Count 3.84 M/mm3 (4.2-5.4); White Blood Count 9.0 K/mm3 (4.5-10.0)
[2025-05-09 06:12] LABS: Anion Gap 7 mmol/L (4-12); Blood Urea Nitrogen 14 mg/dL (7-17); Calcium 8.7 mg/dL (8.4-10.2); Carbon Dioxide 23 mmol/L (22-30); Chloride 105 mmol/L (98-107); Estimated CRCL calculation 65 ml/min; Estimated Glomerular Filt Rate > 60; Glucose 100 mg/dL (65-110); Magnesium 2.1 mg/dL (1.6-2.3); Potassium 3.8 mmol/L (3.4-5.0); Sodium 135 mmol/L (137-145)
[2025-05-09] MEDS: MULTIVITAMINS THERAPEUTIC TAB (*BKC) 1 TABLET PO (10:35)
[2025-05-09] MEDS: SIMETHICONE 80 MG TAB.CHEW PO ×2 (10:35→17:46)
[2025-05-09] MEDS: ACETAMINOPHEN 325 MG TABLET PO ×3 (10:35→20:22)
[2025-05-09] MEDS: PANTOPRAZOLE 40 MG TABLET PO (10:35)
[2025-05-09] MEDS: hydrOXYzine HCL 12.5 MG TABLET PO ×2 (10:35→20:22)
[2025-05-09] MEDS: FAMOTIDINE 20 MG TABLET PO ×2 (10:35→20:22)
[2025-05-09] MEDS: PRIMIDONE 50 MG TABLET PO ×2 (10:35→20:22)
[2025-05-09] MEDS: POTASSIUM CHLORIDE 20 MEQ ER TABLET PO ×2 (10:35→17:46)
[2025-05-09] MEDS: MIDODRINE HCL 10 MG TABLET PO ×3 (10:35→17:46)
[2025-05-09] MEDS: ASPIRIN 81 MG CHEWABLE TABLET PO (10:36)
[2025-05-09] MEDS: ARTIFICIAL TEARS OPHTH SOLN 15 ML BOTTLE 1 DROP EACH EYE ×2 (10:36→20:23)
[2025-05-09] MEDS: LORATADINE 10 MG TABLET PO (10:36)
[2025-05-09] MEDS: SENNA/DOCUSATE SODIUM TABLET 1 TAB PO ×2 (10:36→17:46)
[2025-05-09] MEDS: FLUTICASONE PROPIONATE 0.05% NA SPR 16 GM BTL (*BKC) 1 SPRAY NASAL ×2 (10:36→20:23)
--- NOTE | 2025-05-09 12:29 | PM.IMPN ---
Progress Note: A&P Assessment and Plan (1) Kidney stone on left side: Code(s): N20.0 - Calculus of kidney Status: Acute (2) Obstruction of left ureteropelvic junction (UPJ) due to stone: Code(s): N20.1 - Calculus of ureter Status: Acute (3) RICARDO (acute kidney injury): Code(s): N17.9 - Acute kidney failure, unspecified Status: Resolved (4) Acute UTI: Code(s): N39.0 - Urinary tract infection, site not specified Status: Acute Plan This is a 75-year-old female who presents to the ED with generalized weakness. She is a [facility] resident. She was also noted to have altered mental status and fever with dark-colored urine. In the ED her blood pressure was low with 85/49. Laboratory workup revealed WBC of 19.7 hemoglobin of 11.8 platelet count of 260. Chem panel shows sodium of 131 potassium of 4.7 chloride 101 bicarbonate 20 2 creatinine 1.5 in blood glucose of 114. Lactate was normal at 1.4 troponin was negative LFTs were normal except for alkaline phosphatase 156. Urinalysis was suggestive of UTI with 21-50 WBC and 51-[address] abdomen pelvis was performed which showed small focus of air around the pelvis stent in place. Patient received IV fluids and started on IV antibiotics. Urology has been consulted. Sepsis with UTI Bacteremia with Gram-negative bacilli. Identified as E coli. Sensitivity pending. Increase ceftriaxone to 2 g daily. E coli in the past was ESBL. WBC did improve with resolution of fever and will continue on ceftriaxone for now. Still awaiting sensitivity Recent extraction of left renal calculi on 05/04/2025. CT with left ureteral stent in position RICARDO with creatinine of 1.5 back improved Hypertension on midodrine at home which will be continued History of kidney stones History of ESBL history of recurrent UTIs Anxiety/depression Colostomy in place DVT prophylaxis Code status full code Subjective Date/time seen: 05/09/25 12:29 Interval history: No overnight events. Remains afebrile. No new complaints. Review of Systems Review of Systems: All systems reviewed & are unremarkable except as noted in HPI and below Exam Narrative: Morbidly obese not in acute distress Patient is comfortable, NAD HEENT: eyes are clear and none icteric LUNGS:CTA HEART: RR S1S2 ABD: BS+, Soft and nontender Lower extremities: no edema SKIN: nonjaundiced Neuro: grossly intact. Objective Data Vital Signs Vital Signs: Vital Signs - 24 hr 05/08/25 14:41 05/08/25 14:45 05/08/25 14:50 Temperature 97.3 F L Pulse Rate 62 72 72 Respiratory Rate 20 13 13 Blood Pressure 124/83 Pulse Oximetry 96 Oxygen Delivery Oxygen Flow Rate 05/08/25 16:00 05/08/25 20:00 05/08/25 20:11 Temperature Pulse Rate 64 70 77 Respiratory Rate 14 Blood Pressure Pulse Oximetry Oxygen Delivery Oxygen Flow Rate 05/08/25 20:17 05/08/25 20:18 05/08/25 22:00 Temperature 98.2 F Pulse Rate 77 72 Respiratory Rate 14 16 Blood Pressure 131/82 Pulse Oximetry 94 95 Oxygen Delivery Nasal Cannula Oxygen Flow Rate 2 05/09/25 00:00 05/09/25 02:05 05/09/25 02:11 Temperature Pulse Rate 70 59 L 62 Respiratory Rate 16 16 Blood Pressure Pulse Oximetry Oxygen Delivery Oxygen Flow Rate 05/09/25 04:00 05/09/25 06:00 05/09/25 07:52 Temperature 98.4 F Pulse Rate 62 67 Respiratory Rate 16 Blood Pressure 121/73 Pulse Oximetry 95 92 Oxygen Delivery Room Air Oxygen Flow Rate 05/09/25 07:52 05/09/25 08:00 Temperature Pulse Rate 64 68 Respiratory Rate 16 16 Blood Pressure Pulse Oximetry Oxygen Delivery Oxygen Flow Rate Intake/Output Intake/Output: Intake & Output 05/06/25 05/07/25 05/08/25 05/09/25 23:59 23:59 23:59 23:59 Intake Total 3868.3 1877 680 690 Output Total 870 1915 1575 2250 Balance 2998.3 -1498 -895 -1560 Meds/Results Medications: Active Medications Generic Name Dose Route Start Last Admin Trade Name Freq PRN Reason Stop Dose Admin Acetaminophen 650 mg 05/06/25 03:28 Acetaminophen 325 Mg Tablet PO Q4H PRN Mild Pain (1-3) or Fever Acetaminophen 325 mg 05/06/25 09:00 05/09/25 10:35 Acetaminophen 325 Mg Tablet PO 325 mg Q6H CELESTE Administration Hydrocodone Bitart/Acetaminophen 1 tab 05/06/25 08:29 05/08/25 00:48 Hydrocodone/Acetaminophen (*Crx) 5-325 Mg Tablet PO 1 tab BID PRN Administration Pain 4-6 Albuterol 2 puff 05/06/25 09:15 Albuterol Sulfate (*Sp) Aerosol 1 Puff INHALATION Q6H PRN wheezing Albuterol/Ipratropium 3 ml 05/06/25 14:00 05/09/25 07:52 Ipratropium 0.5 Mg/Albuterol Sulfate 2.5 Mg (Base) Ampul.Neb 3 Ml INHALATION 3 ml Q6HRT CELESTE Administration Alprazolam 0.5 mg 05/06/25 21:00 05/08/25 20:41 Alprazolam (*Crx) 0.5 Mg Tablet PO 0.5 mg QHS CELESTE Administration Artificial Tears 1 drop 05/06/25 08:45 05/09/25 10:36 Artificial Tears Ophth Soln 15 Ml Bottle EACH EYE 1 drop Q12H CELESTE Administration Aspirin 81 mg 05/06/25 09:00 05/09/25 10:36 Aspirin 81 Mg Chewable Tablet PO 81 mg DAILY CELESTE Administration Diclofenac Sodium 1 applic 05/06/25 09:00 05/09/25 11:41 Diclofenac Sodium 1% 100 Gm Gel (*Bkc) TOPICAL Not Given QID [facility] Docusate Sodium 100 mg 05/06/25 21:00 05/08/25 20:41 Docusate Sodium 100 Mg Capsule PO 100 mg HS CELESTE Administration Famotidine 20 mg 05/06/25 09:00 05/09/25 10:35 Famotidine 20 Mg Tablet PO 20 mg Q12HR CELESTE Administration Fentanyl Citrate 50 mcg 05/06/25 03:28 Fentanyl Citrate Inj (*Crx) 100 Mcg/2 Ml Vial IV PUSH Q2H PRN Pain Rated 7-10 Fluoxetine HCl 30 mg 05/06/25 09:00 05/09/25 10:35 Fluoxetine Hcl 10 Mg Capsule PO 30 mg DAILY CELESTE Administration Fluticasone Propionate 1 spray 05/06/25 09:00 05/09/25 10:36 Fluticasone Propionate 0.05% Na Spr 16 Gm Btl (*Bkc) NASAL 1 spray Q12HR CELESTE Administration Furosemide 20 mg 05/06/25 09:00 05/07/25 09:13 Furosemide 20 Mg Tablet PO 20 mg On Hold: 05/07/25 15:05 BID CELESTE Administration Hydroxyzine HCl 12.5 mg 05/06/25 09:00 05/09/25 10:35 Hydroxyzine Hcl 12.5 Mg Tablet PO 12.5 mg Q12HR CELESTE Administration Ceftriaxone Sodium 2 gm/ 100 mls @ 200 mls/hr 05/08/25 13:00 05/08/25 13:46 Sodium Chloride IVPB Infused Q24H CELESTE Infusion Lidocaine 1 patch 05/06/25 08:29 05/07/25 20:43 Lidocaine 5% Patch TOPICAL 1 patch DAILY PRN Administration pain Loratadine 10 mg 05/06/25 09:00 05/09/25 10:36 Loratadine 10 Mg Tablet PO 10 mg DAILY CELESTE Administration Meclizine HCl 25 mg 05/06/25 08:29 05/06/25 09:34 Meclizine Hcl 25 Mg Tablet PO 25 mg TID PRN Administration Dizziness Melatonin 5 mg 05/06/25 21:00 05/08/25 20:41 Melatonin 5 Mg Tablet PO 5 mg HS CELESTE Administration Menthol/Methyl Salicylate 1 applic 05/06/25 08:29 Menthol 10% / Methyl Salicylate 15% 57 Gm Tube TOPICAL BID PRN Muscle/Joint Pain Midodrine 10 mg 05/06/25 05:16 05/09/25 10:35 Midodrine Hcl 10 Mg Tablet PO 10 mg TID CELESTE Administration Mirtazapine 15 mg 05/06/25 21:00 05/08/25 20:41 Mirtazapine 15 Mg Tablet PO 15 mg HS CELESTE Administration Multivitamins Therapeutic 1 tablet 05/06/25 09:00 05/09/25 10:35 Multivitamins Therapeutic Tab (*Bkc) PO 1 tablet DAILY CELESTE Administration Ondansetron HCl 4 mg 05/06/25 03:28 Ondansetron Inj 4 Mg/2 Ml Vial IV PUSH Q4H PRN Nausea Ondansetron HCl 4 mg 05/06/25 08:29 Ondansetron Hcl Odt 4 Mg Tablet PO Q8H PRN Nausea Pantoprazole Sodium 40 mg 05/06/25 09:00 05/09/25 10:35 Pantoprazole 40 Mg Tablet PO 06/05/25 08:59 40 mg DAILY CELESTE Administration Polyethylene Glycol 17 gm 05/06/25 09:00 05/09/25 10:46 Polyethylene Glycol 3350 17 Gm Powd.Pack PO Not Given DAILY CELESTE Potassium Chloride 20 meq 05/06/25 09:00 05/09/25 10:35 Potassium Chloride 20 Meq Er Tablet PO 20 meq BID CELESTE Administration Primidone 50 mg 05/06/25 09:00 05/09/25 10:35 Primidone 50 Mg Tablet PO 50 mg Q12HR CELESTE Administration Senna/Docusate Sodium 1 tab 05/06/25 09:00 05/09/25 10:36 Senna/Docusate Sodium Tablet PO 1 tab BID CELESTE Administration Simethicone 80 mg 05/06/25 09:00 05/09/25 10:35 Simethicone 80 Mg Tab.Chew PO 80 mg BID CELESTE Administration Radiology Results: ITS Impressions Abdomen/Pelvis CT 05/06/25 08:03 IMPRESSION: 1. Cholelithiasis. Gallbladder distention may be secondary to fasting. 2. Bilateral nonobstructing kidney stones. 3. Mild bilateral hydronephrosis. Left internal ureteral stent in expected position. 4. Foci of free gas in the left perinephric fat, which may be secondary to ureteral perforation. 5. 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 Labs Labs: Laboratory Results - last 24 hr 05/09/25 05:42 WBC 9.0 RBC 3.84 L Hgb 11.4 L Hct 34.3 L MCV 89.3 MCH 29.7 MCHC 33.2 RDW 14.2 Plt Count 264 MPV 8.7 Sodium 135 L Potassium 3.8 Chloride 105 Carbon Dioxide 23 Anion Gap 7 BUN 14 Creatinine 0.84 Estim Creat Clear Calc 65 Estimated GFR > 60 Glucose 100 Calcium 8.7 Magnesium 2.1
[2025-05-09] MEDS: cefTRIAXone 2 GM in SODIUM CHLORIDE 0.9% IV 100 ML 200 ML IVPB (13:51)
[2025-05-09] MEDS: ONDANSETRON HCL ODT 4 MG TABLET PO (15:20)
[2025-05-09] MEDS: MEROPENEM 1 GM in SODIUM CHLORIDE 0.9% IV 100 ML 200 ML IVPB ×2 (17:46→23:15)
--- NOTE | 2025-05-09 18:30 | WPDUROPN2 ---
Progress Note: A&P Assessment and Plan (1) Kidney stone on left side: Code(s): N20.0 - Calculus of kidney Status: Acute Assessment and Plan: Keep stent in place for now. Urology may remove tomorrow via the string that is in place. (2) Acute UTI: Code(s): N39.0 - Urinary tract infection, site not specified Status: Acute Assessment and Plan: Multi drug resistant infection is present. She is on Meropenem Subjective Subjective Date/Time Seen: 05/09/25 18:30 Interval history: She is resting comfortably. Her stent has not been removed. Her urine culture showed e. coli. Her blood culture shows e.coli with an extended resistance pattern and the only oral antibiotic with sensitivity is Bactrim. Objective Data Vital Signs Vital Signs: Vital Signs - 24 hr 05/08/25 20:00 05/08/25 20:11 05/08/25 20:17 Temperature Pulse Rate 70 77 Respiratory Rate 14 Blood Pressure Pulse Oximetry 94 Oxygen Delivery Nasal Cannula Oxygen Flow Rate 2 05/08/25 20:18 05/08/25 22:00 05/09/25 00:00 Temperature 36.8 C Pulse Rate 77 72 70 Respiratory Rate 14 16 Blood Pressure 131/82 Pulse Oximetry 95 Oxygen Delivery Oxygen Flow Rate 05/09/25 02:05 05/09/25 02:11 05/09/25 04:00 Temperature Pulse Rate 59 L 62 62 Respiratory Rate 16 16 Blood Pressure Pulse Oximetry Oxygen Delivery Oxygen Flow Rate 05/09/25 06:00 05/09/25 07:52 05/09/25 07:52 Temperature 36.9 C Pulse Rate 67 64 Respiratory Rate 16 16 Blood Pressure 121/73 Pulse Oximetry 95 92 Oxygen Delivery Room Air Oxygen Flow Rate 05/09/25 08:00 05/09/25 08:00 05/09/25 14:00 Temperature 36.8 C Pulse Rate 68 60 Respiratory Rate 16 16 Blood Pressure 101/69 Pulse Oximetry 96 Oxygen Delivery Room Air Oxygen Flow Rate Intake/Output Intake/Output: Intake & Output 05/06/25 05/07/25 05/08/25 05/09/25 23:59 23:59 23:59 23:59 Intake Total 3868.3 2862 094 7979 Output Total 870 3375 1575 3150 Balance 2998.3 -1498 -834 -2438 Meds/Results Medications: Active Medications Generic Name Dose Route Start Last Admin Trade Name Freq PRN Reason Stop Dose Admin Acetaminophen 650 mg 05/06/25 03:28 Acetaminophen 325 Mg Tablet PO Q4H PRN Mild Pain (1-3) or Fever Acetaminophen 325 mg 05/06/25 09:00 05/09/25 15:20 Acetaminophen 325 Mg Tablet PO 325 mg Q6H CELESTE Administration Hydrocodone Bitart/Acetaminophen 1 tab 05/06/25 08:29 05/08/25 00:48 Hydrocodone/Acetaminophen (*Crx) 5-325 Mg Tablet PO 1 tab BID PRN Administration Pain 4-6 Albuterol 2 puff 05/06/25 09:15 Albuterol Sulfate (*Sp) Aerosol 1 Puff INHALATION Q6H PRN wheezing Albuterol/Ipratropium 3 ml 05/09/25 13:07 Ipratropium 0.5 Mg/Albuterol Sulfate 2.5 Mg (Base) Ampul.Neb 3 Ml INHALATION Q6HRT PRN Wheezing Alprazolam 0.5 mg 05/06/25 21:00 05/08/25 20:41 Alprazolam (*Crx) 0.5 Mg Tablet PO 0.5 mg QHS CELESTE Administration Artificial Tears 1 drop 05/06/25 08:45 05/09/25 10:36 Artificial Tears Ophth Soln 15 Ml Bottle EACH EYE 1 drop Q12H CELESTE Administration Aspirin 81 mg 05/06/25 09:00 05/09/25 10:36 Aspirin 81 Mg Chewable Tablet PO 81 mg DAILY CEELSTE Administration Diclofenac Sodium 1 applic 05/06/25 09:00 05/09/25 15:03 Diclofenac Sodium 1% 100 Gm Gel (*Bkc) TOPICAL Not Given QID [facility] Docusate Sodium 100 mg 05/06/25 21:00 05/08/25 20:41 Docusate Sodium 100 Mg Capsule PO 100 mg HS CELESTE Administration Famotidine 20 mg 05/06/25 09:00 05/09/25 10:35 Famotidine 20 Mg Tablet PO 20 mg Q12HR CELESTE Administration Fentanyl Citrate 50 mcg 05/06/25 03:28 Fentanyl Citrate Inj (*Crx) 100 Mcg/2 Ml Vial IV PUSH Q2H PRN Pain Rated 7-10 Fluoxetine HCl 30 mg 05/06/25 09:00 05/09/25 10:35 Fluoxetine Hcl 10 Mg Capsule PO 30 mg DAILY CELESTE Administration Fluticasone Propionate 1 spray 05/06/25 09:00 05/09/25 10:36 Fluticasone Propionate 0.05% Na Spr 16 Gm Btl (*Bkc) NASAL 1 spray Q12HR CELESTE Administration Furosemide 20 mg 05/06/25 09:00 05/07/25 09:13 Furosemide 20 Mg Tablet PO 20 mg On Hold: 05/07/25 15:05 BID CELESTE Administration Hydroxyzine HCl 12.5 mg 05/06/25 09:00 05/09/25 10:35 Hydroxyzine Hcl 12.5 Mg Tablet PO 12.5 mg Q12HR CELESTE Administration Meropenem 1 gm/ Sodium 100 mls @ 200 mls/hr 05/09/25 16:00 05/09/25 17:46 Chloride IVPB 200 mls/hr Q8H CELESTE Administration Lidocaine 1 patch 05/06/25 08:29 05/07/25 20:43 Lidocaine 5% Patch TOPICAL 1 patch DAILY PRN Administration pain Loratadine 10 mg 05/06/25 09:00 05/09/25 10:36 Loratadine 10 Mg Tablet PO 10 mg DAILY CELESTE Administration Meclizine HCl 25 mg 05/06/25 08:29 05/06/25 09:34 Meclizine Hcl 25 Mg Tablet PO 25 mg TID PRN Administration Dizziness Melatonin 5 mg 05/06/25 21:00 05/08/25 20:41 Melatonin 5 Mg Tablet PO 5 mg HS CELESTE Administration Menthol/Methyl Salicylate 1 applic 05/06/25 08:29 Menthol 10% / Methyl Salicylate 15% 57 Gm Tube TOPICAL BID PRN Muscle/Joint Pain Midodrine 10 mg 05/06/25 05:16 05/09/25 17:46 Midodrine Hcl 10 Mg Tablet PO 10 mg TID CELESTE Administration Mirtazapine 15 mg 05/06/25 21:00 05/08/25 20:41 Mirtazapine 15 Mg Tablet PO 15 mg HS CELESTE Administration Multivitamins Therapeutic 1 tablet 05/06/25 09:00 05/09/25 10:35 Multivitamins Therapeutic Tab (*Bkc) PO 1 tablet DAILY CELESTE Administration Ondansetron HCl 4 mg 05/06/25 03:28 Ondansetron Inj 4 Mg/2 Ml Vial IV PUSH Q4H PRN Nausea Ondansetron HCl 4 mg 05/06/25 08:29 05/09/25 15:20 Ondansetron Hcl Odt 4 Mg Tablet PO 4 mg Q8H PRN Administration Nausea Pantoprazole Sodium 40 mg 05/06/25 09:00 05/09/25 10:35 Pantoprazole 40 Mg Tablet PO 06/05/25 08:59 40 mg DAILY CELESTE Administration Polyethylene Glycol 17 gm 05/06/25 09:00 05/09/25 10:46 Polyethylene Glycol 3350 17 Gm Powd.Pack PO Not Given DAILY CELESTE Potassium Chloride 20 meq 05/06/25 09:00 05/09/25 17:46 Potassium Chloride 20 Meq Er Tablet PO 20 meq BID CELESTE Administration Primidone 50 mg 05/06/25 09:00 05/09/25 10:35 Primidone 50 Mg Tablet PO 50 mg Q12HR CELESTE Administration Senna/Docusate Sodium 1 tab 05/06/25 09:00 05/09/25 17:46 Senna/Docusate Sodium Tablet PO 1 tab BID CELESTE Administration Simethicone 80 mg 05/06/25 09:00 05/09/25 17:46 Simethicone 80 Mg Tab.Chew PO 80 mg BID CELESTE Administration Radiology Results: ITS Impressions Abdomen/Pelvis CT 05/06/25 08:03 IMPRESSION: 1. Cholelithiasis. Gallbladder distention may be secondary to fasting. 2. Bilateral nonobstructing kidney stones. 3. Mild bilateral hydronephrosis. Left internal ureteral stent in expected position. 4. Foci of free gas in the left perinephric fat, which may be secondary to ureteral perforation. 5. 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 Labs Labs: Laboratory Results - last 24 hr 05/09/25 05:42 WBC 9.0 RBC 3.84 L Hgb 11.4 L Hct 34.3 L MCV 89.3 MCH 29.7 MCHC 33.2 RDW 14.2 Plt Count 264 MPV 8.7 Sodium 135 L Potassium 3.8 Chloride 105 Carbon Dioxide 23 Anion Gap 7 BUN 14 Creatinine 0.84 Estim Creat Clear Calc 65 Estimated GFR > 60 Glucose 100 Calcium 8.7 Magnesium 2.1
[2025-05-09] MEDS: DOCUSATE SODIUM 100 MG CAPSULE PO (20:22)
[2025-05-09] MEDS: MIRTAZAPINE 15 MG TABLET PO (20:22)
[2025-05-09] MEDS: ALPRAZolam (*CRX) 0.5 MG TABLET PO (20:22)
[2025-05-09] MEDS: MELATONIN 5 MG TABLET PO (20:23)
[2025-05-10] VITALS (9 sets, daily range): BP systolic 107–145; BP diastolic 64–79; PULSE 54–66; RESP 16–18; TEMP 36.3–36.8; O2SAT 94–95
[2025-05-10 05:32] LABS: Hematocrit 32.3 % (37.0-47.0); Hemoglobin 10.7 g/dL (12.0-15.0); Mean Corpuscular HGB Conc 33.1 g/dl (32-36); Mean Corpuscular Hemoglobin 29.8 pg (26-34); Mean Corpuscular Volume 90.0 fl (80-100); Platelet Count Result 306 k/mm3 (150-375); Red Blood Count 3.59 M/mm3 (4.2-5.4); White Blood Count 10.3 K/mm3 (4.5-10.0)
[2025-05-10 05:41] LABS: Anion Gap 6 mmol/L (4-12); Blood Urea Nitrogen 15 mg/dL (7-17); Calcium 8.5 mg/dL (8.4-10.2); Carbon Dioxide 23 mmol/L (22-30); Chloride 106 mmol/L (98-107); Estimated CRCL calculation 67 ml/min; Estimated Glomerular Filt Rate > 60; Glucose 108 mg/dL (65-110); Magnesium 2.2 mg/dL (1.6-2.3); Potassium 4.0 mmol/L (3.4-5.0); Sodium 135 mmol/L (137-145)
[2025-05-10] MEDS: HYDROcodone/acetaminophen (*CRX) 5-325 MG TABLET 1 TAB PO (05:52)
--- NOTE | 2025-05-10 09:37 | P.PNUR_ITS ---
Progress Note: A&P Assessment and Plan (1) Acute UTI: Code(s): N39.0 - Urinary tract infection, site not specified Status: Acute Assessment and Plan: - Pt with multidrug resistance E. Coli UTI and bacteremia - On Meropenem; started yesterday afternoon - White count remains elevated at 10.3 - Continue culture directed Abx (2) Ureteral stent present: Code(s): Z96.0 - Presence of urogenital implants Status: Acute Assessment and Plan: - Stent in place from recent ureteroscopic stone surgery on 05/04 - Given pt currently septic with white count do not recommend removing at this time - Maintain infection resolved and will plan for removal at that time (3) Nephrolithiasis: Code(s): N20.0 - Calculus of kidney Status: Acute Assessment and Plan: - Pt with Right non-obstructing nephrolithiasis - Will plan for management on outpatient basis Subjective Subjective Date/Time Seen: 05/10/25 09:37 Interval history: NAEO; resting comfortably in bed this morning. Still with some intermittent chills and nausea but overall states symptoms improving with Abx use. Exam Const: General: comfortable and no acute distress Eyes: General: appearance normal, both eyes and all related structures Resp: Effort & Inspection: normal respiratory effort Skin: General skin exam: normal color Neuro: General: gait normal Speech: normal speech Objective Data Vital Signs Vital Signs: Vital Signs - 24 hr 05/09/25 12:00 05/09/25 14:00 05/09/25 16:00 Temperature 36.8 C Pulse Rate 64 60 61 Respiratory Rate 16 Blood Pressure 101/69 Pulse Oximetry 96 Oxygen Delivery 05/09/25 20:00 05/09/25 20:00 05/09/25 22:00 Temperature 36.6 C Pulse Rate 55 L 55 L Respiratory Rate 16 Blood Pressure 132/68 Pulse Oximetry 94 Oxygen Delivery Room Air 05/10/25 00:00 05/10/25 04:00 05/10/25 06:00 Temperature 36.3 C L Pulse Rate 56 L 65 62 Respiratory Rate 16 Blood Pressure 107/64 Pulse Oximetry 94 Oxygen Delivery Intake/Output Intake/Output: Intake & Output 05/07/25 05/08/25 05/09/25 05/10/25 23:59 23:59 23:59 23:59 Intake Total 2695 153 2886 640 Output Total 1639 1641 3483 1400 [facility] -1498 -895 -1970 -760 Meds/Results Medications: Active Medications Generic Name Dose Route Start Last Admin Trade Name Freq PRN Reason Stop Dose Admin Acetaminophen 650 mg 05/06/25 03:28 Acetaminophen 325 Mg Tablet PO Q4H PRN Mild Pain (1-3) or Fever Acetaminophen 325 mg 05/06/25 09:00 05/10/25 03:13 Acetaminophen 325 Mg Tablet PO Not Given Q6H CELESTE Hydrocodone Bitart/Acetaminophen 1 tab 05/06/25 08:29 05/10/25 05:52 Hydrocodone/Acetaminophen (*Crx) 5-325 Mg Tablet PO 1 tab BID PRN Administration Pain 4-6 Albuterol 2 puff 05/06/25 09:15 Albuterol Sulfate (*Sp) Aerosol 1 Puff INHALATION Q6H PRN wheezing Albuterol/Ipratropium 3 ml 05/09/25 13:07 Ipratropium 0.5 Mg/Albuterol Sulfate 2.5 Mg (Base) Ampul.Neb 3 Ml INHALATION Q6HRT PRN Wheezing Alprazolam 0.5 mg 05/06/25 21:00 05/09/25 20:22 Alprazolam (*Crx) 0.5 Mg Tablet PO 0.5 mg QHS CELESTE Administration Artificial Tears 1 drop 05/06/25 08:45 05/09/25 20:23 Artificial Tears Ophth Soln 15 Ml Bottle EACH EYE 1 drop Q12H CELESTE Administration Aspirin 81 mg 05/06/25 09:00 05/09/25 10:36 Aspirin 81 Mg Chewable Tablet PO 81 mg DAILY CELESTE Administration Diclofenac Sodium 1 applic 05/06/25 09:00 05/09/25 20:23 Diclofenac Sodium 1% 100 Gm Gel (*Bkc) TOPICAL Not Given QID [facility] Docusate Sodium 100 mg 05/06/25 21:00 05/09/25 20:22 Docusate Sodium 100 Mg Capsule PO 100 mg HS CELESTE Administration Famotidine 20 mg 05/06/25 09:00 05/09/25 20:22 Famotidine 20 Mg Tablet PO 20 mg Q12HR CELESTE Administration Fentanyl Citrate 50 mcg 05/06/25 03:28 Fentanyl Citrate Inj (*Crx) 100 Mcg/2 Ml Vial IV PUSH Q2H PRN Pain Rated 7-10 Fluoxetine HCl 30 mg 05/06/25 09:00 05/09/25 10:35 Fluoxetine Hcl 10 Mg Capsule PO 30 mg DAILY CELESTE Administration Fluticasone Propionate 1 spray 05/06/25 09:00 05/09/25 20:23 Fluticasone Propionate 0.05% Na Spr 16 Gm Btl (*Bkc) NASAL 1 spray Q12HR CELESTE Administration Furosemide 20 mg 05/06/25 09:00 05/07/25 09:13 Furosemide 20 Mg Tablet PO 20 mg On Hold: 05/07/25 15:05 BID CELESTE Administration Hydroxyzine HCl 12.5 mg 05/06/25 09:00 05/09/25 20:22 Hydroxyzine Hcl 12.5 Mg Tablet PO 12.5 mg Q12HR CELESTE Administration Meropenem 1 gm/ Sodium 100 mls @ 200 mls/hr 05/09/25 16:00 05/09/25 23:15 Chloride IVPB 200 mls/hr Q8H CELESTE Administration Lidocaine 1 patch 05/06/25 08:29 05/07/25 20:43 Lidocaine 5% Patch TOPICAL 1 patch DAILY PRN Administration pain Loratadine 10 mg 05/06/25 09:00 05/09/25 10:36 Loratadine 10 Mg Tablet PO 10 mg DAILY CELESTE Administration Meclizine HCl 25 mg 05/06/25 08:29 05/06/25 09:34 Meclizine Hcl 25 Mg Tablet PO 25 mg TID PRN Administration Dizziness Melatonin 5 mg 05/06/25 21:00 05/09/25 20:23 Melatonin 5 Mg Tablet PO 5 mg HS CELESTE Administration Menthol/Methyl Salicylate 1 applic 05/06/25 08:29 Menthol 10% / Methyl Salicylate 15% 57 Gm Tube TOPICAL BID PRN Muscle/Joint Pain Midodrine 10 mg 05/06/25 05:16 05/09/25 17:46 Midodrine Hcl 10 Mg Tablet PO 10 mg TID CELESTE Administration Mirtazapine 15 mg 05/06/25 21:00 05/09/25 20:22 Mirtazapine 15 Mg Tablet PO 15 mg HS CELESTE Administration Multivitamins Therapeutic 1 tablet 05/06/25 09:00 05/09/25 10:35 Multivitamins Therapeutic Tab (*Bkc) PO 1 tablet DAILY CELESTE Administration Ondansetron HCl 4 mg 05/06/25 03:28 Ondansetron Inj 4 Mg/2 Ml Vial IV PUSH Q4H PRN Nausea Ondansetron HCl 4 mg 05/06/25 08:29 05/09/25 15:20 Ondansetron Hcl Odt 4 Mg Tablet PO 4 mg Q8H PRN Administration Nausea Pantoprazole Sodium 40 mg 05/06/25 09:00 05/09/25 10:35 Pantoprazole 40 Mg Tablet PO 06/05/25 08:59 40 mg DAILY CELESTE Administration Polyethylene Glycol 17 gm 05/06/25 09:00 05/09/25 10:46 Polyethylene Glycol 3350 17 Gm Powd.Pack PO Not Given DAILY CELESTE Potassium Chloride 20 meq 05/06/25 09:00 05/09/25 17:46 Potassium Chloride 20 Meq Er Tablet PO 20 meq BID CEELSTE Administration Primidone 50 mg 05/06/25 09:00 05/09/25 20:22 Primidone 50 Mg Tablet PO 50 mg Q12HR CELESTE Administration Senna/Docusate Sodium 1 tab 05/06/25 09:00 05/09/25 17:46 Senna/Docusate Sodium Tablet PO 1 tab BID CELESTE Administration Simethicone 80 mg 05/06/25 09:00 05/09/25 17:46 Simethicone 80 Mg Tab.Chew PO 80 mg BID CELESTE Administration Radiology Results: ITS Impressions Abdomen/Pelvis CT 05/06/25 08:03 IMPRESSION: 1. Cholelithiasis. Gallbladder distention may be secondary to fasting. 2. Bilateral nonobstructing kidney stones. 3. Mild bilateral hydronephrosis. Left internal ureteral stent in expected position. 4. Foci of free gas in the left perinephric fat, which may be secondary to ureteral perforation. 5. 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 Labs Labs: Laboratory Results - last 24 hr 05/10/25 05:09 WBC 10.3 H RBC 3.59 L Hgb 10.7 L Hct 32.3 L MCV 90.0 MCH 29.8 MCHC 33.1 RDW 13.9 Plt Count 306 MPV 9.0 Sodium 135 L Potassium 4.0 Chloride 106 Carbon Dioxide 23 Anion Gap 6 BUN 15 Creatinine 0.82 Estim Creat Clear Calc 67 Estimated GFR > 60 Glucose 108 Calcium 8.5 Magnesium 2.2
[2025-05-10] MEDS: MIDODRINE HCL 10 MG TABLET PO ×2 (10:23→16:53)
[2025-05-10] MEDS: MEROPENEM 1 GM in SODIUM CHLORIDE 0.9% IV 100 ML 200 ML IVPB ×2 (10:23→16:54)
[2025-05-10] MEDS: SENNA/DOCUSATE SODIUM TABLET 1 TAB PO ×2 (10:23→16:53)
[2025-05-10] MEDS: ACETAMINOPHEN 325 MG TABLET PO ×3 (10:24→21:55)
[2025-05-10] MEDS: ASPIRIN 81 MG CHEWABLE TABLET PO (10:24)
[2025-05-10] MEDS: FAMOTIDINE 20 MG TABLET PO ×2 (10:24→21:56)
[2025-05-10] MEDS: SIMETHICONE 80 MG TAB.CHEW PO ×2 (10:24→16:53)
[2025-05-10] MEDS: PANTOPRAZOLE 40 MG TABLET PO (10:24)
[2025-05-10] MEDS: POTASSIUM CHLORIDE 20 MEQ ER TABLET PO ×2 (10:24→16:53)
[2025-05-10] MEDS: hydrOXYzine HCL 12.5 MG TABLET PO ×2 (10:24→21:56)
[2025-05-10] MEDS: LORATADINE 10 MG TABLET PO (10:24)
[2025-05-10] MEDS: PRIMIDONE 50 MG TABLET PO ×2 (10:24→21:56)
[2025-05-10] MEDS: MULTIVITAMINS THERAPEUTIC TAB (*BKC) 1 TABLET PO (10:24)
[2025-05-10] MEDS: ARTIFICIAL TEARS OPHTH SOLN 15 ML BOTTLE 1 DROP EACH EYE ×2 (10:25→21:56)
[2025-05-10] MEDS: FLUTICASONE PROPIONATE 0.05% NA SPR 16 GM BTL (*BKC) 1 SPRAY NASAL (10:25)
--- NOTE | 2025-05-10 16:18 | P.PNIM_ITS ---
Progress Note: A&P Assessment and Plan (1) Kidney stone on left side: Code(s): N20.0 - Calculus of kidney Status: Acute (2) Obstruction of left ureteropelvic junction (UPJ) due to stone: Code(s): N20.1 - Calculus of ureter Status: Acute (3) RICARDO (acute kidney injury): Code(s): N17.9 - Acute kidney failure, unspecified Status: Resolved (4) Acute UTI: Code(s): N39.0 - Urinary tract infection, site not specified Status: Acute Plan This is a 75-year-old female who presents to the ED with generalized weakness. She is a [place] [place]. She was also noted to have altered mental status and fever with dark-colored urine. In the ED her blood pressure was low with 85/49. Laboratory workup revealed WBC of 19.7 hemoglobin of 11.8 platelet count of 260. Chem panel shows sodium of 131 potassium of 4.7 chloride 101 bicarbonate 20 2 creatinine 1.5 in blood glucose of 114. Lactate was normal at 1.4 troponin was negative LFTs were normal except for alkaline phosphatase 156. Urinalysis was suggestive of UTI with 21-50 WBC and 51-[address] abdomen pelvis was performed which showed small focus of air around the pelvis stent in place. Patient received IV fluids and started on IV antibiotics. Urology has been consulted. Sepsis with UTI Bacteremia with Gram-negative bacilli. Identified as E coli. Sensitivity back with ESBL E coli. Ceftriaxone switched to meropenem. Will repeat blood culture in a.m.. Can do ertapenem for 10 days course Recent extraction of left renal calculi on 05/04/2025. CT with left ureteral stent in position RICARDO with creatinine of 1.5 back improved Hypertension on midodrine at home which will be continued History of kidney stones History of ESBL history of recurrent UTIs Anxiety/depression Colostomy in place DVT prophylaxis Code status full code Subjective Date/time seen: 05/10/25 16:18 Interval history: No overnight events. Remains afebrile. No new complaints. Pneumatic switched to meropenem Review of Systems Review of Systems: All systems reviewed & are unremarkable except as noted in HPI and below Exam Narrative: Morbidly obese not in acute distress Patient is comfortable, NAD HEENT: eyes are clear and none icteric LUNGS:CTA HEART: RR S1S2 ABD: BS+, Soft and nontender Lower extremities: no edema SKIN: nonjaundiced Neuro: grossly intact. Objective Data Vital Signs Vital Signs: Vital Signs - 24 hr 05/09/25 20:00 05/09/25 20:00 05/09/25 22:00 Temperature 97.9 F Pulse Rate 55 L 55 L Respiratory Rate 16 Blood Pressure 132/68 Pulse Oximetry 94 Oxygen Delivery Room Air 05/10/25 00:00 05/10/25 04:00 05/10/25 06:00 Temperature 97.4 F L Pulse Rate 56 L 65 62 Respiratory Rate 16 Blood Pressure 107/64 Pulse Oximetry 94 Oxygen Delivery 05/10/25 08:00 05/10/25 10:43 05/10/25 13:43 Temperature 97.6 F Pulse Rate 66 Respiratory Rate 18 Blood Pressure 126/78 Pulse Oximetry 94 94 Oxygen Delivery Room Air Room Air Intake/Output Intake/Output: Intake & Output 05/07/25 05/08/25 05/09/25 05/10/25 23:59 23:59 23:59 23:59 Intake Total 2960 327 2008 730 Output Total 3375 1575 5630 2300 [facility]1498 -895 -1870 -1570 Meds/Results Medications: Active Medications Generic Name Dose Route Start Last Admin Trade Name Freq PRN Reason Stop Dose Admin Acetaminophen 650 mg 05/06/25 03:28 Acetaminophen 325 Mg Tablet PO Q4H PRN Mild Pain (1-3) or Fever Acetaminophen 325 mg 05/06/25 09:00 05/10/25 15:13 Acetaminophen 325 Mg Tablet PO 325 mg Q6H CELESTE Administration Hydrocodone Bitart/Acetaminophen 1 tab 05/06/25 08:29 05/10/25 05:52 Hydrocodone/Acetaminophen (*Crx) 5-325 Mg Tablet PO 1 tab BID PRN Administration Pain 4-6 Albuterol 2 puff 05/06/25 09:15 Albuterol Sulfate (*Sp) Aerosol 1 Puff INHALATION Q6H PRN wheezing Albuterol/Ipratropium 3 ml 05/09/25 13:07 Ipratropium 0.5 Mg/Albuterol Sulfate 2.5 Mg (Base) Ampul.Neb 3 Ml INHALATION Q6HRT PRN Wheezing Alprazolam 0.5 mg 05/06/25 21:00 05/09/25 20:22 Alprazolam (*Crx) 0.5 Mg Tablet PO 0.5 mg QHS CELESTE Administration Artificial Tears 1 drop 05/06/25 08:45 05/10/25 10:25 Artificial Tears Ophth Soln 15 Ml Bottle EACH EYE 1 drop Q12H CELESTE Administration Aspirin 81 mg 05/06/25 09:00 05/10/25 10:24 Aspirin 81 Mg Chewable Tablet PO 81 mg DAILY CELESTE Administration Diclofenac Sodium 1 applic 05/06/25 09:00 05/10/25 16:18 Diclofenac Sodium 1% 100 Gm Gel (*Bkc) TOPICAL Not Given QID CELESTE Docusate Sodium 100 mg 05/06/25 21:00 05/09/25 20:22 Docusate Sodium 100 Mg Capsule PO 100 mg HS CELESTE Administration Famotidine 20 mg 05/06/25 09:00 05/10/25 10:24 Famotidine 20 Mg Tablet PO 20 mg Q12HR CELESTE Administration Fentanyl Citrate 50 mcg 05/06/25 03:28 Fentanyl Citrate Inj (*Crx) 100 Mcg/2 Ml Vial IV PUSH Q2H PRN Pain Rated 7-10 Fluoxetine HCl 30 mg 05/06/25 09:00 05/10/25 10:23 Fluoxetine Hcl 10 Mg Capsule PO 30 mg DAILY CELESTE Administration Fluticasone Propionate 1 spray 05/06/25 09:00 05/10/25 10:25 Fluticasone Propionate 0.05% Na Spr 16 Gm Btl (*Bkc) NASAL 1 spray Q12HR CELESTE Administration Furosemide 20 mg 05/06/25 09:00 05/07/25 09:13 Furosemide 20 Mg Tablet PO 20 mg On Hold: 05/07/25 15:05 BID CELESTE Administration Hydroxyzine HCl 12.5 mg 05/06/25 09:00 05/10/25 10:24 Hydroxyzine Hcl 12.5 Mg Tablet PO 12.5 mg Q12HR CELESTE Administration Meropenem 1 gm/ Sodium 100 mls @ 200 mls/hr 05/09/25 16:00 05/10/25 10:23 Chloride IVPB 200 mls/hr Q8H CELESTE Administration Lidocaine 1 patch 05/06/25 08:29 05/07/25 20:43 Lidocaine 5% Patch TOPICAL 1 patch DAILY PRN Administration pain Loratadine 10 mg 05/06/25 09:00 05/10/25 10:24 Loratadine 10 Mg Tablet PO 10 mg DAILY CELESTE Administration Meclizine HCl 25 mg 05/06/25 08:29 05/06/25 09:34 Meclizine Hcl 25 Mg Tablet PO 25 mg TID PRN Administration Dizziness Melatonin 5 mg 05/06/25 21:00 05/09/25 20:23 Melatonin 5 Mg Tablet PO 5 mg HS CELESTE Administration Menthol/Methyl Salicylate 1 applic 05/06/25 08:29 Menthol 10% / Methyl Salicylate 15% 57 Gm Tube TOPICAL BID PRN Muscle/Joint Pain Midodrine 10 mg 05/06/25 05:16 05/10/25 14:57 Midodrine Hcl 10 Mg Tablet PO Not Given TID CELESTE Mirtazapine 15 mg 05/06/25 21:00 05/09/25 20:22 Mirtazapine 15 Mg Tablet PO 15 mg HS CELESTE Administration Multivitamins Therapeutic 1 tablet 05/06/25 09:00 05/10/25 10:24 Multivitamins Therapeutic Tab (*Bkc) PO 1 tablet DAILY CELESTE Administration Ondansetron HCl 4 mg 05/06/25 03:28 Ondansetron Inj 4 Mg/2 Ml Vial IV PUSH Q4H PRN Nausea Ondansetron HCl 4 mg 05/06/25 08:29 05/09/25 15:20 Ondansetron Hcl Odt 4 Mg Tablet PO 4 mg Q8H PRN Administration Nausea Pantoprazole Sodium 40 mg 05/06/25 09:00 05/10/25 10:24 Pantoprazole 40 Mg Tablet PO 06/05/25 08:59 40 mg DAILY CELESTE Administration Polyethylene Glycol 17 gm 05/06/25 09:00 05/10/25 10:23 Polyethylene Glycol 3350 17 Gm Powd.Pack PO 17 gm DAILY CELESTE Administration Potassium Chloride 20 meq 05/06/25 09:00 05/10/25 10:24 Potassium Chloride 20 Meq Er Tablet PO 20 meq BID CELESTE Administration Primidone 50 mg 05/06/25 09:00 05/10/25 10:24 Primidone 50 Mg Tablet PO 50 mg Q12HR CELESTE Administration Senna/Docusate Sodium 1 tab 05/06/25 09:00 05/10/25 10:23 Senna/Docusate Sodium Tablet PO 1 tab BID CELESTE Administration Simethicone 80 mg 05/06/25 09:00 05/10/25 10:24 Simethicone 80 Mg Tab.Chew PO 80 mg BID CELESTE Administration Radiology Results: ITS Impressions Abdomen/Pelvis CT 05/06/25 08:03 IMPRESSION: 1. Cholelithiasis. Gallbladder distention may be secondary to fasting. 2. Bilateral nonobstructing kidney stones. 3. Mild bilateral hydronephrosis. Left internal ureteral stent in expected position. 4. Foci of free gas in the left perinephric fat, which may be secondary to ureteral perforation. 5. 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 Labs Labs: Laboratory Results - last 24 hr 05/10/25 05:09 WBC 10.3 H RBC 3.59 L Hgb 10.7 L Hct 32.3 L MCV 90.0 MCH 29.8 MCHC 33.1 RDW 13.9 Plt Count 306 MPV 9.0 Sodium 135 L Potassium 4.0 Chloride 106 Carbon Dioxide 23 Anion Gap 6 BUN 15 Creatinine 0.82 Estim Creat Clear Calc 67 Estimated GFR > 60 Glucose 108 Calcium 8.5 Magnesium 2.2
[2025-05-10] MEDS: MELATONIN 5 MG TABLET PO (21:55)
[2025-05-10] MEDS: ALPRAZolam (*CRX) 0.5 MG TABLET PO (21:55)
[2025-05-10] MEDS: DOCUSATE SODIUM 100 MG CAPSULE PO (21:56)
[2025-05-10] MEDS: MIRTAZAPINE 15 MG TABLET PO (21:56)
[2025-05-10] MEDS: DICLOFENAC SODIUM 1% 100 GM GEL (*BKC) 1 APPLIC TOPICAL (21:56)
[2025-05-11] VITALS (9 sets, daily range): BP systolic 112–140; BP diastolic 60–74; PULSE 54–67; RESP 16–18; TEMP 36.3–37; O2SAT 94–95
[2025-05-11] MEDS: MEROPENEM 1 GM in SODIUM CHLORIDE 0.9% IV 100 ML 200 ML IVPB ×3 (00:58→15:23)
[2025-05-11 05:30] LABS: Hematocrit 32.7 % (37.0-47.0); Hemoglobin 10.8 g/dL (12.0-15.0); Mean Corpuscular HGB Conc 33.0 g/dl (32-36); Mean Corpuscular Hemoglobin 29.9 pg (26-34); Mean Corpuscular Volume 90.6 fl (80-100); Platelet Count Result 337 k/mm3 (150-375); Red Blood Count 3.61 M/mm3 (4.2-5.4); White Blood Count 9.9 K/mm3 (4.5-10.0)
[2025-05-11 05:55] LABS: Anion Gap 7 mmol/L (4-12); Blood Urea Nitrogen 18 mg/dL (7-17); Calcium 8.5 mg/dL (8.4-10.2); Carbon Dioxide 23 mmol/L (22-30); Chloride 104 mmol/L (98-107); Estimated CRCL calculation 65 ml/min; Estimated Glomerular Filt Rate > 60; Glucose 101 mg/dL (65-110); Magnesium 2.2 mg/dL (1.6-2.3); Potassium 4.1 mmol/L (3.4-5.0); Sodium 134 mmol/L (137-145)
[2025-05-11] MEDS: LORATADINE 10 MG TABLET PO (08:30)
[2025-05-11] MEDS: SENNA/DOCUSATE SODIUM TABLET 1 TAB PO ×2 (08:30→17:00)
[2025-05-11] MEDS: hydrOXYzine HCL 12.5 MG TABLET PO ×2 (08:30→21:23)
[2025-05-11] MEDS: PANTOPRAZOLE 40 MG TABLET PO (08:30)
[2025-05-11] MEDS: ACETAMINOPHEN 325 MG TABLET PO ×3 (08:31→21:23)
[2025-05-11] MEDS: POTASSIUM CHLORIDE 20 MEQ ER TABLET PO ×2 (08:31→17:00)
[2025-05-11] MEDS: SIMETHICONE 80 MG TAB.CHEW PO ×2 (08:31→17:00)
[2025-05-11] MEDS: ASPIRIN 81 MG CHEWABLE TABLET PO (08:31)
[2025-05-11] MEDS: PRIMIDONE 50 MG TABLET PO ×2 (08:31→21:23)
[2025-05-11] MEDS: FLUTICASONE PROPIONATE 0.05% NA SPR 16 GM BTL (*BKC) 1 SPRAY NASAL (08:31)
[2025-05-11] MEDS: MIDODRINE HCL 10 MG TABLET PO ×3 (08:31→17:00)
[2025-05-11] MEDS: MULTIVITAMINS THERAPEUTIC TAB (*BKC) 1 TABLET PO (08:31)
[2025-05-11] MEDS: FAMOTIDINE 20 MG TABLET PO ×2 (08:31→21:23)
[2025-05-11] MEDS: ARTIFICIAL TEARS OPHTH SOLN 15 ML BOTTLE 1 DROP EACH EYE (08:33)
--- NOTE | 2025-05-11 09:51 | WPDUROPN2 ---
Progress Note: A&P Assessment and Plan (1) Acute UTI: Code(s): N39.0 - Urinary tract infection, site not specified Status: Acute Assessment and Plan: - WBC downtrending; 9.9 today - Pt afebrile and symptomatically improving - Continue susceptibility driven Abx (2) Ureteral stent present: Code(s): Z96.0 - Presence of urogenital implants Status: Acute Assessment and Plan: - Maintain ureteral stent in the setting of UTI/sepsis - Will plan for stent pull once infeciton resolves (3) Nephrolithiasis: Code(s): N20.0 - Calculus of kidney Status: Acute Assessment and Plan: - Plan for outpatient management of residual stones Subjective Subjective Date/Time Seen: 05/11/25 09:51 Interval history: NAEO; resting comfortably in bed. States she feels fatigued and lethargic but no fevers/chills this morning. Exam Const: General: comfortable and no acute distress Eyes: General: appearance normal, both eyes and all related structures Resp: Effort & Inspection: normal respiratory effort Skin: General skin exam: normal color Neuro: General: gait normal Speech: normal speech Objective Data Vital Signs Vital Signs: Vital Signs - 24 hr 05/10/25 10:43 05/10/25 12:00 05/10/25 13:43 Temperature 36.4 C Pulse Rate 60 66 Respiratory Rate 18 Blood Pressure 126/78 Pulse Oximetry 94 94 Oxygen Delivery Room Air 05/10/25 16:00 05/10/25 20:00 05/10/25 20:00 Temperature 36.8 C Pulse Rate 57 L 58 L Respiratory Rate 16 Blood Pressure 145/79 H Pulse Oximetry 95 Oxygen Delivery Room Air 05/10/25 20:00 05/11/25 00:00 05/11/25 04:00 Temperature Pulse Rate 54 L 56 L 58 L Respiratory Rate Blood Pressure Pulse Oximetry Oxygen Delivery 05/11/25 06:00 Temperature 37.0 C Pulse Rate 58 L Respiratory Rate 16 Blood Pressure 112/60 Pulse Oximetry 94 Oxygen Delivery Intake/Output Intake/Output: Intake & Output 05/08/25 05/09/25 05/10/25 05/11/25 23:59 23:59 23:59 23:59 Intake Total 680 1880 1760 740 Output Total 1575 3750 2300 1800 Balance -895 -1870 -540 -1060 Meds/Results Medications: Active Medications Generic Name Dose Route Start Last Admin Trade Name Freq PRN Reason Stop Dose Admin Acetaminophen 650 mg 05/06/25 03:28 Acetaminophen 325 Mg Tablet PO Q4H PRN Mild Pain (1-3) or Fever Acetaminophen 325 mg 05/06/25 09:00 05/11/25 08:31 Acetaminophen 325 Mg Tablet PO 325 mg Q6H CELESTE Administration Hydrocodone Bitart/Acetaminophen 1 tab 05/06/25 08:29 05/10/25 05:52 Hydrocodone/Acetaminophen (*Crx) 5-325 Mg Tablet PO 1 tab BID PRN Administration Pain 4-6 Albuterol 2 puff 05/06/25 09:15 Albuterol Sulfate (*Sp) Aerosol 1 Puff INHALATION Q6H PRN wheezing Albuterol/Ipratropium 3 ml 05/09/25 13:07 Ipratropium 0.5 Mg/Albuterol Sulfate 2.5 Mg (Base) Ampul.Neb 3 Ml INHALATION Q6HRT PRN Wheezing Alprazolam 0.5 mg 05/06/25 21:00 05/10/25 21:55 Alprazolam (*Crx) 0.5 Mg Tablet PO 0.5 mg QHS CELESTE Administration Artificial Tears 1 drop 05/06/25 08:45 05/11/25 08:33 Artificial Tears Ophth Soln 15 Ml Bottle EACH EYE 1 drop Q12H CELESTE Administration Aspirin 81 mg 05/06/25 09:00 05/11/25 08:31 Aspirin 81 Mg Chewable Tablet PO 81 mg DAILY CELESTE Administration Diclofenac Sodium 1 applic 05/06/25 09:00 05/11/25 08:32 Diclofenac Sodium 1% 100 Gm Gel (*Bkc) TOPICAL Not Given QID CELESTE Docusate Sodium 100 mg 05/06/25 21:00 05/10/25 21:56 Docusate Sodium 100 Mg Capsule PO 100 mg HS CELESTE Administration Famotidine 20 mg 05/06/25 09:00 05/11/25 08:31 Famotidine 20 Mg Tablet PO 20 mg Q12HR CELESTE Administration Fentanyl Citrate 50 mcg 05/06/25 03:28 Fentanyl Citrate Inj (*Crx) 100 Mcg/2 Ml Vial IV PUSH Q2H PRN Pain Rated 7-10 Fluoxetine HCl 30 mg 05/06/25 09:00 05/11/25 08:30 Fluoxetine Hcl 10 Mg Capsule PO 30 mg DAILY CELESTE Administration Fluticasone Propionate 1 spray 05/06/25 09:00 05/11/25 08:31 Fluticasone Propionate 0.05% Na Spr 16 Gm Btl (*Bkc) NASAL 1 spray Q12HR CELESTE Administration Furosemide 20 mg 05/06/25 09:00 05/07/25 09:13 Furosemide 20 Mg Tablet PO 20 mg On Hold: 05/07/25 15:05 BID CELESTE Administration Hydroxyzine HCl 12.5 mg 05/06/25 09:00 05/11/25 08:30 Hydroxyzine Hcl 12.5 Mg Tablet PO 12.5 mg Q12HR CELESTE Administration Meropenem 1 gm/ Sodium 100 mls @ 200 mls/hr 05/09/25 16:00 05/11/25 08:34 Chloride IVPB 200 mls/hr Q8H CELESTE Administration Lidocaine 1 patch 05/06/25 08:29 05/07/25 20:43 Lidocaine 5% Patch TOPICAL 1 patch DAILY PRN Administration pain Loratadine 10 mg 05/06/25 09:00 05/11/25 08:30 Loratadine 10 Mg Tablet PO 10 mg DAILY CELESTE Administration Meclizine HCl 25 mg 05/06/25 08:29 05/06/25 09:34 Meclizine Hcl 25 Mg Tablet PO 25 mg TID PRN Administration Dizziness Melatonin 5 mg 05/06/25 21:00 05/10/25 21:55 Melatonin 5 Mg Tablet PO 5 mg HS CELESTE Administration Menthol/Methyl Salicylate 1 applic 05/06/25 08:29 Menthol 10% / Methyl Salicylate 15% 57 Gm Tube TOPICAL BID PRN Muscle/Joint Pain Midodrine 10 mg 05/06/25 05:16 05/11/25 08:31 Midodrine Hcl 10 Mg Tablet PO 10 mg TID CELESTE Administration Mirtazapine 15 mg 05/06/25 21:00 05/10/25 21:56 Mirtazapine 15 Mg Tablet PO 15 mg HS CELESTE Administration Multivitamins Therapeutic 1 tablet 05/06/25 09:00 05/11/25 08:31 Multivitamins Therapeutic Tab (*Bkc) PO 1 tablet DAILY CELESTE Administration Ondansetron HCl 4 mg 05/06/25 03:28 Ondansetron Inj 4 Mg/2 Ml Vial IV PUSH Q4H PRN Nausea Ondansetron HCl 4 mg 05/06/25 08:29 05/09/25 15:20 Ondansetron Hcl Odt 4 Mg Tablet PO 4 mg Q8H PRN Administration Nausea Pantoprazole Sodium 40 mg 05/06/25 09:00 05/11/25 08:30 Pantoprazole 40 Mg Tablet PO 06/05/25 08:59 40 mg DAILY CELESTE Administration Polyethylene Glycol 17 gm 05/06/25 09:00 05/11/25 08:31 Polyethylene Glycol 3350 17 Gm Powd.Pack PO 17 gm DAILY CELESTE Administration Potassium Chloride 20 meq 05/06/25 09:00 05/11/25 08:31 Potassium Chloride 20 Meq Er Tablet PO 20 meq BID CELESTE Administration Primidone 50 mg 05/06/25 09:00 05/11/25 08:31 Primidone 50 Mg Tablet PO 50 mg Q12HR CELESTE Administration Senna/Docusate Sodium 1 tab 05/06/25 09:00 05/11/25 08:30 Senna/Docusate Sodium Tablet PO 1 tab BID CELESTE Administration Simethicone 80 mg 05/06/25 09:00 05/11/25 08:31 Simethicone 80 Mg Tab.Chew PO 80 mg BID CELESTE Administration Radiology Results: ITS Impressions Abdomen/Pelvis CT 05/06/25 08:03 IMPRESSION: 1. Cholelithiasis. Gallbladder distention may be secondary to fasting. 2. Bilateral nonobstructing kidney stones. 3. Mild bilateral hydronephrosis. Left internal ureteral stent in expected position. 4. Foci of free gas in the left perinephric fat, which may be secondary to ureteral perforation. 5. 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 Labs Labs: Laboratory Results - last 24 hr 05/11/25 05/11/25 05:05 05:06 WBC 9.9 RBC 3.61 L Hgb 10.8 L Hct 32.7 L MCV 90.6 MCH 29.9 MCHC 33.0 RDW 13.8 Plt Count 337 MPV 9.1 Sodium 134 L Potassium 4.1 Chloride 104 Carbon Dioxide 23 Anion Gap 7 BUN 18 H Creatinine 0.84 Estim Creat Clear Calc 65 Estimated GFR > 60 Glucose 101 Calcium 8.5 Magnesium 2.2
[2025-05-11] MEDS: LIDOCAINE 1% LOCAL INJ 2 ML AMPUL 5 ML INFILTRATE (14:40)
--- NOTE | 2025-05-11 15:14 | P.PNIM_ITS ---
Progress Note: A&P Assessment and Plan (1) Kidney stone on left side: Code(s): N20.0 - Calculus of kidney Status: Acute (2) Obstruction of left ureteropelvic junction (UPJ) due to stone: Code(s): N20.1 - Calculus of ureter Status: Acute (3) RICARDO (acute kidney injury): Code(s): N17.9 - Acute kidney failure, unspecified Status: Resolved (4) Acute UTI: Code(s): N39.0 - Urinary tract infection, site not specified Status: Acute Plan This is a 75-year-old female who presents to the ED with generalized weakness. 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 She was also noted to have altered mental status and fever with dark-colored urine. In the ED her blood pressure was low with 85/49. Laboratory workup revealed WBC of 19.7 hemoglobin of 11.8 platelet count of 260. Chem panel shows sodium of 131 potassium of 4.7 chloride 101 bicarbonate 20 2 creatinine 1.5 in blood glucose of 114. Lactate was normal at 1.4 troponin was negative LFTs were normal except for alkaline phosphatase 156. Urinalysis was suggestive of UTI with 21-50 WBC and 51-[address] abdomen pelvis was performed which showed small focus of air around the pelvis stent in place. Patient received IV fluids and started on IV antibiotics. Urology has been consulted. Sepsis with UTI Bacteremia with Gram-negative bacilli. Identified as E coli. Sensitivity back with ESBL E coli. Ceftriaxone switched to meropenem. repeat blood culture Can do ertapenem for 10 days course total.until 05/15/2025. midline to place. cc to arrange iv antibiotics at the nursing faciltiy. anticipate dc in am Recent extraction of left renal calculi on 05/04/2025. CT with left ureteral stent in position RICARDO with creatinine of 1.5 back improved Hypertension on midodrine at home which will be continued History of kidney stones History of ESBL history of recurrent UTIs Anxiety/depression Colostomy in place DVT prophylaxis Code status full code Subjective Date/time seen: 05/11/25 15:14 Interval history: No overnight events. Remains afebrile. No new complaints. tolerating antibiotics Review of Systems Review of Systems: All systems reviewed & are unremarkable except as noted in HPI and below Exam Narrative: Morbidly obese not in acute distress Patient is comfortable, NAD HEENT: eyes are clear and none icteric LUNGS:CTA HEART: RR S1S2 ABD: BS+, Soft and nontender Lower extremities: no edema SKIN: nonjaundiced Neuro: grossly intact. Objective Data Vital Signs Vital Signs: Vital Signs - 24 hr 05/10/25 16:00 05/10/25 20:00 05/10/25 20:00 Temperature 98.2 F Pulse Rate 57 L 58 L Respiratory Rate 16 Blood Pressure 145/79 H Pulse Oximetry 95 Oxygen Delivery Room Air 05/10/25 20:00 05/11/25 00:00 05/11/25 04:00 Temperature Pulse Rate 54 L 56 L 58 L Respiratory Rate Blood Pressure Pulse Oximetry Oxygen Delivery 05/11/25 06:00 05/11/25 08:05 05/11/25 08:35 Temperature 98.6 F Pulse Rate 58 L 59 L Respiratory Rate 16 Blood Pressure 112/60 Pulse Oximetry 94 Oxygen Delivery Room Air 05/11/25 12:06 05/11/25 14:00 Temperature 97.8 F Pulse Rate 54 L 62 Respiratory Rate 16 Blood Pressure 114/74 Pulse Oximetry 94 Oxygen Delivery Intake/Output Intake/Output: Intake & Output 05/08/25 05/09/25 05/10/25 05/11/25 23:59 23:59 23:59 23:59 Intake Total 680 1880 1760 980 Output Total 1575 3750 2300 1800 Balance -895 -1870 -540 -820 Meds/Results Medications: Active Medications Generic Name Dose Route Start Last Admin Trade Name Freq PRN Reason Stop Dose Admin Acetaminophen 650 mg 05/06/25 03:28 Acetaminophen 325 Mg Tablet PO Q4H PRN Mild Pain (1-3) or Fever Acetaminophen 325 mg 05/06/25 09:00 05/11/25 08:31 Acetaminophen 325 Mg Tablet PO 325 mg Q6H CELESTE Administration Hydrocodone Bitart/Acetaminophen 1 tab 05/06/25 08:29 05/10/25 05:52 Hydrocodone/Acetaminophen (*Crx) 5-325 Mg Tablet PO 1 tab BID PRN Administration Pain 4-6 Albuterol 2 puff 05/06/25 09:15 Albuterol Sulfate (*Sp) Aerosol 1 Puff INHALATION Q6H PRN wheezing Albuterol/Ipratropium 3 ml 05/09/25 13:07 Ipratropium 0.5 Mg/Albuterol Sulfate 2.5 Mg (Base) Ampul.Neb 3 Ml INHALATION Q6HRT PRN Wheezing Alprazolam 0.5 mg 05/06/25 21:00 05/10/25 21:55 Alprazolam (*Crx) 0.5 Mg Tablet PO 0.5 mg QHS CELESTE Administration Artificial Tears 1 drop 05/06/25 08:45 05/11/25 08:33 Artificial Tears Ophth Soln 15 Ml Bottle EACH EYE 1 drop Q12H CELESTE Administration Aspirin 81 mg 05/06/25 09:00 05/11/25 08:31 Aspirin 81 Mg Chewable Tablet PO 81 mg DAILY CELESTE Administration Diclofenac Sodium 1 applic 05/11/25 10:57 Diclofenac Sodium 1% 100 Gm Gel (*Bkc) TOPICAL QID PRN joint pain Docusate Sodium 100 mg 05/06/25 21:00 05/10/25 21:56 Docusate Sodium 100 Mg Capsule PO 100 mg HS CELESTE Administration Famotidine 20 mg 05/06/25 09:00 05/11/25 08:31 Famotidine 20 Mg Tablet PO 20 mg Q12HR CELESTE Administration Fentanyl Citrate 50 mcg 05/06/25 03:28 Fentanyl Citrate Inj (*Crx) 100 Mcg/2 Ml Vial IV PUSH Q2H PRN Pain Rated 7-10 Fluoxetine HCl 30 mg 05/06/25 09:00 05/11/25 08:30 Fluoxetine Hcl 10 Mg Capsule PO 30 mg DAILY CELESTE Administration Fluticasone Propionate 1 spray 05/06/25 09:00 05/11/25 08:31 Fluticasone Propionate 0.05% Na Spr 16 Gm Btl (*Bkc) NASAL 1 spray Q12HR CELESTE Administration Furosemide 20 mg 05/06/25 09:00 05/07/25 09:13 Furosemide 20 Mg Tablet PO 20 mg On Hold: 05/07/25 15:05 BID CELESTE Administration Hydroxyzine HCl 12.5 mg 05/06/25 09:00 05/11/25 08:30 Hydroxyzine Hcl 12.5 Mg Tablet PO 12.5 mg Q12HR CELESTE Administration Meropenem 1 gm/ Sodium 100 mls @ 200 mls/hr 05/09/25 16:00 05/11/25 08:34 Chloride IVPB 05/16/25 08:29 200 mls/hr Q8H CELESTE Administration Lidocaine 1 patch 05/06/25 08:29 05/07/25 20:43 Lidocaine 5% Patch TOPICAL 1 patch DAILY PRN Administration pain Loratadine 10 mg 05/06/25 09:00 05/11/25 08:30 Loratadine 10 Mg Tablet PO 10 mg DAILY CELESTE Administration Meclizine HCl 25 mg 05/06/25 08:29 05/06/25 09:34 Meclizine Hcl 25 Mg Tablet PO 25 mg TID PRN Administration Dizziness Melatonin 5 mg 05/06/25 21:00 05/10/25 21:55 Melatonin 5 Mg Tablet PO 5 mg HS CELESTE Administration Menthol/Methyl Salicylate 1 applic 05/06/25 08:29 Menthol 10% / Methyl Salicylate 15% 57 Gm Tube TOPICAL BID PRN Muscle/Joint Pain Midodrine 10 mg 05/06/25 05:16 05/11/25 12:34 Midodrine Hcl 10 Mg Tablet PO 10 mg TID CELESTE Administration Mirtazapine 15 mg 05/06/25 21:00 05/10/25 21:56 Mirtazapine 15 Mg Tablet PO 15 mg HS CELESTE Administration Multivitamins Therapeutic 1 tablet 05/06/25 09:00 05/11/25 08:31 Multivitamins Therapeutic Tab (*Bkc) PO 1 tablet DAILY CELESTE Administration Ondansetron HCl 4 mg 05/06/25 03:28 Ondansetron Inj 4 Mg/2 Ml Vial IV PUSH Q4H PRN Nausea Ondansetron HCl 4 mg 05/06/25 08:29 05/09/25 15:20 Ondansetron Hcl Odt 4 Mg Tablet PO 4 mg Q8H PRN Administration Nausea Pantoprazole Sodium 40 mg 05/06/25 09:00 05/11/25 08:30 Pantoprazole 40 Mg Tablet PO 06/05/25 08:59 40 mg DAILY CELESTE Administration Polyethylene Glycol 17 gm 05/06/25 09:00 05/11/25 08:31 Polyethylene Glycol 3350 17 Gm Powd.Pack PO 17 gm DAILY CELESTE Administration Potassium Chloride 20 meq 05/06/25 09:00 05/11/25 08:31 Potassium Chloride 20 Meq Er Tablet PO 20 meq BID CELESTE Administration Primidone 50 mg 05/06/25 09:00 05/11/25 08:31 Primidone 50 Mg Tablet PO 50 mg Q12HR CELESTE Administration Senna/Docusate Sodium 1 tab 05/06/25 09:00 05/11/25 08:30 Senna/Docusate Sodium Tablet PO 1 tab BID CELESTE Administration Simethicone 80 mg 05/06/25 09:00 05/11/25 08:31 Simethicone 80 Mg Tab.Chew PO 80 mg BID CELESTE Administration Radiology Results: ITS Impressions Abdomen/Pelvis CT 05/06/25 08:03 IMPRESSION: 1. Cholelithiasis. Gallbladder distention may be secondary to fasting. 2. Bilateral nonobstructing kidney stones. 3. Mild bilateral hydronephrosis. Left internal ureteral stent in expected position. 4. Foci of free gas in the left perinephric fat, which may be secondary to ureteral perforation. 5. 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 Labs Labs: Laboratory Results - last 24 hr 05/11/25 05/11/25 05:05 05:06 WBC 9.9 RBC 3.61 L Hgb 10.8 L Hct 32.7 L MCV 90.6 MCH 29.9 MCHC 33.0 RDW 13.8 Plt Count 337 MPV 9.1 Sodium 134 L Potassium 4.1 Chloride 104 Carbon Dioxide 23 Anion Gap 7 BUN 18 H Creatinine 0.84 Estim Creat Clear Calc 65 Estimated GFR > 60 Glucose 101 Calcium 8.5 Magnesium 2.2
[2025-05-11] MEDS: ONDANSETRON HCL ODT 4 MG TABLET PO (15:22)
[2025-05-11] MEDS: MELATONIN 5 MG TABLET PO (21:23)
[2025-05-11] MEDS: MIRTAZAPINE 15 MG TABLET PO (21:23)
[2025-05-11] MEDS: ALPRAZolam (*CRX) 0.5 MG TABLET PO (21:23)
[2025-05-11] MEDS: DOCUSATE SODIUM 100 MG CAPSULE PO (21:23)
[2025-05-12] VITALS (7 sets, daily range): BP systolic 100–115; BP diastolic 62–64; PULSE 54–66; RESP 18; TEMP 36.3–36.5; O2SAT 93–96
[2025-05-12] MEDS: MEROPENEM 1 GM in SODIUM CHLORIDE 0.9% IV 100 ML 200 ML IVPB ×2 (01:06→08:51)
[2025-05-12] MEDS: SALINE LOCK FLUSH 10 ML IV PUSH ×3 (01:06→16:42)
[2025-05-12 05:48] LABS: Hematocrit 34.5 % (37.0-47.0); Hemoglobin 11.3 g/dL (12.0-15.0); Mean Corpuscular HGB Conc 32.8 g/dl (32-36); Mean Corpuscular Hemoglobin 29.6 pg (26-34); Mean Corpuscular Volume 90.3 fl (80-100); Platelet Count Result 412 k/mm3 (150-375); Red Blood Count 3.82 M/mm3 (4.2-5.4); White Blood Count 9.6 K/mm3 (4.5-10.0)
[2025-05-12 06:12] LABS: Anion Gap 6 mmol/L (4-12); Blood Urea Nitrogen 16 mg/dL (7-17); Calcium 8.7 mg/dL (8.4-10.2); Carbon Dioxide 25 mmol/L (22-30); Chloride 105 mmol/L (98-107); Estimated CRCL calculation 70 ml/min; Estimated Glomerular Filt Rate > 60; Glucose 100 mg/dL (65-110); Magnesium 2.1 mg/dL (1.6-2.3); Potassium 4.3 mmol/L (3.4-5.0); Sodium 136 mmol/L (137-145)
[2025-05-12] MEDS: SENNA/DOCUSATE SODIUM TABLET 1 TAB PO ×2 (08:48→16:41)
[2025-05-12] MEDS: ASPIRIN 81 MG CHEWABLE TABLET PO (08:49)
[2025-05-12] MEDS: LORATADINE 10 MG TABLET PO (08:49)
[2025-05-12] MEDS: PRIMIDONE 50 MG TABLET PO (08:49)
[2025-05-12] MEDS: hydrOXYzine HCL 12.5 MG TABLET PO (08:49)
[2025-05-12] MEDS: FAMOTIDINE 20 MG TABLET PO (08:49)
[2025-05-12] MEDS: MULTIVITAMINS THERAPEUTIC TAB (*BKC) 1 TABLET PO (08:49)
[2025-05-12] MEDS: ACETAMINOPHEN 325 MG TABLET PO ×2 (08:49→16:42)
[2025-05-12] MEDS: SIMETHICONE 80 MG TAB.CHEW PO ×2 (08:49→16:41)
[2025-05-12] MEDS: PANTOPRAZOLE 40 MG TABLET PO (08:49)
[2025-05-12] MEDS: FLUTICASONE PROPIONATE 0.05% NA SPR 16 GM BTL (*BKC) 1 SPRAY NASAL (08:49)
[2025-05-12] MEDS: ARTIFICIAL TEARS OPHTH SOLN 15 ML BOTTLE 1 DROP EACH EYE (08:51)
[2025-05-12] MEDS: MIDODRINE HCL 2.5 MG TABLET 5 MG PO ×2 (08:53→12:41)
--- NOTE | 2025-05-12 10:17 | WPDUROPN2 ---
Progress Note: A&P Assessment and Plan (1) Acute UTI: Code(s): N39.0 - Urinary tract infection, site not specified Status: Acute Assessment and Plan: - WBC downtrending; 9.6 today - Pt afebrile and symptomatically improving - Continue susceptibility driven Abx per primary service. (2) Ureteral stent present: Code(s): Z96.0 - Presence of urogenital implants Status: Acute Assessment and Plan: - Stent removed at bedside today. Discussed with Dr. aGlicia. - wbc and cr wnl. (3) Nephrolithiasis: Code(s): N20.0 - Calculus of kidney Status: Acute Assessment and Plan: - Plan for outpatient management of residual stones -ok to discharge from urology standpoint. Subjective Subjective Date/Time Seen: 05/12/25 10:17 Interval history: No overnight events. Remains afebrile. No new complaints. patient likely to discharge today Review of Systems Review of Systems: All systems reviewed & are unremarkable except as noted in HPI and below Exam Const: General: comfortable and no acute distress Eyes: General: appearance normal, both eyes and all related structures Resp: Effort & Inspection: normal respiratory effort GI: Inspection: non-distended Auscultation: normal bowel sounds Skin: General skin exam: normal color Neuro: General: gait normal Speech: normal speech Psych: Mental Status: mental status grossly normal Objective Data Vital Signs Vital Signs: Vital Signs - 24 hr 05/11/25 12:06 05/11/25 14:00 05/11/25 16:00 Temperature 97.8 F Pulse Rate 54 L 62 67 Respiratory Rate 16 Blood Pressure 114/74 Pulse Oximetry 94 Oxygen Delivery 05/11/25 20:00 05/11/25 20:00 05/11/25 21:02 Temperature 97.3 F L Pulse Rate 61 58 L Respiratory Rate 18 Blood Pressure 140/70 Pulse Oximetry 95 Oxygen Delivery Room Air 05/12/25 00:00 05/12/25 04:00 05/12/25 06:00 Temperature 97.7 F Pulse Rate 61 58 L 64 Respiratory Rate 18 Blood Pressure 115/64 Pulse Oximetry 93 Oxygen Delivery Intake/Output Intake/Output: Intake & Output 05/09/25 05/10/25 05/11/25 05/12/25 23:59 23:59 23:59 23:59 Intake Total 1880 1760 2027 100 Output Total 5070 2300 0857 1300 [facility] -1870 -540 -1123 -1200 Meds/Results Medications: Active Medications Generic Name Dose Route Start Last Admin Trade Name Freq PRN Reason Stop Dose Admin Acetaminophen 650 mg 05/06/25 03:28 Acetaminophen 325 Mg Tablet PO Q4H PRN Mild Pain (1-3) or Fever Acetaminophen 325 mg 05/06/25 09:00 05/12/25 08:49 Acetaminophen 325 Mg Tablet PO 325 mg Q6H CELESTE Administration Hydrocodone Bitart/Acetaminophen 1 tab 05/06/25 08:29 05/10/25 05:52 Hydrocodone/Acetaminophen (*Crx) 5-325 Mg Tablet PO 1 tab BID PRN Administration Pain 4-6 Albuterol 2 puff 05/06/25 09:15 Albuterol Sulfate (*Sp) Aerosol 1 Puff INHALATION Q6H PRN wheezing Albuterol/Ipratropium 3 ml 05/09/25 13:07 Ipratropium 0.5 Mg/Albuterol Sulfate 2.5 Mg (Base) Ampul.Neb 3 Ml INHALATION Q6HRT PRN Wheezing Alprazolam 0.5 mg 05/06/25 21:00 05/11/25 21:23 Alprazolam (*Crx) 0.5 Mg Tablet PO 0.5 mg QHS CELESTE Administration Artificial Tears 1 drop 05/06/25 08:45 05/12/25 08:51 Artificial Tears Ophth Soln 15 Ml Bottle EACH EYE 1 drop Q12H CELESTE Administration Aspirin 81 mg 05/06/25 09:00 05/12/25 08:49 Aspirin 81 Mg Chewable Tablet PO 81 mg DAILY CELESTE Administration Diclofenac Sodium 1 applic 05/11/25 10:57 Diclofenac Sodium 1% 100 Gm Gel (*Bkc) TOPICAL QID PRN joint pain Docusate Sodium 100 mg 05/06/25 21:00 05/11/25 21:23 Docusate Sodium 100 Mg Capsule PO 100 mg HS CELESTE Administration Famotidine 20 mg 05/06/25 09:00 05/12/25 08:49 Famotidine 20 Mg Tablet PO 20 mg Q12HR CELESTE Administration Fentanyl Citrate 50 mcg 05/06/25 03:28 Fentanyl Citrate Inj (*Crx) 100 Mcg/2 Ml Vial IV PUSH Q2H PRN Pain Rated 7-10 Fluoxetine HCl 30 mg 05/06/25 09:00 05/12/25 08:48 Fluoxetine Hcl 10 Mg Capsule PO 30 mg DAILY CELESTE Administration Fluticasone Propionate 1 spray 05/06/25 09:00 05/12/25 08:49 Fluticasone Propionate 0.05% Na Spr 16 Gm Btl (*Bkc) NASAL 1 spray Q12HR CELESTE Administration Furosemide 20 mg 05/06/25 09:00 05/07/25 09:13 Furosemide 20 Mg Tablet PO 20 mg On Hold: 05/07/25 15:05 BID CELESTE Administration Hydroxyzine HCl 12.5 mg 05/06/25 09:00 05/12/25 08:49 Hydroxyzine Hcl 12.5 Mg Tablet PO 12.5 mg Q12HR CELESTE Administration Meropenem 1 gm/ Sodium 100 mls @ 200 mls/hr 05/09/25 16:00 05/12/25 08:51 Chloride IVPB 05/16/25 08:29 200 mls/hr Q8H CELESTE Administration Lidocaine 1 patch 05/06/25 08:29 05/07/25 20:43 Lidocaine 5% Patch TOPICAL 1 patch DAILY PRN Administration pain Loratadine 10 mg 05/06/25 09:00 05/12/25 08:49 Loratadine 10 Mg Tablet PO 10 mg DAILY CELESTE Administration Meclizine HCl 25 mg 05/06/25 08:29 05/06/25 09:34 Meclizine Hcl 25 Mg Tablet PO 25 mg TID PRN Administration Dizziness Melatonin 5 mg 05/06/25 21:00 05/11/25 21:23 Melatonin 5 Mg Tablet PO 5 mg HS CELESTE Administration Menthol/Methyl Salicylate 1 applic 05/06/25 08:29 Menthol 10% / Methyl Salicylate 15% 57 Gm Tube TOPICAL BID PRN Muscle/Joint Pain Midodrine 5 mg 05/12/25 09:00 05/12/25 08:53 Midodrine Hcl 2.5 Mg Tablet PO 5 mg TID CELESTE Administration Mirtazapine 15 mg 05/06/25 21:00 05/11/25 21:23 Mirtazapine 15 Mg Tablet PO 15 mg HS CELESTE Administration Multivitamins Therapeutic 1 tablet 05/06/25 09:00 05/12/25 08:49 Multivitamins Therapeutic Tab (*Bkc) PO 1 tablet DAILY CELESTE Administration Ondansetron HCl 4 mg 05/06/25 03:28 Ondansetron Inj 4 Mg/2 Ml Vial IV PUSH Q4H PRN Nausea Ondansetron HCl 4 mg 05/06/25 08:29 05/11/25 15:22 Ondansetron Hcl Odt 4 Mg Tablet PO 4 mg Q8H PRN Administration Nausea Pantoprazole Sodium 40 mg 05/06/25 09:00 05/12/25 08:49 Pantoprazole 40 Mg Tablet PO 06/05/25 08:59 40 mg DAILY CELESTE Administration Polyethylene Glycol 17 gm 05/06/25 09:00 05/12/25 08:48 Polyethylene Glycol 3350 17 Gm Powd.Pack PO 17 gm DAILY CELESTE Administration Potassium Chloride 20 meq 05/06/25 09:00 05/11/25 17:00 Potassium Chloride 20 Meq Er Tablet PO 20 meq On Hold: 05/12/25 08:09 BID CELESTE Administration Primidone 50 mg 05/06/25 09:00 05/12/25 08:49 Primidone 50 Mg Tablet PO 50 mg Q12HR CELESTE Administration Senna/Docusate Sodium 1 tab 05/06/25 09:00 05/12/25 08:48 Senna/Docusate Sodium Tablet PO 1 tab BID CELESTE Administration Simethicone 80 mg 05/06/25 09:00 05/12/25 08:49 Simethicone 80 Mg Tab.Chew PO 80 mg BID CELESTE Administration Sodium Chloride 10 ml 05/11/25 22:00 05/12/25 08:48 Saline Lock Flush IV PUSH 10 ml Q8HR CELESTE Administration Sodium Chloride 10 ml 05/11/25 15:19 Saline Lock Flush IV PUSH PRN PRN Flush Sodium Chloride 20 ml 05/11/25 15:19 Saline Lock Flush IV PUSH PRN PRN after blood draws Radiology Results: ITS Impressions Abdomen/Pelvis CT 05/06/25 08:03 IMPRESSION: 1. Cholelithiasis. Gallbladder distention may be secondary to fasting. 2. Bilateral nonobstructing kidney stones. 3. Mild bilateral hydronephrosis. Left internal ureteral stent in expected position. 4. Foci of free gas in the left perinephric fat, which may be secondary to ureteral perforation. 5. 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 Labs Labs: Laboratory Results - last 24 hr 05/12/25 05:35 WBC 9.6 RBC 3.82 L Hgb 11.3 L Hct 34.5 L MCV 90.3 MCH 29.6 MCHC 32.8 RDW 14.1 Plt Count 412 H MPV 8.8 Sodium 136 L Potassium 4.3 Chloride 105 Carbon Dioxide 25 Anion Gap 6 BUN 16 Creatinine 0.78 Estim Creat Clear Calc 70 Estimated GFR > 60 Glucose 100 Calcium 8.7 Magnesium 2.1
[2025-05-12] MEDS: HYDROcodone/acetaminophen (*CRX) 5-325 MG TABLET 1 TAB PO (10:19)
--- NOTE | 2025-05-12 10:42 | PCNWS ---
Weekly nutritional screen. Patient is tolerating current diet with adequate intake. No weight loss reported. No nutritional needs at this time.
--- NOTE | 2025-05-12 13:00 | P.DS_ITS ---
DS: Admitting Diagnosis Discharge Date 05/12/25 Admitting Diagnosis Altered mental status DS: Discharge Diagnosis Discharge Diagnosis (1) Kidney stone on left side: Code(s): N20.0 - Calculus of kidney Status: Acute (2) Obstruction of left ureteropelvic junction (UPJ) due to stone: Code(s): N20.1 - Calculus of ureter Status: Acute (3) RICARDO (acute kidney injury): Code(s): N17.9 - Acute kidney failure, unspecified Status: Resolved (4) Acute UTI: Code(s): N39.0 - Urinary tract infection, site not specified Status: Acute (5) Ureteral stent present: Code(s): Z96.0 - Presence of urogenital implants Status: Acute (6) Sepsis: Code(s): A41.9 - Sepsis, unspecified organism Status: Acute (7) ESBL (extended spectrum beta-lactamase) producing bacteria infection: Code(s): A49.9 - Bacterial infection, unspecified; Z16.12 - Extended spectrum beta lactamase (ESBL) resistance Status: Acute DS: Summary Hospital Course Reason for hospitalization: 75yo female with depression, anxiety and kidney stones here for fever and altered mental status. Please see H&P for details. Hospital Course: In the ED her blood pressure was low with 85/49. Laboratory workup revealed WBC of 19.7, sodium of 131, Cr 1.5. Lactate was normal. Urinalysis was suggestive of UTI. CT abdomen pelvis was performed which showed small focus of air around the pelvis stent in place. Cultures obtained. Patient received IV fluids and started on IV antibiotics. Urology was consulted. UCx and Blood culture grew ESBL EColi. WBC normalized. Midline placed. RICARDO with creatinine of 1.5 that resolved. The ureteral stent was removed before discharge. She overall did well. She had clinical improvement. She was able to be discharged on 05/12/25. Discharge instructions discussed including medication side effects. All questions answered. Status at Discharge Cognitive/behavioral status at discharge: stable Time Spent with Patient Time attestation: Total time spent providing and/or coordinating discharge services: 39 minutes Time spent: Greater than 30 minutes Exam Narrative: AF 97.7 115/64 64 18 93% ra Gen - NARD Chest - lungs clear anteriorly and in flanks. nml RR CV - RRR S1/S2. Tele showing no significant dysrhythmias Abd - Soft, NT/ND, Positive BS. colostomy in left mid abdomen with formed brown stool in bag Ext - No pedal edema Neuro - Alert and appropriate Psych - Nml mood and affect Skin - Warm and dry DS: Data Data Completed and Pending Labs on day of discharge: Labs from last 24 hours 05/12/25 05:35 WBC 9.6 RBC 3.82 L Hgb 11.3 L Hct 34.5 L MCV 90.3 MCH 29.6 MCHC 32.8 RDW 14.1 Plt Count 412 H MPV 8.8 Sodium 136 L Potassium 4.3 Chloride 105 Carbon Dioxide 25 Anion Gap 6 BUN 16 Creatinine 0.78 Estim Creat Clear Calc 70 Estimated GFR > 60 Glucose 100 Calcium 8.7 Magnesium 2.1 Discharge Plan Discharge Attending physician on discharge: Josiah Birmingham Consulting providers: Ry Ulloa Discharging Clinician: Josiah Birmingham Anticipated Discharge Date/Time: 05/12/25 13:27 Patient Disposition: SNF Activity: as tolerated Diet: heart healthy Discharge Instructions: Start Ertapenem on the evening dose of May 12 and continue through May 15 Okay to remove Midline once antibiotics are complete and if okay with primary provider at the facility The patient is taking both a narcotic and a benzodiazepine. Please have primary provider review medication list to see if this is still appropriate. Take precautions to avoid falls. Rise slowly from a lying or sitting position. Pause before standing or walking. Avoid NSAIDs (ibuprofen, naproxen, Aleve). Tylenol is safe to take. Follow-up with the provider at the facility. Follow-up with urology in 2-4 weeks. Please call for an appointment. Thank you for using [facility] for your health care needs. Patient Language: Uzbek Stand Alone Forms: General Discharge Information Follow-up/Referrals: Sanna,Mars Weldon DO [Primary Care Provider, Unknown] - Call for Appointment Ry Ulloa MD [Physician, Urology] - Call for Appointment Discharge Medications: New ertapenem 1 gram recon soln 1 g IV QPM Rx Instructions: Start on the evening dose of May 12 and continue through May 15 Continued acetaminophen 325 mg Tablet 325 mg PO Q6H primidone 50 mg Tablet 50 mg PO Q12H polyethylene glycol 3350 [Miralax] 17 gram Powder In Packet 17 g PO DAILY meclizine 25 mg tablet 25 mg PO TID PRN (Reason: Dizziness) mirtazapine 15 mg Tablet 15 mg PO HS melatonin 3 mg tablet 5 mg PO HS fluoxetine [Prozac] 10 mg capsule 30 mg PO DAILY midodrine 10 mg PO TID Patient Comments: for low BP albuterol sulfate [Ventolin HFA] 90 mcg/actuation HFA aerosol inhaler 2 puff INHALATION TID PRN (Reason: Shortness Of Breath Or Wheezing) aspirin 81 mg Tablet,Chewable 81 mg PO DAILY Bengay Ultra Strength 4-30-10 % Cream 1 applic topical BID PRN (Reason: Muscle/Joint Pain) Qty: 57 0RF alprazolam 0.5 mg tablet 0.5 mg PO QHS famotidine 20 mg tablet 20 mg PO Q12H fluticasone propionate 50 mcg/actuation spray,suspension 1 spray INTRANASAL Q12H hydroxyzine HCl 25 mg tablet 12.5 mg PO .q12hr omeprazole 20 mg capsule,delayed release(DR/EC) 20 mg PO DAILY docusate sodium [Colace] 100 mg capsule 100 mg PO HS multivitamin [Daily Multi-Vitamin] Tablet 1 tablet PO DAILY simethicone [Gas Relief (simethicone)] 80 mg tablet,chewable 80 mg PO BID Rx Instructions: after meals lidocaine [Lidocaine Pain Relief] 4 % adhesive patch,medicated 1 patch topical DAILY PRN (Reason: pain) diclofenac sodium [Arthritis Pain (diclofenac)] 1 % gel 2 g topical QID Rx Instructions: apply to single elbow, wrist or hand; for hand includes palm/fingers/back of hand Lubricant Eye (PG-PEG 400)(PF) 0.4-0.3 % dropperette 1 drp EACH EYE Q12H furosemide 20 mg Tablet 20 mg PO BID Qty: 60 0RF potassium chloride [K-Tab] 20 mEq tablet extended release 20 meq PO BID Qty: 60 0RF ipratropium-albuterol 0.5 mg-3 mg(2.5 mg base)/3 mL solution for nebulization 3 ml inhalation Q6HRT PRN (Reason: Shortness Of Breath) Qty: 30 0RF hydrocodone-acetaminophen 5-325 mg tablet 1 tablet PO BID PRN (Reason: pain) Qty: 6 0RF sennosides-docusate sodium [Senna Plus] 8.6-50 mg tablet 1 tab-cap PO BID ondansetron 4 mg tablet,disintegrating 4 mg PO Q8H PRN (Reason: nausea) albuterol 90 mcg/actuation aerosol 90 mcg inhalation Q6H PRN (Reason: wheezing) Patient Comments: 2 puffs as needed Q6 loratadine [Allergy Relief (loratadine)] 10 mg tablet 10 mg PO DAILY loperamide [Anti-Diarrheal (loperamide)] 2 mg capsule 2 mg PO Q6H PRN (Reason: loose stool) Discontinued levofloxacin 500 mg tablet 500 mg PO DAILY Patient Comments: for 7 days Date of admission: 05/06/25 10:28 Primary Care Provider: MechelleMars Admitting Provider: Suyapa Roberto Attending physician on admission: Suyapa Roberto Condition: Stable Hospitalist MIPS Heart Failure (Exclusion) Patient has history of Heart Transplant or Left Ventricular Assistive Device?: No IF YES, STOP HERE Heart Failure (Qualifier) Patient has current or prior documentation of LVEF less than or equal to 40%, or mod/servere depressed LVSF?: No IF NO, STOP HERE
[2025-05-12] MEDS: ERTAPENEM SODIUM 1 GM in SODIUM CHLORIDE 0.9% IV 50 ML 100 ML IVPB (16:37)
[2025-05-12] MEDS: MIDODRINE HCL 2.5 MG TABLET 10 MG PO (16:41)
[2025-05-12] MEDS: POTASSIUM CHLORIDE 20 MEQ ER TABLET PO (16:41)
[2025-05-12] MEDS: FUROSEMIDE 20 MG TABLET PO (16:41)
--- NOTE | 2025-05-18 06:38 | PC.NURSE ---
Blood cx show no growth. Dr. Valencia bean.
== END 2025-05-12 17:35 | DRG 862 ==
LOC: ANHED 05-06 03:33 → ANH3MEDSUR 05-06 04:31 → ANH3MED 05-06 15:13
PROVIDERS: Admitting Provider Family Medicine; Emergency Provider Emergency Medicine; PCP Internal Medicine; Visit Provider Internal Medicine
DX: T81.44XA Sepsis following a procedure, initial encounter (principal); A41.51 Sepsis due to Escherichia coli [E. coli]; N39.0 Urinary tract infection, site not specified; N17.9 Acute kidney failure, unspecified; Z16.12 Extended spectrum beta lactamase (ESBL) resistance; B96.20 Unspecified Escherichia coli [E. coli] as the cause of diseases classified elsewhere; E66.01 Morbid (severe) obesity due to excess calories; F41.9 Anxiety disorder, unspecified; F32.A Depression, unspecified; F17.210 Nicotine dependence, cigarettes, uncomplicated; Z96.0 Presence of urogenital implants; Z79.82 Long term (current) use of aspirin; Z79.51 Long term (current) use of inhaled steroids; Z93.3 Colostomy status; Z86.19 Personal history of other infectious and parasitic diseases; Z79.891 Long term (current) use of opiate analgesic; Z87.442 Personal history of urinary calculi; Z68.32 Body mass index [BMI] 32.0-32.9, adult
CPT/HCPCS: 36410; 36415; 74176; 80048; 80053; 81001; 83605; 83735; 84145; 84484; 85025; 85027; 85610; 85730; 87040; 87086; 87186; 93005; 94640; 96365; 99285; A9270; C1751; G0378; J0696; J1335; J2003; J2185; J3010; J7030